=== PATIENT | male | born 1985 | race Caucasian/White ===

== ENCOUNTER 2017-10-26 20:09 | Emergency (ER) | payer MEDICAID ==
[~2017-10-26] VITALS: Ht 177.8 cm; Wt 70.0 kg
[~2017-10-26 20:09] MED LIST: NO HOME MEDS
[2017-10-26] MEDS ORDERED: normal saline 1000ML IV soln IVB ONE (22:45)
[2017-10-26] MEDS ORDERED: CHLO25CA10 PO (23:52)
[2017-10-27 00:42] VITALS: BP 112/78
== END 2017-10-27 00:43 | disposition home or self-care (01) ==
LOC: ER 20:09
DX: F10.239 Alcohol dependence with withdrawal, unspecified (principal); I10 Essential (primary) hypertension; G89.29 Other chronic pain; F17.210 Nicotine dependence, cigarettes, uncomplicated; F12.10 Cannabis abuse, uncomplicated; F14.10 Cocaine abuse, uncomplicated; Z79.899 Other long term (current) drug therapy; Y90.9 Presence of alcohol in blood, level not specified
CPT/HCPCS: 93005; 99283; J7030

== ENCOUNTER 2017-11-08 12:52 | Emergency (ER) | payer MEDICAID ==
[~2017-11-08 12:52] MED LIST changes: +CHLO25CA10 PO
[2017-11-08 13:41] VITALS: BP 118/89
== END 2017-11-08 14:01 ==
LOC: ER 12:53
DX: F10.129 Alcohol abuse with intoxication, unspecified (principal); G40.909 Epilepsy, unspecified, not intractable, without status epilepticus; I10 Essential (primary) hypertension; G89.29 Other chronic pain; F12.10 Cannabis abuse, uncomplicated; F14.10 Cocaine abuse, uncomplicated; Z79.899 Other long term (current) drug therapy; Y90.9 Presence of alcohol in blood, level not specified
CPT/HCPCS: 70450; 99284

== ENCOUNTER 2017-12-03 14:13 | Emergency (ER) | payer MEDICAID ==
[~2017-12-03] VITALS: Ht 152.4 cm; Wt 70.5 kg
[2017-12-03 14:22] VITALS: BP 119/80
[2017-12-03] MEDS ORDERED: TETanus/Pertussis (Acell)/Diphther VAC/PF (Tdap-Adult) 0.5ml syringe IM ONE (15:15)
[2017-12-03] MEDS ORDERED: LIDOcaine 1.5% w/epinephrine 1:200,000 5ml ampul IJ ONE (15:15)
[2017-12-03] MEDS ORDERED: HYDROcodone/acetaminophen 5mg/325mg tablet PO ONE (15:40)
[2017-12-03] MEDS ORDERED: SULF1TAB49 PO (15:41)
== END 2017-12-03 15:58 | disposition home or self-care (01) ==
LOC: ER 14:14
DX: L02.11 Cutaneous abscess of neck (principal); F12.90 Cannabis use, unspecified, uncomplicated; F14.90 Cocaine use, unspecified, uncomplicated; G89.29 Other chronic pain; I10 Essential (primary) hypertension; Z79.899 Other long term (current) drug therapy
CPT/HCPCS: 10060; 90471; 90715; 99283; A6449; J3490

== ENCOUNTER 2018-01-05 16:14 | Inpatient (IN) | payer MEDICAID ==
[~2018-01-05] VITALS: Ht 175.3 cm; Wt 70.5 kg
[2018-01-05] MEDS ORDERED: thiamine 100mg/ml 2ml inj. IV ONE ×2 (16:25→21:15)
[2018-01-05] MEDS ORDERED: normal saline 1000ML IV soln IVB ONE (16:25)
[2018-01-05] MEDS ORDERED: ondansetron/PF 4mg/2ml inj IV ONE (16:55)
[2018-01-05 16:57] LABS: BASOPHILS # (AUTO) 0.1 X10'3 (0-0.2); EOSINOPHILS % (AUTO) 0 % (0-6); HEMATOCRIT 44.2 % (42.0-52.0); HEMOGLOBIN 15.3 g/dl (14.0-17.9); LYMPHOCYTES # (AUTO) 1.4 X10'3 (1.1-4.8); LYMPHOCYTES % (AUTO) 12.8 % (21-51); MEAN CORPUSCULAR HGB CONC 34.6 % (33.0-36.5); MEAN PLATELET VOLUME 8.2 FL (7.4-10.4); MONOCYTES # (AUTO) 0.4 X10'3 (0-0.9); MONOCYTES % (AUTO) 3.5 % (2-12); NEUTROPHILS # (AUTO) 9.1 X10'3 (1.8-7.7); NEUTROPHILS % (AUTO) 82.7 % (42-75); PLATELET COUNT 229 X10'3 (140-440); RED CELL DISTRIBUTION WIDTH 14.6 % (11.5-14.5)
[2018-01-05 17:06] LABS: INR 1.1 INR; PARTIAL THROMBOPLASTIN TIME 23 SECONDS (22-32); PROTHROMBIN TIME 11.3 SECONDS (9.0-12.0)
[2018-01-05 17:24] LABS: ALANINE AMINOTRANSFERASE 28 U/L (12-78); ALBUMIN 3.5 G/DL (3.4-5.0); ALKALINE PHOSPHATASE 106 IU/L (46-116); ANION GAP 30 (8-16); ASPARTATE AMINO TRANSFERASE 43 U/L (10-37); BILIRUBIN,TOTAL 0.8 MG/DL (0.1-1.0); BLOOD UREA NITROGEN 16 MG/DL (7-18); BUN/CREATININE RATIO 13.9 (5.4-32.0); CALCIUM 8.4 MG/DL (8.5-10.1); CHLORIDE 96 MMOL/L (99-107); CREATININE 1.15 MG/DL (0.60-1.10); ETHANOL 0.298 GM/DL (0.0-0.010); GLUCOSE 75 MG/DL (70-104); MAGNESIUM 1.4 MG/DL (1.5-2.4); SODIUM 139 MMOL/L (135-145); TOTAL PROTEIN 7.1 G/DL (6.4-8.2); eGFR 74 ML/MIN
[2018-01-05 17:26] LABS: POTASSIUM 3.5 MMOL/L (3.5-5.1)
[2018-01-05 17:29] LABS: TOTAL CARBON DIOXIDE 13.5 MMOL/L (24-32)
[2018-01-05] MEDS ORDERED: iohexol 300mg/ml 100ml inj. ONE (18:03)
[2018-01-05] MEDS: normal saline 1000ML IV soln IVB ONE ×2 (18:08→18:27)
[2018-01-05 18:21] LABS: ABG HCO3 12.5 mmol/L (22.0-26.0); ABG OXYGEN SATURATION 97.4 % (95-98); ABG PCO2 (T) 20.9 mmHg (35.0-48.0); ABG PH (T) 7.394 (7.350-7.450); ABG PO2 (T) 110.9 mmHg (83-108); ALLEN'S TEST Positive; FCOHb 0.3 % (0.5-1.5); FMetHb 0.4 % (0.3-1.12); FO2Hb 96.7 % (94-100); TOTAL HEMOGLOBIN 14.3 G/dl (14.0-18.0)
[2018-01-05] MEDS ORDERED: proCHLORperazine 10 MG/2 ml inj IV ONE (18:35)
[2018-01-05] MEDS ORDERED: famotidine/PF 10 mg/ml inj IV ONE (18:35)
[2018-01-05] MEDS ORDERED: pantoprazole 40 MG vial IV ONE (18:35)
[2018-01-05 20:22] LABS: CLARITY,URINE CLEAR (Clear); COLOR,URINE YELLOW (Yellow); GLUCOSE, URINE NEGATIVE (Neg); KETONES,URINE >=80 mg/dl (Neg); LEUKOCYTE ESTERASE ,URINE NEGATIVE (Neg); NITRITES, URINE NEGATIVE (Neg); OCCULT BLOOD,URINE NEGATIVE (Neg); PROTEIN,URINE TRACE mg/dl (Neg); UROBILINOGEN,URINE 0.2 E.U/dL (0.2-1.0)
[2018-01-05 20:25] LABS: UA COLLECTION TYPE CLN CATCH MIDSTREAM
[2018-01-05 20:30] LABS: BACTERIA,URINE NONE SEEN /HPF (Neg); MUCUS STRANDS FEW /LPF (Neg); RBC,URINE NONE SEEN /HPF (0-2); SQUAMOUS EPITHELIAL CELL,UR FEW /LPF (FEW); WBC,URINE 0-4 /HPF (0-4)
[2018-01-05 20:31] LABS: URINE AMPHETAMINE SCREEN NEGATIVE (Neg); URINE BARBITUATE SCREEN NEGATIVE (Neg); URINE BENZODIAZEPINES SCREEN NEGATIVE (Neg); URINE CANNABINOID SCREEN NEGATIVE (Neg); URINE COCAINE SCREEN NEGATIVE (Neg); URINE METHADONE SCREEN NEGATIVE (Neg); URINE OPIATE SCREEN NEGATIVE (Neg); URINE PHENCYCLIDINE SCREEN NEGATIVE (Neg)
[2018-01-05] MEDS ORDERED: temazepam 15mg capsule PO PRN (21:00)
[2018-01-05] MEDS ORDERED: HYDROcodone/acetaminophen 5mg/325mg tablet PO PRN (21:15)
[2018-01-05] MEDS ORDERED: potassium Cl 20 mEq SR tablet PO PRN ×2 (21:15)
[2018-01-05] MEDS ORDERED: diphenhydrAMINE 25mg capsule PO PRN (21:15)
[2018-01-05] MEDS ORDERED: potassium Cl 40MEQ/NS 500ml 500 ML IV PRN (21:15)
[2018-01-05] MEDS ORDERED: magnesium Cl slow-release 64mg tablet PO PRN (21:15)
[2018-01-05] MEDS ORDERED: LORazepam 2 mg/ml vial IV PRN (21:15)
[2018-01-05] MEDS ORDERED: magnesium 1gm/100ml D5W IVPB 50 ML IV PRN (21:15)
[2018-01-05] MEDS ORDERED: acetaminophen 325mg tablet PO PRN ×2 (21:15)
[2018-01-05] MEDS ORDERED: HYDROmorphone 1 mg/ml syringe IV PRN (21:15)
[2018-01-05] MEDS ORDERED: metoclopramide 5 mg/ml inj IV PRN (21:15)
[2018-01-05] MEDS ORDERED: mag hydrox/Alum hydrox/simeth 30ml oral suspension PO PRN (21:15)
[2018-01-05] MEDS ORDERED: bisacodyl 10mg suppository rectal RC PRN (21:15)
[2018-01-05] MEDS ORDERED: haloperidol lactate 5mg/ml inj IM PRN (21:15)
[2018-01-05] MEDS ORDERED: haloperidol 5mg tablet PO PRN (21:15)
[2018-01-05] MEDS ORDERED: morphine 4 MG/ML inj SYRINge IV PRN ×2 (21:15)
[2018-01-05] MEDS ORDERED: acetaminophen 650mg rectal suppository RC PRN (21:15)
[2018-01-05] MEDS ORDERED: dextrose 50%-water 50ml dispensing syringe IV PRN (21:15)
[2018-01-05] MEDS ORDERED: diphenhydrAMINE 50 mg/ml inj IV PRN (21:15)
[2018-01-05] MEDS ORDERED: LORazepam 2 mg/ml vial IV ONE (21:15)
[2018-01-05] MEDS ORDERED: magnesium hydroxide 30ml (MOM) UD suspension PO PRN (21:15)
[2018-01-05] MEDS ORDERED: HYDROcodone/acetaminophen 10/325mg tab PO PRN (21:15)
[2018-01-05] MEDS ORDERED: sodium phosphate inj. 30 MMOL in dextrose 5%-water 250 ML IV PRN (21:25)
[2018-01-05] MEDS ORDERED: Neutra Phos packet PO PRN (21:25)
[2018-01-05] MEDS ORDERED: sodium phosphate inj. 15 MMOL in dextrose 5%-water 150 ML IV PRN (21:25)
[2018-01-05] MEDS: dextrose 5%-1/2 normal saline 1,000 ML IV SCH (21:31)
[2018-01-05 22:06] LABS: LIPASE 76 U/L (73-393)
[2018-01-05 22:25] VITALS: BP 125/81
[2018-01-06] MEDS ORDERED: potassium Cl 40MEQ/NS 500ml 500 ML IV ONE ×2 (00:30→00:41)
[2018-01-06] MEDS: magnesium 4gm in 100ml NS 100 ML IV PRN (01:00)
[2018-01-06 05:43] LABS: ALANINE AMINOTRANSFERASE 29 U/L (12-78); ALBUMIN 2.9 G/DL (3.4-5.0); ALKALINE PHOSPHATASE 84 IU/L (46-116); ANION GAP 10 (8-16); ASPARTATE AMINO TRANSFERASE 35 U/L (10-37); BILIRUBIN,TOTAL 1.1 MG/DL (0.1-1.0); BLOOD UREA NITROGEN 8 MG/DL (7-18); BUN/CREATININE RATIO 8.6 (5.4-32.0); CALCIUM 7.4 MG/DL (8.5-10.1); CHLORIDE 104 MMOL/L (99-107); CREATININE 0.93 MG/DL (0.60-1.10); GLUCOSE 79 MG/DL (70-104); POTASSIUM 3.4 MMOL/L (3.5-5.1); SODIUM 140 MMOL/L (135-145); TOTAL CARBON DIOXIDE 26.4 MMOL/L (24-32); TOTAL PROTEIN 5.8 G/DL (6.4-8.2); eGFR > 90 ML/MIN
[2018-01-06 05:47] LABS: MAGNESIUM 2.5 MG/DL (1.5-2.4)
[2018-01-06] MEDS ORDERED: dextrose 50%-water 50ml dispensing syringe IV PRN (06:45)
[2018-01-06 06:58] LABS: HEMOGLOBIN 13.3 g/dl (14.0-17.9); RED BLOOD COUNT 3.91 X10'6 (4.70-6.10); WHITE BLOOD COUNT 9.4 X10'3 (4.5-11.0)
[2018-01-06 06:59] LABS: BASOPHILS # (AUTO) 0.1 X10'3 (0-0.2); BASOPHILS % (AUTO) 0.9 % (0-1); EOSINOPHILS % (AUTO) 0.2 % (0-6); HEMATOCRIT 38.9 % (42.0-52.0); LYMPHOCYTES % (AUTO) 10.2 % (21-51); MEAN CORPUSCULAR HEMOGLOBIN 33.9 PG (27.0-31.0); MEAN CORPUSCULAR HGB CONC 34.1 % (33.0-36.5); MEAN CORPUSCULAR VOLUME 99.5 FL (78-98); MEAN PLATELET VOLUME 8.1 FL (7.4-10.4); MONOCYTES # (AUTO) 0.4 X10'3 (0-0.9); MONOCYTES % (AUTO) 4.4 % (2-12); NEUTROPHILS % (AUTO) 84.3 % (42-75); PLATELET COUNT 168 X10'3 (140-440); RED CELL DISTRIBUTION WIDTH 14.5 % (11.5-14.5)
[2018-01-06 07:00] VITALS: BP 133/98
[2018-01-06] MEDS: dextrose 5%-1/2 normal saline 1,000 ML IV SCH ×2 (07:14→15:08)
[2018-01-06] MEDS: pantoprazole 40 MG vial IV SCH ×2 (07:28→19:57)
[2018-01-06] MEDS: docusate sod 100mg capsule PO SCH ×3 (07:28→20:00)
[2018-01-06] MEDS: heparin, porcine 5000 units/ml vial SQ SCH ×2 (07:34→19:57)
[2018-01-06] MEDS: K and/or MAG REPLACEMENT MC SCH (07:42)
[2018-01-06] MEDS: ondansetron/PF 4mg/2ml inj IV PRN ×2 (08:47→20:07)
[2018-01-06] MEDS: HYDROmorphone 1 mg/ml syringe IV PRN ×2 (08:53→15:07)
[2018-01-06 12:05] VITALS: BP 130/93
[2018-01-06] MEDS ORDERED: folic acid inj. 2 MG, thiamine inj. 100 MG, MVI, adult No.4 with vit. K 10 ML in dextro... IV ONE ×4 (12:45)
[2018-01-06] MEDS ORDERED: LORazepam 2 mg/ml vial IV PRN (12:45)
[2018-01-06] MEDS ORDERED: thiamine inj. 100 MG in normal saline 100ml IV soln 100 ML IV ONE (12:45)
[2018-01-06] MEDS: nicotine 21mg patch - 24 hr TD SCH (12:45)
[2018-01-06] MEDS ORDERED: haloperidol lactate 5mg/ml inj IM PRN (12:45)
[2018-01-06 19:00] VITALS: BP 125/80
[2018-01-06] MEDS: LORazepam 2 mg/ml vial IV PRN (23:44)
[2018-01-07] VITALS: BP 141/97
[2018-01-07] MEDS: dextrose 5%-1/2 normal saline 1,000 ML IV SCH ×2 (04:43→15:16)
[2018-01-07 05:17] LABS: BASOPHILS % (AUTO) 0.2 % (0-1); EOSINOPHILS # (AUTO) 0.1 X10'3 (0-0.9); EOSINOPHILS % (AUTO) 1.8 % (0-6); HEMATOCRIT 45.9 % (42.0-52.0); HEMOGLOBIN 15.6 g/dl (14.0-17.9); LYMPHOCYTES # (AUTO) 1.1 X10'3 (1.1-4.8); LYMPHOCYTES % (AUTO) 16.6 % (21-51); MEAN PLATELET VOLUME 9.1 FL (7.4-10.4); MONOCYTES # (AUTO) 0.3 X10'3 (0-0.9); NEUTROPHILS # (AUTO) 4.9 X10'3 (1.8-7.7); NEUTROPHILS % (AUTO) 76.4 % (42-75); PLATELET COUNT 126 X10'3 (140-440); RED BLOOD COUNT 4.59 X10'6 (4.70-6.10); RED CELL DISTRIBUTION WIDTH 14.3 % (11.5-14.5); WHITE BLOOD COUNT 6.4 X10'3 (4.5-11.0)
[2018-01-07 06:36] LABS: INR 1.1 INR; PROTHROMBIN TIME 11.6 SECONDS (9.0-12.0)
[2018-01-07 06:46] LABS: ALANINE AMINOTRANSFERASE 31 U/L (12-78); ALBUMIN 3.2 G/DL (3.4-5.0); ALKALINE PHOSPHATASE 97 IU/L (46-116); AMYLASE 79 U/L (25-115); ANION GAP 10 (8-16); ASPARTATE AMINO TRANSFERASE 30 U/L (10-37); BILIRUBIN,TOTAL 1.6 MG/DL (0.1-1.0); BLOOD UREA NITROGEN 4 MG/DL (7-18); BUN/CREATININE RATIO 5.1 (5.4-32.0); CALCIUM 8.2 MG/DL (8.5-10.1); CHLORIDE 96 MMOL/L (99-107); CREATININE 0.78 MG/DL (0.60-1.10); GLUCOSE 93 MG/DL (70-104); LIPASE 290 U/L (73-393); MAGNESIUM 1.3 MG/DL (1.5-2.4); PHOSPHORUS 2.3 MG/DL (2.3-4.5); SODIUM 134 MMOL/L (135-145); TOTAL CARBON DIOXIDE 27.6 MMOL/L (24-32); TOTAL PROTEIN 6.5 G/DL (6.4-8.2); eGFR > 90 ML/MIN
[2018-01-07 06:51] LABS: POTASSIUM 2.9 MMOL/L (3.5-5.1)
[2018-01-07] MEDS: potassium Cl 40MEQ/NS 500ml 500 ML IV PRN ×2 (07:50→12:16)
[2018-01-07] MEDS: pantoprazole 40 MG vial IV SCH (07:52)
[2018-01-07] MEDS: heparin, porcine 5000 units/ml vial SQ SCH ×2 (07:52→19:48)
[2018-01-07] MEDS: HYDROmorphone 1 mg/ml syringe IV PRN (07:52)
[2018-01-07] MEDS: docusate sod 100mg capsule PO SCH ×3 (07:53→19:53)
[2018-01-07 08:00] VITALS: BP 131/92
[2018-01-07] MEDS ORDERED: thiamine 100mg tablet PO SCH (08:00)
[2018-01-07] MEDS ORDERED: folic acid 1mg tablet PO SCH (08:00)
[2018-01-07] MEDS: nicotine 21mg patch - 24 hr TD SCH (08:00)
[2018-01-07] MEDS ORDERED: multivitamins, therapeutics tablet PO SCH (08:00)
[2018-01-07] MEDS: K and/or MAG REPLACEMENT MC SCH (08:00)
[2018-01-07 11:47] VITALS: BP 103/78
[2018-01-07] MEDS: LORazepam 2 mg/ml vial IV PRN ×4 (15:16→20:09)
[2018-01-07 19:00] VITALS: BP 108/76
[2018-01-07] MEDS ORDERED: pantoprazole 40mg Tablet.DR PO SCH (20:00)
[2018-01-07] MEDS: magnesium 4gm in 100ml NS 100 ML IV PRN (20:08)
[2018-01-07] MEDS ORDERED: LORazepam 2 mg/ml vial IV PRN (21:15)
[2018-01-07] MEDS ORDERED: LORazepam 1 MG tablet PO PRN (21:15)
[2018-01-09] MEDS ORDERED: LORazepam 1 MG tablet PO PRN (21:15)
[2018-01-09] MEDS ORDERED: LORazepam 2 mg/ml vial IV PRN (21:15)
== END 2018-01-07 21:47 | disposition left against medical advice (07) | DRG 249 ==
LOC: ER 16:15 → ED HOLD 21:14 → SUR 3N 22:20
PROVIDERS: ADMIT Family Medicine; ATTEND Internal Medicine
PROC: B32T1ZZ Computerized Tomography (CT Scan) of Left Pulmonary Artery using Low Osmolar Contrast (ICD-10-PCS; principal; 2018-01-05)
PROC: B3201ZZ Computerized Tomography (CT Scan) of Thoracic Aorta using Low Osmolar Contrast (ICD-10-PCS; 2018-01-05)
PROC: B32S1ZZ Computerized Tomography (CT Scan) of Right Pulmonary Artery using Low Osmolar Contrast (ICD-10-PCS; 2018-01-05)
DX: K52.9 Noninfective gastroenteritis and colitis, unspecified (principal); E87.2 Acidosis; K70.10 Alcoholic hepatitis without ascites; E83.39 Other disorders of phosphorus metabolism; E86.0 Dehydration; E83.42 Hypomagnesemia; E86.1 Hypovolemia; F10.229 Alcohol dependence with intoxication, unspecified; F12.90 Cannabis use, unspecified, uncomplicated; F17.210 Nicotine dependence, cigarettes, uncomplicated; G40.909 Epilepsy, unspecified, not intractable, without status epilepticus; I10 Essential (primary) hypertension; Z53.21 Procedure and treatment not carried out due to patient leaving prior to being seen by health care provider; K21.9 Gastro-esophageal reflux disease without esophagitis; K31.9 Disease of stomach and duodenum, unspecified; E87.6 Hypokalemia; G89.29 Other chronic pain; M54.9 Dorsalgia, unspecified; Z79.899 Other long term (current) drug therapy
CPT/HCPCS: 36415; 36600; 71045; 71275; 74176; 80053; 80305; 80320; 81001; 82150; 82803; 82948; 83605; 83690; 83735; 83880; 84100; 84132; 84145; 84484; 85018; 85025; 85610; 85730; 87040; 87070; 96361; 96374; 96375; 99285; C9113; J0780; J1170; J1644; J2060; J2405; J3411; J3475; J3480; J3490; J7030; J7042; J7060; Q9967

== ENCOUNTER 2018-01-30 08:59 | Emergency (ER) | payer MEDICAID ==
[~2018-01-30] VITALS: Ht 419.4 cm; Wt 63.0 kg
[~2018-01-30 08:59] MED LIST changes: -CHLO25CA10 PO
[2018-01-30] MEDS ORDERED: LIDOcaine 1.5% w/epinephrine 1:200,000 5ml ampul IJ ONE (09:30)
[2018-01-30] MEDS ORDERED: SULF1TAB49 PO (11:15)
[2018-01-30 11:32] VITALS: BP 114/76
== END 2018-01-30 11:36 | disposition home or self-care (01) ==
LOC: ER 08:59
DX: N49.2 Inflammatory disorders of scrotum (principal); I10 Essential (primary) hypertension; G89.29 Other chronic pain; F12.90 Cannabis use, unspecified, uncomplicated; F14.90 Cocaine use, unspecified, uncomplicated; Z79.2 Long term (current) use of antibiotics
CPT/HCPCS: 54700; 99283; A6449; J3490

== ENCOUNTER → 2018-04-21 | Emergency (ER) | payer MEDICAID ==
[~2018-04-21] VITALS: Ht 175.3 cm; Wt 73.0 kg
[~2018-04-21] MED LIST changes: +KEP500T PO; +LORazepam 2 mg/ml vial IV ONE; +folic acid 1mg/0.2ml inj IV ONE; +levetiracetam inj 1,000 MG in normal saline 100ml IV soln 90 ML IV STA; +magnesium 1gm/100ml D5W IVPB 100 ML IV ONE; +normal saline 1000ML IV soln IV ONE; +ondansetron/PF 4mg/2ml inj IV ONE; +thiamine 100mg/ml 2ml inj. IV ONE
[2018-04-21 09:52] LABS: BASOPHILS % (AUTO) 0.3 % (0-1); EOSINOPHILS % (AUTO) 0 % (0-6); HEMATOCRIT 48.9 % (42.0-52.0); HEMOGLOBIN 16.5 g/dl (14.0-17.9); LYMPHOCYTES # (AUTO) 0.6 X10'3 (1.1-4.8); LYMPHOCYTES % (AUTO) 4.9 % (21-51); MEAN CORPUSCULAR HEMOGLOBIN 33.4 PG (27.0-31.0); MEAN CORPUSCULAR HGB CONC 33.7 % (33.0-36.5); MEAN PLATELET VOLUME 8.4 FL (7.4-10.4); MONOCYTES # (AUTO) 0.5 X10'3 (0-0.9); MONOCYTES % (AUTO) 4.2 % (2-12); NEUTROPHILS # (AUTO) 10.7 X10'3 (1.8-7.7); NEUTROPHILS % (AUTO) 90.6 % (42-75); PLATELET COUNT 269 X10'3 (140-440); RED BLOOD COUNT 4.94 X10'6 (4.70-6.10); RED CELL DISTRIBUTION WIDTH 15.1 % (11.5-14.5); WHITE BLOOD COUNT 11.8 X10'3 (4.5-11.0)
[2018-04-21 11:09] LABS: ANION GAP 36 (8-16); CHLORIDE 96 MMOL/L (99-107); POTASSIUM 4.3 MMOL/L (3.5-5.1); SODIUM 142 MMOL/L (135-145)
[2018-04-21 11:24] LABS: ALANINE AMINOTRANSFERASE 29 U/L (12-78); ALBUMIN/GLOBULIN RATIO 1.1 (1.1-1.5); ALKALINE PHOSPHATASE 109 IU/L (46-116); ASPARTATE AMINO TRANSFERASE 35 U/L (10-37); BILIRUBIN,TOTAL 0.4 MG/DL (0.1-1.0); BLOOD UREA NITROGEN 22 MG/DL (7-18); BUN/CREATININE RATIO 16.1 (5.4-32.0); CALCIUM 7.7 MG/DL (8.5-10.1); CREATINE KINASE 118 U/L (39-308); CREATININE 1.37 MG/DL (0.60-1.10); ETHANOL 0.191 GM/DL (0.0-0.010); GLUCOSE 108 MG/DL (70-104); TOTAL PROTEIN 7.7 G/DL (6.4-8.2); eGFR 61 ML/MIN
[2018-04-21 11:28] LABS: TOTAL CARBON DIOXIDE 9.7 MMOL/L (24-32)
[2018-04-21 12:35] VITALS: BP 132/88
== END | disposition home or self-care (01) ==
LOC: ER 09:32
DX: E86.0 Dehydration (principal); F10.129 Alcohol abuse with intoxication, unspecified; R56.9 Unspecified convulsions; F12.90 Cannabis use, unspecified, uncomplicated; I10 Essential (primary) hypertension; G89.29 Other chronic pain; Y90.9 Presence of alcohol in blood, level not specified
CPT/HCPCS: 36415; 80053; 80320; 82550; 82948; 85025; 93005; 96365; 96368; 96375; 99285; J1953; J2060; J2405; J3411; J3490; 96366; J7030

== ENCOUNTER 2018-08-17 08:46 | Emergency (ER) | payer MEDICAID ==
[~2018-08-17] VITALS: Ht 175.3 cm; Wt 64.0 kg
[~2018-08-17 08:46] MED LIST changes: -LORazepam 2 mg/ml vial IV ONE; -folic acid 1mg/0.2ml inj IV ONE; -levetiracetam inj 1,000 MG in normal saline 100ml IV soln 90 ML IV STA; -magnesium 1gm/100ml D5W IVPB 100 ML IV ONE; -normal saline 1000ML IV soln IV ONE; -ondansetron/PF 4mg/2ml inj IV ONE; -thiamine 100mg/ml 2ml inj. IV ONE
[2018-08-17] MEDS ORDERED: normal saline 1000ML IV soln IVB ONE (09:10)
[2018-08-17] MEDS ORDERED: ondansetron/PF 4mg/2ml inj IV ONE (09:55)
[2018-08-17 10:07] LABS: BASOPHILS % (AUTO) 0.3 % (0-1); EOSINOPHILS % (AUTO) 0 % (0-6); HEMATOCRIT 52.2 % (42.0-52.0); HEMOGLOBIN 17.6 g/dl (14.0-17.9); LYMPHOCYTES # (AUTO) 0.6 X10'3 (1.1-4.8); LYMPHOCYTES % (AUTO) 5.8 % (21-51); MEAN CORPUSCULAR HEMOGLOBIN 32.8 PG (27.0-31.0); MEAN CORPUSCULAR HGB CONC 33.7 g/dL (33.0-36.5); MEAN CORPUSCULAR VOLUME 97.3 FL (78-98); MEAN PLATELET VOLUME 8.6 FL (7.4-10.4); MONOCYTES # (AUTO) 0.5 X10'3 (0-0.9); MONOCYTES % (AUTO) 4.3 % (2-12); NEUTROPHILS # (AUTO) 9.4 X10'3 (1.8-7.7); NEUTROPHILS % (AUTO) 89.6 % (42-75); PLATELET COUNT 220 X10'3 (140-440); RED BLOOD COUNT 5.36 X10'6 (4.70-6.10); RED CELL DISTRIBUTION WIDTH 16.3 % (11.5-14.5); WHITE BLOOD COUNT 10.5 X10'3 (4.5-11.0)
[2018-08-17] MEDS ORDERED: proCHLORperazine 10 MG/2 ml inj IV ONE (11:25)
[2018-08-17] MEDS ORDERED: LORazepam 2 mg/ml vial IV ONE (12:00)
--- NOTE | 2018-08-17 12:11 | NUR ---
inti dcd pt, pt states last time this happened he had a sez aprox 2hrs after dc. Dr pineda notified verbal order for Ativan 1.5mg. pt received med and taxi called @ 1203 by Quin[place] to take pt to [address] [place] [address]
[2018-08-17 12:12] LABS: ALANINE AMINOTRANSFERASE 43 U/L (12-78); ALBUMIN 4.1 G/DL (3.4-5.0); ALKALINE PHOSPHATASE 140 IU/L (46-116); ANION GAP 36 (8-16); ASPARTATE AMINO TRANSFERASE 74 U/L (10-37); BILIRUBIN,TOTAL 0.5 MG/DL (0.1-1.0); BLOOD UREA NITROGEN 24 MG/DL (7-18); BUN/CREATININE RATIO 18.9 (5.4-32.0); CALCIUM 9.1 MG/DL (8.5-10.1); CHLORIDE 93 MMOL/L (99-107); CREATININE 1.27 MG/DL (0.60-1.10); ETHANOL 0.316 GM/DL (0.0-0.010); GLUCOSE 93 MG/DL (70-104); POTASSIUM 4.5 MMOL/L (3.5-5.1); SODIUM 141 MMOL/L (135-145); TOTAL PROTEIN 8.4 G/DL (6.4-8.2); eGFR 66 ML/MIN
[2018-08-17 12:13] LABS: TOTAL CARBON DIOXIDE 11.9 MMOL/L (24-32)
--- NOTE | 2018-08-17 12:14 | NUR ---
CALL PLACED TO [facility] FOR PT TO GO TO HOME. CAB WILL BE HERE SHORTLY.
[2018-08-17 12:33] VITALS: BP 129/80
== END 2018-08-17 12:34 | disposition home or self-care (01) ==
LOC: ER 08:46
DX: F10.239 Alcohol dependence with withdrawal, unspecified (principal); F10.229 Alcohol dependence with intoxication, unspecified; I10 Essential (primary) hypertension; G89.29 Other chronic pain; F12.90 Cannabis use, unspecified, uncomplicated; Y90.9 Presence of alcohol in blood, level not specified; Z79.899 Other long term (current) drug therapy
CPT/HCPCS: 36415; 71045; 80053; 80320; 85025; 96374; 96375; 99284; J0780; J2060; J2405; J7030

== ENCOUNTER 2018-10-16 18:04 | Inpatient (IN) | payer MEDICAID | END 2018-10-17 16:00 | disposition home or self-care (01) | LOC: ER 18:04 → ORTHO 4S 10-17 02:05 ==

== ENCOUNTER 2018-11-26 17:51 | Emergency (ER) | payer MEDICAID ==
[~2018-11-26] VITALS: Ht 175.3 cm; Wt 68.2 kg
[~2018-11-26 17:51] MED LIST changes: -NO HOME MEDS
[2018-11-26 17:56] VITALS: BP 142/88
[2018-11-26] MEDS ORDERED: LIDOcaine 1% w/epiNEPHrine 1:200,000 30ml vial IM ONE (18:15)
== END 2018-11-26 19:40 | disposition home or self-care (01) ==
LOC: ER 17:51
DX: S91.312A Laceration without foreign body, left foot, initial encounter (principal); I10 Essential (primary) hypertension; G89.29 Other chronic pain; F12.10 Cannabis abuse, uncomplicated; W22.8XXA Striking against or struck by other objects, initial encounter; Y93.89 Activity, other specified; Y92.89 Other specified places as the place of occurrence of the external cause; Y99.8 Other external cause status
CPT/HCPCS: 12001; 99283; J3490

== ENCOUNTER 2019-01-02 14:21 | Emergency (ER) | payer MEDICAID ==
[~2019-01-02] VITALS: Ht 177.8 cm; Wt 70.0 kg
[2019-01-02] MEDS ORDERED: magnesium 2GM in 50ml NS 50 ML IV ONE (14:45)
[2019-01-02] MEDS ORDERED: levetiracetam inj 1,000 MG in normal saline 100ml IV soln 90 ML IV ONE (14:45)
[2019-01-02] MEDS ORDERED: LORazepam 2 mg/ml vial IV ONE (14:45)
[2019-01-02] MEDS ORDERED: normal saline 1000ML IV soln IVB ONE (14:45)
[2019-01-02] MEDS ORDERED: levetiracetam-NS 1000mg/100ml 100 ML IV ONE (14:55)
[2019-01-02 15:02] LABS: BASOPHILS % (AUTO) 0.7 % (0-1); EOSINOPHILS % (AUTO) 0.2 % (0-6); HEMATOCRIT 48.6 % (42.0-52.0); HEMOGLOBIN 16.5 g/dl (14.0-17.9); LYMPHOCYTES # (AUTO) 1.1 X10'3 (1.1-4.8); LYMPHOCYTES % (AUTO) 14.9 % (21-51); MEAN CORPUSCULAR HEMOGLOBIN 32.7 PG (27.0-31.0); MEAN CORPUSCULAR HGB CONC 33.9 g/dL (33.0-36.5); MEAN CORPUSCULAR VOLUME 96.4 FL (78-98); MEAN PLATELET VOLUME 8.1 FL (7.4-10.4); MONOCYTES # (AUTO) 0.4 X10'3 (0-0.9); MONOCYTES % (AUTO) 5.5 % (2-12); NEUTROPHILS # (AUTO) 5.8 X10'3 (1.8-7.7); NEUTROPHILS % (AUTO) 78.7 % (42-75); PLATELET COUNT 198 X10'3 (140-440); RED BLOOD COUNT 5.04 X10'6 (4.70-6.10); RED CELL DISTRIBUTION WIDTH 16.7 % (11.5-14.5); WHITE BLOOD COUNT 7.3 X10'3 (4.5-11.0)
[2019-01-02 15:17] LABS: ALANINE AMINOTRANSFERASE 33 U/L (12-78); ALBUMIN/GLOBULIN RATIO 1.1 (1.1-1.5); ALKALINE PHOSPHATASE 126 IU/L (46-116); ANION GAP 19 (8-16); ASPARTATE AMINO TRANSFERASE 41 U/L (10-37); BILIRUBIN,TOTAL 0.7 MG/DL (0.1-1.0); BLOOD UREA NITROGEN 22 MG/DL (7-18); CALCIUM 8.6 MG/DL (8.5-10.1); CHLORIDE 99 MMOL/L (99-107); CREATININE 1.05 MG/DL (0.60-1.10); GLUCOSE 80 MG/DL (70-104); POTASSIUM 3.5 MMOL/L (3.5-5.1); SODIUM 141 MMOL/L (135-145); TOTAL CARBON DIOXIDE 23.2 MMOL/L (24-32); TOTAL PROTEIN 7.8 G/DL (6.4-8.2); eGFR 82 ML/MIN
[2019-01-02 15:21] LABS: CREATINE KINASE 173 U/L (39-308); ETHANOL 0.379 GM/DL (0.0-0.010)
[2019-01-02] MEDS ORDERED: KEP500T PO (15:32)
[2019-01-02 18:00] VITALS: BP 117/73
== END 2019-01-02 18:17 | disposition home or self-care (01) ==
LOC: ER 14:21
DX: G40.909 Epilepsy, unspecified, not intractable, without status epilepticus (principal); F10.129 Alcohol abuse with intoxication, unspecified; I10 Essential (primary) hypertension; G89.29 Other chronic pain; F12.90 Cannabis use, unspecified, uncomplicated; Z98.890 Other specified postprocedural states; Z79.899 Other long term (current) drug therapy; Y90.0 Blood alcohol level of less than 20 mg/100 ml
CPT/HCPCS: 36415; 71045; 80053; 80320; 82140; 82550; 82948; 85025; 85610; 93005; 96365; 96366; 96375; 99284; J1953; J2060; J3475; J7030

== ENCOUNTER 2019-01-29 08:53 | Emergency (ER) | payer MEDICAID ==
[~2019-01-29] VITALS: Ht 177.8 cm; Wt 75.0 kg
[2019-01-29 08:56] VITALS: BP 122/82
[2019-01-30] MEDS ORDERED: ONDA4TAB6 PO (20:15)
== END 2019-01-29 09:16 | disposition home or self-care (01) ==
LOC: ER 08:53
DX: M79.672 Pain in left foot (principal); I10 Essential (primary) hypertension; G89.29 Other chronic pain; L90.5 Scar conditions and fibrosis of skin; F12.90 Cannabis use, unspecified, uncomplicated; Z79.899 Other long term (current) drug therapy; Z98.890 Other specified postprocedural states; Z86.69 Personal history of other diseases of the nervous system and sense organs
CPT/HCPCS: 99281

== ENCOUNTER 2019-01-30 16:13 | Emergency (ER) | payer MEDICAID ==
[~2019-01-30] VITALS: Ht 175.3 cm; Wt 70.0 kg
[2019-01-30] MEDS ORDERED: normal saline 1000ML IV soln IV ONE (16:35)
[2019-01-30] MEDS ORDERED: famotidine/PF 10 mg/ml inj IV ONE (16:35)
[2019-01-30] MEDS ORDERED: ondansetron/PF 4mg/2ml inj IV ONE (16:35)
[2019-01-30] MEDS ORDERED: morphine 4 MG/ML inj SYRINge IV ONE ×2 (16:35→18:10)
[2019-01-30] MEDS ORDERED: pantoprazole 40 MG vial IV ONE (16:35)
[2019-01-30] MEDS ORDERED: LORazepam 2 mg/ml vial IV ONE (16:40)
[2019-01-30] MEDS ORDERED: ESOMEPRAZOLE 40 MG VIAL IV ONE (16:45)
[2019-01-30 17:04] LABS: BASOPHILS # (AUTO) 0.1 X10'3 (0-0.2); BASOPHILS % (AUTO) 0.9 % (0-1); EOSINOPHILS % (AUTO) 0.1 % (0-6); HEMATOCRIT 47.7 % (42.0-52.0); HEMOGLOBIN 16.1 g/dl (14.0-17.9); LYMPHOCYTES # (AUTO) 1.9 X10'3 (1.1-4.8); LYMPHOCYTES % (AUTO) 30.1 % (21-51); MEAN CORPUSCULAR HEMOGLOBIN 33.3 PG (27.0-31.0); MEAN CORPUSCULAR HGB CONC 33.8 g/dL (33.0-36.5); MEAN CORPUSCULAR VOLUME 98.5 FL (78-98); MONOCYTES # (AUTO) 0.4 X10'3 (0-0.9); NEUTROPHILS # (AUTO) 3.9 X10'3 (1.8-7.7); NEUTROPHILS % (AUTO) 62.9 % (42-75); PLATELET COUNT 226 X10'3 (140-440); RED BLOOD COUNT 4.85 X10'6 (4.70-6.10); RED CELL DISTRIBUTION WIDTH 18.2 % (11.5-14.5); WHITE BLOOD COUNT 6.2 X10'3 (4.5-11.0)
[2019-01-30 17:20] LABS: ALANINE AMINOTRANSFERASE 47 U/L (12-78); ALBUMIN 3.9 G/DL (3.4-5.0); ALKALINE PHOSPHATASE 160 IU/L (46-116); ANION GAP 30 (8-16); ASPARTATE AMINO TRANSFERASE 83 U/L (10-37); BILIRUBIN,TOTAL 0.6 MG/DL (0.1-1.0); BLOOD UREA NITROGEN 18 MG/DL (7-18); BUN/CREATININE RATIO 15.7 (5.4-32.0); CALCIUM 9.3 MG/DL (8.5-10.1); CHLORIDE 101 MMOL/L (99-107); CREATININE 1.15 MG/DL (0.60-1.10); GLUCOSE 54 MG/DL (70-104); LIPASE 62 U/L (73-393); MAGNESIUM 1.8 MG/DL (1.5-2.4); POTASSIUM 3.4 MMOL/L (3.5-5.1); SODIUM 145 MMOL/L (135-145); TOTAL PROTEIN 7.7 G/DL (6.4-8.2); eGFR 74 ML/MIN
[2019-01-30 17:22] LABS: TOTAL CARBON DIOXIDE 13.6 MMOL/L (24-32)
[2019-01-30 17:23] LABS: ETHANOL 0.402 GM/DL (0.0-0.010)
[2019-01-30] MEDS ORDERED: normal saline 1000ML IV soln IVB ONE (17:45)
--- NOTE | 2019-01-30 18:22 | NUR ---
Patient is alert and oriented x4. He requests orange juice. A small amount is provided to sip on. He complains of pain 7/10 and morphine will be provided. Patient is finishing up the remainder of his fluids that are ordered.
[2019-01-30 18:35] LABS: URINE AMPHETAMINE SCREEN NEGATIVE (Neg); URINE BARBITUATE SCREEN NEGATIVE (Neg); URINE BENZODIAZEPINES SCREEN NEGATIVE (Neg); URINE CANNABINOID SCREEN POSITIVE (Neg); URINE COCAINE SCREEN NEGATIVE (Neg); URINE METHADONE SCREEN NEGATIVE (Neg); URINE OPIATE SCREEN NEGATIVE (Neg); URINE PHENCYCLIDINE SCREEN NEGATIVE (Neg)
[2019-01-30 18:42] LABS: CLARITY,URINE CLEAR (Clear); GLUCOSE, URINE NEGATIVE (Neg); KETONES,URINE 15 mg/dl (Neg); LEUKOCYTE ESTERASE ,URINE NEGATIVE (Neg); NITRITES, URINE NEGATIVE (Neg); OCCULT BLOOD,URINE NEGATIVE (Neg); PH,URINE 5.5 (4.8-8.0); PROTEIN,URINE 30 mg/dl (Neg); UROBILINOGEN,URINE 0.2 E.U/dL (0.2-1.0)
[2019-01-30 18:59] LABS: UA COLLECTION TYPE URINAL
[2019-01-30 19:00] LABS: BACTERIA,URINE NONE SEEN /HPF (Neg); COLOR,URINE DARK YELLOW (Yellow); MUCUS STRANDS MANY /LPF (Neg); RBC,URINE NONE SEEN /HPF (0-2); SQUAMOUS EPITHELIAL CELL,UR FEW /LPF (FEW); WBC,URINE 0-4 /HPF (0-4)
[2019-01-30 19:52] LABS: ANION GAP 23 (8-16); BLOOD UREA NITROGEN 17 MG/DL (7-18); BUN/CREATININE RATIO 17.3 (5.4-32.0); CALCIUM 6.3 MG/DL (8.5-10.1); CHLORIDE 106 MMOL/L (99-107); CREATININE 0.98 MG/DL (0.60-1.10); GLUCOSE 151 MG/DL (70-104); POTASSIUM 3.9 MMOL/L (3.5-5.1); SODIUM 144 MMOL/L (135-145); TOTAL CARBON DIOXIDE 15.3 MMOL/L (24-32); eGFR 89 ML/MIN
[2019-01-30] MEDS ORDERED: ONDA4TAB6 PO (20:15)
--- NOTE | 2019-01-30 20:18 | NUR ---
Dr. Conti notified of lactic acid 5.1 which has improved from the previous draw. He states that the patient is cleared to be discharged home.
[2019-01-30 20:33] VITALS: BP 112/83
== END 2019-01-30 20:35 | disposition home or self-care (01) ==
LOC: ER 16:14
DX: F10.129 Alcohol abuse with intoxication, unspecified (principal); K52.9 Noninfective gastroenteritis and colitis, unspecified; R56.9 Unspecified convulsions; I10 Essential (primary) hypertension; G89.29 Other chronic pain; F12.90 Cannabis use, unspecified, uncomplicated; Z98.890 Other specified postprocedural states; Z88.8 Allergy status to other drugs, medicaments and biological substances; Z79.899 Other long term (current) drug therapy
CPT/HCPCS: 36415; 71045; 74176; 80048; 80053; 80305; 80320; 81001; 83605; 83690; 83735; 84145; 85025; 87040; 93005; 96361; 96374; 96375; 99284; J2060; J2270; J2405; J3490; J7030; J7040

== ENCOUNTER 2019-02-18 13:33 | Emergency (ER) | payer MEDICAID ==
[~2019-02-18] VITALS: Ht 175.3 cm; Wt 68.2 kg
[~2019-02-18 13:33] MED LIST changes: +ONDA4TAB6 PO
[2019-02-18] MEDS ORDERED: ondansetron/PF 4mg/2ml inj IV ONE ×2 (14:55→18:00)
[2019-02-18] MEDS ORDERED: LORazepam 2 mg/ml vial IV ONE (14:55)
[2019-02-18] MEDS ORDERED: levetiracetam inj 1,000 MG in normal saline 100ml IV soln 90 ML IV ONE (14:55)
[2019-02-18] MEDS ORDERED: normal saline 1000ML IV soln IVB ONE ×2 (14:55→16:45)
[2019-02-18] MEDS ORDERED: magnesium 2GM in 50ml NS 50 ML IV ONE (14:55)
[2019-02-18 15:54] LABS: BASOPHILS # (AUTO) 0.1 X10'3 (0-0.2); BASOPHILS % (AUTO) 0.8 % (0-1); EOSINOPHILS % (AUTO) 0 % (0-6); HEMATOCRIT 43.5 % (42.0-52.0); HEMOGLOBIN 14.6 g/dl (14.0-17.9); LYMPHOCYTES # (AUTO) 0.6 X10'3 (1.1-4.8); LYMPHOCYTES % (AUTO) 5.7 % (21-51); MEAN CORPUSCULAR HEMOGLOBIN 34.2 PG (27.0-31.0); MEAN CORPUSCULAR HGB CONC 33.5 g/dL (33.0-36.5); MEAN CORPUSCULAR VOLUME 102.1 FL (78-98); MEAN PLATELET VOLUME 7.4 FL (7.4-10.4); MONOCYTES # (AUTO) 0.4 X10'3 (0-0.9); MONOCYTES % (AUTO) 4.4 % (2-12); NEUTROPHILS # (AUTO) 9.2 X10'3 (1.8-7.7); NEUTROPHILS % (AUTO) 89.1 % (42-75); PLATELET COUNT 184 X10'3 (140-440); RED BLOOD COUNT 4.26 X10'6 (4.70-6.10); RED CELL DISTRIBUTION WIDTH 18.4 % (11.5-14.5); WHITE BLOOD COUNT 10.3 X10'3 (4.5-11.0)
[2019-02-18] MEDS ORDERED: KEP500T PO (15:59)
[2019-02-18 16:07] LABS: ALANINE AMINOTRANSFERASE 77 U/L (12-78); ALBUMIN 3.8 G/DL (3.4-5.0); ALBUMIN/GLOBULIN RATIO 1.1 (1.1-1.5); ALKALINE PHOSPHATASE 156 IU/L (46-116); ANION GAP 27 (8-16); ASPARTATE AMINO TRANSFERASE 283 U/L (10-37); BILIRUBIN,TOTAL 0.8 MG/DL (0.1-1.0); BLOOD UREA NITROGEN 16 MG/DL (7-18); BUN/CREATININE RATIO 11.9 (5.4-32.0); CALCIUM 8.5 MG/DL (8.5-10.1); CHLORIDE 102 MMOL/L (99-107); CREATINE KINASE 165 U/L (39-308); CREATININE 1.34 MG/DL (0.60-1.10); ETHANOL 0.289 GM/DL (0.0-0.010); GLUCOSE 58 MG/DL (70-104); POTASSIUM 4.1 MMOL/L (3.5-5.1); SODIUM 145 MMOL/L (135-145); TOTAL CARBON DIOXIDE 15.6 MMOL/L (24-32); TOTAL PROTEIN 7.4 G/DL (6.4-8.2); eGFR 62 ML/MIN
--- NOTE | 2019-02-18 16:52 | NUR ---
NOTIFY PROVIDER OF HYPOTENSION. ORDERS RECEIVED. ADMIN THIRD LITER NORMAL SALINE.
[2019-02-18 18:22] VITALS: BP 108/65
== END 2019-02-18 18:25 | disposition home or self-care (01) ==
LOC: ER 13:34
DX: G40.909 Epilepsy, unspecified, not intractable, without status epilepticus (principal); F10.129 Alcohol abuse with intoxication, unspecified; I10 Essential (primary) hypertension; G89.29 Other chronic pain; F12.90 Cannabis use, unspecified, uncomplicated; Z91.14 Patient's other noncompliance with medication regimen; Z98.890 Other specified postprocedural states; Z79.899 Other long term (current) drug therapy; Y90.0 Blood alcohol level of less than 20 mg/100 ml
CPT/HCPCS: 36415; 80053; 80320; 82550; 85025; 96365; 96366; 96368; 96375; 96376; 99283; J1953; J2060; J2405; J3475; J7030

== ENCOUNTER 2019-03-28 03:20 | Inpatient (IN) | payer MEDICAID ==
[~2019-03-28] VITALS: Ht 175.3 cm; Wt 74.5 kg
[2019-03-28] MEDS ORDERED: ondansetron/PF 4mg/2ml inj IV ONE (03:50)
[2019-03-28] MEDS ORDERED: LORazepam 2 mg/ml vial IV ONE (03:50)
[2019-03-28] MEDS ORDERED: levetiracetam inj 500 MG in normal saline 1000ml 100 ML IV ONE (03:50)
[2019-03-28] MEDS ORDERED: pantoprazole 40 MG vial IV ONE (03:50)
[2019-03-28] MEDS ORDERED: normal saline 1000ML IV soln IVB ONE ×4 (03:50→08:05)
[2019-03-28] MEDS ORDERED: Levetiracetam-NS 500mg/100ml 100 ML IV ONE (03:55)
[2019-03-28 04:19] LABS: ALANINE AMINOTRANSFERASE 36 U/L (12-78); ALBUMIN 4.3 G/DL (3.4-5.0); ALBUMIN/GLOBULIN RATIO 1.1 (1.1-1.5); ALKALINE PHOSPHATASE 130 IU/L (46-116); ANION GAP 34 (8-16); ASPARTATE AMINO TRANSFERASE 61 U/L (10-37); BILIRUBIN,TOTAL 0.7 MG/DL (0.1-1.0); BLOOD UREA NITROGEN 19 MG/DL (7-18); BUN/CREATININE RATIO 12.9 (5.4-32.0); CALCIUM 8.9 MG/DL (8.5-10.1); CHLORIDE 96 MMOL/L (99-107); CREATININE 1.47 MG/DL (0.60-1.10); GLUCOSE 91 MG/DL (70-104); LIPASE 68 U/L (73-393); POTASSIUM 4.4 MMOL/L (3.5-5.1); SODIUM 141 MMOL/L (135-145); TOTAL PROTEIN 8.3 G/DL (6.4-8.2); eGFR 56 ML/MIN
[2019-03-28 04:26] LABS: TOTAL CARBON DIOXIDE 11.2 MMOL/L (24-32)
[2019-03-28] MEDS ORDERED: thiamine 100mg/ml 2ml inj. IV ONE (05:00)
[2019-03-28 05:03] LABS: BASOPHILS % (AUTO) 0.2 % (0-1); EOSINOPHILS % (AUTO) 0 % (0-6); HEMATOCRIT 48.5 % (42.0-52.0); HEMOGLOBIN 16.5 g/dl (14.0-17.9); LYMPHOCYTES # (AUTO) 0.6 X10'3 (1.1-4.8); LYMPHOCYTES % (AUTO) 5.9 % (21-51); MEAN CORPUSCULAR HEMOGLOBIN 35.9 PG (27.0-31.0); MEAN CORPUSCULAR HGB CONC 33.9 g/dL (33.0-36.5); MEAN CORPUSCULAR VOLUME 105.8 FL (78-98); MEAN PLATELET VOLUME 8.5 FL (7.4-10.4); MONOCYTES # (AUTO) 0.6 X10'3 (0-0.9); MONOCYTES % (AUTO) 6.9 % (2-12); NEUTROPHILS # (AUTO) 8.2 X10'3 (1.8-7.7); PLATELET COUNT 278 X10'3 (140-440); RED BLOOD COUNT 4.59 X10'6 (4.70-6.10); RED CELL DISTRIBUTION WIDTH 15.8 % (11.5-14.5); WHITE BLOOD COUNT 9.5 X10'3 (4.5-11.0)
[2019-03-28] MEDS ORDERED: magnesium oxide 400mg tablet PO ONE (06:00)
[2019-03-28] MEDS ORDERED: phenobarbital inj 260 MG in normal saline 100ml IV soln 99 ML IV STA (06:00)
[2019-03-28] MEDS ORDERED: acetaminophen 325mg tablet PO ONE (07:15)
[2019-03-28] MEDS ORDERED: phenobarbital inj 130 MG in normal saline 100ml IV soln 99 ML IV PRN ×2 (08:05→09:30)
[2019-03-28 10:23] LABS: ANION GAP 21 (8-16); BLOOD UREA NITROGEN 14 MG/DL (7-18); BUN/CREATININE RATIO 12.6 (5.4-32.0); CALCIUM 6.2 MG/DL (8.5-10.1); CHLORIDE 102 MMOL/L (99-107); CREATININE 1.11 MG/DL (0.60-1.10); GLUCOSE 62 MG/DL (70-104); POTASSIUM 4.4 MMOL/L (3.5-5.1); SODIUM 137 MMOL/L (135-145); eGFR 77 ML/MIN
[2019-03-28 10:37] LABS: TOTAL CARBON DIOXIDE 14.2 MMOL/L (24-32)
[2019-03-28] MEDS ORDERED: HYDROcodone/acetaminophen 10/325mg tab PO PRN (11:05)
[2019-03-28] MEDS ORDERED: diphenhydrAMINE 25mg capsule PO PRN (11:05)
[2019-03-28] MEDS ORDERED: diphenhydrAMINE 50 mg/ml inj IV PRN (11:05)
[2019-03-28] MEDS ORDERED: cloNIDine 0.1 mg tablet PO PRN (11:05)
[2019-03-28] MEDS ORDERED: dextrose 50%-water 50ml dispensing syringe IV PRN (11:05)
[2019-03-28] MEDS ORDERED: loperamide 2mg capsule PO PRN (11:05)
[2019-03-28] MEDS ORDERED: potassium CL 10mEq/100ml bag 100 ML IV PRN ×2 (11:05)
[2019-03-28] MEDS ORDERED: magnesium 4gm in 100ml NS 100 ML IV PRN (11:05)
[2019-03-28] MEDS ORDERED: dicyclomine 10 MG capsule PO PRN (11:05)
[2019-03-28] MEDS ORDERED: mag hydrox/Alum hydrox/simeth 30ml oral suspension PO PRN ×2 (11:05)
[2019-03-28] MEDS ORDERED: magnesium hydroxide 30ml (MOM) UD suspension PO PRN (11:05)
[2019-03-28] MEDS ORDERED: morphine 2 MG/ML inj. syringe IV PRN (11:05)
[2019-03-28] MEDS ORDERED: ondansetron/PF 4mg/2ml inj IV PRN (11:05)
[2019-03-28] MEDS ORDERED: potassium Cl 20 mEq SR tablet PO PRN (11:05)
[2019-03-28] MEDS ORDERED: metoclopramide 5 mg/ml inj IV PRN (11:05)
[2019-03-28] MEDS ORDERED: magnesium 2GM in 50ml NS 50 ML IV PRN (11:05)
[2019-03-28] MEDS ORDERED: HYDROcodone/acetaminophen 5mg/325mg tablet PO PRN (11:05)
[2019-03-28] MEDS: K and/or MAG REPLACEMENT MC SCH (11:05)
[2019-03-28] MEDS ORDERED: acetaminophen 325mg tablet PO PRN ×2 (11:05)
[2019-03-28] MEDS ORDERED: bisacodyl 10mg suppository rectal RC PRN (11:05)
[2019-03-28] MEDS ORDERED: acetaminophen 650mg rectal suppository RC PRN (11:05)
[2019-03-28 11:35] LABS: HEMOGLOBIN A1C 4.9 % (4.5-6.2)
[2019-03-28] MEDS: sodium bicarbonate (8.4%) inj. 100 MEQ in dextrose 5%-water 1,000 ML IV SCH ×2 (12:15→23:34)
[2019-03-28 15:30] VITALS: BP 142/94
--- NOTE | 2019-03-28 15:30 | NUR ---
Patient arrived to floor. VSS.
[2019-03-28] MEDS: LORazepam 2 mg/ml vial IV PRN ×2 (15:48→19:28)
--- NOTE | 2019-03-28 17:25 | NUR ---
Patient has tabs alarm on.
[2019-03-28 18:00] VITALS: BP 128/90
--- NOTE | 2019-03-28 18:17 | NUR ---
Problems reprioritized. Patient report given, questions answered & plan of care reviewed with THEE Minaya.
[2019-03-28] MEDS: heparin, porcine 5000 units/ml vial SQ SCH (19:28)
[2019-03-28] MEDS: levetiracetam 250mg tablet PO SCH (19:28)
[2019-03-28] MEDS ORDERED: KEP500T PO (21:19)
[2019-03-29] VITALS: BP 133/91
[2019-03-29] MEDS: LORazepam 2 mg/ml vial IV PRN ×10 (00:12→23:49)
--- NOTE | 2019-03-29 02:00 | NUR ---
CONDOM CATH APPLIED TO PATIENT. PATIENT HAS HAD 3 EPISODE OF INCONT.
--- NOTE | 2019-03-29 03:00 | NUR ---
Patient agitated and confused ETOH withdrawling. Patient has tried to get out of bed numerous amount of time. Tab on.
--- NOTE | 2019-03-29 04:00 | NUR ---
Patient left foot IV went bad. Patient had tried getting out of bed. New IV started on right hand with bicarb running at 100ml/hr.
[2019-03-29 04:56] LABS: BASOPHILS % (AUTO) 0.2 % (0-1); EOSINOPHILS % (AUTO) 0.1 % (0-6); HEMATOCRIT 40.5 % (42.0-52.0); HEMOGLOBIN 14.1 g/dl (14.0-17.9); LYMPHOCYTES # (AUTO) 1.3 X10'3 (1.1-4.8); LYMPHOCYTES % (AUTO) 15.3 % (21-51); MEAN CORPUSCULAR HEMOGLOBIN 36.2 PG (27.0-31.0); MEAN CORPUSCULAR HGB CONC 34.7 g/dL (33.0-36.5); MEAN CORPUSCULAR VOLUME 104.2 FL (78-98); MEAN PLATELET VOLUME 8.6 FL (7.4-10.4); MONOCYTES # (AUTO) 0.6 X10'3 (0-0.9); MONOCYTES % (AUTO) 7.5 % (2-12); NEUTROPHILS # (AUTO) 6.5 X10'3 (1.8-7.7); NEUTROPHILS % (AUTO) 76.9 % (42-75); PLATELET COUNT 174 X10'3 (140-440); RED BLOOD COUNT 3.89 X10'6 (4.70-6.10); WHITE BLOOD COUNT 8.5 X10'3 (4.5-11.0)
--- NOTE | 2019-03-29 05:55 | NUR ---
PATIENT MOVED TO RM 346A FROM 345A. TELE CHAMBER CALLED AND NOTIFIED OF THE ROOM CHANGE.
[2019-03-29 07:08] LABS: ALANINE AMINOTRANSFERASE 28 U/L (12-78); ALBUMIN 3.2 G/DL (3.4-5.0); ALKALINE PHOSPHATASE 87 IU/L (46-116); AMYLASE 74 U/L (25-115); ANION GAP 8 (8-16); ASPARTATE AMINO TRANSFERASE 36 U/L (10-37); BILIRUBIN,TOTAL 1.3 MG/DL (0.1-1.0); BLOOD UREA NITROGEN 6 MG/DL (7-18); BUN/CREATININE RATIO 6.8 (5.4-32.0); CALCIUM 8.4 MG/DL (8.5-10.1); CHLORIDE 97 MMOL/L (99-107); CHOL/HDL RATIO 2.2 (0.00-4.99); CHOLESTEROL 172 MG/DL (0-200); CREATININE 0.88 MG/DL (0.60-1.10); GLUCOSE 96 MG/DL (70-104); HDL CHOLESTEROL 77 MG/DL (35-60); LDL CHOLESTEROL 73 MG/DL (50-100); MAGNESIUM 1.8 MG/DL (1.5-2.4); POTASSIUM 3.3 MMOL/L (3.5-5.1); SODIUM 137 MMOL/L (135-145); TOTAL CARBON DIOXIDE 32.1 MMOL/L (24-32); TOTAL PROTEIN 6.4 G/DL (6.4-8.2); TRIGLYCERIDES 147 MG/DL (20-135); eGFR > 90 ML/MIN
[2019-03-29 07:17] VITALS: BP 145/103
[2019-03-29 07:35] LABS: PHOSPHORUS 0.8 MG/DL (2.3-4.5)
[2019-03-29] MEDS: MVI, adult No.4 with vit. K 10 ML in dextrose 5% water 500ml 500 ML IV SCH ×4 (08:00→08:32)
[2019-03-29] MEDS ORDERED: thiamine inj. 100 MG, folic acid inj. 2 MG in normal saline 100ml IV soln 100 ML IV SCH (08:00)
--- NOTE | 2019-03-29 08:26 | NUR ---
PAGER ID: [phone] MESSAGE: Ray Wise [id number] Pt. has critical phos 0.8. No phos replacement ordered. Calli [phone]
[2019-03-29] MEDS: levetiracetam 250mg tablet PO SCH ×2 (08:35→20:25)
[2019-03-29] MEDS: K and/or MAG REPLACEMENT MC SCH (08:36)
[2019-03-29] MEDS: potassium Cl 20 mEq SR tablet PO PRN ×2 (08:36→18:09)
[2019-03-29] MEDS: heparin, porcine 5000 units/ml vial SQ SCH ×3 (08:37→20:25)
--- NOTE | 2019-03-29 09:03 | NUR ---
PAGER ID: [phone] MESSAGE: Ray hobbs [phone] This pt. has FOUR incompatible IV medications due. Will need to change phos. to PO order. Calli [phone]
[2019-03-29] MEDS: sodium bicarbonate (8.4%) inj. 100 MEQ in dextrose 5%-water 1,000 ML IV SCH ×2 (09:05→20:05)
[2019-03-29] MEDS ORDERED: sodium phosphate inj. 30 MMOL in dextrose 5%-water 250 ML IV ONE (09:30)
[2019-03-29] MEDS: thiamine 100mg tablet PO SCH (11:57)
[2019-03-29] MEDS: multivitamins, therapeutics tablet PO SCH (12:10)
[2019-03-29 12:22] VITALS: BP 152/110
--- NOTE | 2019-03-29 12:35 | NUR ---
Pt. tried to get up and walk stating"I want to get out of this place" Unable to lift himself up out of bed but trying to scoot out of bed and fall. Pulled R hand IV out. Assisted pt. back into correct position in bed. Risks of leaving AMA and pt. rights discussed with pt. and charge made aware. Ativan given per order. Pt. keeps drifting off.
[2019-03-29] MEDS: haloperidol lactate 5mg/ml inj IM PRN ×2 (17:35→21:13)
[2019-03-29 18:00] VITALS: BP 153/115
--- NOTE | 2019-03-29 18:56 | NUR ---
Gave report to Ifrah Butler RN
--- NOTE | 2019-03-29 19:00 | NUR ---
Patient kicking and hitting,pulling at IV lines, unable to follow commands. Code cherrie called. Restraint order obtained.
--- NOTE | 2019-03-29 21:15 | NUR ---
Patient continues banging head against bed, continues to strike out toward nursing staff. Queenie grier calledMD in to see pt.
[2019-03-30] VITALS: BP 138/91
[2019-03-30] MEDS: potassium Cl 20 mEq SR tablet PO PRN
[2019-03-30] MEDS: LORazepam 2 mg/ml vial IV PRN ×19 (00:39→23:07)
[2019-03-30] MEDS: haloperidol lactate 5mg/ml inj IM PRN ×2 (03:07→07:11)
[2019-03-30] MEDS: sodium bicarbonate (8.4%) inj. 100 MEQ in dextrose 5%-water 1,000 ML IV SCH ×2 (03:45→15:34)
--- NOTE | 2019-03-30 03:46 | NUR ---
Walked into room with small puddle of blood under patient bed. IV tubing had been yanked and broke in half. Removed exteded IV from left upper arm. New IV placed.
--- NOTE | 2019-03-30 05:57 | NUR ---
Unable to keep color television console monitor on patient. Pt continues to pull. MD notified. No new orders.
[2019-03-30 06:06] LABS: BASOPHILS % (AUTO) 0.3 % (0-1); EOSINOPHILS % (AUTO) 0.2 % (0-6); HEMATOCRIT 41.3 % (42.0-52.0); HEMOGLOBIN 14.4 g/dl (14.0-17.9); LYMPHOCYTES # (AUTO) 1.1 X10'3 (1.1-4.8); LYMPHOCYTES % (AUTO) 14.9 % (21-51); MEAN CORPUSCULAR HEMOGLOBIN 36.3 PG (27.0-31.0); MEAN CORPUSCULAR HGB CONC 34.9 g/dL (33.0-36.5); MEAN CORPUSCULAR VOLUME 104.2 FL (78-98); MEAN PLATELET VOLUME 8.8 FL (7.4-10.4); MONOCYTES # (AUTO) 0.7 X10'3 (0-0.9); MONOCYTES % (AUTO) 9.6 % (2-12); NEUTROPHILS # (AUTO) 5.8 X10'3 (1.8-7.7); PLATELET COUNT 141 X10'3 (140-440); RED BLOOD COUNT 3.96 X10'6 (4.70-6.10); RED CELL DISTRIBUTION WIDTH 14.6 % (11.5-14.5); WHITE BLOOD COUNT 7.7 X10'3 (4.5-11.0)
[2019-03-30 06:35] LABS: ALANINE AMINOTRANSFERASE 27 U/L (12-78); ALBUMIN 3.9 G/DL (3.4-5.0); ALBUMIN/GLOBULIN RATIO 1.1 (1.1-1.5); ALKALINE PHOSPHATASE 103 IU/L (46-116); AMYLASE 73 U/L (25-115); ANION GAP 12 (8-16); ASPARTATE AMINO TRANSFERASE 41 U/L (10-37); BILIRUBIN,TOTAL 1.5 MG/DL (0.1-1.0); BLOOD UREA NITROGEN 4 MG/DL (7-18); BUN/CREATININE RATIO 4.8 (5.4-32.0); CALCIUM 8.8 MG/DL (8.5-10.1); CHLORIDE 97 MMOL/L (99-107); CREATININE 0.84 MG/DL (0.60-1.10); GLUCOSE 114 MG/DL (70-104); MAGNESIUM 1.3 MG/DL (1.5-2.4); POTASSIUM 3.5 MMOL/L (3.5-5.1); SODIUM 136 MMOL/L (135-145); TOTAL CARBON DIOXIDE 26.7 MMOL/L (24-32); TOTAL PROTEIN 7.3 G/DL (6.4-8.2); eGFR > 90 ML/MIN
--- NOTE | 2019-03-30 06:50 | NUR ---
Problems reprioritized. Patient report given, questions answered & plan of care reviewed with THEE Yi.
[2019-03-30 06:55] LABS: PHOSPHORUS 1.1 MG/DL (2.3-4.5)
[2019-03-30 07:00] VITALS: BP 145/106
--- NOTE | 2019-03-30 07:05 | NUR ---
Patient in room MELODIE 359. I have received report from THEE Rg and had the opportunity to ask questions and assume patient care.
[2019-03-30] MEDS: levetiracetam 250mg tablet PO SCH ×2 (07:58→19:12)
[2019-03-30] MEDS: heparin, porcine 5000 units/ml vial SQ SCH ×2 (07:58→19:06)
[2019-03-30] MEDS: multivitamins, therapeutics tablet PO SCH (07:58)
[2019-03-30] MEDS: thiamine 100mg tablet PO SCH (07:58)
[2019-03-30] MEDS: K and/or MAG REPLACEMENT MC SCH (08:00)
[2019-03-30 11:00] VITALS: BP 122/68
[2019-03-30] MEDS ORDERED: magnesium 4gm in 100ml NS 100 ML IV PRN (12:15)
[2019-03-30] MEDS ORDERED: magnesium Cl slow-release 64mg tablet PO PRN (12:15)
[2019-03-30] MEDS ORDERED: sodium phosphate inj. 30 MMOL in dextrose 5%-water 250 ML IV ONE (12:20)
[2019-03-30] MEDS: magnesium Cl slow-release 64mg tablet PO PRN ×2 (13:57→19:12)
--- NOTE | 2019-03-30 17:25 | NUR ---
Student documentation: I have reviewed and agree with all interventions, assessments performed and documented by SN SHANNAN. Student Medication Administration: For this medication-pass time frame, all medication were reviewed, dispensed, administered and documented per hospital policy by SN SHANNAN.
[2019-03-30 18:00] VITALS: BP 153/109
--- NOTE | 2019-03-30 18:55 | NUR ---
Problems reprioritized. Patient report given, questions answered & plan of care reviewed with THEE Duncan.
--- NOTE | 2019-03-30 18:56 | NUR ---
Patient in room MELODIE 359. I have received report from THEE Yi and had the opportunity to ask questions and assume patient care.
[2019-03-30] MEDS ORDERED: sodium phosphate inj. 30 MMOL in dextrose 5%-water 250 ML IV SCH (20:00)
[2019-03-31] VITALS: BP 140/116
[2019-03-31] MEDS: LORazepam 2 mg/ml vial IV PRN ×7 (00:58→17:10)
[2019-03-31] MEDS: sodium bicarbonate (8.4%) inj. 100 MEQ in dextrose 5%-water 1,000 ML IV SCH (01:50)
[2019-03-31 06:21] LABS: EOSINOPHILS # (AUTO) 0.1 X10'3 (0-0.9); HEMOGLOBIN 15.4 g/dl (14.0-17.9); MEAN CORPUSCULAR HEMOGLOBIN 36.5 PG (27.0-31.0); MEAN PLATELET VOLUME 9.8 FL (7.4-10.4); MONOCYTES # (AUTO) 0.7 X10'3 (0-0.9); PLATELET COUNT 135 X10'3 (140-440); RED BLOOD COUNT 4.21 X10'6 (4.70-6.10); RED CELL DISTRIBUTION WIDTH 14.6 % (11.5-14.5)
[2019-03-31 06:23] LABS: BASOPHILS # (AUTO) 0.1 X10'3 (0-0.2); BASOPHILS % (AUTO) 1.2 % (0-1); EOSINOPHILS % (AUTO) 1.5 % (0-6); HEMATOCRIT 44.3 % (42.0-52.0); LYMPHOCYTES # (AUTO) 1.2 X10'3 (1.1-4.8); LYMPHOCYTES % (AUTO) 20.9 % (21-51); MEAN CORPUSCULAR HGB CONC 34.7 g/dL (33.0-36.5); MEAN CORPUSCULAR VOLUME 105.1 FL (78-98); MONOCYTES % (AUTO) 12.4 % (2-12); NEUTROPHILS # (AUTO) 3.8 X10'3 (1.8-7.7)
--- NOTE | 2019-03-31 06:30 | NUR ---
Patient in room MELODIE 359. I have received report from Dakota KINGSTON and had the opportunity to ask questions and assume patient care.
[2019-03-31 06:42] LABS: ALANINE AMINOTRANSFERASE 34 U/L (12-78); ALBUMIN 3.9 G/DL (3.4-5.0); ALKALINE PHOSPHATASE 107 IU/L (46-116); AMYLASE 64 U/L (25-115); ANION GAP 10 (8-16); ASPARTATE AMINO TRANSFERASE 61 U/L (10-37); BILIRUBIN,TOTAL 1.4 MG/DL (0.1-1.0); BLOOD UREA NITROGEN 4 MG/DL (7-18); BUN/CREATININE RATIO 5.4 (5.4-32.0); CALCIUM 9.2 MG/DL (8.5-10.1); CHLORIDE 95 MMOL/L (99-107); CREATININE 0.74 MG/DL (0.60-1.10); GLUCOSE 88 MG/DL (70-104); MAGNESIUM 1.5 MG/DL (1.5-2.4); PHOSPHORUS 2.5 MG/DL (2.3-4.5); POTASSIUM 3.1 MMOL/L (3.5-5.1); SODIUM 138 MMOL/L (135-145); TOTAL CARBON DIOXIDE 32.9 MMOL/L (24-32); TOTAL PROTEIN 7.7 G/DL (6.4-8.2); eGFR > 90 ML/MIN
--- NOTE | 2019-03-31 06:43 | NUR ---
Problems reprioritized. Patient report given, questions answered & plan of care reviewed with THEE Bledsoe.
[2019-03-31 07:38] VITALS: BP 144/108
[2019-03-31] MEDS: K and/or MAG REPLACEMENT MC SCH (08:00)
[2019-03-31] MEDS: thiamine 100mg tablet PO SCH (08:58)
[2019-03-31] MEDS: multivitamins, therapeutics tablet PO SCH (08:58)
[2019-03-31] MEDS: levetiracetam 250mg tablet PO SCH ×2 (08:59→19:47)
[2019-03-31] MEDS: potassium Cl 20 mEq SR tablet PO PRN ×3 (09:02→23:55)
[2019-03-31] MEDS: heparin, porcine 5000 units/ml vial SQ SCH ×2 (09:05→19:46)
[2019-03-31 11:00] VITALS: BP 134/97
[2019-03-31] MEDS: dextrose 5%-1/2 normal saline 1,000 ML IV SCH (15:01)
--- NOTE | 2019-03-31 18:30 | NUR ---
Problems reprioritized. Patient report given, questions answered & plan of care reviewed with Dakota KINGSTON.
[2019-03-31] MEDS ORDERED: magnesium 4gm in 100ml NS 100 ML IV PRN (19:00)
[2019-03-31] MEDS ORDERED: magnesium Cl slow-release 64mg tablet PO PRN (19:00)
[2019-03-31] MEDS ORDERED: potassium CL 10mEq/100ml bag 100 ML IV PRN (19:00)
[2019-03-31] MEDS ORDERED: potassium Cl 20 mEq SR tablet PO PRN (19:00)
--- NOTE | 2019-03-31 19:02 | NUR ---
Patient in room MELODIE 359. I have received report from THEE Bledsoe and had the opportunity to ask questions and assume patient care.
--- NOTE | 2019-03-31 20:25 | NUR ---
Patient refused 1800 vitals.
[2019-04-01] MEDS: LORazepam 2 mg/ml vial IV PRN ×2 (00:08→19:14)
[2019-04-01] MEDS: dextrose 5%-1/2 normal saline 1,000 ML IV SCH ×2 (00:13→11:12)
[2019-04-01 00:39] VITALS: BP 113/82
[2019-04-01 06:10] LABS: BASOPHILS % (AUTO) 0.7 % (0-1); EOSINOPHILS # (AUTO) 0.2 X10'3 (0-0.9); EOSINOPHILS % (AUTO) 4.5 % (0-6); HEMATOCRIT 39.9 % (42.0-52.0); HEMOGLOBIN 13.8 g/dl (14.0-17.9); LYMPHOCYTES # (AUTO) 1.5 X10'3 (1.1-4.8); LYMPHOCYTES % (AUTO) 29.5 % (21-51); MEAN CORPUSCULAR HGB CONC 34.6 g/dL (33.0-36.5); MEAN PLATELET VOLUME 9.6 FL (7.4-10.4); MONOCYTES # (AUTO) 0.8 X10'3 (0-0.9); MONOCYTES % (AUTO) 15.1 % (2-12); NEUTROPHILS # (AUTO) 2.5 X10'3 (1.8-7.7); NEUTROPHILS % (AUTO) 50.2 % (42-75); PLATELET COUNT 154 X10'3 (140-440); RED BLOOD COUNT 3.84 X10'6 (4.70-6.10); RED CELL DISTRIBUTION WIDTH 14.3 % (11.5-14.5)
--- NOTE | 2019-04-01 06:16 | NUR ---
Problems reprioritized. Patient report given, questions answered & plan of care reviewed with THEE Bledsoe.
--- NOTE | 2019-04-01 06:30 | NUR ---
Patient in room MELODIE 359. I have received report from Dakota KINGSTON and had the opportunity to ask questions and assume patient care.
[2019-04-01 06:39] LABS: ALANINE AMINOTRANSFERASE 37 U/L (12-78); ALBUMIN 3.3 G/DL (3.4-5.0); ALBUMIN/GLOBULIN RATIO 0.9 (1.1-1.5); ALKALINE PHOSPHATASE 91 IU/L (46-116); ANION GAP 9 (8-16); ASPARTATE AMINO TRANSFERASE 52 U/L (10-37); BILIRUBIN,TOTAL 0.7 MG/DL (0.1-1.0); BLOOD UREA NITROGEN 6 MG/DL (7-18); CHLORIDE 100 MMOL/L (99-107); CREATININE 0.67 MG/DL (0.60-1.10); GLUCOSE 87 MG/DL (70-104); MAGNESIUM 1.6 MG/DL (1.5-2.4); PHOSPHORUS 4.5 MG/DL (2.3-4.5); POTASSIUM 3.4 MMOL/L (3.5-5.1); SODIUM 138 MMOL/L (135-145); TOTAL CARBON DIOXIDE 28.6 MMOL/L (24-32); TOTAL PROTEIN 6.9 G/DL (6.4-8.2); eGFR > 90 ML/MIN
[2019-04-01 07:00] VITALS: BP 107/76
[2019-04-01] MEDS: K and/or MAG REPLACEMENT MC SCH (08:00)
[2019-04-01] MEDS: levetiracetam 250mg tablet PO SCH ×2 (08:51→19:15)
[2019-04-01] MEDS: potassium Cl 20 mEq SR tablet PO PRN ×3 (08:51→22:00)
[2019-04-01] MEDS: multivitamins, therapeutics tablet PO SCH (08:51)
[2019-04-01] MEDS: thiamine 100mg tablet PO SCH (08:51)
[2019-04-01] MEDS: heparin, porcine 5000 units/ml vial SQ SCH ×2 (08:53→19:15)
[2019-04-01 11:00] VITALS: BP 99/67
[2019-04-01 18:00] VITALS: BP 106/71
--- NOTE | 2019-04-01 18:30 | NUR ---
Problems reprioritized. Patient report given, questions answered & plan of care reviewed with Dakota KINGSTON.
--- NOTE | 2019-04-01 18:30 | NUR ---
Patient in room MELODIE 359. I have received report from THEE Bledsoe and had the opportunity to ask questions and assume patient care.
[2019-04-01] MEDS: morphine 2 MG/ML inj. syringe IV PRN (19:18)
[2019-04-02 00:26] VITALS: BP 104/64
[2019-04-02] MEDS: LORazepam 2 mg/ml vial IV PRN (00:40)
[2019-04-02] MEDS: morphine 2 MG/ML inj. syringe IV PRN ×2 (00:41→09:28)
--- NOTE | 2019-04-02 06:10 | NUR ---
Problems reprioritized. Patient report given, questions answered & plan of care reviewed with THEE Bledsoe.
[2019-04-02 06:25] LABS: BASOPHILS # (AUTO) 0.1 X10'3 (0-0.2); BASOPHILS % (AUTO) 1.3 % (0-1); EOSINOPHILS # (AUTO) 0.2 X10'3 (0-0.9); EOSINOPHILS % (AUTO) 4.4 % (0-6); HEMATOCRIT 37.2 % (42.0-52.0); HEMOGLOBIN 12.9 g/dl (14.0-17.9); LYMPHOCYTES # (AUTO) 1.4 X10'3 (1.1-4.8); LYMPHOCYTES % (AUTO) 26.8 % (21-51); MEAN CORPUSCULAR HEMOGLOBIN 36.6 PG (27.0-31.0); MEAN CORPUSCULAR HGB CONC 34.8 g/dL (33.0-36.5); MEAN CORPUSCULAR VOLUME 105.3 FL (78-98); MEAN PLATELET VOLUME 9.2 FL (7.4-10.4); MONOCYTES # (AUTO) 0.8 X10'3 (0-0.9); MONOCYTES % (AUTO) 14.6 % (2-12); NEUTROPHILS # (AUTO) 2.8 X10'3 (1.8-7.7); NEUTROPHILS % (AUTO) 52.9 % (42-75); PLATELET COUNT 171 X10'3 (140-440); RED BLOOD COUNT 3.54 X10'6 (4.70-6.10); RED CELL DISTRIBUTION WIDTH 14.4 % (11.5-14.5); WHITE BLOOD COUNT 5.2 X10'3 (4.5-11.0)
--- NOTE | 2019-04-02 06:30 | NUR ---
Patient in room MELODIE 359. I have received report from Dakota KINGSTON and had the opportunity to ask questions and assume patient care.
[2019-04-02 06:44] LABS: ALANINE AMINOTRANSFERASE 44 U/L (12-78); ALBUMIN/GLOBULIN RATIO 0.9 (1.1-1.5); ALKALINE PHOSPHATASE 91 IU/L (46-116); ANION GAP 11 (8-16); ASPARTATE AMINO TRANSFERASE 53 U/L (10-37); BILIRUBIN,TOTAL 0.3 MG/DL (0.1-1.0); BLOOD UREA NITROGEN 8 MG/DL (7-18); BUN/CREATININE RATIO 10.4 (5.4-32.0); CHLORIDE 103 MMOL/L (99-107); CREATININE 0.77 MG/DL (0.60-1.10); GLUCOSE 84 MG/DL (70-104); MAGNESIUM 1.6 MG/DL (1.5-2.4); PHOSPHORUS 4.6 MG/DL (2.3-4.5); SODIUM 139 MMOL/L (135-145); TOTAL CARBON DIOXIDE 24.9 MMOL/L (24-32); TOTAL PROTEIN 6.3 G/DL (6.4-8.2); eGFR > 90 ML/MIN
[2019-04-02 08:00] VITALS: BP 102/65
[2019-04-02] MEDS: K and/or MAG REPLACEMENT MC SCH (08:00)
[2019-04-02] MEDS: heparin, porcine 5000 units/ml vial SQ SCH (09:17)
[2019-04-02] MEDS: thiamine 100mg tablet PO SCH (09:17)
[2019-04-02] MEDS: levetiracetam 250mg tablet PO SCH (09:18)
[2019-04-02] MEDS: multivitamins, therapeutics tablet PO SCH (09:18)
[2019-04-02 11:00] VITALS: BP 102/65
--- NOTE | 2019-04-02 12:45 | NUR ---
Initial: Pt admit w/ seizures and etoh intoxication 0.208 on admit; hx homeless. PO 0-25% first 4 days admit r/t AOx1. PO 75-100% dinner last night and breakfast today w/ mentality back to normal now per RN. Receiving thiamin/MVI; RIO d/w RN for folic acid addition per MD approval given pt still having some signs of DT per MD note. Phos WNL up from 0.8 on admit. LBM 04/01. Will continue to monitor for PO hx as mentation improves. Rec: 1. continue regular diet 2. monitor for ONS needs as mentation improves 3. thiamin/folic/MVI for etoh per MD 4. wt per rx Addendum: 04/02/19 at [address] Amended: Links added.
[2019-04-02] MEDS ORDERED: CHLO25CA10 PO (13:09)
[2019-04-02] MEDS ORDERED: MULT-1179 PO (13:09)
[2019-04-02] MEDS ORDERED: thiamine tablet PO (13:09)
[2019-04-02] MEDS ORDERED: PANT40TA4 PO (13:09)
--- NOTE | 2019-04-02 15:30 | NUR ---
Patient discharged at this time. Patient medications sent to pharmacy and one control was handed to patient. Patient showed verbal understanding of medication changes and was educated on ETOH withdrawl and encouraged to abstain from ETOH and attend recovery. Patient IV taken out at time of discharge canula was intact at this time. Patient showed minimal bleeding. Patient was walked out to lobby and left the hospital on foot.
== END 2019-04-02 14:35 | disposition home or self-care (01) | DRG 420 ==
LOC: ER 03:20 → ED HOLD 11:26 → SUR 3N 15:33
PROVIDERS: ADMIT Family Medicine; ATTEND Family Medicine
DX: E11.10 Type 2 diabetes mellitus with ketoacidosis without coma (principal); N17.9 Acute kidney failure, unspecified; F10.229 Alcohol dependence with intoxication, unspecified; F10.239 Alcohol dependence with withdrawal, unspecified; F17.210 Nicotine dependence, cigarettes, uncomplicated; F12.10 Cannabis abuse, uncomplicated; G89.29 Other chronic pain; M54.9 Dorsalgia, unspecified; E87.6 Hypokalemia; G40.909 Epilepsy, unspecified, not intractable, without status epilepticus; I10 Essential (primary) hypertension; Z59.0 Homelessness; Z91.19 Patient's noncompliance with other medical treatment and regimen; Z71.6 Tobacco abuse counseling; Z71.41 Alcohol abuse counseling and surveillance of alcoholic; Z78.1 Physical restraint status
CPT/HCPCS: 36415; 76937; 80048; 80053; 80061; 80177; 80320; 82009; 82150; 82948; 83036; 83605; 83690; 83735; 84100; 85025; 85610; 87040; 87081; 93005; 96365; 96375; 99285; C9113; G0378; J1630; J1644; J1953; J2060; J2270; J2405; J2560; J3411; J3490; J7030; J7060

== ENCOUNTER 2019-04-17 18:58 | Emergency (ER) | payer MEDICAID ==
[~2019-04-17] VITALS: Ht 175.3 cm; Wt 77.3 kg
[~2019-04-17 18:58] MED LIST changes: +CHLO25CA10 PO; +MULT-1179 PO; -ONDA4TAB6 PO; +PANT40TA4 PO; +thiamine tablet PO
[2019-04-17] MEDS ORDERED: LORazepam 2 mg/ml vial IV ONE (19:35)
[2019-04-17 19:46] LABS: BASOPHILS % (AUTO) 0.6 % (0-1); EOSINOPHILS # (AUTO) 0.1 X10'3 (0-0.9); EOSINOPHILS % (AUTO) 2.3 % (0-6); HEMATOCRIT 42.3 % (42.0-52.0); HEMOGLOBIN 14.9 g/dl (14.0-17.9); LYMPHOCYTES # (AUTO) 1.6 X10'3 (1.1-4.8); LYMPHOCYTES % (AUTO) 41.1 % (21-51); MEAN CORPUSCULAR HEMOGLOBIN 36.3 PG (27.0-31.0); MEAN CORPUSCULAR HGB CONC 35.1 g/dL (33.0-36.5); MEAN CORPUSCULAR VOLUME 103.5 FL (78-98); MEAN PLATELET VOLUME 7.4 FL (7.4-10.4); MONOCYTES # (AUTO) 0.4 X10'3 (0-0.9); MONOCYTES % (AUTO) 11.3 % (2-12); NEUTROPHILS # (AUTO) 1.7 X10'3 (1.8-7.7); NEUTROPHILS % (AUTO) 44.7 % (42-75); PLATELET COUNT 265 X10'3 (140-440); RED BLOOD COUNT 4.09 X10'6 (4.70-6.10); RED CELL DISTRIBUTION WIDTH 14.3 % (11.5-14.5); WHITE BLOOD COUNT 3.8 X10'3 (4.5-11.0)
[2019-04-17] MEDS ORDERED: levetiracetam inj 500 MG in normal saline 100ml IV soln 95 ML IV SCH (20:00)
[2019-04-17 20:03] LABS: ALANINE AMINOTRANSFERASE 26 U/L (12-78); ALBUMIN 3.6 G/DL (3.4-5.0); ALBUMIN/GLOBULIN RATIO 0.9 (1.1-1.5); ALKALINE PHOSPHATASE 108 IU/L (46-116); ANION GAP 10 (8-16); ASPARTATE AMINO TRANSFERASE 35 U/L (10-37); BILIRUBIN,TOTAL 0.2 MG/DL (0.1-1.0); BLOOD UREA NITROGEN 9 MG/DL (7-18); BUN/CREATININE RATIO 10.3 (5.4-32.0); CALCIUM 7.9 MG/DL (8.5-10.1); CHLORIDE 109 MMOL/L (99-107); CREATININE 0.87 MG/DL (0.60-1.10); GLUCOSE 86 MG/DL (70-104); LIPASE 82 U/L (73-393); POTASSIUM 3.5 MMOL/L (3.5-5.1); SODIUM 148 MMOL/L (135-145); TOTAL CARBON DIOXIDE 29.3 MMOL/L (24-32); TOTAL PROTEIN 7.4 G/DL (6.4-8.2); eGFR > 90 ML/MIN
[2019-04-17] MEDS ORDERED: KEP500T PO (20:07)
[2019-04-17] MEDS ORDERED: ONDA4TAB12 PO (20:07)
[2019-04-17 21:01] VITALS: BP 127/69
== END 2019-04-17 21:07 | disposition home or self-care (01) ==
LOC: ER 18:59
DX: R56.9 Unspecified convulsions (principal); R11.2 Nausea with vomiting, unspecified; R10.9 Unspecified abdominal pain; I10 Essential (primary) hypertension; G89.29 Other chronic pain; F17.200 Nicotine dependence, unspecified, uncomplicated; F12.90 Cannabis use, unspecified, uncomplicated; F10.99 Alcohol use, unspecified with unspecified alcohol-induced disorder; Z98.890 Other specified postprocedural states; Z76.0 Encounter for issue of repeat prescription; Z79.899 Other long term (current) drug therapy; Y90.9 Presence of alcohol in blood, level not specified
CPT/HCPCS: 36415; 80053; 83690; 85025; 85610; 96365; 96375; 99284; J1953; J2060

== ENCOUNTER 2019-05-03 14:05 | Inpatient (IN) | payer MEDICAID ==
[~2019-05-03] VITALS: Ht 175.3 cm; Wt 70.5 kg
[~2019-05-03 14:05] MED LIST changes: +ONDA4TAB12 PO
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
[2019-05-03] MEDS ORDERED: ondansetron/PF 4mg/2ml inj IV ONE (15:55)
[2019-05-03] MEDS ORDERED: normal saline 1000ML IV soln IV ONE (15:55)
--- NOTE | 2019-05-03 17:10 | NUR ---
PT HAS BEEN UNABLE TO VOID YET, IV FLUID INFUSING
[2019-05-03] MEDS ORDERED: oseltamivir phos 75mg capsule PO ONE (17:40)
[2019-05-03] MEDS ORDERED: CefTRIAXone 2gm/D5W 50ml 50 ML IV ONE (17:40)
[2019-05-03 17:41] LABS: CLARITY,URINE SLIGHTLY CLOUDY (Clear); COLOR,URINE YELLOW (Yellow); GLUCOSE, URINE NEGATIVE (Neg); KETONES,URINE 15 mg/dl (Neg); LEUKOCYTE ESTERASE ,URINE NEGATIVE (Neg); NITRITES, URINE NEGATIVE (Neg); OCCULT BLOOD,URINE NEGATIVE (Neg); PH,URINE 5.5 (4.8-8.0); PROTEIN,URINE TRACE mg/dl (Neg); UROBILINOGEN,URINE 0.2 E.U/dL (0.2-1.0)
[2019-05-03 17:46] LABS: UA COLLECTION TYPE CLN CATCH MIDSTREAM
[2019-05-03 17:56] LABS: MUCUS STRANDS NONE SEEN /LPF (Neg); SQUAMOUS EPITHELIAL CELL,UR NONE SEEN /LPF (FEW)
[2019-05-03 17:57] LABS: BACTERIA,URINE NONE SEEN /HPF (Neg); FINE GRANULAR CAST 0-3 /LPF (NEGATIVE); RBC,URINE 0-2 /HPF (0-2); WBC,URINE 0-4 /HPF (0-4)
--- NOTE | 2019-05-03 18:37 | NUR ---
PT HAS HAD TWO ATTEMPTS BY LAB TO DRAW BLOOD, WAS ONLY ABLE TO GET A LACTIC ACID SO FAR. LAB WAS NOTIFIED THAT IV SITE WOULD NOT DRAW WHEN IT WAS PLACED. LAB IN AGAIN AT THIS TIME TO ATTEMPT BLOOD DRAW, SET UP AT BEDSIDE FOR FEMORAL STICK BY MD IF LAB UNABLE TO GET BLOOD
[2019-05-03 19:02] LABS: BASOPHILS % (AUTO) 0.2 % (0-1); EOSINOPHILS % (AUTO) 0 % (0-6); HEMATOCRIT 45.7 % (42.0-52.0); HEMOGLOBIN 15.6 g/dl (14.0-17.9); LYMPHOCYTES # (AUTO) 0.4 X10'3 (1.1-4.8); MONOCYTES # (AUTO) 0.3 X10'3 (0-0.9); MONOCYTES % (AUTO) 3.6 % (2-12); NEUTROPHILS # (AUTO) 7.6 X10'3 (1.8-7.7); NEUTROPHILS % (AUTO) 91.2 % (42-75); PLATELET COUNT 240 X10'3 (140-440); RED BLOOD COUNT 4.32 X10'6 (4.70-6.10); RED CELL DISTRIBUTION WIDTH 14.2 % (11.5-14.5); WHITE BLOOD COUNT 8.4 X10'3 (4.5-11.0)
[2019-05-03 19:09] LABS: ALANINE AMINOTRANSFERASE 23 U/L (12-78); ALBUMIN 3.7 G/DL (3.4-5.0); ALBUMIN/GLOBULIN RATIO 0.9 (1.1-1.5); ALKALINE PHOSPHATASE 133 IU/L (46-116); ANION GAP 18 (8-16); ASPARTATE AMINO TRANSFERASE 55 U/L (10-37); BILIRUBIN,TOTAL 0.5 MG/DL (0.1-1.0); BLOOD UREA NITROGEN 20 MG/DL (7-18); BUN/CREATININE RATIO 15.6 (5.4-32.0); CALCIUM 8.1 MG/DL (8.5-10.1); CHLORIDE 100 MMOL/L (99-107); CREATININE 1.28 MG/DL (0.60-1.10); GLUCOSE 132 MG/DL (70-104); MAGNESIUM 1.5 MG/DL (1.5-2.4); POTASSIUM 3.9 MMOL/L (3.5-5.1); SODIUM 139 MMOL/L (135-145); TOTAL CARBON DIOXIDE 21.2 MMOL/L (24-32); TOTAL PROTEIN 7.9 G/DL (6.4-8.2); eGFR 65 ML/MIN
[2019-05-03] MEDS ORDERED: LORazepam 2 mg/ml vial IV ONE ×2 (19:15→21:35)
[2019-05-03] MEDS ORDERED: acetaminophen 325mg tablet PO ONE (20:00)
[2019-05-03] MEDS ORDERED: THO10T PO (21:18)
[2019-05-03] MEDS ORDERED: CHLO25CA10 PO (21:21)
[2019-05-03 21:52] LABS: ETHANOL 0.218 GM/DL (0.0-0.010)
--- NOTE | 2019-05-03 21:54 | NUR ---
PT CONTINUES TO COMPLAIN OF PAIN. MD GOLDSTEIN MADE AWARE AND STATES HE WILL PUT SOME ORDERS IN. WILL CONTINUE TO MONITOR.
[2019-05-03 21:57] LABS: URINE AMPHETAMINE SCREEN NEGATIVE (Neg); URINE BARBITUATE SCREEN NEGATIVE (Neg); URINE BENZODIAZEPINES SCREEN NEGATIVE (Neg); URINE CANNABINOID SCREEN POSITIVE (Neg); URINE COCAINE SCREEN NEGATIVE (Neg); URINE METHADONE SCREEN NEGATIVE (Neg); URINE OPIATE SCREEN NEGATIVE (Neg); URINE PHENCYCLIDINE SCREEN NEGATIVE (Neg)
[2019-05-03 22:00] VITALS: BP 134/82
[2019-05-03] MEDS ORDERED: mag hydrox/Alum hydrox/simeth 30ml oral suspension PO PRN (22:10)
[2019-05-03] MEDS ORDERED: magnesium hydroxide 30ml (MOM) UD suspension PO PRN (22:10)
[2019-05-03] MEDS ORDERED: HYDROcodone/acetaminophen 5mg/325mg tablet PO PRN (22:10)
[2019-05-03] MEDS ORDERED: acetaminophen 325mg tablet PO PRN (22:10)
[2019-05-03] MEDS ORDERED: thiamine inj. 100 MG in normal saline 100ml IV soln 100 ML IV ONE (22:15)
[2019-05-03] MEDS: normal saline 1000ml 1,000 ML IV SCH (22:29)
[2019-05-03] MEDS: LORazepam 2 mg/ml vial IV PRN (23:32)
[2019-05-04] MEDS: LORazepam 2 mg/ml vial IV PRN ×3 (02:19→08:39)
[2019-05-04 06:00] VITALS: BP 120/71
[2019-05-04 06:12] LABS: BASOPHILS % (AUTO) 0.6 % (0-1); EOSINOPHILS # (AUTO) 0.1 X10'3 (0-0.9); HEMATOCRIT 36.2 % (42.0-52.0); HEMOGLOBIN 12.6 g/dl (14.0-17.9); LYMPHOCYTES # (AUTO) 1.1 X10'3 (1.1-4.8); LYMPHOCYTES % (AUTO) 19.8 % (21-51); MEAN CORPUSCULAR HEMOGLOBIN 36.1 PG (27.0-31.0); MEAN CORPUSCULAR HGB CONC 34.7 g/dL (33.0-36.5); MEAN CORPUSCULAR VOLUME 104.1 FL (78-98); MEAN PLATELET VOLUME 8.1 FL (7.4-10.4); MONOCYTES # (AUTO) 0.6 X10'3 (0-0.9); MONOCYTES % (AUTO) 12.1 % (2-12); NEUTROPHILS # (AUTO) 3.6 X10'3 (1.8-7.7); NEUTROPHILS % (AUTO) 66.5 % (42-75); PLATELET COUNT 205 X10'3 (140-440); RED BLOOD COUNT 3.48 X10'6 (4.70-6.10); RED CELL DISTRIBUTION WIDTH 13.9 % (11.5-14.5); WHITE BLOOD COUNT 5.4 X10'3 (4.5-11.0)
--- NOTE | 2019-05-04 06:15 | NUR ---
Patient in room ORTHO 4007. I have received report from PANDA KINGSTON and had the opportunity to ask questions and assume patient care.
[2019-05-04 06:37] LABS: ALBUMIN 2.9 G/DL (3.4-5.0); ANION GAP 9 (8-16); BILIRUBIN,TOTAL 0.8 MG/DL (0.1-1.0); BLOOD UREA NITROGEN 14 MG/DL (7-18); BUN/CREATININE RATIO 15.4 (5.4-32.0); CALCIUM 7.8 MG/DL (8.5-10.1); CHLORIDE 103 MMOL/L (99-107); CREATININE 0.91 MG/DL (0.60-1.10); GLUCOSE 61 MG/DL (70-104); POTASSIUM 3.8 MMOL/L (3.5-5.1); SODIUM 136 MMOL/L (135-145); TOTAL CARBON DIOXIDE 23.8 MMOL/L (24-32); eGFR > 90 ML/MIN
[2019-05-04 06:38] LABS: ALANINE AMINOTRANSFERASE 17 U/L (12-78); ALBUMIN/GLOBULIN RATIO 0.9 (1.1-1.5); ALKALINE PHOSPHATASE 97 IU/L (46-116); ASPARTATE AMINO TRANSFERASE 42 U/L (10-37)
--- NOTE | 2019-05-04 07:37 | NUR ---
PAGER ID: [phone] MESSAGE: ROSALINE [phone] RE: CONNER [id number] PT HAS NAUSEA, LOW BLOOD SUGAR, NO VITAMIN REPLACEMENT FOR ETOH.
[2019-05-04] MEDS ORDERED: heparin, porcine 5000 units/ml vial SQ SCH (08:00)
[2019-05-04] MEDS ORDERED: ondansetron/PF 4mg/2ml inj IV PRN (08:10)
[2019-05-04] MEDS ORDERED: dextrose 50%-water 50ml dispensing syringe IV PRN (08:10)
[2019-05-04] MEDS ORDERED: thiamine 100mg tablet PO SCH (08:10)
[2019-05-04] MEDS ORDERED: folic acid 1mg tablet PO SCH (08:10)
[2019-05-04] MEDS ORDERED: multivitamins, therapeutics tablet PO SCH (08:10)
[2019-05-04] MEDS: normal saline 1000ml 1,000 ML IV SCH (08:32)
[2019-05-04 10:00] VITALS: BP 131/78
--- NOTE | 2019-05-04 10:08 | NUR ---
PATIENT REMOVING TELE MONITOR. STATES HE IS READY TO LEAVE.
--- NOTE | 2019-05-04 10:12 | NUR ---
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
--- NOTE | 2019-05-04 10:40 | NUR ---
PATIENT LEFT AMA WITH ALL BELONGINGS IN POSSESSION. PAPERWORK SIGNED.
[2019-05-04] MEDS ORDERED: levetiracetam 250mg tablet PO SCH (23:00)
[2019-05-05] MEDS ORDERED: LORazepam 1 MG tablet PO PRN (22:15)
== END 2019-05-04 10:40 | disposition left against medical advice (07) | DRG 720 ==
LOC: ER 14:06 → ED HOLD 22:17 → ORTHO 4S 23:16
PROVIDERS: ADMIT Internal Medicine; ATTEND Internal Medicine
DX: A41.9 Sepsis, unspecified organism (principal); E87.2 Acidosis; F10.229 Alcohol dependence with intoxication, unspecified; F10.239 Alcohol dependence with withdrawal, unspecified; F12.90 Cannabis use, unspecified, uncomplicated; Z53.29 Procedure and treatment not carried out because of patient's decision for other reasons; F17.210 Nicotine dependence, cigarettes, uncomplicated; G40.909 Epilepsy, unspecified, not intractable, without status epilepticus; I10 Essential (primary) hypertension; J06.9 Acute upper respiratory infection, unspecified; G89.29 Other chronic pain; M54.9 Dorsalgia, unspecified
CPT/HCPCS: 36415; 71045; 74176; 80053; 80305; 80320; 81001; 82948; 83605; 83735; 84145; 85025; 87040; 87081; 87502; 87503; 96365; 96375; 99285; G0378; J0696; J1644; J2060; J2405; J3411; J7030

== ENCOUNTER 2019-05-29 17:09 | Emergency (ER) | payer MEDICAID ==
[~2019-05-29] VITALS: Ht 177.8 cm; Wt 72.7 kg
[~2019-05-29 17:09] MED LIST changes: -MULT-1179 PO; -ONDA4TAB12 PO; -PANT40TA4 PO; -thiamine tablet PO
[2019-05-29] MEDS ORDERED: ondansetron/PF 4mg/2ml inj IV ONE (17:20)
[2019-05-29] MEDS ORDERED: normal saline 1000ML IV soln IVB ONE ×2 (17:20→21:10)
[2019-05-29 18:00] LABS: BASOPHILS % (AUTO) 0.5 % (0-1); EOSINOPHILS % (AUTO) 0 % (0-6); HEMATOCRIT 45.6 % (42.0-52.0); HEMOGLOBIN 15.6 g/dl (14.0-17.9); LYMPHOCYTES # (AUTO) 1.2 X10'3 (1.1-4.8); MEAN CORPUSCULAR HGB CONC 34.3 g/dL (33.0-36.5); MEAN CORPUSCULAR VOLUME 105.1 FL (78-98); MEAN PLATELET VOLUME 7.7 FL (7.4-10.4); MONOCYTES # (AUTO) 0.6 X10'3 (0-0.9); MONOCYTES % (AUTO) 10.1 % (2-12); NEUTROPHILS % (AUTO) 68.4 % (42-75); PLATELET COUNT 190 X10'3 (140-440); RED BLOOD COUNT 4.34 X10'6 (4.70-6.10); WHITE BLOOD COUNT 5.9 X10'3 (4.5-11.0)
[2019-05-29 18:10] LABS: ALANINE AMINOTRANSFERASE 23 U/L (12-78); ALBUMIN 3.7 G/DL (3.4-5.0); ALBUMIN/GLOBULIN RATIO 0.9 (1.1-1.5); ALKALINE PHOSPHATASE 128 IU/L (46-116); ANION GAP 23 (8-16); ASPARTATE AMINO TRANSFERASE 49 U/L (10-37); BILIRUBIN,TOTAL 0.4 MG/DL (0.1-1.0); BLOOD UREA NITROGEN 17 MG/DL (7-18); BUN/CREATININE RATIO 18.5 (5.4-32.0); CALCIUM 8.3 MG/DL (8.5-10.1); CHLORIDE 99 MMOL/L (99-107); CREATININE 0.92 MG/DL (0.60-1.10); ETHANOL 0.289 GM/DL (0.0-0.010); GLUCOSE 72 MG/DL (70-104); POTASSIUM 4.3 MMOL/L (3.5-5.1); SODIUM 137 MMOL/L (135-145); TOTAL CARBON DIOXIDE 15.2 MMOL/L (24-32); TOTAL PROTEIN 7.6 G/DL (6.4-8.2); eGFR > 90 ML/MIN
[2019-05-29] MEDS ORDERED: LORazepam 2 mg/ml vial IV ONE ×2 (18:45→22:35)
[2019-05-29] MEDS ORDERED: levetiracetam inj 500 MG in normal saline 100ml IV soln 95 ML IV STA (19:03)
[2019-05-29] MEDS ORDERED: ketorolac tromethamine 15mg/ml inj. IV ONE (19:05)
[2019-05-29] MEDS ORDERED: magnesium 2GM in 50ml NS 50 ML IV ONE (19:05)
--- NOTE | 2019-05-29 19:48 | NUR ---
PT STATES HIS LAST ALCOHOL INTAKE WAS 2 DAYS AGO HOWEVER HIS BLOOD ALCOHOL WAS .289 - HE IS ADAMANT THAT HE DID NOT DRINK TODAY. PT IS QUESTIONED ABOUT HIS SEIZURE HISTORY BUT HE IS A POOR HISTORIAN AND CAN'T TELL ME WHEN HIS SEIZURES FIRST STARTED OR IF THEY ARE RELATED TO ETOH WITHDRAWL.
[2019-05-29 20:15] LABS: CREATINE KINASE 125 U/L (39-308)
--- NOTE | 2019-05-29 21:12 | NUR ---
PT REQUESTING MORE ORANGE JUICE. HE WAS GIVEN A PITCHER OF WATER. PT ABLE TO PROVIDE URINE SAMPLE, IT WAS SENT TO LAB. PT LYING ON HIS RIGHT SIDE. SEIZURE PADS IN PLACE.
[2019-05-29 21:16] LABS: CLARITY,URINE CLEAR (Clear); COLOR,URINE YELLOW (Yellow); GLUCOSE, URINE NEGATIVE (Neg); KETONES,URINE >=80 mg/dl (Neg); LEUKOCYTE ESTERASE ,URINE NEGATIVE (Neg); NITRITES, URINE NEGATIVE (Neg); OCCULT BLOOD,URINE TRACE-LYSED (Neg); PROTEIN,URINE 30 mg/dl (Neg); UROBILINOGEN,URINE 0.2 E.U/dL (0.2-1.0)
[2019-05-29 21:18] LABS: UA COLLECTION TYPE NON-SPECIFIED
[2019-05-29 21:23] LABS: BACTERIA,URINE NONE SEEN /HPF (Neg); RBC,URINE NONE SEEN /HPF (0-2); SQUAMOUS EPITHELIAL CELL,UR FEW /LPF (FEW); WBC,URINE NONE SEEN /HPF (0-4)
[2019-05-29 21:27] LABS: URINE AMPHETAMINE SCREEN NEGATIVE (Neg); URINE BARBITUATE SCREEN NEGATIVE (Neg); URINE BENZODIAZEPINES SCREEN POSITIVE (Neg); URINE CANNABINOID SCREEN POSITIVE (Neg); URINE COCAINE SCREEN NEGATIVE (Neg); URINE METHADONE SCREEN NEGATIVE (Neg); URINE OPIATE SCREEN NEGATIVE (Neg); URINE PHENCYCLIDINE SCREEN NEGATIVE (Neg)
[2019-05-29] MEDS ORDERED: KEP500T PO (22:33)
[2019-05-29 22:56] VITALS: BP 111/61
--- NOTE | 2019-05-29 22:57 | NUR ---
pt got a lactic acid prior to NS bolus. Fluids infusing right now. pt given a meal to eat. he is resting at this time. he asked for a blanket.
== END 2019-05-29 23:15 | disposition home or self-care (01) ==
LOC: ER 17:11
DX: F10.129 Alcohol abuse with intoxication, unspecified (principal); R56.9 Unspecified convulsions; R51 Headache; R10.84 Generalized abdominal pain; I10 Essential (primary) hypertension; G89.29 Other chronic pain; F12.90 Cannabis use, unspecified, uncomplicated; Z98.890 Other specified postprocedural states; Z79.899 Other long term (current) drug therapy; Z59.0 Homelessness; Y90.0 Blood alcohol level of less than 20 mg/100 ml
CPT/HCPCS: 36415; 80053; 80305; 80320; 81001; 82550; 83605; 85025; 96365; 96368; 96375; 99283; J1885; J1953; J2060; J2405; J3475; J7030

== ENCOUNTER 2019-06-22 09:50 | Emergency (ER) | payer MEDICAID ==
[~2019-06-22] VITALS: Ht 175.3 cm; Wt 54.1 kg
[2019-06-22] MEDS ORDERED: LORazepam 2 mg/ml vial IV ONE (10:15)
[2019-06-22] MEDS ORDERED: levetiracetam inj 500 MG in normal saline 100ml IV soln 95 ML IV ONE (10:15)
[2019-06-22] MEDS ORDERED: normal saline 1000ML IV soln IVB ONE (10:15)
[2019-06-22] MEDS ORDERED: ondansetron/PF 4mg/2ml inj IV ONE (10:40)
[2019-06-22 11:06] LABS: BASOPHILS % (AUTO) 0.4 % (0-1); EOSINOPHILS % (AUTO) 0 % (0-6); HEMATOCRIT 48.5 % (42.0-52.0); HEMOGLOBIN 16.6 g/dl (14.0-17.9); LYMPHOCYTES # (AUTO) 0.5 X10'3 (1.1-4.8); LYMPHOCYTES % (AUTO) 5.7 % (21-51); MEAN CORPUSCULAR HEMOGLOBIN 35.4 PG (27.0-31.0); MEAN CORPUSCULAR HGB CONC 34.3 g/dL (33.0-36.5); MEAN CORPUSCULAR VOLUME 103.2 FL (78-98); MEAN PLATELET VOLUME 8.9 FL (7.4-10.4); MONOCYTES # (AUTO) 0.6 X10'3 (0-0.9); MONOCYTES % (AUTO) 7.2 % (2-12); NEUTROPHILS # (AUTO) 6.9 X10'3 (1.8-7.7); NEUTROPHILS % (AUTO) 86.7 % (42-75); PLATELET COUNT 177 X10'3 (140-440); RED CELL DISTRIBUTION WIDTH 15.9 % (11.5-14.5); WHITE BLOOD COUNT 7.9 X10'3 (4.5-11.0)
[2019-06-22 11:21] LABS: ALANINE AMINOTRANSFERASE 34 U/L (12-78); ALBUMIN 4.5 G/DL (3.4-5.0); ALBUMIN/GLOBULIN RATIO 1.1 (1.1-1.5); ALKALINE PHOSPHATASE 129 IU/L (46-116); ANION GAP 26 (8-16); ASPARTATE AMINO TRANSFERASE 50 U/L (10-37); BILIRUBIN,TOTAL 1.8 MG/DL (0.1-1.0); BLOOD UREA NITROGEN 23 MG/DL (7-18); BUN/CREATININE RATIO 18.1 (5.4-32.0); CALCIUM 9.4 MG/DL (8.5-10.1); CHLORIDE 92 MMOL/L (99-107); CREATININE 1.27 MG/DL (0.60-1.10); GLUCOSE 105 MG/DL (70-104); POTASSIUM 3.2 MMOL/L (3.5-5.1); SODIUM 137 MMOL/L (135-145); TOTAL PROTEIN 8.6 G/DL (6.4-8.2); eGFR 66 ML/MIN
[2019-06-22] MEDS ORDERED: potassium Cl 20 mEq SR tablet PO STA (11:28)
[2019-06-22] MEDS ORDERED: KEP500T PO (12:15)
[2019-06-22] MEDS ORDERED: GABA-532 PO (12:15)
[2019-06-22 12:19] VITALS: BP 145/103
== END 2019-06-22 12:28 | disposition home or self-care (01) ==
LOC: ER 09:51
DX: E86.0 Dehydration (principal); F10.10 Alcohol abuse, uncomplicated; R56.9 Unspecified convulsions; R11.2 Nausea with vomiting, unspecified; I10 Essential (primary) hypertension; G89.29 Other chronic pain; F12.90 Cannabis use, unspecified, uncomplicated; Z91.14 Patient's other noncompliance with medication regimen; Z98.890 Other specified postprocedural states; Y90.9 Presence of alcohol in blood, level not specified
CPT/HCPCS: 36415; 80053; 85025; 93005; 96365; 96375; 99284; J1953; J2060; J2405; J7030

== ENCOUNTER 2019-07-14 01:52 | Inpatient (IN) | payer MEDICAID ==
[~2019-07-14] VITALS: Ht 177.8 cm; Wt 70.0 kg
[~2019-07-14 01:52] MED LIST changes: +GABA-532 PO
[2019-07-14] MEDS ORDERED: ringers solution, lactated 1000ml IV soln IV ONE ×2 (01:55→03:20)
[2019-07-14] MEDS ORDERED: LORazepam 2 mg/ml vial IV ONE (02:00)
[2019-07-14] MEDS ORDERED: ONDA4TAB6 PO (02:29)
[2019-07-14] MEDS ORDERED: KEP500T PO (02:29)
[2019-07-14] MEDS ORDERED: haloperidol lactate 5mg/ml inj IM ONE (02:30)
[2019-07-14 02:47] LABS: BASOPHILS % (AUTO) 0.4 % (0-1); EOSINOPHILS % (AUTO) 0 % (0-6); HEMATOCRIT 30.6 % (42.0-52.0); HEMOGLOBIN 10.2 g/dl (14.0-17.9); LYMPHOCYTES # (AUTO) 0.4 X10'3 (1.1-4.8); LYMPHOCYTES % (AUTO) 4.2 % (21-51); MEAN CORPUSCULAR HEMOGLOBIN 35.2 PG (27.0-31.0); MEAN CORPUSCULAR HGB CONC 33.2 g/dL (33.0-36.5); MEAN CORPUSCULAR VOLUME 105.9 FL (78-98); MEAN PLATELET VOLUME 8.3 FL (7.4-10.4); MONOCYTES # (AUTO) 0.5 X10'3 (0-0.9); MONOCYTES % (AUTO) 4.6 % (2-12); NEUTROPHILS # (AUTO) 9.2 X10'3 (1.8-7.7); NEUTROPHILS % (AUTO) 90.8 % (42-75); PLATELET COUNT 180 X10'3 (140-440); RED BLOOD COUNT 2.89 X10'6 (4.70-6.10); RED CELL DISTRIBUTION WIDTH 15.2 % (11.5-14.5); WHITE BLOOD COUNT 10.2 X10'3 (4.5-11.0)
[2019-07-14] MEDS: levetiracetam inj 1,500 MG in normal saline 100ml IV soln 85 ML IV SCH ×2 (02:49→09:00)
[2019-07-14 02:57] LABS: ALANINE AMINOTRANSFERASE 19 U/L (12-78); ALBUMIN 2.2 G/DL (3.4-5.0); ALKALINE PHOSPHATASE 59 IU/L (46-116); ANION GAP 26 (8-16); ASPARTATE AMINO TRANSFERASE 23 U/L (10-37); BILIRUBIN,TOTAL 0.2 MG/DL (0.1-1.0); BLOOD UREA NITROGEN 13 MG/DL (7-18); BUN/CREATININE RATIO 17.1 (5.4-32.0); CHLORIDE 105 MMOL/L (99-107); CREATININE 0.76 MG/DL (0.60-1.10); ETHANOL 0.165 GM/DL (0.0-0.010); GLUCOSE 52 MG/DL (70-104); POTASSIUM 4.4 MMOL/L (3.5-5.1); SODIUM 141 MMOL/L (135-145); TOTAL PROTEIN 4.3 G/DL (6.4-8.2); eGFR > 90 ML/MIN
[2019-07-14 03:01] LABS: TOTAL CARBON DIOXIDE 10.3 MMOL/L (24-32)
[2019-07-14] MEDS ORDERED: acetaminophen 325mg tablet PO ONE (03:05)
[2019-07-14] MEDS ORDERED: dextrose 50%-water 50ml dispensing syringe IV ONE (03:25)
[2019-07-14 04:00] LABS: ABG OXYGEN SATURATION 95.4 % (95-98); ABG PCO2 (T) 28.1 mmHg (35.0-45.0); ABG PH (T) 7.283 (7.350-7.450); ABG PO2 (T) 88.2 mmHg (83-108); ALLEN'S TEST Positive; FCOHb 0.7 % (0.5-1.5); FMetHb 0.4 % (0.3-1.12); FO2Hb 94.4 % (94-100); RESPIRATORY RATE (OBSERVED) 18 b/min; TOTAL HEMOGLOBIN 15.1 G/dl (14.0-17.9)
[2019-07-14] MEDS ORDERED: phenobarbital inj 260 MG in normal saline 100ml IV soln 100 ML IV ONE (04:10)
[2019-07-14] MEDS ORDERED: magnesium 2GM in 50ml NS 50 ML IV ONE (04:10)
[2019-07-14] MEDS ORDERED: thiamine inj. 100 MG in normal saline 100ml IV soln 99 ML IV ONE (04:10)
[2019-07-14 04:38] LABS: CLARITY,URINE CLEAR (Clear); COLOR,URINE YELLOW (Yellow); GLUCOSE, URINE NEGATIVE (Neg); KETONES,URINE >=80 mg/dl (Neg); LEUKOCYTE ESTERASE ,URINE NEGATIVE (Neg); NITRITES, URINE NEGATIVE (Neg); OCCULT BLOOD,URINE TRACE-INTACT (Neg); PH,URINE 5.5 (4.8-8.0); PROTEIN,URINE TRACE mg/dl (Neg); UA COLLECTION TYPE URINAL; UROBILINOGEN,URINE 0.2 E.U/dL (0.2-1.0)
[2019-07-14 04:45] LABS: URINE AMPHETAMINE SCREEN NEGATIVE (Neg); URINE BARBITUATE SCREEN NEGATIVE (Neg); URINE BENZODIAZEPINES SCREEN NEGATIVE (Neg); URINE CANNABINOID SCREEN NEGATIVE (Neg); URINE COCAINE SCREEN NEGATIVE (Neg); URINE METHADONE SCREEN NEGATIVE (Neg); URINE OPIATE SCREEN NEGATIVE (Neg); URINE PHENCYCLIDINE SCREEN NEGATIVE (Neg)
[2019-07-14 04:54] LABS: WBC,URINE NONE SEEN /HPF (0-4)
[2019-07-14 04:56] LABS: BACTERIA,URINE NONE SEEN /HPF (Neg); MUCUS STRANDS NONE SEEN /LPF (Neg); SQUAMOUS EPITHELIAL CELL,UR FEW /LPF (FEW)
[2019-07-14 05:09] LABS: HEMOGLOBIN A1C 5.1 % (4.5-6.2)
[2019-07-14 05:13] LABS: OSMOLALITY 331 MOSM/K (280-300)
[2019-07-14] MEDS ORDERED: iohexol 300mg/ml 100ml inj. ONE (05:30)
[2019-07-14] MEDS ORDERED: ondansetron/PF 4mg/2ml inj IV PRN (05:55)
[2019-07-14] MEDS ORDERED: magnesium hydroxide 30ml (MOM) UD suspension PO PRN (05:55)
[2019-07-14] MEDS ORDERED: mag hydrox/Alum hydrox/simeth 30ml oral suspension PO PRN (05:55)
[2019-07-14] MEDS ORDERED: acetaminophen 325mg tablet PO PRN (05:55)
[2019-07-14] MEDS: normal saline 1000ml 1,000 ML IV SCH ×3 (06:55→19:45)
--- NOTE | 2019-07-14 07:56 | NUR ---
ATTEMPTED TO CALL REPORT. PTS NURSE SHENA IS IN A ROOM AND WILL CALL BACK SHORTLY
[2019-07-14] MEDS ORDERED: levetiracetam inj 1,500 MG in normal saline 100ml IV soln 85 ML IV SCH (08:00)
[2019-07-14 08:26] VITALS: BP 116/72
--- NOTE | 2019-07-14 08:26 | NUR ---
Received report from THEE Umana. Patient arrived to the floor. Ambulated from wheelchair to bed. No complaints at this time. IVF per MD orders started.
[2019-07-14] MEDS: gabapentin 300mg capsule PO SCH ×3 (08:59→23:31)
[2019-07-14] MEDS: heparin, porcine 5000 units/ml vial SQ SCH ×2 (09:00→19:51)
[2019-07-14 10:27] LABS: ALANINE AMINOTRANSFERASE 29 U/L (12-78); ALBUMIN 3.3 G/DL (3.4-5.0); ALKALINE PHOSPHATASE 85 IU/L (46-116); ANION GAP 12 (8-16); ASPARTATE AMINO TRANSFERASE 30 U/L (10-37); BILIRUBIN,TOTAL 0.7 MG/DL (0.1-1.0); BLOOD UREA NITROGEN 9 MG/DL (7-18); BUN/CREATININE RATIO 9.4 (5.4-32.0); CHLORIDE 101 MMOL/L (99-107); CREATININE 0.96 MG/DL (0.60-1.10); GLUCOSE 127 MG/DL (70-104); POTASSIUM 4.2 MMOL/L (3.5-5.1); SODIUM 136 MMOL/L (135-145); TOTAL CARBON DIOXIDE 22.7 MMOL/L (24-32); TOTAL PROTEIN 6.5 G/DL (6.4-8.2); eGFR > 90 ML/MIN
[2019-07-14 11:37] VITALS: BP 122/75
[2019-07-14] MEDS: LORazepam 2 mg/ml vial IV PRN ×2 (16:51→23:32)
--- NOTE | 2019-07-14 18:15 | NUR ---
Problems reprioritized. Patient report given, questions answered & plan of care reviewed with THEE Mera.
--- NOTE | 2019-07-14 18:30 | NUR ---
Patient in room MELODIE 353. I have received report from SHENA KINGSTON and had the opportunity to ask questions and assume patient care.
[2019-07-14] MEDS: levetiracetam 250mg tablet PO SCH (19:50)
[2019-07-14 20:00] VITALS: BP 125/87
[2019-07-15] VITALS: BP 120/85
[2019-07-15] MEDS: normal saline 1000ml 1,000 ML IV SCH (05:13)
[2019-07-15 06:22] LABS: BASOPHILS % (AUTO) 0.7 % (0-1); EOSINOPHILS # (AUTO) 0.1 X10'3 (0-0.9); EOSINOPHILS % (AUTO) 1.7 % (0-6); HEMATOCRIT 39.3 % (42.0-52.0); HEMOGLOBIN 13.8 g/dl (14.0-17.9); LYMPHOCYTES # (AUTO) 1.4 X10'3 (1.1-4.8); LYMPHOCYTES % (AUTO) 27.3 % (21-51); MEAN CORPUSCULAR HEMOGLOBIN 35.7 PG (27.0-31.0); MEAN CORPUSCULAR HGB CONC 35.1 g/dL (33.0-36.5); MEAN CORPUSCULAR VOLUME 101.7 FL (78-98); MEAN PLATELET VOLUME 8.6 FL (7.4-10.4); MONOCYTES # (AUTO) 0.5 X10'3 (0-0.9); MONOCYTES % (AUTO) 9.5 % (2-12); NEUTROPHILS # (AUTO) 3.1 X10'3 (1.8-7.7); NEUTROPHILS % (AUTO) 60.8 % (42-75); PLATELET COUNT 194 X10'3 (140-440); RED BLOOD COUNT 3.87 X10'6 (4.70-6.10); RED CELL DISTRIBUTION WIDTH 14.2 % (11.5-14.5); WHITE BLOOD COUNT 5.1 X10'3 (4.5-11.0)
--- NOTE | 2019-07-15 06:25 | NUR ---
Problems reprioritized. Patient report given, questions answered & plan of care reviewed with YESICA KINGSTON.
--- NOTE | 2019-07-15 06:46 | NUR ---
Patient in room MELODIE 353. I have received report from Catrachita Domínguez RN and had the opportunity to ask questions and assume patient care.
[2019-07-15 06:55] LABS: ALANINE AMINOTRANSFERASE 30 U/L (12-78); ALKALINE PHOSPHATASE 76 IU/L (46-116); ANION GAP 10 (8-16); ASPARTATE AMINO TRANSFERASE 39 U/L (10-37); BILIRUBIN,TOTAL 1.2 MG/DL (0.1-1.0); BLOOD UREA NITROGEN 5 MG/DL (7-18); BUN/CREATININE RATIO 6.9 (5.4-32.0); CHLORIDE 101 MMOL/L (99-107); CREATININE 0.72 MG/DL (0.60-1.10); GLUCOSE 76 MG/DL (70-104); SODIUM 138 MMOL/L (135-145); TOTAL CARBON DIOXIDE 26.8 MMOL/L (24-32); TOTAL PROTEIN 6.1 G/DL (6.4-8.2); eGFR > 90 ML/MIN
[2019-07-15 06:58] LABS: POTASSIUM 3.8 MMOL/L (3.5-5.1)
[2019-07-15 07:46] VITALS: BP 132/93
[2019-07-15] MEDS: gabapentin 300mg capsule PO SCH (07:54)
[2019-07-15] MEDS: levetiracetam 250mg tablet PO SCH (07:54)
[2019-07-15] MEDS: heparin, porcine 5000 units/ml vial SQ SCH (07:56)
[2019-07-15] MEDS: LORazepam 2 mg/ml vial IV PRN (09:44)
[2019-07-15] MEDS ORDERED: TEMA15CA PO (13:59)
--- NOTE | 2019-07-15 15:41 | NUR ---
Patient D/C per Dr Juares in stable conditions. Discharge and medication instruction given to pt. Iv removed with catheter intact. Pt was an aid walked patient to main lobby. Pt left the hospital alone via taxi.
[2019-07-16] MEDS ORDERED: LORazepam 1 MG tablet PO PRN (06:00)
[2019-07-16] MEDS ORDERED: LORazepam 2 mg/ml vial IV PRN (06:00)
--- NOTE | 2019-07-16 19:19 | NUR ---
Patient called this unit around 1000 this morning stating the prescription given yesterday was not an original. I spoke to Larisa in medical record to check if originals were in the paper chart, only photocopies were found. Timmy the community development technician called Yang Crawford at [facility] and put in telephone orders for Temazepam 15mg caps QTY:15 caps; Zofran 4mg QTY: 20tabs, and Keppra 500 mg tab. QTY: 60 tabs. Pharmacy ok to dispense medication. clinic supervisor Lucy aware.
[2019-07-18] MEDS ORDERED: LORazepam 1 MG tablet PO PRN (06:00)
== END 2019-07-15 15:30 | disposition home or self-care (01) | DRG 425 ==
LOC: ER 01:52 → ED HOLD 05:55 → SUR 3N 08:38
PROVIDERS: ADMIT Internal Medicine; ATTEND Internal Medicine
DX: E87.2 Acidosis (principal); D64.9 Anemia, unspecified; G40.909 Epilepsy, unspecified, not intractable, without status epilepticus; F17.200 Nicotine dependence, unspecified, uncomplicated; F10.239 Alcohol dependence with withdrawal, unspecified; I10 Essential (primary) hypertension; Y90.6 Blood alcohol level of 120-199 mg/100 ml; M54.9 Dorsalgia, unspecified; G89.29 Other chronic pain; Z91.14 Patient's other noncompliance with medication regimen
CPT/HCPCS: 36415; 36600; 74177; 80053; 80305; 80320; 81001; 82803; 82948; 83036; 83605; 83930; 85018; 85025; 87081; G0378; J1644; J1953; J2060; J2560; J3411; J3475; J7030; J7120; Q9967

== ENCOUNTER 2019-08-16 15:19 | Inpatient (IN) | payer MEDICAID ==
[~2019-08-16] VITALS: Ht 175.3 cm; Wt 67.6 kg
[~2019-08-16 15:19] MED LIST changes: -CHLO25CA10 PO; +TEMA15CA PO
[2019-08-16 15:56] LABS: BASOPHILS # (AUTO) 0.1 X10'3 (0-0.2); BASOPHILS % (AUTO) 0.6 % (0-1); EOSINOPHILS % (AUTO) 0 % (0-6); HEMATOCRIT 51.6 % (42.0-52.0); HEMOGLOBIN 16.9 g/dl (14.0-17.9); LYMPHOCYTES # (AUTO) 1.1 X10'3 (1.1-4.8); LYMPHOCYTES % (AUTO) 7.7 % (21-51); MEAN CORPUSCULAR HEMOGLOBIN 34.2 PG (27.0-31.0); MEAN CORPUSCULAR HGB CONC 32.8 g/dL (33.0-36.5); MEAN CORPUSCULAR VOLUME 104.1 FL (78-98); MEAN PLATELET VOLUME 8.7 FL (7.4-10.4); MONOCYTES # (AUTO) 0.6 X10'3 (0-0.9); MONOCYTES % (AUTO) 4.6 % (2-12); NEUTROPHILS # (AUTO) 12.1 X10'3 (1.8-7.7); NEUTROPHILS % (AUTO) 87.1 % (42-75); PLATELET COUNT 247 X10'3 (140-440); RED BLOOD COUNT 4.96 X10'6 (4.70-6.10); RED CELL DISTRIBUTION WIDTH 14.6 % (11.5-14.5); WHITE BLOOD COUNT 13.9 X10'3 (4.5-11.0)
[2019-08-16 16:11] LABS: ALANINE AMINOTRANSFERASE 19 U/L (12-78); ALBUMIN 4.3 G/DL (3.4-5.0); ALBUMIN/GLOBULIN RATIO 1.1 (1.1-1.5); ALKALINE PHOSPHATASE 118 IU/L (46-116); ANION GAP 39 (8-16); ASPARTATE AMINO TRANSFERASE 38 U/L (10-37); BILIRUBIN,TOTAL 0.4 MG/DL (0.1-1.0); BLOOD UREA NITROGEN 29 MG/DL (7-18); CALCIUM 8.6 MG/DL (8.5-10.1); CHLORIDE 98 MMOL/L (99-107); CREATININE 1.93 MG/DL (0.60-1.10); GLUCOSE 75 MG/DL (70-104); MAGNESIUM 1.9 MG/DL (1.5-2.4); SODIUM 144 MMOL/L (135-145); TOTAL PROTEIN 8.3 G/DL (6.4-8.2); eGFR 41 ML/MIN
[2019-08-16 16:25] LABS: POTASSIUM 4.7 MMOL/L (3.5-5.1)
[2019-08-16] MEDS ORDERED: ondansetron/PF 4mg/2ml inj IV ONE ×2 (16:30→19:45)
[2019-08-16] MEDS ORDERED: magnesium 2GM in 50ml NS 50 ML IV ONE (16:30)
[2019-08-16] MEDS ORDERED: normal saline 1000ML IV soln IV ONE (16:30)
[2019-08-16 16:54] LABS: CREATINE KINASE 139 U/L (39-308)
[2019-08-16] MEDS ORDERED: LORazepam 2 mg/ml vial IV ONE ×4 (17:00→20:35)
[2019-08-16 17:10] LABS: ABG BASE EXCESS -19.4 mmol/L (-2.0-3.0); ABG HCO3 6.7 mmol/L (22.0-26.0); ABG OXYGEN SATURATION 96.9 % (95-98); ABG PCO2 (T) 18.9 mmHg (35.0-45.0); ABG PO2 (T) 121.1 mmHg (83-108); ALLEN'S TEST POSITIVE; FCOHb 0.5 % (0.5-1.5); FMetHb 0.4 % (0.3-1.12); TOTAL HEMOGLOBIN 17.1 G/dl (14.0-17.9)
[2019-08-16 18:15] LABS: PARTIAL THROMBOPLASTIN TIME 26 SECONDS (22-32)
[2019-08-16] MEDS ORDERED: normal saline 1000ML IV soln IVB ONE (18:45)
[2019-08-16] MEDS ORDERED: ketorolac trometh. 30mg/ml inj. IV ONE (19:00)
[2019-08-16] MEDS ORDERED: GABA-532 PO (20:30)
[2019-08-16] MEDS ORDERED: TEMA15CA PO (20:30)
[2019-08-16 20:32] LABS: ALBUMIN 3.5 G/DL (3.4-5.0); ANION GAP 32 (8-16); BLOOD UREA NITROGEN 28 MG/DL (7-18); BUN/CREATININE RATIO 15.1 (5.4-32.0); CALCIUM 7.4 MG/DL (8.5-10.1); CHLORIDE 102 MMOL/L (99-107); CREATININE 1.85 MG/DL (0.60-1.10); GLUCOSE 85 MG/DL (70-104); POTASSIUM 4.6 MMOL/L (3.5-5.1); SODIUM 145 MMOL/L (135-145); eGFR 43 ML/MIN
[2019-08-16] MEDS ORDERED: proCHLORperazine 10 MG/2 ml inj IV ONE (20:35)
[2019-08-16 20:41] LABS: TOTAL CARBON DIOXIDE 11.4 MMOL/L (24-32)
[2019-08-16] MEDS: normal saline 1000ml 1,000 ML IV SCH (20:56)
[2019-08-16] MEDS ORDERED: proCHLORperazine 10 MG/2 ml inj IV PRN (21:00)
[2019-08-16] MEDS ORDERED: acetaminophen 325mg tablet PO PRN ×2 (21:00)
[2019-08-16] MEDS ORDERED: ondansetron/PF 4mg/2ml inj IV PRN (21:00)
[2019-08-16] MEDS ORDERED: potassium Cl 20 mEq SR tablet PO PRN ×2 (21:00)
[2019-08-16] MEDS ORDERED: LORazepam 2 mg/ml vial IV PRN (21:00)
[2019-08-16] MEDS ORDERED: HYDROcodone/acetaminophen 10/325mg tab PO PRN (21:00)
[2019-08-16] MEDS ORDERED: HYDROcodone/acetaminophen 5mg/325mg tablet PO PRN (21:00)
[2019-08-16] MEDS ORDERED: potassium CL 10mEq/100ml bag 100 ML IV PRN ×3 (21:00)
[2019-08-16] MEDS ORDERED: dicyclomine 10 MG capsule PO PRN (21:00)
[2019-08-16] MEDS ORDERED: thiamine inj. 100 MG in normal saline 100ml IV soln 100 ML IV ONE (21:00)
[2019-08-16] MEDS ORDERED: magnesium Cl slow-release 64mg tablet PO PRN (21:00)
[2019-08-16] MEDS ORDERED: acetaminophen 650mg rectal suppository RC PRN (21:00)
[2019-08-16] MEDS ORDERED: temazepam 15mg capsule PO PRN (21:15)
[2019-08-16] MEDS ORDERED: dextrose ORAL solution 15 GM/59 ML bottle PO PRN ×2 (21:20)
[2019-08-16] MEDS ORDERED: dextrose 50%-water 50ml dispensing syringe IV PRN ×2 (21:20)
[2019-08-16] MEDS ORDERED: glucagon, human recombinant 1mg kit SUBCUT PRN (21:20)
[2019-08-16] MEDS ORDERED: thiamine 100mg/ml 2ml inj. IV ONE (21:25)
[2019-08-16] MEDS: levetiracetam 250mg tablet PO SCH (21:33)
--- NOTE | 2019-08-16 22:00 | NUR ---
admitted from ER ,sleepy but alert , denies pain, assessment done , but refusing to look for his belongings , claim there nothing to see in there , no nausea noted and keep asking for water , tachycardic , on room air , vitals stable
[2019-08-16 23:00] VITALS: BP 111/56
[2019-08-17] VITALS (16 sets, daily range): BP systolic 94–137; BP diastolic 51–77
[2019-08-17 01:28] LABS: CLARITY,URINE CLEAR (Clear); COLOR,URINE YELLOW (Yellow); GLUCOSE, URINE NEGATIVE (Neg); KETONES,URINE 40 mg/dl (Neg); LEUKOCYTE ESTERASE ,URINE NEGATIVE (Neg); NITRITES, URINE NEGATIVE (Neg); OCCULT BLOOD,URINE TRACE-INTACT (Neg); PH,URINE 5.5 (4.8-8.0); PROTEIN,URINE 30 mg/dl (Neg); UROBILINOGEN,URINE 0.2 E.U/dL (0.2-1.0)
[2019-08-17 01:34] LABS: UA COLLECTION TYPE NON-SPECIFIED
[2019-08-17 01:37] LABS: BACTERIA,URINE NONE SEEN /HPF (Neg); RBC,URINE NONE SEEN /HPF (0-2); SQUAMOUS EPITHELIAL CELL,UR FEW /LPF (FEW); WBC,URINE 0-4 /HPF (0-4)
[2019-08-17 01:38] LABS: CELLULAR CAST 0-4 /LPF (NEGATIVE)
[2019-08-17 01:40] LABS: TOTAL PROTEIN,URINE RANDOM 64.8 MG/DL
[2019-08-17 01:55] LABS: URINE AMPHETAMINE SCREEN NEGATIVE (Neg); URINE BARBITUATE SCREEN NEGATIVE (Neg); URINE BENZODIAZEPINES SCREEN POSITIVE (Neg); URINE CANNABINOID SCREEN NEGATIVE (Neg); URINE COCAINE SCREEN NEGATIVE (Neg); URINE METHADONE SCREEN NEGATIVE (Neg); URINE OPIATE SCREEN NEGATIVE (Neg); URINE PHENCYCLIDINE SCREEN NEGATIVE (Neg)
[2019-08-17 02:15] LABS: UA EOSINOPHILS NO EOS /HPF
--- NOTE | 2019-08-17 03:19 | NUR ---
no nausea noted , still asking for water , agitated and restless noted , ativan given
[2019-08-17 05:04] LABS: BASOPHILS % (AUTO) 0.3 % (0-1); EOSINOPHILS % (AUTO) 0 % (0-6); HEMATOCRIT 35.2 % (42.0-52.0); HEMOGLOBIN 12.2 g/dl (14.0-17.9); LYMPHOCYTES # (AUTO) 0.8 X10'3 (1.1-4.8); LYMPHOCYTES % (AUTO) 8.4 % (21-51); MEAN CORPUSCULAR HEMOGLOBIN 35.1 PG (27.0-31.0); MEAN CORPUSCULAR HGB CONC 34.7 g/dL (33.0-36.5); MEAN PLATELET VOLUME 8.3 FL (7.4-10.4); MONOCYTES # (AUTO) 1.2 X10'3 (0-0.9); NEUTROPHILS # (AUTO) 7.1 X10'3 (1.8-7.7); NEUTROPHILS % (AUTO) 78.3 % (42-75); PLATELET COUNT 142 X10'3 (140-440); RED BLOOD COUNT 3.48 X10'6 (4.70-6.10); RED CELL DISTRIBUTION WIDTH 13.9 % (11.5-14.5); WHITE BLOOD COUNT 9.1 X10'3 (4.5-11.0)
[2019-08-17 05:19] LABS: PARTIAL THROMBOPLASTIN TIME 26 SECONDS (22-32)
[2019-08-17 05:32] LABS: ALANINE AMINOTRANSFERASE 16 U/L (12-78); ALBUMIN 2.9 G/DL (3.4-5.0); ALBUMIN/GLOBULIN RATIO 1.1 (1.1-1.5); ALKALINE PHOSPHATASE 72 IU/L (46-116); AMYLASE 59 U/L (25-115); ANION GAP 15 (8-16); ASPARTATE AMINO TRANSFERASE 26 U/L (10-37); BILIRUBIN,TOTAL 0.8 MG/DL (0.1-1.0); BLOOD UREA NITROGEN 23 MG/DL (7-18); BUN/CREATININE RATIO 16.8 (5.4-32.0); CALCIUM 6.9 MG/DL (8.5-10.1); CHLORIDE 102 MMOL/L (99-107); CREATININE 1.37 MG/DL (0.60-1.10); GLUCOSE 67 MG/DL (70-104); LIPASE 57 U/L (73-393); MAGNESIUM 1.8 MG/DL (1.5-2.4); PHOSPHORUS 2.7 MG/DL (2.3-4.5); POTASSIUM 4.2 MMOL/L (3.5-5.1); SODIUM 138 MMOL/L (135-145); TOTAL CARBON DIOXIDE 21.5 MMOL/L (24-32); TOTAL PROTEIN 5.6 G/DL (6.4-8.2); eGFR 60 ML/MIN
--- NOTE | 2019-08-17 06:57 | NUR ---
Patient in room CICU 2009. I have received report from Keysha KINGSTON and had the opportunity to ask questions and assume patient care.
[2019-08-17] MEDS: normal saline 1000ml 1,000 ML IV SCH (07:47)
[2019-08-17] MEDS ORDERED: docusate sod 100mg capsule PO SCH (08:00)
[2019-08-17] MEDS ORDERED: folic acid 1mg tablet PO SCH (08:00)
[2019-08-17] MEDS ORDERED: pantoprazole 40 MG vial IV SCH (08:00)
[2019-08-17] MEDS ORDERED: multivitamins, therapeutics tablet PO SCH (08:00)
[2019-08-17] MEDS ORDERED: thiamine 100mg tablet PO SCH (08:00)
[2019-08-17] MEDS ORDERED: heparin, porcine 5000 units/ml vial SQ SCH (08:00)
--- NOTE | 2019-08-17 09:05 | NUR ---
PT SLEEPING, CAN'T STAY AWAKE LONG ENOUGH TO TAKE PILLS OR EAT BREAKFAST
[2019-08-17] MEDS ORDERED: pneumococcal 23-VAL P-sac vacc 25 mcg/0.5ml vial IMVAC ONE (10:00)
[2019-08-17] MEDS ORDERED: FLU VACC QS2019-20 36MOS UP/PF 60 MCG/0.5 ML SYRINGE IMVAC ONE (10:00)
[2019-08-17] MEDS: gabapentin 300mg capsule PO SCH ×2 (11:01)
[2019-08-17] MEDS: levetiracetam 250mg tablet PO SCH (11:01)
[2019-08-17] MEDS: nicotine 21mg patch - 24 hr TD SCH ×2 (11:04→11:28)
--- NOTE | 2019-08-17 16:31 | NUR ---
Pt discharged in stable condition with belongings, community resources list, discharge instructions, medication list and a bus pass. Pt ambulated out to lobby by SANFORIZING MACHINE OPERATOR.
[2019-08-18] MEDS ORDERED: LORazepam 1 MG tablet PO PRN (21:00)
[2019-08-18] MEDS ORDERED: lactulose 20gm/30ml cup PO PRN (21:00)
[2019-08-18] MEDS ORDERED: LORazepam 2 mg/ml vial IV PRN (21:00)
[2019-08-20] MEDS ORDERED: LORazepam 2 mg/ml vial IV PRN (21:00)
[2019-08-20] MEDS ORDERED: LORazepam 1 MG tablet PO PRN (21:00)
== END 2019-08-17 16:31 | disposition home or self-care (01) | DRG 53 ==
LOC: ER 15:20 → ED HOLD 20:56 → CICU 2S 22:59
PROVIDERS: ADMIT Internal Medicine Critical Care Medicine; ATTEND Internal Medicine Critical Care Medicine
PROC: 3E0234Z Introduction of Serum, Toxoid and Vaccine into Muscle, Percutaneous Approach (ICD-10-PCS; principal; 2019-08-17)
PROC: 3E02340 Introduction of Influenza Vaccine into Muscle, Percutaneous Approach (ICD-10-PCS; 2019-08-17)
DX: G40.909 Epilepsy, unspecified, not intractable, without status epilepticus (principal); N17.9 Acute kidney failure, unspecified; E87.2 Acidosis; F10.239 Alcohol dependence with withdrawal, unspecified; F12.90 Cannabis use, unspecified, uncomplicated; F17.200 Nicotine dependence, unspecified, uncomplicated; I10 Essential (primary) hypertension; G89.29 Other chronic pain; M54.9 Dorsalgia, unspecified; Z59.0 Homelessness; Z56.0 Unemployment, unspecified; Z91.14 Patient's other noncompliance with medication regimen; Z23 Encounter for immunization
CPT/HCPCS: 36415; 36600; 71045; 80048; 80053; 80305; 80320; 81001; 82150; 82550; 82570; 82803; 82948; 83605; 83690; 83735; 83935; 84100; 84133; 84145; 84156; 84300; 85018; 85025; 85610; 85730; 87040; 87081; 87207; 90732; 93005; 96374; 96375; 99291; C9113; G0378; J0780; J1644; J1885; J2060; J2405; J3411; J3475; J7030; Q2037

== ENCOUNTER 2019-11-06 21:16 | Emergency (ER) | payer MEDICAID ==
[~2019-11-06] VITALS: Ht 175.3 cm; Wt 70.5 kg
[~2019-11-06 21:16] MED LIST changes: +FOLI0.4T2 PO; -TEMA15CA PO; +THIA100T70 PO
[2019-11-06] MEDS ORDERED: normal saline 1000ML IV soln IVB ONE (22:10)
[2019-11-06] MEDS ORDERED: ondansetron/PF 4mg/2ml inj IV ONE (22:10)
[2019-11-06] MEDS ORDERED: levetiracetam inj 500 MG in normal saline 100ml IV soln 95 ML IV ONE (22:10)
[2019-11-06] MEDS ORDERED: Levetiracetam-NS 500mg/100ml 100 ML IV ONE (22:25)
[2019-11-06 22:32] LABS: ALANINE AMINOTRANSFERASE 21 U/L (12-78); ALBUMIN 3.8 G/DL (3.4-5.0); ALBUMIN/GLOBULIN RATIO 1.1 (1.1-1.5); ALKALINE PHOSPHATASE 120 IU/L (46-116); ANION GAP 16 (8-16); ASPARTATE AMINO TRANSFERASE 41 U/L (10-37); BASOPHILS # (AUTO) 0.1 X10'3 (0-0.2); BASOPHILS % (AUTO) 1.3 % (0-1); BILIRUBIN,TOTAL 0.4 MG/DL (0.1-1.0); BLOOD UREA NITROGEN 11 MG/DL (7-18); BUN/CREATININE RATIO 12.1 (5.4-32.0); CALCIUM 8.4 MG/DL (8.5-10.1); CHLORIDE 102 MMOL/L (99-107); CREATININE 0.91 MG/DL (0.60-1.10); EOSINOPHILS # (AUTO) 0.1 X10'3 (0-0.9); EOSINOPHILS % (AUTO) 2.3 % (0-6); GLUCOSE 64 MG/DL (70-104); HEMATOCRIT 42.9 % (42.0-52.0); HEMOGLOBIN 14.5 g/dl (14.0-17.9); LYMPHOCYTES # (AUTO) 1.8 X10'3 (1.1-4.8); LYMPHOCYTES % (AUTO) 35.8 % (21-51); MEAN CORPUSCULAR HEMOGLOBIN 33.2 PG (27.0-31.0); MEAN CORPUSCULAR HGB CONC 33.7 g/dL (33.0-36.5); MEAN CORPUSCULAR VOLUME 98.3 FL (78-98); MEAN PLATELET VOLUME 7.6 FL (7.4-10.4); MONOCYTES # (AUTO) 0.4 X10'3 (0-0.9); MONOCYTES % (AUTO) 8.2 % (2-12); NEUTROPHILS # (AUTO) 2.7 X10'3 (1.8-7.7); NEUTROPHILS % (AUTO) 52.4 % (42-75); PLATELET COUNT 273 X10'3 (140-440); POTASSIUM 3.6 MMOL/L (3.5-5.1); RED BLOOD COUNT 4.36 X10'6 (4.70-6.10); RED CELL DISTRIBUTION WIDTH 15.4 % (11.5-14.5); SODIUM 144 MMOL/L (135-145); TOTAL PROTEIN 7.4 G/DL (6.4-8.2); WHITE BLOOD COUNT 5.1 X10'3 (4.5-11.0); eGFR > 90 ML/MIN
[2019-11-06 22:36] LABS: ETHANOL 0.406 GM/DL (0.0-0.010)
[2019-11-06] MEDS ORDERED: KEP500T PO (22:45)
[2019-11-06] MEDS ORDERED: levetiracetam 250mg tablet PO ONE (22:45)
--- NOTE | 2019-11-06 22:50 | NUR ---
IV INFILTRATED. KEPPRA AND NS INFUSIONS STOPPED. SPOKE WITH EDMD MARCOS, PER PRITI, NEW IV NOT NEEDED AND DISPOSE OF IV KEPPRA AND NS. NOT NEEDED. PER PRITI, HE WILL ORDER ORAL KEPPRA FOR PT SO NEW IV NOT NECESSARY.
[2019-11-06 23:00] VITALS: BP 121/58
== END 2019-11-06 22:59 | disposition home or self-care (01) ==
LOC: ER 21:16
DX: S09.90XA Unspecified injury of head, initial encounter (principal); F10.129 Alcohol abuse with intoxication, unspecified; R56.9 Unspecified convulsions; I10 Essential (primary) hypertension; F12.90 Cannabis use, unspecified, uncomplicated; G89.29 Other chronic pain; Z98.890 Other specified postprocedural states; Z79.899 Other long term (current) drug therapy; Z91.14 Patient's other noncompliance with medication regimen; W19.XXXA Unspecified fall, initial encounter; Y93.89 Activity, other specified; Y92.89 Other specified places as the place of occurrence of the external cause; Y99.8 Other external cause status; Y90.0 Blood alcohol level of less than 20 mg/100 ml
CPT/HCPCS: 36415; 70450; 80053; 80320; 85025; 96374; 96375; 99284; J1953; J2405; J7030

== ENCOUNTER 2019-12-02 18:04 | Emergency (ER) | payer MEDICAID ==
[~2019-12-02] VITALS: Ht 177.8 cm; Wt 64.9 kg
[~2019-12-02 18:04] MED LIST changes: -FOLI0.4T2 PO
[2019-12-02] MEDS ORDERED: normal saline 1000ML IV soln IVB ONE ×2 (18:45→20:05)
[2019-12-02] MEDS ORDERED: LORazepam 2 mg/ml vial IV ONE ×2 (18:45→20:50)
[2019-12-02] MEDS ORDERED: ondansetron/PF 4mg/2ml inj IV ONE (18:45)
[2019-12-02] MEDS ORDERED: pantoprazole 40 MG vial IV ONE (18:50)
[2019-12-02] MEDS ORDERED: famotidine/PF 10 mg/ml inj IV ONE (18:50)
[2019-12-02 18:56] LABS: BASOPHILS # (AUTO) 0.1 X10'3 (0-0.2); BASOPHILS % (AUTO) 1.1 % (0-1); EOSINOPHILS % (AUTO) 0.1 % (0-6); HEMATOCRIT 44.2 % (42.0-52.0); HEMOGLOBIN 14.8 g/dl (14.0-17.9); LYMPHOCYTES # (AUTO) 1.4 X10'3 (1.1-4.8); LYMPHOCYTES % (AUTO) 21.4 % (21-51); MEAN CORPUSCULAR HEMOGLOBIN 33.3 PG (27.0-31.0); MEAN CORPUSCULAR HGB CONC 33.5 g/dL (33.0-36.5); MEAN CORPUSCULAR VOLUME 99.5 FL (78-98); MEAN PLATELET VOLUME 8.7 FL (7.4-10.4); MONOCYTES # (AUTO) 0.4 X10'3 (0-0.9); MONOCYTES % (AUTO) 6.7 % (2-12); NEUTROPHILS # (AUTO) 4.7 X10'3 (1.8-7.7); NEUTROPHILS % (AUTO) 70.7 % (42-75); PLATELET COUNT 248 X10'3 (140-440); RED BLOOD COUNT 4.44 X10'6 (4.70-6.10); RED CELL DISTRIBUTION WIDTH 15.3 % (11.5-14.5); WHITE BLOOD COUNT 6.7 X10'3 (4.5-11.0)
[2019-12-02 19:07] LABS: ALANINE AMINOTRANSFERASE 39 U/L (12-78); ALBUMIN 4.4 G/DL (3.4-5.0); ALBUMIN/GLOBULIN RATIO 1.2 (1.1-1.5); ALKALINE PHOSPHATASE 117 IU/L (46-116); ANION GAP 28 (8-16); ASPARTATE AMINO TRANSFERASE 63 U/L (10-37); BILIRUBIN,TOTAL 0.7 MG/DL (0.1-1.0); BLOOD UREA NITROGEN 12 MG/DL (7-18); BUN/CREATININE RATIO 10.1 (5.4-32.0); CALCIUM 8.9 MG/DL (8.5-10.1); CHLORIDE 100 MMOL/L (99-107); CREATININE 1.19 MG/DL (0.60-1.10); GLUCOSE 51 MG/DL (70-104); LIPASE 57 U/L (73-393); POTASSIUM 3.7 MMOL/L (3.5-5.1); SODIUM 142 MMOL/L (135-145); eGFR 71 ML/MIN
[2019-12-02 19:12] LABS: TOTAL CARBON DIOXIDE 14.3 MMOL/L (24-32)
[2019-12-02 19:45] LABS: ABG BASE EXCESS -14.9 mmol/L (-2.0-3.0); ABG HCO3 10.5 mmol/L (22.0-26.0); ABG OXYGEN SATURATION 95.4 % (95-98); ABG PCO2 (T) 24.2 mmHg (35.0-45.0); ABG PO2 (T) 97.6 mmHg (83-108); ALLEN'S TEST POSITIVE; FCOHb 1.4 % (0.5-1.5); FMetHb 0.4 % (0.3-1.12); FO2Hb 93.7 % (94-100); PATIENT TEMPERATURE 36.5; TOTAL HEMOGLOBIN 14.1 G/dl (14.0-17.9)
[2019-12-02] MEDS ORDERED: LIDOcaine Viscous 15ml cup MM ONE (20:05)
[2019-12-02] MEDS ORDERED: mag hydrox/Alum hydrox/simeth 30ml oral suspension PO ONE (20:05)
[2019-12-02] MEDS ORDERED: morphine 2 MG/ML inj. syringe IV PRN (20:05)
--- NOTE | 2019-12-02 20:29 | NUR ---
Chemistry panel resulted with blood glucose of 51. Pt was given x2 orange juices and half a sandwich at that time. Recheck of blood glucose was 46, JESSIKA Galvan notified who reported to give x2 more orange juices to the patient as this time. Pt is alert and oriented, resting in bed.
[2019-12-02] MEDS ORDERED: dextrose 5%-1/2 normal saline 1,000 ML IV ONE (20:35)
[2019-12-02] MEDS ORDERED: metoclopramide 5 mg/ml inj IV ONE (20:50)
[2019-12-02] MEDS ORDERED: morphine 4 MG/ML inj SYRINge IV ONE (20:50)
[2019-12-02] MEDS ORDERED: morphine 4 MG/ML inj SYRINge IV PRN (20:54)
[2019-12-02] MEDS ORDERED: FAMO40TA73 PO (21:58)
[2019-12-02] MEDS ORDERED: PANT-47 PO (21:58)
[2019-12-02] MEDS ORDERED: ONDA4TAB6 PO (21:59)
[2019-12-02 22:20] VITALS: BP 102/51
== END 2019-12-02 22:14 | disposition home or self-care (01) ==
LOC: ER 18:04
DX: K29.70 Gastritis, unspecified, without bleeding (principal); E86.0 Dehydration; R10.13 Epigastric pain; R11.2 Nausea with vomiting, unspecified; I10 Essential (primary) hypertension; G89.29 Other chronic pain; F17.200 Nicotine dependence, unspecified, uncomplicated; F12.90 Cannabis use, unspecified, uncomplicated; Z86.69 Personal history of other diseases of the nervous system and sense organs; Z98.890 Other specified postprocedural states; Z72.89 Other problems related to lifestyle; Z79.899 Other long term (current) drug therapy
CPT/HCPCS: 36415; 36600; 80053; 82803; 82948; 83690; 84484; 85018; 85025; 96361; 96374; 96375; 96376; 99285; C9113; J2060; J2270; J2405; J2765; J3490; J7030

== ENCOUNTER 2019-12-11 12:03 | Emergency (ER) | payer MEDICAID ==
[~2019-12-11] VITALS: Ht 177.8 cm; Wt 72.0 kg
[~2019-12-11 12:03] MED LIST changes: +FAMO40TA73 PO; +ONDA4TAB6 PO; +PANT-47 PO
[2019-12-11 12:16] VITALS: BP 136/110
[2019-12-11] MEDS ORDERED: HYDROcodone/acetaminophen 5mg/325mg tablet PO ONE (13:30)
[2019-12-11] MEDS ORDERED: DICL50TA8 PO (13:41)
== END 2019-12-11 13:55 | disposition home or self-care (01) ==
LOC: ER 12:04
DX: M25.511 Pain in right shoulder (principal); M79.672 Pain in left foot; R22.42 Localized swelling, mass and lump, left lower limb; I10 Essential (primary) hypertension; G89.29 Other chronic pain; F12.90 Cannabis use, unspecified, uncomplicated; Z86.69 Personal history of other diseases of the nervous system and sense organs; Z98.890 Other specified postprocedural states; Z79.899 Other long term (current) drug therapy
CPT/HCPCS: 73030; 73630; 99284

== ENCOUNTER 2020-01-12 22:53 | Emergency (ER) | payer MEDICAID ==
[~2020-01-12] VITALS: Ht 175.3 cm; Wt 70.0 kg
[~2020-01-12 22:53] MED LIST changes: +DICL50TA8 PO
--- NOTE | 2020-01-12 23:10 | NUR ---
patient refused to wear c-spine collar. when triage nurse left room,
[2020-01-12] MEDS ORDERED: morphine 4 MG/ML inj SYRINge IV ONE (23:25)
[2020-01-12] MEDS ORDERED: iohexol 300mg/ml 100ml inj. ONE (23:28)
[2020-01-12] MEDS ORDERED: normal saline 1000ml 1,000 ML IV ONE (23:35)
[2020-01-12 23:45] LABS: BASOPHILS % (AUTO) 0.7 % (0-1); EOSINOPHILS # (AUTO) 0.2 X10'3 (0-0.9); EOSINOPHILS % (AUTO) 2.8 % (0-6); HEMATOCRIT 40.8 % (42.0-52.0); HEMOGLOBIN 13.8 g/dl (14.0-17.9); LYMPHOCYTES # (AUTO) 1.7 X10'3 (1.1-4.8); LYMPHOCYTES % (AUTO) 24.6 % (21-51); MEAN CORPUSCULAR HEMOGLOBIN 34.1 PG (27.0-31.0); MEAN CORPUSCULAR HGB CONC 33.8 g/dL (33.0-36.5); MEAN CORPUSCULAR VOLUME 100.8 FL (78-98); MEAN PLATELET VOLUME 8.4 FL (7.4-10.4); MONOCYTES # (AUTO) 0.9 X10'3 (0-0.9); MONOCYTES % (AUTO) 13.1 % (2-12); NEUTROPHILS # (AUTO) 4.1 X10'3 (1.8-7.7); NEUTROPHILS % (AUTO) 58.8 % (42-75); PLATELET COUNT 152 X10'3 (140-440); RED BLOOD COUNT 4.05 X10'6 (4.70-6.10); RED CELL DISTRIBUTION WIDTH 16.6 % (11.5-14.5)
[2020-01-12 23:54] LABS: PARTIAL THROMBOPLASTIN TIME 24 SECONDS (22-32)
[2020-01-13] LABS: ALANINE AMINOTRANSFERASE 156 U/L (12-78); ALBUMIN/GLOBULIN RATIO 1.1 (1.1-1.5); ALKALINE PHOSPHATASE 152 IU/L (46-116); ANION GAP 14 (8-16); ASPARTATE AMINO TRANSFERASE 456 U/L (10-37); BILIRUBIN,TOTAL 0.2 MG/DL (0.1-1.0); BLOOD UREA NITROGEN 10 MG/DL (7-18); BUN/CREATININE RATIO 9.2 (5.4-32.0); CHLORIDE 105 MMOL/L (99-107); CREATININE 1.09 MG/DL (0.60-1.10); GLUCOSE 121 MG/DL (70-104); POTASSIUM 3.4 MMOL/L (3.5-5.1); SODIUM 143 MMOL/L (135-145); TOTAL CARBON DIOXIDE 24.3 MMOL/L (24-32); TOTAL PROTEIN 7.5 G/DL (6.4-8.2); eGFR 78 ML/MIN
[2020-01-13 00:05] LABS: TROPONIN I < 0.04 NG/ML (0.0-0.05)
[2020-01-13] MEDS ORDERED: morphine 10mg/ml inj. IV ONE (00:05)
[2020-01-13 00:06] LABS: ETHANOL 0.371 GM/DL (0.0-0.010)
[2020-01-13] MEDS ORDERED: normal saline 1000ml 1,000 ML IV ONE (01:05)
[2020-01-13] MEDS ORDERED: ONDA4TAB6 PO (02:02)
[2020-01-13] MEDS ORDERED: IBUP-1986 PO (02:02)
[2020-01-13 02:03] VITALS: BP 115/74
== END 2020-01-13 02:04 | disposition home or self-care (01) ==
LOC: ER 22:54
DX: S70.211A Abrasion, right hip, initial encounter (principal); F10.920 Alcohol use, unspecified with intoxication, uncomplicated; R74.0 Nonspecific elevation of levels of transaminase and lactic acid dehydrogenase [LDH]; R07.9 Chest pain, unspecified; R10.9 Unspecified abdominal pain; I10 Essential (primary) hypertension; G89.29 Other chronic pain; F12.90 Cannabis use, unspecified, uncomplicated; Z86.69 Personal history of other diseases of the nervous system and sense organs; Z98.890 Other specified postprocedural states; Z72.89 Other problems related to lifestyle; Z79.899 Other long term (current) drug therapy; W18.39XA Other fall on same level, initial encounter; Y93.39 Activity, other involving climbing, rappelling and jumping off; Y92.89 Other specified places as the place of occurrence of the external cause; Y99.8 Other external cause status
CPT/HCPCS: 36415; 70450; 71260; 72125; 73610; 73630; 74177; 80053; 80320; 84484; 85025; 85610; 85730; 86870; 86885; 86900; 86901; 86902; 86905; 96374; 96376; 99291; J2270; J7030; Q9967

== ENCOUNTER 2020-01-13 23:29 | Emergency (ER) | payer MEDICAID ==
[~2020-01-13] VITALS: Ht 175.3 cm; Wt 55.0 kg
[~2020-01-13 23:29] MED LIST changes: +IBUP-1986 PO
[2020-01-14 00:42] LABS: BASOPHILS # (AUTO) 0.1 X10'3 (0-0.2); EOSINOPHILS # (AUTO) 0.2 X10'3 (0-0.9); EOSINOPHILS % (AUTO) 3.1 % (0-6); HEMATOCRIT 33.9 % (42.0-52.0); HEMOGLOBIN 11.8 g/dl (14.0-17.9); LYMPHOCYTES # (AUTO) 1.7 X10'3 (1.1-4.8); MEAN CORPUSCULAR HEMOGLOBIN 35.2 PG (27.0-31.0); MEAN CORPUSCULAR HGB CONC 34.8 g/dL (33.0-36.5); MEAN PLATELET VOLUME 8.3 FL (7.4-10.4); MONOCYTES # (AUTO) 0.7 X10'3 (0-0.9); MONOCYTES % (AUTO) 12.8 % (2-12); NEUTROPHILS # (AUTO) 2.8 X10'3 (1.8-7.7); NEUTROPHILS % (AUTO) 52.1 % (42-75); PLATELET COUNT 134 X10'3 (140-440); RED BLOOD COUNT 3.36 X10'6 (4.70-6.10); RED CELL DISTRIBUTION WIDTH 15.9 % (11.5-14.5); WHITE BLOOD COUNT 5.4 X10'3 (4.5-11.0)
[2020-01-14 00:48] LABS: ALANINE AMINOTRANSFERASE 99 U/L (12-78); ALBUMIN 3.4 G/DL (3.4-5.0); ALBUMIN/GLOBULIN RATIO 1.1 (1.1-1.5); ALKALINE PHOSPHATASE 129 IU/L (46-116); ANION GAP 11 (8-16); ASPARTATE AMINO TRANSFERASE 152 U/L (10-37); BILIRUBIN,TOTAL 0.4 MG/DL (0.1-1.0); BLOOD UREA NITROGEN 11 MG/DL (7-18); BUN/CREATININE RATIO 12.2 (5.4-32.0); CALCIUM 8.7 MG/DL (8.5-10.1); CHLORIDE 108 MMOL/L (99-107); GLUCOSE 94 MG/DL (70-104); POTASSIUM 3.5 MMOL/L (3.5-5.1); SODIUM 145 MMOL/L (135-145); TOTAL CARBON DIOXIDE 26.5 MMOL/L (24-32); TOTAL PROTEIN 6.4 G/DL (6.4-8.2); eGFR > 90 ML/MIN
--- NOTE | 2020-01-14 00:49 | NUR ---
Pt. uncooperative with assessment, pt. repeatedly states "I'm just tired", lays back down, and closes eyes. Pt. arrosable and A/O x4 when awake.
[2020-01-14 02:49] VITALS: BP 107/65
== END 2020-01-14 03:44 | disposition home or self-care (01) ==
LOC: ER 23:30
DX: F10.129 Alcohol abuse with intoxication, unspecified (principal); R07.89 Other chest pain; I10 Essential (primary) hypertension; G89.29 Other chronic pain; R05 Cough; F12.90 Cannabis use, unspecified, uncomplicated; Z86.69 Personal history of other diseases of the nervous system and sense organs; Z98.890 Other specified postprocedural states; Z79.899 Other long term (current) drug therapy; Y90.0 Blood alcohol level of less than 20 mg/100 ml
CPT/HCPCS: 36415; 71046; 80053; 85025; 99284

== ENCOUNTER 2020-02-12 04:34 | Emergency (ER) | payer MEDICAID ==
[~2020-02-12] VITALS: Ht 177.8 cm; Wt 70.4 kg
[2020-02-12 04:41] VITALS: BP 129/93
== END 2020-02-12 06:08 | disposition home or self-care (01) ==
LOC: ER 04:34
DX: F10.129 Alcohol abuse with intoxication, unspecified (principal); R07.89 Other chest pain; R56.9 Unspecified convulsions; I10 Essential (primary) hypertension; G89.29 Other chronic pain; F12.90 Cannabis use, unspecified, uncomplicated; Z59.0 Homelessness; Z72.89 Other problems related to lifestyle; Z98.890 Other specified postprocedural states; Z79.899 Other long term (current) drug therapy; Y90.0 Blood alcohol level of less than 20 mg/100 ml
CPT/HCPCS: 71111; 99284

== ENCOUNTER 2020-04-13 12:40 | Emergency (ER) | payer MEDICAID ==
[~2020-04-13] VITALS: Ht 177.8 cm; Wt 68.0 kg
--- NOTE | 2020-04-13 14:21 | NUR ---
Patient resting comfortably and is intensely focused on the [place] vs. [employer] football game.
[2020-04-13 14:29] LABS: COLOR,URINE YELLOW (Yellow); GLUCOSE, URINE 500 mg/dl (Neg); KETONES,URINE 15 mg/dl (Neg); LEUKOCYTE ESTERASE ,URINE NEGATIVE (Neg); NITRITES, URINE NEGATIVE (Neg); OCCULT BLOOD,URINE LARGE (Neg); PROTEIN,URINE TRACE mg/dl (Neg); UROBILINOGEN,URINE 0.2 E.U/dL (0.2-1.0)
[2020-04-13 14:32] LABS: UA COLLECTION TYPE CLN CATCH MIDSTREAM
[2020-04-13 14:33] LABS: CLARITY,URINE SLIGHTLY CLOUDY (Clear)
[2020-04-13 14:36] LABS: RBC,URINE 50-100 /HPF (0-2)
[2020-04-13 14:37] LABS: BACTERIA,URINE NONE SEEN /HPF (Neg); MUCUS STRANDS NONE SEEN /LPF (Neg); SQUAMOUS EPITHELIAL CELL,UR FEW /LPF (FEW)
[2020-04-13 14:39] LABS: BASOPHILS % (AUTO) 0.7 % (0-1); EOSINOPHILS % (AUTO) 0.1 % (0-6); HEMOGLOBIN 14.5 g/dl (14.0-17.9); LYMPHOCYTES % (AUTO) 14.7 % (21-51); MEAN CORPUSCULAR HEMOGLOBIN 34.9 PG (27.0-31.0); MEAN CORPUSCULAR HGB CONC 34.4 g/dL (33.0-36.5); MEAN CORPUSCULAR VOLUME 101.4 FL (78-98); MEAN PLATELET VOLUME 7.9 FL (7.4-10.4); MONOCYTES # (AUTO) 0.4 X10'3 (0-0.9); MONOCYTES % (AUTO) 5.9 % (2-12); NEUTROPHILS # (AUTO) 5.6 X10'3 (1.8-7.7); NEUTROPHILS % (AUTO) 78.6 % (42-75); PLATELET COUNT 246 X10'3 (140-440); RED BLOOD COUNT 4.14 X10'6 (4.70-6.10); RED CELL DISTRIBUTION WIDTH 14.7 % (11.5-14.5); WHITE BLOOD COUNT 7.1 X10'3 (4.5-11.0)
[2020-04-13 14:51] LABS: ALANINE AMINOTRANSFERASE 21 U/L (12-78); ALBUMIN/GLOBULIN RATIO 1.2 (1.1-1.5); ALKALINE PHOSPHATASE 96 IU/L (46-116); ANION GAP 15 (8-16); ASPARTATE AMINO TRANSFERASE 30 U/L (10-37); BILIRUBIN,TOTAL 0.6 MG/DL (0.1-1.0); BLOOD UREA NITROGEN 18 MG/DL (7-18); CALCIUM 8.5 MG/DL (8.5-10.1); CHLORIDE 100 MMOL/L (99-107); CREATININE 1.06 MG/DL (0.60-1.10); GLUCOSE 181 MG/DL (70-104); POTASSIUM 3.3 MMOL/L (3.5-5.1); SODIUM 138 MMOL/L (135-145); TOTAL CARBON DIOXIDE 22.9 MMOL/L (24-32); TOTAL PROTEIN 7.4 G/DL (6.4-8.2); eGFR 80 ML/MIN
[2020-04-13 15:17] VITALS: BP 130/87
[2020-04-13] MEDS ORDERED: CefTRIAXone 250MG IM Kit w/LIDOcaine IM ONE (16:30)
[2020-04-13] MEDS ORDERED: azithromycin 250mg tablet PO ONE (16:30)
--- NOTE | 2020-04-13 16:30 | NUR ---
Patient appears anxious and was asking to leave. I asked the patient if he could wait a little longer for discharge papers and medication and he states, "theres only one bus back to [place] and I can't miss it." Patient thanks me for our care but insists on leaving. Allison notified.
== END 2020-04-13 16:33 | disposition home or self-care (01) ==
LOC: ER 12:41
DX: R31.9 Hematuria, unspecified (principal); I10 Essential (primary) hypertension; G89.29 Other chronic pain; F12.90 Cannabis use, unspecified, uncomplicated; Z86.69 Personal history of other diseases of the nervous system and sense organs; Z98.890 Other specified postprocedural states; Z72.89 Other problems related to lifestyle; Z59.0 Homelessness; Z79.899 Other long term (current) drug therapy
CPT/HCPCS: 36415; 76857; 80053; 81001; 85025; 87088; 99284

== ENCOUNTER 2020-06-10 23:38 | Inpatient (IN) | payer MEDICAID ==
[~2020-06-10] VITALS: Ht 175.3 cm; Wt 70.5 kg
[2020-06-10] MEDS ORDERED: ondansetron/PF 4mg/2ml inj IV ONE (23:55)
[2020-06-10] MEDS ORDERED: normal saline 1000ML IV soln IVB ONE (23:55)
[2020-06-10] MEDS ORDERED: LORazepam 2 mg/ml vial IV ONE (23:55)
[2020-06-11 00:55] LABS: BASOPHILS # (AUTO) 0.1 X10'3 (0-0.2); BASOPHILS % (AUTO) 0.7 % (0-1); EOSINOPHILS % (AUTO) 0 % (0-6); HEMATOCRIT 48.2 % (42.0-52.0); HEMOGLOBIN 16.1 g/dl (14.0-17.9); LYMPHOCYTES # (AUTO) 1.4 X10'3 (1.1-4.8); LYMPHOCYTES % (AUTO) 10.6 % (21-51); MEAN CORPUSCULAR HEMOGLOBIN 33.3 PG (27.0-31.0); MEAN CORPUSCULAR HGB CONC 33.5 g/dL (33.0-36.5); MEAN CORPUSCULAR VOLUME 99.4 FL (78-98); MEAN PLATELET VOLUME 8.8 FL (7.4-10.4); MONOCYTES # (AUTO) 0.4 X10'3 (0-0.9); MONOCYTES % (AUTO) 3.2 % (2-12); NEUTROPHILS # (AUTO) 10.9 X10'3 (1.8-7.7); NEUTROPHILS % (AUTO) 85.5 % (42-75); PLATELET COUNT 295 X10'3 (140-440); RED BLOOD COUNT 4.85 X10'6 (4.70-6.10); WHITE BLOOD COUNT 12.7 X10'3 (4.5-11.0)
[2020-06-11 01:10] LABS: ALANINE AMINOTRANSFERASE 28 U/L (12-78); ALBUMIN 4.5 G/DL (3.4-5.0); ALBUMIN/GLOBULIN RATIO 1.2 (1.1-1.5); ALKALINE PHOSPHATASE 106 IU/L (46-116); ANION GAP 31 (8-16); ASPARTATE AMINO TRANSFERASE 34 U/L (10-37); BILIRUBIN,TOTAL 0.7 MG/DL (0.1-1.0); BLOOD UREA NITROGEN 20 MG/DL (7-18); BUN/CREATININE RATIO 16.1 (5.4-32.0); CALCIUM 8.9 MG/DL (8.5-10.1); CHLORIDE 97 MMOL/L (99-107); CREATININE 1.24 MG/DL (0.60-1.10); GLUCOSE 72 MG/DL (70-104); LIPASE 63 U/L (73-393); POTASSIUM 3.7 MMOL/L (3.5-5.1); SODIUM 139 MMOL/L (135-145); TOTAL PROTEIN 8.2 G/DL (6.4-8.2); eGFR 67 ML/MIN
[2020-06-11] MEDS ORDERED: proCHLORperazine 10 MG/2 ml inj IM ONE (01:10)
[2020-06-11 01:16] LABS: TOTAL CARBON DIOXIDE 11.2 MMOL/L (24-32)
[2020-06-11] MEDS ORDERED: normal saline 1000ML IV soln IVB ONE (01:40)
[2020-06-11 01:41] LABS: ABG BASE EXCESS -13.6 mmol/L (-2.0-2.0); ABG HCO3 10.7 mmol/L (22.0-26.0); ABG OXYGEN SATURATION 97.1 % (94-97); ABG PCO2 (T) 22.4 mmHg (35.0-48.0); ABG PO2 (T) 102.2 mmHg (75.0-100.0); FCOHb 0.9 % (0.0-3.9); FMetHb 0.5 % (0.0-1.5); FO2Hb 95.7 % (94-97); PATIENT TEMPERATURE 36.4; TOTAL HEMOGLOBIN 16.8 G/dl (14.0-18.0)
[2020-06-11] MEDS ORDERED: thiamine 100mg tablet PO ONE (02:00)
[2020-06-11] MEDS ORDERED: potassium Cl 40MEQ/1/2NS 520ml 520 ML IV PRN ×2 (02:15)
[2020-06-11] MEDS ORDERED: mag hydrox/Alum hydrox/simeth 30ml oral suspension PO PRN (02:15)
[2020-06-11] MEDS ORDERED: magnesium hydroxide 30ml (MOM) UD suspension PO PRN (02:15)
[2020-06-11 03:17] LABS: CLARITY,URINE CLEAR (Clear); COLOR,URINE YELLOW (Yellow); GLUCOSE, URINE NEGATIVE (Neg); KETONES,URINE >=80 mg/dl (Neg); LEUKOCYTE ESTERASE ,URINE NEGATIVE (Neg); NITRITES, URINE NEGATIVE (Neg); OCCULT BLOOD,URINE SMALL (Neg); PH,URINE 5.5 (4.8-8.0); PROTEIN,URINE 30 mg/dl (Neg); UROBILINOGEN,URINE 0.2 E.U/dL (0.2-1.0)
[2020-06-11 03:20] LABS: UA COLLECTION TYPE CLN CATCH MIDSTREAM
[2020-06-11 03:23] LABS: BACTERIA,URINE NONE SEEN /HPF (Neg); RBC,URINE 0-2 /HPF (0-2); SQUAMOUS EPITHELIAL CELL,UR MODERATE /LPF (FEW); WBC,URINE 0-4 /HPF (0-4)
[2020-06-11] MEDS: normal saline 1000ml 1,000 ML IV SCH ×3 (03:29→17:04)
[2020-06-11] MEDS: ondansetron/PF 4mg/2ml inj IV PRN ×3 (03:57→19:18)
[2020-06-11] MEDS: LORazepam 2 mg/ml vial IV PRN ×3 (04:03→19:20)
--- NOTE | 2020-06-11 07:00 | NUR ---
Received report from THEE Olivier. Awaiting patient arrival.
[2020-06-11 07:45] VITALS: BP 144/75
[2020-06-11] MEDS: K and/or MAG REPLACEMENT MC SCH ×2 (08:00→20:00)
[2020-06-11] MEDS ORDERED: folic acid 1mg tablet PO SCH (08:00)
[2020-06-11] MEDS ORDERED: gabapentin 300mg capsule PO SCH (08:00)
[2020-06-11] MEDS ORDERED: multivitamins, therapeutics tablet PO SCH (08:00)
[2020-06-11] MEDS ORDERED: thiamine 100mg tablet PO SCH (08:00)
[2020-06-11] MEDS: pantoprazole 40 MG vial IV SCH (08:06)
[2020-06-11] MEDS ORDERED: PANT40TA54 PO (10:36)
[2020-06-11] MEDS ORDERED: LEVE500T PO (10:36)
[2020-06-11] MEDS ORDERED: GABA300C PO (10:36)
[2020-06-11 12:00] VITALS: BP 145/79
--- NOTE | 2020-06-11 17:39 | NUR ---
patient refused to place a gown on. and refused his 2RN skin check at the moment.
--- NOTE | 2020-06-11 18:01 | NUR ---
Problems reprioritized. Patient report given, questions answered & plan of care reviewed with THEE Arnold.
--- NOTE | 2020-06-11 18:44 | NUR ---
I have received report from THEE Colvin, and had the opportunity to ask questions and assume patient care.
[2020-06-11] MEDS: levetiracetam 250mg tablet PO SCH (19:18)
[2020-06-11 19:52] VITALS: BP 140/86
[2020-06-11 23:22] VITALS: BP 117/78
[2020-06-12] MEDS: gabapentin 300mg capsule PO SCH ×3 (00:24→15:03)
[2020-06-12] MEDS: normal saline 1000ml 1,000 ML IV SCH ×2 (02:08→16:46)
--- NOTE | 2020-06-12 06:00 | NUR ---
Patient in room MELODIE 358. I have received report from THEE Arnold and had the opportunity to ask questions and assume patient care.
--- NOTE | 2020-06-12 06:10 | NUR ---
Patient report given, questions answered & plan of care reviewed with THEE Noonan.
[2020-06-12 06:33] LABS: BASOPHILS % (AUTO) 0.2 % (0-1); EOSINOPHILS % (AUTO) 0.3 % (0-6); HEMATOCRIT 38.5 % (42.0-52.0); HEMOGLOBIN 13.2 g/dl (14.0-17.9); LYMPHOCYTES # (AUTO) 1.2 X10'3 (1.1-4.8); LYMPHOCYTES % (AUTO) 10.7 % (21-51); MEAN CORPUSCULAR HEMOGLOBIN 33.7 PG (27.0-31.0); MEAN CORPUSCULAR HGB CONC 34.3 g/dL (33.0-36.5); MEAN CORPUSCULAR VOLUME 98.2 FL (78-98); MONOCYTES # (AUTO) 0.7 X10'3 (0-0.9); MONOCYTES % (AUTO) 6.5 % (2-12); NEUTROPHILS # (AUTO) 9.4 X10'3 (1.8-7.7); NEUTROPHILS % (AUTO) 82.3 % (42-75); PLATELET COUNT 178 X10'3 (140-440); RED BLOOD COUNT 3.93 X10'6 (4.70-6.10); RED CELL DISTRIBUTION WIDTH 13.7 % (11.5-14.5); WHITE BLOOD COUNT 11.4 X10'3 (4.5-11.0)
[2020-06-12 06:55] LABS: ALANINE AMINOTRANSFERASE 23 U/L (12-78); ALBUMIN 3.3 G/DL (3.4-5.0); ALBUMIN/GLOBULIN RATIO 1.1 (1.1-1.5); ALKALINE PHOSPHATASE 83 IU/L (46-116); ANION GAP 15 (8-16); ASPARTATE AMINO TRANSFERASE 26 U/L (10-37); BILIRUBIN,TOTAL 1.4 MG/DL (0.1-1.0); BLOOD UREA NITROGEN 10 MG/DL (7-18); BUN/CREATININE RATIO 9.9 (5.4-32.0); CALCIUM 8.4 MG/DL (8.5-10.1); CHLORIDE 100 MMOL/L (99-107); CREATININE 1.01 MG/DL (0.60-1.10); GLUCOSE 72 MG/DL (70-104); POTASSIUM 3.4 MMOL/L (3.5-5.1); SODIUM 137 MMOL/L (135-145); TOTAL CARBON DIOXIDE 22.5 MMOL/L (24-32); TOTAL PROTEIN 6.3 G/DL (6.4-8.2); eGFR 85 ML/MIN
[2020-06-12 08:00] VITALS: BP 111/71
[2020-06-12] MEDS: levetiracetam 250mg tablet PO SCH ×2 (08:00→20:00)
[2020-06-12] MEDS: K and/or MAG REPLACEMENT MC SCH ×2 (08:00→20:00)
[2020-06-12] MEDS: pantoprazole 40 MG vial IV SCH (08:00)
[2020-06-12] MEDS: thiamine inj. 100 MG, MVI, adult No.4 with vit. K 10 ML in dextrose 5% water 500ml 500 ML IV SCH ×3 (08:01)
--- NOTE | 2020-06-12 08:18 | NUR ---
Patient reported sharp substernal chest pain not affected by breathing , MD jessica MD called and ordered Mallox ACHS.
[2020-06-12 08:53] LABS: C-REACTIVE PROTEIN 1.32 MG/DL (0.0-0.5)
[2020-06-12 11:00] VITALS: BP 117/76
[2020-06-12] MEDS: mag hydrox/Alum hydrox/simeth 30ml oral suspension PO SCH ×3 (11:32→20:05)
[2020-06-12] MEDS: LORazepam 2 mg/ml vial IV PRN ×3 (14:40→22:46)
--- NOTE | 2020-06-12 18:25 | NUR ---
Problems reprioritized. Patient report given, questions answered & plan of care reviewed with THEE Minaya.
[2020-06-12] MEDS ORDERED: potassium Cl 20 mEq SR tablet PO PRN (19:45)
[2020-06-12 20:00] VITALS: BP 150/99
[2020-06-12] MEDS: potassium Cl 20 mEq SR tablet PO PRN (20:05)
[2020-06-12] MEDS: HYDROcodone/acetaminophen 5mg/325mg tablet PO PRN (23:43)
[2020-06-13] VITALS: BP 125/86
[2020-06-13] MEDS: gabapentin 300mg capsule PO SCH ×2 (00:23→07:42)
[2020-06-13] MEDS: potassium Cl 20 mEq SR tablet PO PRN (00:34)
--- NOTE | 2020-06-13 02:02 | NUR ---
PATIENT HAD RIGHT RIB FRACTURES 2 MONTHS AGO Addendum: 06/13/20 at 0209 by Haleigh Manuel RN Amended: Links added.
[2020-06-13] MEDS ORDERED: LORazepam 2 mg/ml vial IV PRN (02:15)
[2020-06-13] MEDS ORDERED: LORazepam 1 MG tablet PO PRN (02:15)
[2020-06-13] MEDS: normal saline 1000ml 1,000 ML IV SCH (04:35)
[2020-06-13 06:05] LABS: BASOPHILS % (AUTO) 0.6 % (0-1); EOSINOPHILS # (AUTO) 0.1 X10'3 (0-0.9); EOSINOPHILS % (AUTO) 1.9 % (0-6); HEMATOCRIT 40.1 % (42.0-52.0); LYMPHOCYTES # (AUTO) 1.6 X10'3 (1.1-4.8); LYMPHOCYTES % (AUTO) 27.6 % (21-51); MEAN CORPUSCULAR HEMOGLOBIN 34.3 PG (27.0-31.0); MEAN CORPUSCULAR HGB CONC 34.9 g/dL (33.0-36.5); MEAN CORPUSCULAR VOLUME 98.4 FL (78-98); MEAN PLATELET VOLUME 8.7 FL (7.4-10.4); MONOCYTES # (AUTO) 0.5 X10'3 (0-0.9); MONOCYTES % (AUTO) 8.7 % (2-12); NEUTROPHILS # (AUTO) 3.6 X10'3 (1.8-7.7); NEUTROPHILS % (AUTO) 61.2 % (42-75); PLATELET COUNT 145 X10'3 (140-440); RED BLOOD COUNT 4.07 X10'6 (4.70-6.10); RED CELL DISTRIBUTION WIDTH 13.5 % (11.5-14.5)
[2020-06-13 06:21] LABS: ALANINE AMINOTRANSFERASE 26 U/L (12-78); ALBUMIN 3.3 G/DL (3.4-5.0); ALBUMIN/GLOBULIN RATIO 1.1 (1.1-1.5); ALKALINE PHOSPHATASE 80 IU/L (46-116); ANION GAP 7 (8-16); ASPARTATE AMINO TRANSFERASE 27 U/L (10-37); BILIRUBIN,TOTAL 1.2 MG/DL (0.1-1.0); BLOOD UREA NITROGEN 7 MG/DL (7-18); BUN/CREATININE RATIO 9.2 (5.4-32.0); CALCIUM 8.6 MG/DL (8.5-10.1); CHLORIDE 101 MMOL/L (99-107); CREATININE 0.76 MG/DL (0.60-1.10); GLUCOSE 86 MG/DL (70-104); POTASSIUM 3.6 MMOL/L (3.5-5.1); SODIUM 137 MMOL/L (135-145); TOTAL CARBON DIOXIDE 28.7 MMOL/L (24-32); TOTAL PROTEIN 6.4 G/DL (6.4-8.2); eGFR > 90 ML/MIN
--- NOTE | 2020-06-13 06:41 | NUR ---
Problems reprioritized. Patient report given, questions answered & plan of care reviewed with BHUPENDRA KINGSTON.
--- NOTE | 2020-06-13 06:42 | NUR ---
Patient in room MELODIE 358. I have received report from THEE Minaya and renee Ricardo RN and had the opportunity to ask questions and assume patient care.
[2020-06-13 07:00] VITALS: BP 117/82
[2020-06-13] MEDS: levetiracetam 250mg tablet PO SCH ×2 (07:42→08:00)
[2020-06-13] MEDS: HYDROcodone/acetaminophen 5mg/325mg tablet PO PRN (07:42)
[2020-06-13] MEDS: thiamine inj. 100 MG, MVI, adult No.4 with vit. K 10 ML in dextrose 5% water 500ml 500 ML IV SCH ×3 (07:42)
[2020-06-13] MEDS: mag hydrox/Alum hydrox/simeth 30ml oral suspension PO SCH ×2 (07:42→12:00)
[2020-06-13] MEDS: pantoprazole 40 MG vial IV SCH (07:42)
[2020-06-13] MEDS: K and/or MAG REPLACEMENT MC SCH (08:00)
[2020-06-13 11:00] VITALS: BP 119/89
[2020-06-13] MEDS ORDERED: PANT40TA54 PO (11:49)
--- NOTE | 2020-06-13 12:10 | NUR ---
Pt discharged to home with all belongings. Discharge instructions and medications reviewed. Pt instructed to follow up with AA as directed, and to abstain from drinking alcohol. Pt also instructed to return to ED if his symptoms return. Pt stated understanding of discharge instructions. Pt escorted to front lobby by PCT.
[2020-06-15] MEDS ORDERED: LORazepam 1 MG tablet PO PRN (02:15)
== END 2020-06-13 12:10 | disposition home or self-care (01) | DRG 243 ==
LOC: ER 23:39 → ED HOLD 06-11 02:12 → SUR 3N 06-11 07:21
PROVIDERS: ADMIT Internal Medicine; ATTEND Family Medicine
DX: K20.90 Esophagitis, unspecified without bleeding (principal); K29.20 Alcoholic gastritis without bleeding; F10.229 Alcohol dependence with intoxication, unspecified; N17.9 Acute kidney failure, unspecified; E87.2 Acidosis; F10.20 Alcohol dependence, uncomplicated; G40.909 Epilepsy, unspecified, not intractable, without status epilepticus; E86.0 Dehydration; I10 Essential (primary) hypertension; F12.90 Cannabis use, unspecified, uncomplicated; M54.9 Dorsalgia, unspecified; G89.29 Other chronic pain; Z59.0 Homelessness; Z79.899 Other long term (current) drug therapy
CPT/HCPCS: 36415; 36600; 71045; 80053; 80320; 81001; 82803; 82948; 83605; 83690; 85018; 85025; 85651; 86140; 87081; 93306; 96372; 96374; 99285; C9113; G0378; J0780; J2060; J2405; J3411; J7030; J7060

== ENCOUNTER 2020-07-26 15:31 | Inpatient (IN) | payer MEDICAID ==
[~2020-07-26] VITALS: Ht 177.8 cm; Wt 66.6 kg
[~2020-07-26 15:31] MED LIST changes: -DICL50TA8 PO; -FAMO40TA73 PO; -GABA-532 PO; +GABA300C PO; -IBUP-1986 PO; -KEP500T PO; +LEVE500T PO; -ONDA4TAB6 PO; -PANT-47 PO; +PANT40TA54 PO; -THIA100T70 PO
[2020-07-26] MEDS ORDERED: normal saline 1000ML IV soln IVB ONE ×2 (16:20→20:05)
[2020-07-26] MEDS ORDERED: gabapentin 300mg capsule PO SCH (16:20)
[2020-07-26] MEDS ORDERED: gabapentin 300mg capsule PO ONE (16:20)
[2020-07-26] MEDS ORDERED: LORazepam 2 mg/ml vial IV ONE ×2 (16:20→19:20)
[2020-07-26] MEDS ORDERED: thiamine 100mg/ml 2ml inj. IV ONE (16:20)
[2020-07-26 16:36] LABS: BASOPHILS % (AUTO) 0.4 % (0-1); EOSINOPHILS % (AUTO) 0 % (0-6); HEMATOCRIT 47.1 % (42.0-52.0); HEMOGLOBIN 15.7 g/dl (14.0-17.9); LYMPHOCYTES # (AUTO) 0.7 X10'3 (1.1-4.8); LYMPHOCYTES % (AUTO) 9.4 % (21-51); MEAN CORPUSCULAR HEMOGLOBIN 32.8 PG (27.0-31.0); MEAN CORPUSCULAR HGB CONC 33.3 g/dL (33.0-36.5); MEAN CORPUSCULAR VOLUME 98.5 FL (78-98); MEAN PLATELET VOLUME 8.1 FL (7.4-10.4); MONOCYTES # (AUTO) 0.3 X10'3 (0-0.9); MONOCYTES % (AUTO) 3.8 % (2-12); NEUTROPHILS # (AUTO) 6.8 X10'3 (1.8-7.7); NEUTROPHILS % (AUTO) 86.4 % (42-75); PLATELET COUNT 269 X10'3 (140-440); RED BLOOD COUNT 4.78 X10'6 (4.70-6.10); RED CELL DISTRIBUTION WIDTH 14.7 % (11.5-14.5); WHITE BLOOD COUNT 7.8 X10'3 (4.5-11.0)
[2020-07-26 16:54] LABS: ALANINE AMINOTRANSFERASE 23 U/L (12-78); ALBUMIN 4.5 G/DL (3.4-5.0); ALBUMIN/GLOBULIN RATIO 1.2 (1.1-1.5); ALKALINE PHOSPHATASE 115 IU/L (46-116); ANION GAP 28 (8-16); ASPARTATE AMINO TRANSFERASE 25 U/L (10-37); BILIRUBIN,TOTAL 0.5 MG/DL (0.1-1.0); BLOOD UREA NITROGEN 19 MG/DL (7-18); CHLORIDE 99 MMOL/L (99-107); CREATININE 1.36 MG/DL (0.60-1.10); GLUCOSE 65 MG/DL (70-104); LIPASE < 50 U/L (73-393); POTASSIUM 4.5 MMOL/L (3.5-5.1); SODIUM 142 MMOL/L (135-145); TOTAL CARBON DIOXIDE 15.1 MMOL/L (24-32); TOTAL PROTEIN 8.2 G/DL (6.4-8.2); eGFR 60 ML/MIN
--- NOTE | 2020-07-26 17:45 | NUR ---
Mx attempts at IV starts by myself and Minal Gil RN, unsuccessful. Another RN pg'ed to look for access. notified
[2020-07-26] MEDS ORDERED: cloNIDine 0.1 mg tablet PO ONE (19:20)
[2020-07-26] MEDS ORDERED: NO HOME MEDS (19:42)
--- NOTE | 2020-07-26 20:10 | NUR ---
notified of VS
[2020-07-26] MEDS ORDERED: phenobarbital inj 130 MG in normal saline 100ml IV soln 99 ML IV ONE (20:30)
--- NOTE | 2020-07-26 20:38 | NUR ---
New IV started to L hand, NS infusing well at this time. Phenobarb infusing on pump with .22 micron filter. Pt on cardiac care nurse
--- NOTE | 2020-07-26 22:00 | NUR ---
Dr. Juares at bedside
[2020-07-26 22:03] LABS: CLARITY,URINE CLEAR (Clear); COLOR,URINE YELLOW (Yellow); GLUCOSE, URINE NEGATIVE (Neg); KETONES,URINE 40 mg/dl (Neg); LEUKOCYTE ESTERASE ,URINE NEGATIVE (Neg); NITRITES, URINE NEGATIVE (Neg); OCCULT BLOOD,URINE NEGATIVE (Neg); PH,URINE 5.5 (4.8-8.0); PROTEIN,URINE TRACE mg/dl (Neg); UROBILINOGEN,URINE 0.2 E.U/dL (0.2-1.0)
[2020-07-26 22:08] LABS: UA COLLECTION TYPE CLN CATCH MIDSTREAM
[2020-07-26 22:09] LABS: BACTERIA,URINE NONE SEEN /HPF (Neg); RBC,URINE NONE SEEN /HPF (0-2); SQUAMOUS EPITHELIAL CELL,UR FEW /LPF (FEW); WBC,URINE NONE SEEN /HPF (0-4)
[2020-07-26] MEDS ORDERED: cloNIDine 0.1 mg tablet PO PRN (22:10)
[2020-07-26] MEDS ORDERED: HYDROcodone/acetaminophen 10/325mg tab PO PRN (22:10)
[2020-07-26] MEDS ORDERED: ondansetron/PF 4mg/2ml inj IV PRN (22:10)
[2020-07-26] MEDS ORDERED: mag hydrox/Alum hydrox/simeth 30ml oral suspension PO PRN (22:10)
[2020-07-26] MEDS ORDERED: haloperidol lactate 5mg/ml inj IM PRN (22:10)
[2020-07-26] MEDS ORDERED: LORazepam 2 mg/ml vial IV PRN (22:10)
[2020-07-26] MEDS ORDERED: HYDROcodone/acetaminophen 5mg/325mg tablet PO PRN (22:10)
[2020-07-26] MEDS ORDERED: acetaminophen 325mg tablet PO PRN ×2 (22:10)
[2020-07-26] MEDS ORDERED: magnesium hydroxide 30ml (MOM) UD suspension PO PRN (22:10)
[2020-07-26] MEDS: normal saline 1000ml 1,000 ML IV SCH (22:54)
--- NOTE | 2020-07-27 00:30 | NUR ---
PT GIVEN ORANGE JUICE AND WARM BLANKET UPON REQUEST
[2020-07-27] MEDS: LORazepam 2 mg/ml vial IV PRN ×4 (02:07→15:19)
--- NOTE | 2020-07-27 02:11 | NUR ---
PT GIVEN ORANGE JUICE AND WATER PITCHER AND WARM BLANKET. PT STATES HE WAS FEELING ANXIOUS. ATIVAN 2 MG GIVEN PRN ORDER
[2020-07-27 07:31] LABS: BASOPHILS % (AUTO) 0.4 % (0-1); EOSINOPHILS % (AUTO) 0.6 % (0-6); HEMATOCRIT 37.2 % (42.0-52.0); HEMOGLOBIN 12.6 g/dl (14.0-17.9); LYMPHOCYTES # (AUTO) 1.3 X10'3 (1.1-4.8); LYMPHOCYTES % (AUTO) 18.4 % (21-51); MEAN CORPUSCULAR HEMOGLOBIN 33.3 PG (27.0-31.0); MEAN CORPUSCULAR HGB CONC 33.9 g/dL (33.0-36.5); MEAN CORPUSCULAR VOLUME 98.1 FL (78-98); MONOCYTES # (AUTO) 1.3 X10'3 (0-0.9); MONOCYTES % (AUTO) 18.1 % (2-12); NEUTROPHILS # (AUTO) 4.4 X10'3 (1.8-7.7); NEUTROPHILS % (AUTO) 62.5 % (42-75); PLATELET COUNT 191 X10'3 (140-440); RED BLOOD COUNT 3.79 X10'6 (4.70-6.10); WHITE BLOOD COUNT 7.1 X10'3 (4.5-11.0)
--- NOTE | 2020-07-27 07:55 | NUR ---
Report received from ED RN, Brigitte.
[2020-07-27] MEDS ORDERED: folic acid 1mg tablet PO SCH (08:00)
[2020-07-27] MEDS ORDERED: multivitamins, therapeutics tablet PO SCH (08:00)
[2020-07-27] MEDS ORDERED: thiamine 100mg tablet PO SCH (08:00)
[2020-07-27 08:02] LABS: TOTAL CELLS COUNTED 100
[2020-07-27 08:04] LABS: PLATELET ESTIMATE NORMAL; STOMATOCYTES FEW
[2020-07-27 08:06] LABS: ALANINE AMINOTRANSFERASE 15 U/L (12-78); ALBUMIN 3.3 G/DL (3.4-5.0); ALBUMIN/GLOBULIN RATIO 1.1 (1.1-1.5); ALKALINE PHOSPHATASE 82 IU/L (46-116); AMYLASE 67 U/L (25-115); ANION GAP 13 (8-16); ASPARTATE AMINO TRANSFERASE 13 U/L (10-37); BILIRUBIN,TOTAL 0.8 MG/DL (0.1-1.0); BLOOD UREA NITROGEN 14 MG/DL (7-18); BUN/CREATININE RATIO 13.9 (5.4-32.0); CALCIUM 7.9 MG/DL (8.5-10.1); CHLORIDE 100 MMOL/L (99-107); CREATININE 1.01 MG/DL (0.60-1.10); GLUCOSE 99 MG/DL (70-104); LIPASE < 50 U/L (73-393); MAGNESIUM 1.8 MG/DL (1.5-2.4); POTASSIUM 4.5 MMOL/L (3.5-5.1); SODIUM 134 MMOL/L (135-145); TOTAL CARBON DIOXIDE 21.1 MMOL/L (24-32); TOTAL PROTEIN 6.4 G/DL (6.4-8.2); eGFR 85 ML/MIN
[2020-07-27 08:30] VITALS: BP 117/75
[2020-07-27] MEDS ORDERED: ondansetron/PF 4mg/2ml inj IV PRN (08:30)
[2020-07-27] MEDS: normal saline 1000ml 1,000 ML IV SCH (08:47)
[2020-07-27 11:00] VITALS: BP 113/75
[2020-07-27 15:00] VITALS: BP 127/81
[2020-07-27] MEDS ORDERED: CHLO25CA10 PO ×2 (16:07→17:15)
--- NOTE | 2020-07-27 17:00 | NUR ---
Pt refuses accucheck. Pt to be DC'd soon.
--- NOTE | 2020-07-27 17:40 | NUR ---
DC inst provided to pt. IV x2 DC'd, tip intact. All belongings sent w/pt. Pt ambulated to front lobby.
[2020-07-27] MEDS ORDERED: enoxaparin 40mg/0.4ml syringe SQ SCH (20:00)
== END 2020-07-27 17:40 | disposition home or self-care (01) | DRG 469 ==
LOC: ER 15:32 → EEVIPCON 15:32 → ED HOLD 22:08 → PCU 3S 07-27 08:26
PROVIDERS: ADMIT Family Medicine; ATTEND Internal Medicine
DX: N17.9 Acute kidney failure, unspecified (principal); R00.0 Tachycardia, unspecified; E86.0 Dehydration; E87.6 Hypokalemia; F41.9 Anxiety disorder, unspecified; I10 Essential (primary) hypertension; F10.230 Alcohol dependence with withdrawal, uncomplicated; F17.210 Nicotine dependence, cigarettes, uncomplicated; E83.39 Other disorders of phosphorus metabolism; F12.90 Cannabis use, unspecified, uncomplicated; G89.29 Other chronic pain; M54.9 Dorsalgia, unspecified; Z59.0 Homelessness
CPT/HCPCS: 36415; 71045; 80053; 81001; 82150; 82948; 83690; 83735; 84100; 85007; 85025; 96374; 96375; 99291; G0378; J2060; J2405; J2560; J3411; J7030

== ENCOUNTER 2020-07-29 18:07 | Emergency (ER) | payer MEDICAID ==
[~2020-07-29] VITALS: Ht 177.8 cm; Wt 75.0 kg
[2020-07-29 18:08] VITALS: BP 112/76
[2020-07-29] MEDS ORDERED: normal saline 1000ML IV soln IVB ONE (19:15)
[2020-07-29] MEDS ORDERED: folic acid 1mg/0.2ml inj IV ONE (19:15)
[2020-07-29] MEDS ORDERED: thiamine 100mg/ml 2ml inj. IV ONE (19:15)
[2020-07-29 19:32] LABS: BASOPHILS % (AUTO) 0.8 % (0-1); EOSINOPHILS # (AUTO) 0.1 X10'3 (0-0.9); EOSINOPHILS % (AUTO) 1.9 % (0-6); HEMOGLOBIN 15.9 g/dl (14.0-17.9); LYMPHOCYTES # (AUTO) 2.3 X10'3 (1.1-4.8); LYMPHOCYTES % (AUTO) 38.3 % (21-51); MEAN CORPUSCULAR HEMOGLOBIN 33.2 PG (27.0-31.0); MEAN CORPUSCULAR HGB CONC 33.8 g/dL (33.0-36.5); MEAN CORPUSCULAR VOLUME 98.2 FL (78-98); MONOCYTES # (AUTO) 0.7 X10'3 (0-0.9); MONOCYTES % (AUTO) 11.9 % (2-12); NEUTROPHILS # (AUTO) 2.8 X10'3 (1.8-7.7); NEUTROPHILS % (AUTO) 47.1 % (42-75); PLATELET COUNT 200 X10'3 (140-440); RED BLOOD COUNT 4.78 X10'6 (4.70-6.10); RED CELL DISTRIBUTION WIDTH 14.5 % (11.5-14.5)
[2020-07-29 19:42] LABS: ALANINE AMINOTRANSFERASE 29 U/L (12-78); ALBUMIN 4.2 G/DL (3.4-5.0); ALBUMIN/GLOBULIN RATIO 1.1 (1.1-1.5); ALKALINE PHOSPHATASE 101 IU/L (46-116); ANION GAP 17 (8-16); ASPARTATE AMINO TRANSFERASE 31 U/L (10-37); BILIRUBIN,TOTAL 0.5 MG/DL (0.1-1.0); BLOOD UREA NITROGEN 14 MG/DL (7-18); BUN/CREATININE RATIO 14.9 (5.4-32.0); CALCIUM 9.3 MG/DL (8.5-10.1); CHLORIDE 102 MMOL/L (99-107); CREATININE 0.94 MG/DL (0.60-1.10); GLUCOSE 83 MG/DL (70-104); POTASSIUM 3.7 MMOL/L (3.5-5.1); SODIUM 143 MMOL/L (135-145); TOTAL CARBON DIOXIDE 24.5 MMOL/L (24-32); eGFR > 90 ML/MIN
[2020-07-29 19:54] LABS: CREATINE KINASE 127 U/L (39-308)
[2020-07-29 20:30] LABS: ETHANOL 0.323 GM/DL (0.0-0.010)
== END 2020-07-29 21:21 | disposition home or self-care (01) ==
LOC: ER 18:07
DX: F10.129 Alcohol abuse with intoxication, unspecified (principal); R11.0 Nausea; I10 Essential (primary) hypertension; G89.29 Other chronic pain; F12.90 Cannabis use, unspecified, uncomplicated; Z86.69 Personal history of other diseases of the nervous system and sense organs; Z59.0 Homelessness; Z72.89 Other problems related to lifestyle; Z98.890 Other specified postprocedural states; Z79.899 Other long term (current) drug therapy; Y90.8 Blood alcohol level of 240 mg/100 ml or more
CPT/HCPCS: 36415; 70450; 80053; 80320; 82550; 85025; 93005; 96361; 96374; 96375; 99285; J3411; J3490; J7030

== ENCOUNTER 2020-09-16 11:32 | Emergency (ER) | payer MEDICAID ==
[~2020-09-16] VITALS: Ht 177.8 cm; Wt 72.7 kg
[~2020-09-16 11:32] MED LIST changes: -GABA300C PO; -LEVE500T PO; +LIDOcaine 1% w/epiNEPHrine 1:200,000 30ml vial ONE; -PANT40TA54 PO
[2020-09-16 11:44] VITALS: BP 122/79
[2020-09-16] MEDS ORDERED: CEPH250T PO (13:32)
[2020-09-17] MEDS ORDERED: KEP500T PO (20:51)
[2020-09-17] MEDS ORDERED: ONDA4TAB12 PO (20:51)
== END 2020-09-16 13:46 | disposition home or self-care (01) ==
LOC: ER 11:34
DX: M79.642 Pain in left hand (principal); I10 Essential (primary) hypertension; G89.29 Other chronic pain; F12.90 Cannabis use, unspecified, uncomplicated; Z18.10 Retained metal fragments, unspecified; Z86.69 Personal history of other diseases of the nervous system and sense organs; Z98.890 Other specified postprocedural states; Z72.89 Other problems related to lifestyle; Z59.0 Homelessness; Z79.2 Long term (current) use of antibiotics
CPT/HCPCS: 10120; 73130; 99285

== ENCOUNTER 2020-09-17 13:22 | Emergency (ER) | payer MEDICAID ==
[~2020-09-17] VITALS: Ht 177.8 cm; Wt 63.6 kg
[~2020-09-17 13:22] MED LIST changes: +CEPH250T PO; -LIDOcaine 1% w/epiNEPHrine 1:200,000 30ml vial ONE
[2020-09-17] MEDS ORDERED: levetiracetam inj 1,000 MG in normal saline 100ml IV soln 90 ML IV STA (16:14)
[2020-09-17] MEDS ORDERED: diphenhydrAMINE 50 mg/ml inj IV ONE (16:15)
[2020-09-17] MEDS ORDERED: normal saline 1000ML IV soln IVB ONE ×4 (16:15→20:25)
[2020-09-17] MEDS ORDERED: metoclopramide 5 mg/ml inj IV ONE (16:15)
[2020-09-17] MEDS ORDERED: ceFAZolin 1GM/D5W- ADD-VANTAGE 50 ML IV ONE (16:20)
[2020-09-17] MEDS ORDERED: levetiracetam-NS 1000mg/100ml 100 ML IV STA (16:21)
[2020-09-17] MEDS ORDERED: ketorolac trometh. 30mg/ml inj. IV ONE (17:35)
[2020-09-17 18:18] LABS: BASOPHILS % (AUTO) 0.4 % (0-1); EOSINOPHILS % (AUTO) 0.1 % (0-6); HEMATOCRIT 47.9 % (42.0-52.0); HEMOGLOBIN 15.9 g/dl (14.0-17.9); LYMPHOCYTES % (AUTO) 11.8 % (21-51); MEAN CORPUSCULAR HEMOGLOBIN 33.1 PG (27.0-31.0); MEAN CORPUSCULAR HGB CONC 33.3 g/dL (33.0-36.5); MEAN CORPUSCULAR VOLUME 99.5 FL (78-98); MEAN PLATELET VOLUME 8.4 FL (7.4-10.4); MONOCYTES # (AUTO) 0.7 X10'3 (0-0.9); MONOCYTES % (AUTO) 8.1 % (2-12); NEUTROPHILS # (AUTO) 6.9 X10'3 (1.8-7.7); NEUTROPHILS % (AUTO) 79.6 % (42-75); PLATELET COUNT 285 X10'3 (140-440); RED BLOOD COUNT 4.81 X10'6 (4.70-6.10); RED CELL DISTRIBUTION WIDTH 16.3 % (11.5-14.5); WHITE BLOOD COUNT 8.7 X10'3 (4.5-11.0)
[2020-09-17 18:32] LABS: ALANINE AMINOTRANSFERASE 16 U/L (12-78); ALBUMIN 3.4 G/DL (3.4-5.0); ALBUMIN/GLOBULIN RATIO 0.9 (1.1-1.5); ALKALINE PHOSPHATASE 111 IU/L (46-116); ANION GAP 29 (8-16); ASPARTATE AMINO TRANSFERASE 25 U/L (10-37); BILIRUBIN,TOTAL 0.4 MG/DL (0.1-1.0); BLOOD UREA NITROGEN 16 MG/DL (7-18); BUN/CREATININE RATIO 15.7 (5.4-32.0); CALCIUM 8.4 MG/DL (8.5-10.1); CHLORIDE 104 MMOL/L (99-107); CREATININE 1.02 MG/DL (0.60-1.10); GLUCOSE 55 MG/DL (70-104); LIPASE 50 U/L (73-393); POTASSIUM 3.9 MMOL/L (3.5-5.1); SODIUM 145 MMOL/L (135-145); eGFR 84 ML/MIN
[2020-09-17 18:35] LABS: TOTAL CARBON DIOXIDE 11.7 MMOL/L (24-32)
[2020-09-17] MEDS ORDERED: morphine 4 MG/ML inj SYRINge IV ONE (20:25)
[2020-09-17] MEDS ORDERED: LORazepam 2 mg/ml vial IV ONE (20:25)
[2020-09-17] MEDS ORDERED: ONDA4TAB12 PO (20:51)
[2020-09-17] MEDS ORDERED: KEP500T PO (20:51)
[2020-09-17 22:23] VITALS: BP 116/65
== END 2020-09-17 22:38 | disposition home or self-care (01) ==
LOC: ER 13:24
DX: R56.9 Unspecified convulsions (principal); R11.2 Nausea with vomiting, unspecified; R51.9 Headache, unspecified; I10 Essential (primary) hypertension; G89.29 Other chronic pain; F12.90 Cannabis use, unspecified, uncomplicated; F17.210 Nicotine dependence, cigarettes, uncomplicated; Z98.890 Other specified postprocedural states; Z72.89 Other problems related to lifestyle; Z79.899 Other long term (current) drug therapy
CPT/HCPCS: 36415; 76937; 80053; 83605; 83690; 85025; 96365; 96375; 99284; J0690; J1200; J1885; J1953; J2060; J2270; J2765; J7030

== ENCOUNTER 2020-09-26 11:38 | Inpatient (IN) | payer MEDICAID ==
[~2020-09-26] VITALS: Ht 177.8 cm; Wt 60.0 kg
[~2020-09-26 11:38] MED LIST changes: +KEP500T PO; +ONDA4TAB12 PO
[2020-09-26 13:12] LABS: BASOPHILS % (AUTO) 0.2 % (0-1); EOSINOPHILS % (AUTO) 0 % (0-6); HEMATOCRIT 53.3 % (42.0-52.0); HEMOGLOBIN 17.4 g/dl (14.0-17.9); LYMPHOCYTES # (AUTO) 0.6 X10'3 (1.1-4.8); LYMPHOCYTES % (AUTO) 8.5 % (21-51); MEAN CORPUSCULAR HEMOGLOBIN 32.7 PG (27.0-31.0); MEAN CORPUSCULAR HGB CONC 32.6 g/dL (33.0-36.5); MEAN CORPUSCULAR VOLUME 100.3 FL (78-98); MEAN PLATELET VOLUME 9.1 FL (7.4-10.4); MONOCYTES # (AUTO) 0.4 X10'3 (0-0.9); MONOCYTES % (AUTO) 5.4 % (2-12); NEUTROPHILS % (AUTO) 85.9 % (42-75); PLATELET COUNT 209 X10'3 (140-440); RED BLOOD COUNT 5.31 X10'6 (4.70-6.10); RED CELL DISTRIBUTION WIDTH 15.8 % (11.5-14.5)
[2020-09-26 13:22] LABS: ALANINE AMINOTRANSFERASE 44 U/L (12-78); ALBUMIN 4.2 G/DL (3.4-5.0); ALKALINE PHOSPHATASE 133 IU/L (46-116); AMYLASE 121 U/L (25-115); ANION GAP 31 (8-16); ASPARTATE AMINO TRANSFERASE 47 U/L (10-37); BILIRUBIN,TOTAL 0.7 MG/DL (0.1-1.0); BLOOD UREA NITROGEN 23 MG/DL (7-18); BUN/CREATININE RATIO 17.7 (5.4-32.0); CHLORIDE 93 MMOL/L (99-107); GLUCOSE 103 MG/DL (70-104); LIPASE 257 U/L (73-393); POTASSIUM 3.5 MMOL/L (3.5-5.1); SODIUM 141 MMOL/L (135-145); TOTAL CARBON DIOXIDE 16.6 MMOL/L (24-32); TOTAL PROTEIN 8.5 G/DL (6.4-8.2); eGFR 64 ML/MIN
[2020-09-26] MEDS ORDERED: normal saline 1000ml 1,000 ML IV ONE ×2 (15:25)
[2020-09-26] MEDS ORDERED: ondansetron/PF 4mg/2ml inj IV ONE (15:25)
[2020-09-26] MEDS ORDERED: LORazepam 2 mg/ml vial IV ONE (15:25)
[2020-09-26 16:11] LABS: ABG BASE EXCESS -6.8 mmol/L (-2.0-2.0); ABG HCO3 11.4 mmol/L (22.0-26.0); ABG OXYGEN SATURATION 98.5 % (94-97); ABG PCO2 (T) 14.2 mmHg (35.0-48.0); FCOHb 0.3 % (0.0-3.9); FMetHb 0.6 % (0.0-1.5); FO2Hb 97.6 % (94-97); TOTAL HEMOGLOBIN 18.5 G/dl (14.0-18.0)
[2020-09-26] MEDS ORDERED: magnesium 2GM in 50ml NS 50 ML IV ONE (16:30)
[2020-09-26] MEDS ORDERED: thiamine 100mg/ml 2ml inj. IV ONE (17:05)
[2020-09-26] MEDS ORDERED: folic acid 1mg/0.2ml inj IV ONE (17:05)
[2020-09-26] MEDS ORDERED: LEVE500T PO (17:06)
[2020-09-26] MEDS ORDERED: ONDA8TAB65 PO (17:10)
[2020-09-26 17:13] LABS: MAGNESIUM 2.5 MG/DL (1.5-2.4)
[2020-09-26] MEDS ORDERED: mag hydrox/Alum hydrox/simeth 30ml oral suspension PO PRN (17:15)
[2020-09-26] MEDS ORDERED: dextrose 50%-water 50ml dispensing syringe IV PRN (17:15)
[2020-09-26] MEDS ORDERED: magnesium Cl slow-release 64mg tablet PO PRN (17:15)
[2020-09-26] MEDS ORDERED: dextrose 5%-1/2 normal saline 1,000 ML IV ONE (17:15)
[2020-09-26] MEDS ORDERED: ondansetron/PF 4mg/2ml inj IV PRN (17:15)
[2020-09-26] MEDS ORDERED: magnesium 4gm in 100ml NS 100 ML IV PRN (17:15)
[2020-09-26] MEDS ORDERED: magnesium 2GM in 50ml NS 50 ML IV PRN (17:15)
[2020-09-26] MEDS ORDERED: potassium Cl 40MEQ/1/2NS 520ml 520 ML IV PRN ×2 (17:15)
[2020-09-26] MEDS ORDERED: acetaminophen 325mg tablet PO PRN (17:15)
[2020-09-26] MEDS ORDERED: magnesium hydroxide 30ml (MOM) UD suspension PO PRN (17:15)
[2020-09-26] MEDS ORDERED: potassium Cl 20 mEq SR tablet PO PRN (17:15)
--- NOTE | 2020-09-26 17:37 | NUR ---
600 ML KAI URINE OUT
[2020-09-26] MEDS: LORazepam 2 mg/ml vial IV PRN ×2 (17:52→23:43)
[2020-09-26 17:56] LABS: CLARITY,URINE CLEAR (Clear); COLOR,URINE YELLOW (Yellow); GLUCOSE, URINE NEGATIVE (Neg); KETONES,URINE 40 mg/dl (Neg); LEUKOCYTE ESTERASE ,URINE NEGATIVE (Neg); NITRITES, URINE NEGATIVE (Neg); OCCULT BLOOD,URINE TRACE-INTACT (Neg); PROTEIN,URINE 100 mg/dl (Neg); UROBILINOGEN,URINE 0.2 E.U/dL (0.2-1.0)
[2020-09-26 18:08] LABS: URINE AMPHETAMINE SCREEN NEGATIVE (Neg); URINE BARBITUATE SCREEN NEGATIVE (Neg); URINE BENZODIAZEPINES SCREEN NEGATIVE (Neg); URINE CANNABINOID SCREEN NEGATIVE (Neg); URINE COCAINE SCREEN NEGATIVE (Neg); URINE METHADONE SCREEN NEGATIVE (Neg); URINE OPIATE SCREEN NEGATIVE (Neg); URINE PHENCYCLIDINE SCREEN NEGATIVE (Neg)
[2020-09-26 18:20] LABS: UA COLLECTION TYPE URINAL
[2020-09-26 18:22] LABS: BACTERIA,URINE FEW /HPF (Neg)
[2020-09-26 18:23] LABS: MUCUS STRANDS MANY /LPF (Neg); RBC,URINE 0-2 /HPF (0-2); WBC,URINE 0-4 /HPF (0-4)
[2020-09-26 18:25] LABS: SQUAMOUS EPITHELIAL CELL,UR MODERATE /LPF (FEW)
--- NOTE | 2020-09-26 18:45 | NUR ---
PATIETN CONSTANTLY ASKING FOR ORANGE JUICE, PATIETN EDUCATED ON WHY NPO AND OJ IS ACIDIC. PATIETN GIVEN ICE CHIPS BY BREAK NURSE. PIV TO RIGHT LOWER LEG 20 G UNABLE TO DRAW FROM OK PER DR WELCH TO DRAW BLOOD FROM FEET
--- NOTE | 2020-09-26 18:56 | NUR ---
TO CT SCAN
--- NOTE | 2020-09-26 19:13 | NUR ---
Patient in room ED 10. I have received report from Donna KINGSTON and had the opportunity to ask questions and assume patient care.
--- NOTE | 2020-09-26 19:25 | NUR ---
dr becker called regarding lactic acid
--- NOTE | 2020-09-26 19:33 | NUR ---
DR STOCK PHONED AND IS AWARE OF CURRENT LOWERT LACTATE OF 5.2
[2020-09-26] MEDS: dextrose 5%-water 1,000 ML IV SCH (19:58)
[2020-09-26 20:00] VITALS: BP 145/99
[2020-09-26] MEDS: K and/or MAG REPLACEMENT MC SCH (20:00)
[2020-09-26] MEDS: Levetiracetam-NS 500mg/100ml 100 ML IV SCH (20:00)
[2020-09-26] MEDS: heparin, porcine 5000 units/ml vial SQ SCH (20:06)
[2020-09-26 22:00] VITALS: BP 128/84
[2020-09-27] MEDS: LORazepam 2 mg/ml vial IV PRN ×8 (01:01→23:38)
[2020-09-27] MEDS: dextrose 5%-water 1,000 ML IV SCH (01:15)
--- NOTE | 2020-09-27 01:32 | NUR ---
patient refused coto catheter. he voided 350 ml at 1333
[2020-09-27 01:53] LABS: CLARITY,URINE CLEAR (Clear); COLOR,URINE YELLOW (Yellow); GLUCOSE, URINE 500 mg/dl (Neg); KETONES,URINE >=80 mg/dl (Neg); LEUKOCYTE ESTERASE ,URINE NEGATIVE (Neg); NITRITES, URINE NEGATIVE (Neg); OCCULT BLOOD,URINE TRACE-INTACT (Neg); PROTEIN,URINE 30 mg/dl (Neg); UROBILINOGEN,URINE 0.2 E.U/dL (0.2-1.0)
[2020-09-27] MEDS: normal saline 500ml IV soln 1,000 ML IV SCH ×6 (01:56→23:30)
[2020-09-27 02:00] VITALS: BP 131/94
[2020-09-27 02:00] LABS: UA COLLECTION TYPE CLN CATCH MIDSTREAM
[2020-09-27 02:03] LABS: WBC,URINE 0-4 /HPF (0-4)
[2020-09-27 02:04] LABS: BACTERIA,URINE NONE SEEN /HPF (Neg); MUCUS STRANDS MODERATE /LPF (Neg); SQUAMOUS EPITHELIAL CELL,UR FEW /LPF (FEW)
[2020-09-27 06:00] VITALS: BP 143/92
--- NOTE | 2020-09-27 06:24 | NUR ---
Problems reprioritized. Patient report given, questions answered & plan of care reviewed with Pat RN.
[2020-09-27] MEDS: heparin, porcine 5000 units/ml vial SQ SCH ×2 (07:34→19:46)
[2020-09-27] MEDS ORDERED: thiamine inj. 100 MG in normal saline 100ml IV soln 100 ML IV SCH (08:00)
[2020-09-27] MEDS: K and/or MAG REPLACEMENT MC SCH ×2 (08:00→19:54)
[2020-09-27] MEDS ORDERED: magnesium 2GM in 50ml NS 50 ML IV SCH (08:00)
[2020-09-27] MEDS ORDERED: pantoprazole 40 MG vial IV SCH (08:00)
[2020-09-27] MEDS: Levetiracetam-NS 500mg/100ml 100 ML IV SCH ×2 (08:00→19:54)
[2020-09-27 08:08] LABS: BASOPHILS % (AUTO) 0.4 % (0-1); EOSINOPHILS % (AUTO) 0.4 % (0-6); HEMATOCRIT 42.2 % (42.0-52.0); HEMOGLOBIN 14.1 g/dl (14.0-17.9); LYMPHOCYTES # (AUTO) 0.9 X10'3 (1.1-4.8); LYMPHOCYTES % (AUTO) 13.6 % (21-51); MEAN CORPUSCULAR HGB CONC 33.4 g/dL (33.0-36.5); MEAN CORPUSCULAR VOLUME 98.7 FL (78-98); MEAN PLATELET VOLUME 8.9 FL (7.4-10.4); MONOCYTES # (AUTO) 0.7 X10'3 (0-0.9); MONOCYTES % (AUTO) 10.1 % (2-12); NEUTROPHILS # (AUTO) 5.2 X10'3 (1.8-7.7); NEUTROPHILS % (AUTO) 75.5 % (42-75); PLATELET COUNT 139 X10'3 (140-440); RED BLOOD COUNT 4.28 X10'6 (4.70-6.10); RED CELL DISTRIBUTION WIDTH 15.7 % (11.5-14.5); WHITE BLOOD COUNT 6.8 X10'3 (4.5-11.0)
[2020-09-27 08:26] LABS: ALANINE AMINOTRANSFERASE 34 U/L (12-78); ALBUMIN 3.1 G/DL (3.4-5.0); ALKALINE PHOSPHATASE 97 IU/L (46-116); ANION GAP 16 (8-16); ASPARTATE AMINO TRANSFERASE 39 U/L (10-37); BILIRUBIN,TOTAL 1.2 MG/DL (0.1-1.0); BLOOD UREA NITROGEN 17 MG/DL (7-18); BUN/CREATININE RATIO 16.8 (5.4-32.0); CALCIUM 8.2 MG/DL (8.5-10.1); CHLORIDE 99 MMOL/L (99-107); CREATININE 1.01 MG/DL (0.60-1.10); GLUCOSE 74 MG/DL (70-104); POTASSIUM 3.2 MMOL/L (3.5-5.1); SODIUM 139 MMOL/L (135-145); TOTAL CARBON DIOXIDE 24.4 MMOL/L (24-32); TOTAL PROTEIN 6.2 G/DL (6.4-8.2); eGFR 85 ML/MIN
[2020-09-27 11:00] VITALS: BP 126/80
[2020-09-27 15:00] VITALS: BP 122/97
[2020-09-27] MEDS: potassium Cl 20 mEq SR tablet PO PRN ×2 (15:56→19:46)
[2020-09-27 18:00] VITALS: BP 129/89
--- NOTE | 2020-09-27 18:10 | NUR ---
Patient in room MED 316. I have received report from lisa rn and had the opportunity to ask questions and assume patient care.
[2020-09-27 22:00] VITALS: BP 127/87
--- NOTE | 2020-09-27 22:36 | NUR ---
patient refuses to wear 02 sat monitor. rn will educate and continue to monitor
--- NOTE | 2020-09-28 00:57 | NUR ---
patient 02 monitor still off. he stated that if his leads pop off his chest, he does not want rn to come and put leads back on. he stated that I come back in too many times . rn will continue to educate and monitor
--- NOTE | 2020-09-28 02:15 | NUR ---
patient refused 0200 vitals while he is sleeping. rn will continue to monitor patient
[2020-09-28] MEDS: normal saline 500ml IV soln 1,000 ML IV SCH ×2 (03:30→05:25)
[2020-09-28] MEDS: LORazepam 2 mg/ml vial IV PRN ×2 (03:39→07:13)
--- NOTE | 2020-09-28 05:14 | NUR ---
patient leads are showing a lot of artifact, as well as his heart rate being in the 200s. I went into patient room and patient was sleeping and i woke him up and asked to fix his leads d/t the artifact and patient asked me to let him sleep as he wants. he states that he is woken up too much at night and that he is fine. rn educated patient and will continue to monitor. patient refuses
--- NOTE | 2020-09-28 06:08 | NUR ---
Problems reprioritized. Patient report given, questions answered & plan of care reviewed with Pat rn.
[2020-09-28] MEDS: Levetiracetam-NS 500mg/100ml 100 ML IV SCH (08:00)
[2020-09-28 08:18] LABS: BASOPHILS % (AUTO) 0.5 % (0-1); EOSINOPHILS # (AUTO) 0.1 X10'3 (0-0.9); EOSINOPHILS % (AUTO) 1.5 % (0-6); HEMATOCRIT 39.4 % (42.0-52.0); HEMOGLOBIN 13.2 g/dl (14.0-17.9); LYMPHOCYTES % (AUTO) 26.4 % (21-51); MEAN CORPUSCULAR HEMOGLOBIN 33.1 PG (27.0-31.0); MEAN CORPUSCULAR HGB CONC 33.5 g/dL (33.0-36.5); MEAN CORPUSCULAR VOLUME 99.1 FL (78-98); MEAN PLATELET VOLUME 9.1 FL (7.4-10.4); MONOCYTES # (AUTO) 0.4 X10'3 (0-0.9); MONOCYTES % (AUTO) 10.2 % (2-12); NEUTROPHILS # (AUTO) 2.4 X10'3 (1.8-7.7); NEUTROPHILS % (AUTO) 61.4 % (42-75); PLATELET COUNT 98 X10'3 (140-440); RED BLOOD COUNT 3.97 X10'6 (4.70-6.10); RED CELL DISTRIBUTION WIDTH 15.1 % (11.5-14.5); WHITE BLOOD COUNT 3.9 X10'3 (4.5-11.0)
[2020-09-28 08:42] LABS: ALANINE AMINOTRANSFERASE 32 U/L (12-78); ALBUMIN 2.7 G/DL (3.4-5.0); ALBUMIN/GLOBULIN RATIO 0.9 (1.1-1.5); ALKALINE PHOSPHATASE 88 IU/L (46-116); ANION GAP 10 (8-16); ASPARTATE AMINO TRANSFERASE 43 U/L (10-37); BILIRUBIN,TOTAL 1.2 MG/DL (0.1-1.0); BLOOD UREA NITROGEN 9 MG/DL (7-18); BUN/CREATININE RATIO 12.7 (5.4-32.0); CALCIUM 8.2 MG/DL (8.5-10.1); CHLORIDE 101 MMOL/L (99-107); CREATININE 0.71 MG/DL (0.60-1.10); GLUCOSE 79 MG/DL (70-104); MAGNESIUM 1.4 MG/DL (1.5-2.4); SODIUM 140 MMOL/L (135-145); TOTAL CARBON DIOXIDE 28.7 MMOL/L (24-32); TOTAL PROTEIN 5.6 G/DL (6.4-8.2); eGFR > 90 ML/MIN
[2020-09-28 08:55] LABS: POTASSIUM 2.9 MMOL/L (3.5-5.1)
[2020-09-28] MEDS ORDERED: potassium Cl 20 mEq SR tablet PO ONE (09:35)
--- NOTE | 2020-09-28 12:00 | NUR ---
PATIENT HAD JUST BEEN MEDICATED , HE HAS FREQUENTLY TAKEN OFF HIS HEART MONITOR LEADS THROUGHOUT THIS SHIFT,"STATING HE WANTS TO LEAVE."REITERATED THE NEED TO STAY IN HOSPITAL, HIS CRITICAL POTASSIUM LEVEL AND NEED TO CONTINUE REPLACEMENTS. PATIENT IS NOW TAKING OFF HIS HEART MONITOR STATING HE IS LEAVING.DR. NICHOLAS APPRISED . AMA FORMED SIGNED BY PATIENT . IV AT HAND DC'D WITH CATH INTACT. IV AT RT LEG DC'D WITH CATH IN TACT; 2X2 PRESSURE DRESSINGS APPLIED. PATIENT ESCORTED TO LOBBY BY NURSING. Addendum: 09/28/20 at 2052 by Tamera Engle RN Amended: Links added.
[2020-09-28] MEDS ORDERED: LORazepam 2 mg/ml vial IV PRN (17:15)
[2020-09-28] MEDS ORDERED: LORazepam 1 MG tablet PO PRN (17:15)
[2020-09-30] MEDS ORDERED: LORazepam 1 MG tablet PO PRN (17:15)
[2020-09-30] MEDS ORDERED: LORazepam 2 mg/ml vial IV PRN (17:15)
== END 2020-09-28 12:45 | disposition left against medical advice (07) | DRG 770 ==
LOC: ER 11:39 → ED HOLD 17:15 → EDBEDREQ 18:57 → MED 3N 20:36
PROVIDERS: ADMIT Internal Medicine; ATTEND Internal Medicine
DX: F10.129 Alcohol abuse with intoxication, unspecified (principal); I10 Essential (primary) hypertension; G89.29 Other chronic pain; M54.9 Dorsalgia, unspecified; F12.90 Cannabis use, unspecified, uncomplicated; E87.2 Acidosis; E87.3 Alkalosis; G40.909 Epilepsy, unspecified, not intractable, without status epilepticus; E87.6 Hypokalemia; D69.6 Thrombocytopenia, unspecified; Y90.8 Blood alcohol level of 240 mg/100 ml or more; Z53.29 Procedure and treatment not carried out because of patient's decision for other reasons; Z59.0 Homelessness
CPT/HCPCS: 36415; 36600; 74176; 80053; 80305; 80320; 81001; 82150; 82803; 82948; 83605; 83690; 83735; 85018; 85025; 85610; 87040; 87081; 93005; 96365; 96375; 99285; C9113; G0378; J1644; J2060; J2405; J3411; J3475; J3480; J3490; J7030; J7040; J7070

== ENCOUNTER 2020-12-11 21:06 | Emergency (ER) | payer MEDICAID ==
[~2020-12-11] VITALS: Ht 175.3 cm; Wt 65.4 kg
--- NOTE | 2020-12-11 21:33 | NUR ---
PT IS VOMITING IN TRIAGE NOW
[2020-12-11 21:58] LABS: BASOPHILS % (AUTO) 0.7 % (0-1); EOSINOPHILS % (AUTO) 0.1 % (0-6); HEMATOCRIT 43.5 % (42.0-52.0); HEMOGLOBIN 14.6 g/dl (14.0-17.9); LYMPHOCYTES # (AUTO) 1.2 X10'3 (1.1-4.8); MEAN CORPUSCULAR HEMOGLOBIN 33.6 PG (27.0-31.0); MEAN CORPUSCULAR HGB CONC 33.6 g/dL (33.0-36.5); MEAN CORPUSCULAR VOLUME 99.7 FL (78-98); MEAN PLATELET VOLUME 8.1 FL (7.4-10.4); MONOCYTES # (AUTO) 0.6 X10'3 (0-0.9); NEUTROPHILS # (AUTO) 4.3 X10'3 (1.8-7.7); NEUTROPHILS % (AUTO) 69.2 % (42-75); PLATELET COUNT 229 X10'3 (140-440); RED BLOOD COUNT 4.37 X10'6 (4.70-6.10); WHITE BLOOD COUNT 6.3 X10'3 (4.5-11.0)
[2020-12-11 22:11] LABS: ALANINE AMINOTRANSFERASE 35 U/L (12-78); ALBUMIN 4.1 G/DL (3.4-5.0); ALBUMIN/GLOBULIN RATIO 1.2 (1.1-1.5); ALKALINE PHOSPHATASE 103 IU/L (46-116); ANION GAP 32 (8-16); ASPARTATE AMINO TRANSFERASE 46 U/L (10-37); BILIRUBIN,TOTAL 0.8 MG/DL (0.1-1.0); BLOOD UREA NITROGEN 22 MG/DL (7-18); BUN/CREATININE RATIO 14.6 (5.4-32.0); CALCIUM 8.6 MG/DL (8.5-10.1); CHLORIDE 99 MMOL/L (99-107); CREATININE 1.51 MG/DL (0.60-1.10); GLUCOSE 57 MG/DL (70-104); LIPASE < 50 U/L (73-393); POTASSIUM 3.8 MMOL/L (3.5-5.1); SODIUM 144 MMOL/L (135-145); TOTAL PROTEIN 7.6 G/DL (6.4-8.2); eGFR 53 ML/MIN
[2020-12-11 22:14] LABS: TOTAL CARBON DIOXIDE 12.9 MMOL/L (24-32)
[2020-12-11] MEDS ORDERED: LORazepam 2 mg/ml vial IV ONE (22:40)
[2020-12-11] MEDS ORDERED: normal saline 1000ML IV soln IVB ONE (22:40)
[2020-12-11] MEDS ORDERED: ondansetron/PF 4mg/2ml inj IV ONE (22:40)
[2020-12-11] MEDS ORDERED: normal saline 1000ml 1,000 ML IV ONE (22:40)
[2020-12-11] MEDS ORDERED: pantoprazole 40 MG vial IV ONE (22:40)
[2020-12-12 00:05] VITALS: BP 96/54
== END 2020-12-12 01:06 | disposition home or self-care (01) ==
LOC: EEVIPCON 21:07 → ER 21:07
DX: R11.2 Nausea with vomiting, unspecified (principal); F10.10 Alcohol abuse, uncomplicated; R10.10 Upper abdominal pain, unspecified; F41.9 Anxiety disorder, unspecified; I10 Essential (primary) hypertension; G89.29 Other chronic pain; F12.90 Cannabis use, unspecified, uncomplicated; Z86.69 Personal history of other diseases of the nervous system and sense organs; Z98.890 Other specified postprocedural states; Z72.89 Other problems related to lifestyle; Z59.0 Homelessness; Y90.9 Presence of alcohol in blood, level not specified
CPT/HCPCS: 36415; 80053; 83690; 85025; 96361; 96374; 96375; 99284; C9113; J2060; J2405; J7030

== ENCOUNTER 2020-12-15 23:12 | Emergency (ER) | payer MEDICAID ==
[~2020-12-15] VITALS: Ht 175.3 cm; Wt 62.0 kg
--- NOTE | 2020-12-15 23:21 | NUR ---
Per EMS patient used to be on Ativan but has been off for 6 months, used to be on keppra but has been off for 8 months. Patient reported to have been on a concetta for past 4 days with 3.5 gallons in 3 days. Picked up from aunt's house. Was given 4mg zofran ODT during transport.
--- NOTE | 2020-12-15 23:41 | NUR ---
pt to room, assumed care
[2020-12-15 23:44] LABS: BASOPHILS % (AUTO) 0.2 % (0-1); EOSINOPHILS % (AUTO) 0 % (0-6); HEMATOCRIT 50.1 % (42.0-52.0); HEMOGLOBIN 16.9 g/dl (14.0-17.9); LYMPHOCYTES # (AUTO) 0.7 X10'3 (1.1-4.8); LYMPHOCYTES % (AUTO) 7.4 % (21-51); MEAN CORPUSCULAR HEMOGLOBIN 33.8 PG (27.0-31.0); MEAN CORPUSCULAR HGB CONC 33.7 g/dL (33.0-36.5); MEAN CORPUSCULAR VOLUME 100.3 FL (78-98); MEAN PLATELET VOLUME 8.6 FL (7.4-10.4); MONOCYTES # (AUTO) 0.6 X10'3 (0-0.9); MONOCYTES % (AUTO) 5.7 % (2-12); NEUTROPHILS # (AUTO) 8.6 X10'3 (1.8-7.7); NEUTROPHILS % (AUTO) 86.7 % (42-75); PLATELET COUNT 223 X10'3 (140-440); RED BLOOD COUNT 4.99 X10'6 (4.70-6.10); RED CELL DISTRIBUTION WIDTH 15.4 % (11.5-14.5)
[2020-12-15 23:58] LABS: ALANINE AMINOTRANSFERASE 67 U/L (12-78); ALBUMIN 4.8 G/DL (3.4-5.0); ALBUMIN/GLOBULIN RATIO 1.1 (1.1-1.5); ALKALINE PHOSPHATASE 120 IU/L (46-116); ANION GAP 39 (8-16); ASPARTATE AMINO TRANSFERASE 97 U/L (10-37); BILIRUBIN,TOTAL 0.9 MG/DL (0.1-1.0); BLOOD UREA NITROGEN 21 MG/DL (7-18); BUN/CREATININE RATIO 13.5 (5.4-32.0); CALCIUM 9.1 MG/DL (8.5-10.1); CHLORIDE 93 MMOL/L (99-107); CREATININE 1.56 MG/DL (0.60-1.10); GLUCOSE 85 MG/DL (70-104); LIPASE 70 U/L (73-393); POTASSIUM 3.9 MMOL/L (3.5-5.1); SODIUM 143 MMOL/L (135-145); eGFR 52 ML/MIN
[2020-12-16] LABS: TOTAL CARBON DIOXIDE 11.4 MMOL/L (24-32)
[2020-12-16] MEDS ORDERED: normal saline 1000ML IV soln IVB ONE (00:30)
[2020-12-16] MEDS ORDERED: ondansetron/PF 4mg/2ml inj IV ONE (00:30)
[2020-12-16] MEDS ORDERED: Potassium Cl inj 20 MEQ, magnesium sulf injection 2 GM, folic acid inj. 1 MG, thiamine ... IV ONE ×6 (01:00)
[2020-12-16 01:04] LABS: ETHANOL 0.273 GM/DL (0.0-0.010)
[2020-12-16] MEDS ORDERED: folic acid 1mg/0.2ml inj IV ONE (01:13)
[2020-12-16] MEDS ORDERED: thiamine inj. 100 MG in normal saline 100ml IV soln 100 ML IV ONE (01:15)
[2020-12-16] MEDS: dextrose 5%-normal saline 1,000 ML IV SCH ×2 (01:32→05:39)
[2020-12-16 01:37] LABS: MAGNESIUM 1.8 MG/DL (1.5-2.4); PHOSPHORUS 5.5 MG/DL (2.3-4.5)
[2020-12-16] MEDS ORDERED: LORazepam 2 mg/ml vial IV ONE (01:45)
[2020-12-16] MEDS ORDERED: pantoprazole 40 MG vial IV ONE (02:10)
--- NOTE | 2020-12-16 02:15 | NUR ---
pt placed on hospital bed
[2020-12-16] MEDS ORDERED: ondansetron/PF 4mg/2ml inj IV PRN ×2 (02:55→03:40)
--- NOTE | 2020-12-16 03:01 | NUR ---
report given to Lefty Tran
[2020-12-16 04:26] LABS: ABG BASE EXCESS -5.2 mmol/L (-2.0-2.0); ABG HCO3 16.9 mmol/L (22.0-26.0); ABG OXYGEN SATURATION 96.7 % (94-97); ABG PCO2 (T) 25.8 mmHg (35.0-48.0); ABG PO2 (T) 100.3 mmHg (75.0-100.0); ALLEN'S TEST POSITIVE; FCOHb 0.4 % (0.0-3.9); FMetHb 0.3 % (0.0-1.5); PATIENT TEMPERATURE 37.7; TOTAL HEMOGLOBIN 14.1 G/dl (14.0-18.0)
[2020-12-16] MEDS ORDERED: NO HOME MEDS (05:29)
--- NOTE | 2020-12-16 05:48 | NUR ---
Pt requesting ativan for anxiety. Call placed to admitting MD. No new orders received.
[2020-12-16 07:34] LABS: ABG BASE EXCESS -3.1 mmol/L (-2.0-2.0); ABG HCO3 18.9 mmol/L (22.0-26.0); ABG OXYGEN SATURATION 96.9 % (94-97); ABG PCO2 (T) 26.1 mmHg (35.0-48.0); ABG PO2 (T) 105.9 mmHg (75.0-100.0); ALLEN'S TEST POSITIVE; FCOHb 0.2 % (0.0-3.9); FMetHb 0.1 % (0.0-1.5); FO2Hb 96.6 % (94-97); TOTAL HEMOGLOBIN 13.4 G/dl (14.0-18.0)
[2020-12-16 07:34] LABS: BASOPHILS % (AUTO) 0.5 % (0-1); EOSINOPHILS % (AUTO) 0.6 % (0-6); HEMATOCRIT 38.5 % (42.0-52.0); HEMOGLOBIN 13.3 g/dl (14.0-17.9); LYMPHOCYTES # (AUTO) 0.6 X10'3 (1.1-4.8); LYMPHOCYTES % (AUTO) 8.2 % (21-51); MEAN CORPUSCULAR HEMOGLOBIN 33.7 PG (27.0-31.0); MEAN CORPUSCULAR HGB CONC 34.5 g/dL (33.0-36.5); MEAN CORPUSCULAR VOLUME 97.6 FL (78-98); MEAN PLATELET VOLUME 8.4 FL (7.4-10.4); MONOCYTES # (AUTO) 0.8 X10'3 (0-0.9); MONOCYTES % (AUTO) 11.7 % (2-12); NEUTROPHILS # (AUTO) 5.7 X10'3 (1.8-7.7); PLATELET COUNT 170 X10'3 (140-440); RED BLOOD COUNT 3.95 X10'6 (4.70-6.10); RED CELL DISTRIBUTION WIDTH 15.5 % (11.5-14.5); WHITE BLOOD COUNT 7.2 X10'3 (4.5-11.0)
[2020-12-16] MEDS ORDERED: enoxaparin 40mg/0.4ml syringe SUBCUT SCH (08:00)
[2020-12-16] MEDS ORDERED: normal saline 1000ml 1,000 ML IV ONE (09:25)
[2020-12-16] MEDS ORDERED: metoclopramide 5 mg/ml inj IV SCH (09:25)
[2020-12-16] MEDS ORDERED: pantoprazole 40 MG vial IV SCH (09:25)
[2020-12-16 09:57] LABS: CLARITY,URINE SLIGHTLY CLOUDY (Clear); COLOR,URINE YELLOW (Yellow); GLUCOSE, URINE 500 mg/dl (Neg); KETONES,URINE >=80 mg/dl (Neg); LEUKOCYTE ESTERASE ,URINE NEGATIVE (Neg); NITRITES, URINE NEGATIVE (Neg); OCCULT BLOOD,URINE NEGATIVE (Neg); PH,URINE 5.5 (4.8-8.0); PROTEIN,URINE 30 mg/dl (Neg); UROBILINOGEN,URINE 0.2 E.U/dL (0.2-1.0)
[2020-12-16 09:58] LABS: UA COLLECTION TYPE CLN CATCH MIDSTREAM
[2020-12-16 10:04] LABS: URINE AMPHETAMINE SCREEN NEGATIVE (Neg); URINE BARBITUATE SCREEN NEGATIVE (Neg); URINE BENZODIAZEPINES SCREEN NEGATIVE (Neg); URINE CANNABINOID SCREEN NEGATIVE (Neg); URINE COCAINE SCREEN NEGATIVE (Neg); URINE METHADONE SCREEN NEGATIVE (Neg); URINE OPIATE SCREEN NEGATIVE (Neg); URINE PHENCYCLIDINE SCREEN NEGATIVE (Neg)
[2020-12-16 10:08] LABS: FINE GRANULAR CAST 0-3 /LPF (NEGATIVE); HYALINE CASTS >30 /LPF (NEGATIVE)
[2020-12-16 10:09] LABS: BACTERIA,URINE FEW /HPF (Neg); RBC,URINE 0-2 /HPF (0-2); SQUAMOUS EPITHELIAL CELL,UR MODERATE /LPF (FEW); WBC,URINE 0-4 /HPF (0-4)
[2020-12-16 10:35] VITALS: BP 130/87
--- NOTE | 2020-12-16 12:17 | NUR ---
patient stated he felt alot better and wanted to be dc. It was explained that we were waiting for md to come see patient. patient did not want to wait and signed ama paper. shwetha charge nurse aware. patient walked out. Addendum: 12/16/20 at 1218 by MARGARITA iv dc before patient left am[facility]risty
== END 2020-12-16 12:18 | disposition home or self-care (01) ==
LOC: ER 23:13 → EEVIPCON 23:13 → UNDOADMIN 12-16 02:53 → ED HOLD 12-16 02:53 → UNDODISIN 12-16 12:17 → ER 12-16 12:18
DX: R10.13 Epigastric pain (principal); E86.0 Dehydration
CPT/HCPCS: 36415; 36600; 71045; 80053; 80305; 80320; 81001; 82009; 82803; 82948; 83605; 83690; 83735; 84100; 85018; 85025; 85610; 96361; 96365; 96372; 96375; 96376; 99291; C9113; J2060; J2405; J2765; J3411; J3490; J7030; J7042; J1650

== ENCOUNTER 2021-02-16 15:27 | Inpatient (IN) | payer MEDICAID ==
[~2021-02-16] VITALS: Ht 175.3 cm; Wt 77.3 kg
[~2021-02-16 15:27] MED LIST changes: -CEPH250T PO; -KEP500T PO; +NO HOME MEDS; -ONDA4TAB12 PO
[2021-02-16 16:42] LABS: BASOPHILS % (AUTO) 0.7 % (0-1); EOSINOPHILS % (AUTO) 0 % (0-6); HEMATOCRIT 46.5 % (42.0-52.0); HEMOGLOBIN 15.4 g/dl (14.0-17.9); MEAN CORPUSCULAR HEMOGLOBIN 33.4 PG (27.0-31.0); MEAN CORPUSCULAR HGB CONC 33.2 g/dL (33.0-36.5); MEAN CORPUSCULAR VOLUME 100.6 FL (78-98); MEAN PLATELET VOLUME 8.5 FL (7.4-10.4); MONOCYTES # (AUTO) 0.5 X10'3 (0-0.9); MONOCYTES % (AUTO) 7.4 % (2-12); NEUTROPHILS # (AUTO) 5.4 X10'3 (1.8-7.7); NEUTROPHILS % (AUTO) 77.9 % (42-75); PLATELET COUNT 277 X10'3 (140-440); RED BLOOD COUNT 4.62 X10'6 (4.70-6.10); RED CELL DISTRIBUTION WIDTH 14.8 % (11.5-14.5)
[2021-02-16 16:54] LABS: ALANINE AMINOTRANSFERASE 54 U/L (12-78); ALBUMIN 4.4 G/DL (3.4-5.0); ALBUMIN/GLOBULIN RATIO 1.4 (1.1-1.5); ALKALINE PHOSPHATASE 106 IU/L (46-116); ANION GAP 35 (8-16); ASPARTATE AMINO TRANSFERASE 32 U/L (10-37); BILIRUBIN,TOTAL 0.6 MG/DL (0.1-1.0); BLOOD UREA NITROGEN 20 MG/DL (7-18); BUN/CREATININE RATIO 14.5 (5.4-32.0); CALCIUM 8.6 MG/DL (8.5-10.1); CHLORIDE 99 MMOL/L (99-107); CREATININE 1.38 MG/DL (0.60-1.10); GLUCOSE 58 MG/DL (70-104); LIPASE < 50 U/L (73-393); POTASSIUM 3.9 MMOL/L (3.5-5.1); SODIUM 144 MMOL/L (135-145); TOTAL PROTEIN 7.6 G/DL (6.4-8.2); eGFR 59 ML/MIN
[2021-02-16 16:58] LABS: TOTAL CARBON DIOXIDE 10.2 MMOL/L (24-32)
--- NOTE | 2021-02-16 21:56 | NUR ---
LACTIC ACID 11.1, SALESPERSON FURS, MADE HERBERT AWARE. PT REMAINS IN LOBBY AWAITING ROOM.
--- NOTE | 2021-02-16 22:00 | NUR ---
COUNSELLORS LOGAN UPDATING DR. PIERSON OF PT AND LACTIC.
[2021-02-16] MEDS ORDERED: normal saline 1000ML IV soln IV ONE (22:10)
[2021-02-16] MEDS ORDERED: thiamine 100mg/ml 2ml inj. IV ONE (22:10)
[2021-02-16] MEDS ORDERED: ondansetron/PF 4mg/2ml inj IV ONE (23:05)
[2021-02-16] MEDS ORDERED: LORazepam 2 mg/ml vial IV ONE (23:05)
[2021-02-16] MEDS: dextrose 5%-normal saline 1,000 ML IV SCH (23:10)
[2021-02-17] MEDS ORDERED: ondansetron 4mg rapidly disintigrating tab PO ONE (00:10)
--- NOTE | 2021-02-17 00:21 | NUR ---
pt reports to me that he want to be made confidential states "don't let anyonoe know I'm here". Pt is difficult PIV placement. 3rd attempt successful with piv in foot.
[2021-02-17] MEDS: dextrose 5%-normal saline 1,000 ML IV SCH (00:26)
[2021-02-17] MEDS ORDERED: pantoprazole 40 MG vial IV ONE (01:15)
[2021-02-17] MEDS ORDERED: acetaminophen 325mg tablet PO ONE (01:15)
--- NOTE | 2021-02-17 01:16 | NUR ---
PT OK TO DRINK WATER PER DR. MAKI AND SHE WILL ORDER HIM TYLENOL FOR HIS HEADACHE. PT WILL NEED REPEAT CBC, BMP, LACTIC ONCE FLUIDS ARE FINISHED IN APROX 30 MIN.
[2021-02-17 02:12] LABS: GASTRIC OCCULT BLOOD POSITIVE (Neg)
[2021-02-17 02:18] LABS: BASOPHILS # (AUTO) 0.1 X10'3 (0-0.2); BASOPHILS % (AUTO) 0.8 % (0-1); EOSINOPHILS % (AUTO) 0 % (0-6); HEMOGLOBIN 12.6 g/dl (14.0-17.9); LYMPHOCYTES # (AUTO) 0.5 X10'3 (1.1-4.8); LYMPHOCYTES % (AUTO) 3.9 % (21-51); MEAN CORPUSCULAR HEMOGLOBIN 33.3 PG (27.0-31.0); MEAN CORPUSCULAR HGB CONC 32.4 g/dL (33.0-36.5); MEAN CORPUSCULAR VOLUME 102.8 FL (78-98); MEAN PLATELET VOLUME 8.5 FL (7.4-10.4); MONOCYTES # (AUTO) 0.8 X10'3 (0-0.9); MONOCYTES % (AUTO) 5.7 % (2-12); NEUTROPHILS # (AUTO) 12.7 X10'3 (1.8-7.7); NEUTROPHILS % (AUTO) 89.6 % (42-75); PLATELET COUNT 193 X10'3 (140-440); RED BLOOD COUNT 3.79 X10'6 (4.70-6.10); RED CELL DISTRIBUTION WIDTH 14.6 % (11.5-14.5); WHITE BLOOD COUNT 14.2 X10'3 (4.5-11.0)
[2021-02-17] MEDS ORDERED: morphine 4 MG/ML inj SYRINge IV ONE (02:25)
[2021-02-17 02:26] LABS: ALBUMIN 2.8 G/DL (3.4-5.0); ANION GAP 25 (8-16); BLOOD UREA NITROGEN 16 MG/DL (7-18); BUN/CREATININE RATIO 14.5 (5.4-32.0); CHLORIDE 109 MMOL/L (99-107); GLUCOSE 231 MG/DL (70-104); POTASSIUM 4.3 MMOL/L (3.5-5.1); SODIUM 144 MMOL/L (135-145); eGFR 77 ML/MIN
[2021-02-17 02:38] LABS: CALCIUM 5.8 MG/DL (8.5-10.1); TOTAL CARBON DIOXIDE 10.2 MMOL/L (24-32)
[2021-02-17] MEDS ORDERED: iohexol 300mg/ml 100ml inj. ONE (03:27)
--- NOTE | 2021-02-17 04:03 | NUR ---
RETURNED FROM CT OF ABDOMEN
[2021-02-17] MEDS: ondansetron/PF 4mg/2ml inj IV PRN ×2 (04:26→23:41)
--- NOTE | 2021-02-17 04:29 | NUR ---
STABLE VS. JUST GIVEN ZOFRAN. PT IS CALM AND REPORTS IMPROVEMENT IN HIS SYMPTOMS.
[2021-02-17] MEDS ORDERED: HYDROcodone/acetaminophen 10/325mg tab PO PRN (05:40)
[2021-02-17] MEDS ORDERED: HYDROcodone/acetaminophen 5mg/325mg tablet PO PRN (05:40)
[2021-02-17] MEDS ORDERED: potassium Cl 40MEQ/1/2NS 520ml 520 ML IV PRN ×2 (05:40)
[2021-02-17] MEDS ORDERED: morphine 2 MG/ML inj. syringe IV PRN (05:40)
[2021-02-17] MEDS ORDERED: magnesium Cl slow-release 64mg tablet PO PRN (05:40)
[2021-02-17] MEDS ORDERED: LORazepam 2 mg/ml vial IV PRN (05:40)
[2021-02-17] MEDS ORDERED: magnesium 2GM in 50ml NS 50 ML IV PRN (05:40)
[2021-02-17] MEDS ORDERED: normal saline 1000ml 1,000 ML IV SCH (05:40)
[2021-02-17] MEDS ORDERED: acetaminophen 325mg tablet PO PRN ×2 (05:40)
[2021-02-17] MEDS ORDERED: ondansetron/PF 4mg/2ml inj IV PRN (05:40)
[2021-02-17] MEDS ORDERED: dextrose 50%-water 50ml dispensing syringe IV PRN (05:40)
[2021-02-17] MEDS ORDERED: magnesium 4gm in 100ml NS 100 ML IV PRN (05:40)
[2021-02-17] MEDS ORDERED: metoclopramide 5 mg/ml inj IV PRN (05:40)
[2021-02-17] MEDS ORDERED: potassium Cl 20 mEq SR tablet PO PRN ×2 (05:40)
--- NOTE | 2021-02-17 07:15 | NUR ---
PT IS AWAKE, STATES THAT HE HAS A HEADACHE OF 6/10, REQUESTING MEDICATION FOR HEADACHE.
[2021-02-17] MEDS: K and/or MAG REPLACEMENT MC SCH ×2 (08:00→20:00)
[2021-02-17] MEDS: pantoprazole 40 MG vial IV SCH ×2 (08:00→19:42)
[2021-02-17] MEDS ORDERED: metoclopramide 5 mg/ml inj IV ONE (08:35)
--- NOTE | 2021-02-17 08:38 | NUR ---
DR JONNY POND, PT CONTINUES TO HAVE NAUSEA AND VOMITED TYLENOL AFTER GIVEN. ORDER FOR REGLAN 10MG IV ONCE FOR NAUSEA RECEIVED AND PLACED
[2021-02-17] MEDS: sodium bicarbonate (8.4%) inj. 150 MEQ in dextrose 5%-water 1,000 ML IV SCH ×2 (08:59→20:49)
--- NOTE | 2021-02-17 10:05 | NUR ---
PT IS SLEEPING AND APPEARS COMFORTABLE
[2021-02-17] MEDS: LORazepam 2 mg/ml vial IV PRN ×2 (13:08→19:50)
--- NOTE | 2021-02-17 13:19 | NUR ---
PT REQUESTING MEDICATION FOR ANXIETY, PT GIVEN 2MG ATIVAN IV PER ADMISSION ORDERS. PT STATING THAT HE STILL HAS HEADACHE PAIN 01/03
--- NOTE | 2021-02-17 17:26 | NUR ---
DR FULLER PAGED, PT WANTING TO LEAVE AND IS UPSET THAT HE DOES NOT HAVE A ROOM ON THE FLOOR YET. PT WAS ADVISED THAT THERE IS NO OPEN ROOMS CURRENTLY. PT C/O HEADACHE AND BACKACHE. OFFERED PT TYLENOL AND PT DID NOT WANT IT BECAUSE IT MADE HIM VOMIT EARLIER WHEN HE WAS NAUSEATED. DR FULLER WAS REQUESTED THAT HE SPEAK WITH PT AT HIS EARLIEST CONVIENCE.
[2021-02-17] MEDS ORDERED: temazepam 15mg capsule PO PRN (21:00)
[2021-02-17 21:23] LABS: BASOPHILS % (AUTO) 0.5 % (0-1); EOSINOPHILS # (AUTO) 0.1 X10'3 (0-0.9); EOSINOPHILS % (AUTO) 0.6 % (0-6); HEMATOCRIT 40.7 % (42.0-52.0); HEMOGLOBIN 13.9 g/dl (14.0-17.9); LYMPHOCYTES # (AUTO) 1.2 X10'3 (1.1-4.8); LYMPHOCYTES % (AUTO) 11.9 % (21-51); MEAN CORPUSCULAR HEMOGLOBIN 33.6 PG (27.0-31.0); MEAN CORPUSCULAR HGB CONC 34.2 g/dL (33.0-36.5); MEAN CORPUSCULAR VOLUME 98.2 FL (78-98); MEAN PLATELET VOLUME 8.9 FL (7.4-10.4); MONOCYTES # (AUTO) 0.9 X10'3 (0-0.9); MONOCYTES % (AUTO) 9.5 % (2-12); NEUTROPHILS # (AUTO) 7.5 X10'3 (1.8-7.7); NEUTROPHILS % (AUTO) 77.5 % (42-75); PLATELET COUNT 178 X10'3 (140-440); RED BLOOD COUNT 4.15 X10'6 (4.70-6.10); RED CELL DISTRIBUTION WIDTH 14.2 % (11.5-14.5); WHITE BLOOD COUNT 9.7 X10'3 (4.5-11.0)
[2021-02-17 21:32] LABS: ALANINE AMINOTRANSFERASE 41 U/L (12-78); ALBUMIN 3.1 G/DL (3.4-5.0); ALBUMIN/GLOBULIN RATIO 1.1 (1.1-1.5); ALKALINE PHOSPHATASE 72 IU/L (46-116); ANION GAP 9 (8-16); ASPARTATE AMINO TRANSFERASE 25 U/L (10-37); BILIRUBIN,TOTAL 1.1 MG/DL (0.1-1.0); BLOOD UREA NITROGEN 7 MG/DL (7-18); BUN/CREATININE RATIO 7.7 (5.4-32.0); CALCIUM 7.9 MG/DL (8.5-10.1); CHLORIDE 100 MMOL/L (99-107); CREATININE 0.91 MG/DL (0.60-1.10); GLUCOSE 100 MG/DL (70-104); MAGNESIUM 1.5 MG/DL (1.5-2.4); POTASSIUM 3.4 MMOL/L (3.5-5.1); SODIUM 140 MMOL/L (135-145); TOTAL CARBON DIOXIDE 30.6 MMOL/L (24-32); TOTAL PROTEIN 5.8 G/DL (6.4-8.2); eGFR > 90 ML/MIN
[2021-02-17] MEDS: morphine 2 MG/ML inj. syringe IV PRN (23:32)
--- NOTE | 2021-02-18 00:59 | NUR ---
DR. NICHOLAS UPDATED THAT CO2 NOW 30.6. vERBAL RECEIVED FOR dc BICARB GTT AND START MIVF NS AT 100.
[2021-02-18] MEDS: normal saline 1000ml 1,000 ML IV SCH ×2 (01:23→07:56)
[2021-02-18 03:38] LABS: BASOPHILS % (AUTO) 0.4 % (0-1); EOSINOPHILS # (AUTO) 0.1 X10'3 (0-0.9); EOSINOPHILS % (AUTO) 1.2 % (0-6); HEMATOCRIT 40.3 % (42.0-52.0); HEMOGLOBIN 13.7 g/dl (14.0-17.9); LYMPHOCYTES # (AUTO) 1.2 X10'3 (1.1-4.8); LYMPHOCYTES % (AUTO) 16.7 % (21-51); MEAN CORPUSCULAR HEMOGLOBIN 33.4 PG (27.0-31.0); MEAN CORPUSCULAR HGB CONC 33.9 g/dL (33.0-36.5); MEAN CORPUSCULAR VOLUME 98.5 FL (78-98); MEAN PLATELET VOLUME 8.6 FL (7.4-10.4); MONOCYTES # (AUTO) 0.7 X10'3 (0-0.9); MONOCYTES % (AUTO) 9.1 % (2-12); NEUTROPHILS # (AUTO) 5.4 X10'3 (1.8-7.7); NEUTROPHILS % (AUTO) 72.6 % (42-75); PLATELET COUNT 172 X10'3 (140-440); RED BLOOD COUNT 4.09 X10'6 (4.70-6.10); WHITE BLOOD COUNT 7.5 X10'3 (4.5-11.0)
[2021-02-18 04:09] LABS: ALANINE AMINOTRANSFERASE 39 U/L (12-78); ALBUMIN 3.1 G/DL (3.4-5.0); ALBUMIN/GLOBULIN RATIO 1.2 (1.1-1.5); ALKALINE PHOSPHATASE 68 IU/L (46-116); ANION GAP 8 (8-16); ASPARTATE AMINO TRANSFERASE 26 U/L (10-37); BILIRUBIN,TOTAL 1.1 MG/DL (0.1-1.0); BLOOD UREA NITROGEN 7 MG/DL (7-18); BUN/CREATININE RATIO 8.8 (5.4-32.0); CALCIUM 7.8 MG/DL (8.5-10.1); CHLORIDE 99 MMOL/L (99-107); GLUCOSE 78 MG/DL (70-104); MAGNESIUM 1.6 MG/DL (1.5-2.4); POTASSIUM 3.3 MMOL/L (3.5-5.1); SODIUM 140 MMOL/L (135-145); TOTAL CARBON DIOXIDE 32.8 MMOL/L (24-32); TOTAL PROTEIN 5.7 G/DL (6.4-8.2); eGFR > 90 ML/MIN
[2021-02-18] MEDS: morphine 2 MG/ML inj. syringe IV PRN (05:27)
[2021-02-18] MEDS: LORazepam 2 mg/ml vial IV PRN ×2 (05:34→07:50)
[2021-02-18] MEDS: pantoprazole 40 MG vial IV SCH (07:50)
[2021-02-18 08:00] VITALS: BP 130/103
--- NOTE | 2021-02-18 09:31 | NUR ---
VERBAL ORDER FROM DR FULLER TO FEED PATIENT REGULAR TRAY, IF PT TOLERATES, CAN SEND HOME
[2021-02-18] MEDS ORDERED: PANT-47 PO (09:54)
[2021-02-18] MEDS ORDERED: FOLI0.4T6 PO (09:54)
[2021-02-18] MEDS ORDERED: THIA100T70 PO (09:54)
--- NOTE | 2021-02-18 12:40 | NUR ---
PT STABLE FOR D/C PER MD. PT'S BELONGINGS RETURNED AND DISCHARGE AND FOLLOW UP INSTRUCTIONS REVIEWED. PT GIVEN OPPORTUNITY FOR QUESTIONS. PT REMOVED PIV. [facility] PHONED FOR PT. PRESCRIPTIONS SENT TO [facility]. PT ACCOMPANIED TO CAB BY STAFF. PT DISCHARGING TO HOME.
[2021-02-19] MEDS ORDERED: LORazepam 2 mg/ml vial IV PRN (05:40)
[2021-02-19] MEDS ORDERED: LORazepam 1 MG tablet PO PRN (05:40)
[2021-02-21] MEDS ORDERED: LORazepam 1 MG tablet PO PRN (05:40)
[2021-02-21] MEDS ORDERED: LORazepam 2 mg/ml vial IV PRN (05:40)
== END 2021-02-18 12:40 | disposition home or self-care (01) | DRG 241 ==
LOC: EEVIPCON 15:28 → ER 15:28 → ED HOLD 02-17 05:40 → UNDOADMIN 02-17 05:40 → ED HOLD 02-17 05:45 → PCU 3S 02-18 07:15
PROVIDERS: ADMIT Internal Medicine; ATTEND Family Medicine
PROC: BW211ZZ Computerized Tomography (CT Scan) of Abdomen and Pelvis using Low Osmolar Contrast (ICD-10-PCS; principal; 2021-02-17)
DX: K29.20 Alcoholic gastritis without bleeding (principal); E87.2 Acidosis; K92.0 Hematemesis; F10.20 Alcohol dependence, uncomplicated; F12.90 Cannabis use, unspecified, uncomplicated; F41.9 Anxiety disorder, unspecified; M54.9 Dorsalgia, unspecified; G40.909 Epilepsy, unspecified, not intractable, without status epilepticus; G89.4 Chronic pain syndrome; I10 Essential (primary) hypertension; Z20.822 Contact with and (suspected) exposure to COVID-19; Z59.0 Homelessness; Z71.41 Alcohol abuse counseling and surveillance of alcoholic
CPT/HCPCS: 36415; 70450; 71045; 74177; 80048; 80053; 82271; 83605; 83690; 83735; 85025; 85610; 87040; 87081; 87635; 93005; 96361; 96365; 96366; 96375; 96376; 99285; C9113; C9803; G0378; J2060; J2270; J2405; J2765; J3411; J7030; J7042; Q9967

== ENCOUNTER 2021-07-07 20:08 | Emergency (ER) | payer MEDICAID ==
[~2021-07-07] VITALS: Ht 177.8 cm; Wt 62.3 kg
[~2021-07-07 20:08] MED LIST changes: -NO HOME MEDS; +PANT-47 PO; +THIA100T70 PO
[2021-07-07] MEDS ORDERED: normal saline 1000ML IV soln IVB ONE (20:35)
[2021-07-07] MEDS ORDERED: thiamine 100mg/ml 2ml inj. IV ONE (20:35)
[2021-07-07] MEDS ORDERED: folic acid 1mg/0.2ml inj IV ONE (20:35)
[2021-07-07] MEDS ORDERED: famotidine/PF 10 mg/ml inj IV ONE (20:35)
[2021-07-07] MEDS ORDERED: LORazepam 2 mg/ml vial IV ONE (21:30)
[2021-07-07 21:51] LABS: BASOPHILS # (AUTO) 0.1 X10'3 (0-0.2); BASOPHILS % (AUTO) 0.9 % (0-1); EOSINOPHILS % (AUTO) 0.3 % (0-6); HEMATOCRIT 45.4 % (42.0-52.0); HEMOGLOBIN 15.6 g/dl (14.0-17.9); LYMPHOCYTES % (AUTO) 25.8 % (21-51); MEAN CORPUSCULAR HEMOGLOBIN 32.8 PG (27.0-31.0); MEAN CORPUSCULAR HGB CONC 34.2 g/dL (33.0-36.5); MEAN CORPUSCULAR VOLUME 95.9 FL (78-98); MEAN PLATELET VOLUME 7.7 FL (7.4-10.4); MONOCYTES # (AUTO) 0.7 X10'3 (0-0.9); MONOCYTES % (AUTO) 9.1 % (2-12); NEUTROPHILS # (AUTO) 4.9 X10'3 (1.8-7.7); NEUTROPHILS % (AUTO) 63.9 % (42-75); PLATELET COUNT 218 X10'3 (140-440); RED BLOOD COUNT 4.74 X10'6 (4.70-6.10); RED CELL DISTRIBUTION WIDTH 16.9 % (11.5-14.5); WHITE BLOOD COUNT 7.6 X10'3 (4.5-11.0)
[2021-07-07 22:02] VITALS: BP 96/57
[2021-07-07 22:06] LABS: ALANINE AMINOTRANSFERASE 32 U/L (12-78); ALBUMIN 3.8 G/DL (3.4-5.0); ALBUMIN/GLOBULIN RATIO 1.1 (1.1-1.5); ALKALINE PHOSPHATASE 95 IU/L (46-116); ANION GAP 15 (8-16); ASPARTATE AMINO TRANSFERASE 36 U/L (10-37); BILIRUBIN,TOTAL 0.4 MG/DL (0.1-1.0); BLOOD UREA NITROGEN 21 MG/DL (7-18); BUN/CREATININE RATIO 19.8 (5.4-32.0); CALCIUM 8.5 MG/DL (8.5-10.1); CHLORIDE 103 MMOL/L (99-107); CREATININE 1.06 MG/DL (0.60-1.10); ETHANOL 0.292 GM/DL (0.0-0.010); GLUCOSE 69 MG/DL (70-104); LIPASE < 50 U/L (73-393); POTASSIUM 3.7 MMOL/L (3.5-5.1); SODIUM 142 MMOL/L (135-145); TOTAL CARBON DIOXIDE 24.4 MMOL/L (24-32); TOTAL PROTEIN 7.4 G/DL (6.4-8.2); eGFR 80 ML/MIN
== END 2021-07-07 23:39 | disposition home or self-care (01) ==
LOC: ER 20:08
DX: K29.20 Alcoholic gastritis without bleeding (principal); R07.89 Other chest pain; R47.81 Slurred speech; F10.129 Alcohol abuse with intoxication, unspecified; F41.9 Anxiety disorder, unspecified; I10 Essential (primary) hypertension; F12.90 Cannabis use, unspecified, uncomplicated; G89.29 Other chronic pain; Z86.69 Personal history of other diseases of the nervous system and sense organs; Z98.890 Other specified postprocedural states; Z72.89 Other problems related to lifestyle; Z59.00 Homelessness unspecified; Z79.899 Other long term (current) drug therapy
CPT/HCPCS: 36415; 71045; 80053; 80320; 83690; 85025; 93005; 96361; 96374; 96375; 99285; J2060; J3411; J3490; J7030

== ENCOUNTER 2021-08-15 22:37 | Emergency (ER) | payer MEDICAID ==
[~2021-08-15] VITALS: Ht 175.3 cm; Wt 66.0 kg
[2021-08-15 23:24] VITALS: BP 122/81
[2021-08-16] MEDS ORDERED: ondansetron 4mg rapidly disintigrating tab PO ONE (00:30)
[2021-08-16] MEDS ORDERED: iohexol 350MG/ML 100ml bottle IV ONE (00:39)
[2021-08-16 01:21] LABS: BASOPHILS % (AUTO) 0.5 % (0-1); EOSINOPHILS % (AUTO) 0.4 % (0-6); HEMATOCRIT 45.7 % (42.0-52.0); HEMOGLOBIN 15.8 g/dl (14.0-17.9); LYMPHOCYTES # (AUTO) 2.1 X10'3 (1.1-4.8); LYMPHOCYTES % (AUTO) 38.9 % (21-51); MEAN CORPUSCULAR HEMOGLOBIN 32.4 PG (27.0-31.0); MEAN CORPUSCULAR HGB CONC 34.6 g/dL (33.0-36.5); MEAN CORPUSCULAR VOLUME 93.6 FL (78-98); MEAN PLATELET VOLUME 7.5 FL (7.4-10.4); MONOCYTES # (AUTO) 0.6 X10'3 (0-0.9); MONOCYTES % (AUTO) 10.8 % (2-12); NEUTROPHILS # (AUTO) 2.7 X10'3 (1.8-7.7); NEUTROPHILS % (AUTO) 49.4 % (42-75); PLATELET COUNT 286 X10'3 (140-440); RED BLOOD COUNT 4.88 X10'6 (4.70-6.10); RED CELL DISTRIBUTION WIDTH 14.8 % (11.5-14.5); WHITE BLOOD COUNT 5.5 X10'3 (4.5-11.0)
[2021-08-16 01:57] LABS: ALANINE AMINOTRANSFERASE 75 U/L (12-78); ALBUMIN 3.9 G/DL (3.4-5.0); ALBUMIN/GLOBULIN RATIO 1.2 (1.1-1.5); ALKALINE PHOSPHATASE 120 IU/L (46-116); ANION GAP 20 (8-16); ASPARTATE AMINO TRANSFERASE 49 U/L (10-37); BILIRUBIN,TOTAL 0.5 MG/DL (0.1-1.0); BLOOD UREA NITROGEN 17 MG/DL (7-18); BUN/CREATININE RATIO 17.5 (5.4-32.0); CALCIUM 8.6 MG/DL (8.5-10.1); CHLORIDE 102 MMOL/L (99-107); CREATININE 0.97 MG/DL (0.60-1.10); GLUCOSE 79 MG/DL (70-104); POTASSIUM 3.7 MMOL/L (3.5-5.1); SODIUM 148 MMOL/L (135-145); TOTAL CARBON DIOXIDE 26.1 MMOL/L (24-32); TOTAL PROTEIN 7.2 G/DL (6.4-8.2); eGFR 89 ML/MIN
[2021-08-16 01:58] LABS: BILIRUBIN,DIRECT 0.2 MG/DL (0-0.3); LIPASE 84 U/L (73-393)
[2021-08-16 02:07] LABS: ETHANOL 0.408 GM/DL (0.0-0.010)
== END 2021-08-16 03:49 | disposition home or self-care (01) ==
LOC: ER 22:38
DX: S80.812A Abrasion, left lower leg, initial encounter (principal); G89.29 Other chronic pain; M54.9 Dorsalgia, unspecified; F41.9 Anxiety disorder, unspecified; I10 Essential (primary) hypertension; Z59.00 Homelessness unspecified; V49.9XXA Car occupant (driver) (passenger) injured in unspecified traffic accident, initial encounter; Y93.89 Activity, other specified; Y92.89 Other specified places as the place of occurrence of the external cause; Y99.8 Other external cause status; V89.2XXA Person injured in unspecified motor-vehicle accident, traffic, initial encounter
CPT/HCPCS: 36415; 70450; 71260; 72125; 74177; 80048; 80076; 80320; 83690; 85025; 99285; Q9967

== ENCOUNTER 2021-11-03 20:17 | Emergency (ER) | payer MEDICAID ==
[~2021-11-03] VITALS: Ht 175.3 cm; Wt 75.0 kg
[2021-11-03 20:29] VITALS: BP 131/92
== END 2021-11-04 01:20 | disposition left against medical advice (07) ==
LOC: ER 20:18
DX: R10.30 Lower abdominal pain, unspecified (principal); Z53.21 Procedure and treatment not carried out due to patient leaving prior to being seen by health care provider

== ENCOUNTER 2021-11-07 05:49 | Emergency (ER) | payer MEDICAID ==
[~2021-11-07] VITALS: Ht 175.3 cm; Wt 72.0 kg
[2021-11-07] MEDS ORDERED: ondansetron 4mg rapidly disintigrating tab PO ONE (06:05)
[2021-11-07] MEDS ORDERED: normal saline 1000ML IV soln IVB ONE ×2 (07:10→07:15)
[2021-11-07] MEDS ORDERED: morphine 2 MG/ML inj. syringe IV PRN (07:15)
[2021-11-07] MEDS ORDERED: ondansetron/PF 4mg/2ml inj IV ONE (07:15)
[2021-11-07 07:52] LABS: BASOPHILS % (AUTO) 0.2 % (0-1); EOSINOPHILS % (AUTO) 0 % (0-6); HEMATOCRIT 47.3 % (42.0-52.0); HEMOGLOBIN 16.1 g/dl (14.0-17.9); LYMPHOCYTES # (AUTO) 0.7 X10'3 (1.1-4.8); LYMPHOCYTES % (AUTO) 7.1 % (21-51); MEAN CORPUSCULAR HEMOGLOBIN 32.4 PG (27.0-31.0); MEAN CORPUSCULAR HGB CONC 34.1 g/dL (33.0-36.5); MEAN CORPUSCULAR VOLUME 95.2 FL (78-98); MEAN PLATELET VOLUME 7.9 FL (7.4-10.4); MONOCYTES # (AUTO) 0.5 X10'3 (0-0.9); MONOCYTES % (AUTO) 4.9 % (2-12); NEUTROPHILS % (AUTO) 87.8 % (42-75); PLATELET COUNT 239 X10'3 (140-440); RED BLOOD COUNT 4.97 X10'6 (4.70-6.10); RED CELL DISTRIBUTION WIDTH 15.2 % (11.5-14.5); WHITE BLOOD COUNT 10.2 X10'3 (4.5-11.0)
[2021-11-07 08:09] LABS: ALANINE AMINOTRANSFERASE 31 U/L (12-78); ALBUMIN 4.2 G/DL (3.4-5.0); ALBUMIN/GLOBULIN RATIO 1.2 (1.1-1.5); ALKALINE PHOSPHATASE 91 IU/L (46-116); ANION GAP 30 (8-16); ASPARTATE AMINO TRANSFERASE 38 U/L (10-37); BILIRUBIN,TOTAL 0.8 MG/DL (0.1-1.0); BLOOD UREA NITROGEN 20 MG/DL (7-18); BUN/CREATININE RATIO 15.5 (5.4-32.0); CALCIUM 8.7 MG/DL (8.5-10.1); CHLORIDE 98 MMOL/L (99-107); CREATININE 1.29 MG/DL (0.60-1.10); ETHANOL 0.184 GM/DL (0.0-0.010); GLUCOSE 75 MG/DL (70-104); LIPASE < 50 U/L (73-393); MAGNESIUM 1.4 MG/DL (1.5-2.4); POTASSIUM 4.1 MMOL/L (3.5-5.1); SODIUM 143 MMOL/L (135-145); TOTAL CARBON DIOXIDE 15.1 MMOL/L (24-32); TOTAL PROTEIN 7.7 G/DL (6.4-8.2); eGFR 64 ML/MIN
--- NOTE | 2021-11-07 08:31 | NUR ---
Patient reports nausea resolved; gave ice chips and orange juice per request.
--- NOTE | 2021-11-07 09:00 | NUR ---
Patient reports epigastric pain not improved, /; ER provider notified and will order oral lidocaine/Mylanta.
[2021-11-07] MEDS ORDERED: LIDOcaine Viscous 15ml cup TP ONE (09:30)
[2021-11-07] MEDS ORDERED: mag hydrox/Alum hydrox/simeth 30ml oral suspension PO ONE (09:30)
[2021-11-07] MEDS ORDERED: magnesium 2GM in 50ml NS 50 ML IV ONE (09:30)
[2021-11-07] MEDS ORDERED: PROM12.512 PO (09:31)
--- NOTE | 2021-11-07 09:42 | NUR ---
Patient vomiting Maalox and viscous lidocaine immediately after swallowing it; ER Provider will be notified.
[2021-11-07] MEDS ORDERED: proMETHazine 25mg tablet PO ONE (11:20)
[2021-11-07 11:38] VITALS: BP 126/92
== END 2021-11-07 11:40 | disposition home or self-care (01) ==
LOC: ER 05:49
DX: K29.20 Alcoholic gastritis without bleeding (principal); E86.0 Dehydration; F10.129 Alcohol abuse with intoxication, unspecified; I10 Essential (primary) hypertension; G89.29 Other chronic pain; F41.9 Anxiety disorder, unspecified; F12.90 Cannabis use, unspecified, uncomplicated; F14.90 Cocaine use, unspecified, uncomplicated; Z86.69 Personal history of other diseases of the nervous system and sense organs; Z98.890 Other specified postprocedural states; Z72.89 Other problems related to lifestyle; Z59.00 Homelessness unspecified; Z79.899 Other long term (current) drug therapy; Y90.9 Presence of alcohol in blood, level not specified
CPT/HCPCS: 36415; 80053; 80320; 83690; 83735; 85025; 96361; 96365; 96366; 96375; 99284; J2270; J2405; J3475; J7030; Q0169

== ENCOUNTER 2021-11-23 18:00 | Emergency (ER) | payer MEDICAID ==
[~2021-11-23] VITALS: Ht 175.3 cm; Wt 63.5 kg
[~2021-11-23 18:00] MED LIST changes: +PROM12.512 PO
[2021-11-23] MEDS ORDERED: normal saline 1000ML IV soln IVB ONE (18:45)
[2021-11-23] MEDS ORDERED: dextrose 50%-water 50ml dispensing syringe IV PRN ×2 (18:45)
[2021-11-23] MEDS ORDERED: ondansetron/PF 4mg/2ml inj IV ONE (18:45)
[2021-11-23 19:15] LABS: EOSINOPHILS % (AUTO) 0 % (0-6); MONOCYTES # (AUTO) 0.6 X10'3 (0-0.9); NEUTROPHILS # (AUTO) 5.2 X10'3 (1.8-7.7); WHITE BLOOD COUNT 7.8 X10'3 (4.5-11.0)
[2021-11-23 19:17] LABS: BASOPHILS % (AUTO) 0.6 % (0-1); HEMATOCRIT 47.5 % (42.0-52.0); HEMOGLOBIN 15.5 g/dl (14.0-17.9); LYMPHOCYTES % (AUTO) 25.1 % (21-51); MEAN CORPUSCULAR HEMOGLOBIN 31.9 PG (27.0-31.0); MEAN CORPUSCULAR HGB CONC 32.6 g/dL (33.0-36.5); MEAN CORPUSCULAR VOLUME 97.6 FL (78-98); MONOCYTES % (AUTO) 7.8 % (2-12); NEUTROPHILS % (AUTO) 66.5 % (42-75); PLATELET COUNT 259 X10'3 (140-440); RED BLOOD COUNT 4.86 X10'6 (4.70-6.10); RED CELL DISTRIBUTION WIDTH 16.5 % (11.5-14.5)
[2021-11-23 19:29] LABS: ALANINE AMINOTRANSFERASE 78 U/L (12-78); ALBUMIN 3.9 G/DL (3.4-5.0); ALBUMIN/GLOBULIN RATIO 1.1 (1.1-1.5); ALKALINE PHOSPHATASE 98 IU/L (46-116); ANION GAP 26 (8-16); ASPARTATE AMINO TRANSFERASE 59 U/L (10-37); BILIRUBIN,TOTAL 0.5 MG/DL (0.1-1.0); BLOOD UREA NITROGEN 12 MG/DL (7-18); BUN/CREATININE RATIO 10.4 (5.4-32.0); CALCIUM 8.5 MG/DL (8.5-10.1); CHLORIDE 100 MMOL/L (99-107); CREATININE 1.15 MG/DL (0.60-1.10); GLUCOSE 79 MG/DL (70-104); MAGNESIUM 1.6 MG/DL (1.5-2.4); POTASSIUM 4.2 MMOL/L (3.5-5.1); SODIUM 140 MMOL/L (135-145); TOTAL PROTEIN 7.4 G/DL (6.4-8.2); eGFR 73 ML/MIN
[2021-11-23 19:34] LABS: TOTAL CARBON DIOXIDE 13.6 MMOL/L (24-32)
[2021-11-23] MEDS ORDERED: LORazepam 2 mg/ml vial IV ONE (20:00)
[2021-11-23] MEDS ORDERED: LIDOcaine Viscous 15ml cup MM ONE (20:35)
[2021-11-23] MEDS ORDERED: sucralfate 1 gm tablet PO ONE (20:35)
[2021-11-23] MEDS ORDERED: mag hydrox/Alum hydrox/simeth 30ml oral suspension PO ONE (20:35)
[2021-11-23] MEDS ORDERED: ringers solution, lactated 1000ml IV soln IV ONE (20:35)
[2021-11-23 20:47] LABS: ETHANOL 0.217 GM/DL (0.0-0.010)
[2021-11-23] MEDS ORDERED: nitroGLYCERIN 0.4mg SUBLingual tab SL PRN (21:35)
[2021-11-23 22:20] VITALS: BP 108/72
== END 2021-11-23 22:23 | disposition home or self-care (01) ==
LOC: ER 18:01
DX: K29.20 Alcoholic gastritis without bleeding (principal); E86.0 Dehydration; F10.129 Alcohol abuse with intoxication, unspecified; R11.2 Nausea with vomiting, unspecified; R53.1 Weakness; R10.13 Epigastric pain; I10 Essential (primary) hypertension; G89.29 Other chronic pain; F41.9 Anxiety disorder, unspecified; F12.90 Cannabis use, unspecified, uncomplicated; F14.90 Cocaine use, unspecified, uncomplicated; Z86.69 Personal history of other diseases of the nervous system and sense organs; Z98.890 Other specified postprocedural states; Z72.89 Other problems related to lifestyle; Z59.00 Homelessness unspecified; Z79.899 Other long term (current) drug therapy; Y90.0 Blood alcohol level of less than 20 mg/100 ml
CPT/HCPCS: 36415; 71045; 80053; 80320; 82948; 83735; 85025; 93005; 96361; 96374; 96375; 99285; J2060; J2405; J3490; J7030; J7120

== ENCOUNTER 2022-01-08 03:16 | Inpatient (IN) | payer MEDICAID ==
[~2022-01-08] VITALS: Ht 175.3 cm; Wt 75.0 kg
[2022-01-08] MEDS ORDERED: normal saline 1000ML IV soln IVB ONE (04:50)
[2022-01-08] MEDS ORDERED: ondansetron/PF 4mg/2ml inj IV ONE (04:50)
[2022-01-08 05:49] LABS: RED CELL DISTRIBUTION WIDTH 15.6 % (11.5-14.5)
[2022-01-08 05:50] LABS: BASOPHILS # (AUTO) 0.1 X10'3 (0-0.2); BASOPHILS % (AUTO) 0.6 % (0-1); EOSINOPHILS % (AUTO) 0 % (0-6); HEMATOCRIT 49.1 % (42.0-52.0); HEMOGLOBIN 17.1 g/dl (14.0-17.9); LYMPHOCYTES # (AUTO) 1.2 X10'3 (1.1-4.8); LYMPHOCYTES % (AUTO) 7.3 % (21-51); MEAN CORPUSCULAR HEMOGLOBIN 33.5 PG (27.0-31.0); MEAN CORPUSCULAR HGB CONC 34.8 g/dL (33.0-36.5); MEAN CORPUSCULAR VOLUME 96.3 FL (78-98); MEAN PLATELET VOLUME 8.4 FL (7.4-10.4); MONOCYTES # (AUTO) 0.8 X10'3 (0-0.9); MONOCYTES % (AUTO) 4.7 % (2-12); NEUTROPHILS # (AUTO) 14.5 X10'3 (1.8-7.7); NEUTROPHILS % (AUTO) 87.4 % (42-75); PLATELET COUNT 267 X10'3 (140-440); WHITE BLOOD COUNT 16.6 X10'3 (4.5-11.0)
[2022-01-08 06:02] LABS: ALANINE AMINOTRANSFERASE 47 U/L (12-78); ALBUMIN 4.5 G/DL (3.4-5.0); ALBUMIN/GLOBULIN RATIO 1.1 (1.1-1.5); ALKALINE PHOSPHATASE 104 IU/L (46-116); ANION GAP 37 (8-16); ASPARTATE AMINO TRANSFERASE 44 U/L (10-37); BILIRUBIN,TOTAL 0.9 MG/DL (0.1-1.0); BLOOD UREA NITROGEN 34 MG/DL (7-18); BUN/CREATININE RATIO 17.6 (5.4-32.0); CALCIUM 8.8 MG/DL (8.5-10.1); CHLORIDE 85 MMOL/L (99-107); CREATININE 1.93 MG/DL (0.60-1.10); GLUCOSE 122 MG/DL (70-104); LIPASE 393 U/L (73-393); POTASSIUM 3.9 MMOL/L (3.5-5.1); SODIUM 134 MMOL/L (135-145); TOTAL PROTEIN 8.5 G/DL (6.4-8.2); eGFR 40 ML/MIN
[2022-01-08 06:03] LABS: TOTAL CARBON DIOXIDE 12.2 MMOL/L (24-32)
[2022-01-08] MEDS ORDERED: normal saline 1000ML IV soln IV ONE ×2 (06:15→09:15)
[2022-01-08] MEDS ORDERED: LORazepam 2 mg/ml vial IV ONE ×3 (06:25→08:40)
[2022-01-08] MEDS ORDERED: metoclopramide 5 mg/ml inj IV ONE (06:25)
[2022-01-08 07:23] LABS: ABG BASE EXCESS -6.2 mmol/L (-2.0-2.0); ABG HCO3 16.1 mmol/L (22.0-26.0); ABG OXYGEN SATURATION 95.9 % (94-97); ABG PCO2 (T) 25.4 mmHg (35.0-48.0); ABG PO2 (T) 88.5 mmHg (75.0-100.0); ALLEN'S TEST POSITIVE; FCOHb 0.2 % (0.0-3.9); FMetHb 0.5 % (0.0-1.5); FO2Hb 95.2 % (94-97); TOTAL HEMOGLOBIN 16.5 G/dl (14.0-18.0)
[2022-01-08] MEDS ORDERED: phenobarbital sod 130mg/ml inj. IV ONE (08:05)
[2022-01-08] MEDS ORDERED: CefTRIAXone 2gm/D5W 50ml BAG 50 ML IV ONE (09:15)
--- NOTE | 2022-01-08 12:00 | NUR ---
Called to pt's bedside as he pulled out the US guided PIV previously placed in his R forearm.
[2022-01-08] MEDS ORDERED: haloperidol lactate 5mg/ml inj IM PRN (12:10)
[2022-01-08] MEDS ORDERED: acetaminophen 325mg tablet PO PRN ×2 (12:10)
[2022-01-08] MEDS ORDERED: HYDROcodone/acetaminophen 10/325mg tab PO PRN (12:10)
[2022-01-08] MEDS ORDERED: magnesium Cl slow-release 64mg tablet PO PRN (12:10)
[2022-01-08] MEDS ORDERED: magnesium 4gm in 100ml NS 100 ML IV PRN (12:10)
[2022-01-08] MEDS ORDERED: ondansetron 4mg rapidly disintigrating tab PO PRN (12:10)
[2022-01-08] MEDS ORDERED: metoclopramide 5 mg/ml inj IV PRN (12:10)
[2022-01-08] MEDS ORDERED: POTASSIUM BICARB 20meq eff tab 20 MEQ TABLET.EFF PO PRN (12:10)
[2022-01-08] MEDS ORDERED: diphenhydrAMINE 25mg capsule PO PRN (12:10)
[2022-01-08] MEDS ORDERED: bisacodyl 10mg suppository rectal RC PRN (12:10)
[2022-01-08] MEDS ORDERED: mag hydrox/Alum hydrox/simeth 30ml oral suspension PO PRN (12:10)
[2022-01-08] MEDS ORDERED: morphine 2 MG/ML inj. syringe IV PRN (12:10)
[2022-01-08] MEDS ORDERED: magnesium hydroxide 30ml (MOM) UD suspension PO PRN (12:10)
[2022-01-08] MEDS ORDERED: HYDROcodone/acetaminophen 5mg/325mg tablet PO PRN (12:10)
[2022-01-08] MEDS ORDERED: magnesium 2GM in 50ml NS 50 ML IV PRN (12:10)
[2022-01-08] MEDS ORDERED: potassium CL 10mEq/100ml bag 100 ML IV PRN (12:10)
[2022-01-08] MEDS ORDERED: dextrose 50%-water 50ml dispensing syringe IV PRN (12:10)
[2022-01-08] MEDS ORDERED: acetaminophen 650mg rectal suppository RC PRN (12:10)
[2022-01-08 12:36] LABS: ALBUMIN 3.5 G/DL (3.4-5.0); ANION GAP 18 (8-16); BLOOD UREA NITROGEN 27 MG/DL (7-18); BUN/CREATININE RATIO 18.9 (5.4-32.0); CHLORIDE 98 MMOL/L (99-107); CREATININE 1.43 MG/DL (0.60-1.10); GLUCOSE 79 MG/DL (70-104); POTASSIUM 3.7 MMOL/L (3.5-5.1); SODIUM 139 MMOL/L (135-145); TOTAL CARBON DIOXIDE 23.1 MMOL/L (24-32); eGFR 56 ML/MIN
[2022-01-08] MEDS ORDERED: PANT20TA18 PO (12:50)
[2022-01-08] MEDS ORDERED: ONDA4TAB12 PO (12:50)
[2022-01-08] MEDS: LORazepam 2 mg/ml vial IV PRN ×6 (13:22→22:23)
[2022-01-08] MEDS: thiamine 100mg/ml 2ml inj. IV SCH ×2 (14:03→20:10)
[2022-01-08] MEDS: dextrose 5%-normal saline 1,000 ML IV SCH ×2 (14:03→18:50)
[2022-01-08] MEDS: heparin, porcine 5000 units/ml vial SQ SCH (19:24)
[2022-01-08] MEDS: docusate sod 100mg capsule PO SCH (19:25)
[2022-01-08] MEDS: K and/or MAG REPLACEMENT MC SCH (20:00)
[2022-01-09] MEDS: dextrose 5%-normal saline 1,000 ML IV SCH ×4 (01:31→22:24)
[2022-01-09] MEDS: LORazepam 2 mg/ml vial IV PRN ×7 (02:12→21:53)
[2022-01-09 07:07] LABS: BASOPHILS % (AUTO) 0.2 % (0-1); EOSINOPHILS % (AUTO) 0.1 % (0-6); HEMATOCRIT 38.8 % (42.0-52.0); HEMOGLOBIN 13.4 g/dl (14.0-17.9); LYMPHOCYTES # (AUTO) 0.9 X10'3 (1.1-4.8); LYMPHOCYTES % (AUTO) 16.6 % (21-51); MEAN CORPUSCULAR HEMOGLOBIN 33.5 PG (27.0-31.0); MEAN CORPUSCULAR HGB CONC 34.5 g/dL (33.0-36.5); MEAN CORPUSCULAR VOLUME 97.1 FL (78-98); MEAN PLATELET VOLUME 8.3 FL (7.4-10.4); MONOCYTES # (AUTO) 0.3 X10'3 (0-0.9); MONOCYTES % (AUTO) 5.9 % (2-12); NEUTROPHILS # (AUTO) 4.4 X10'3 (1.8-7.7); NEUTROPHILS % (AUTO) 77.2 % (42-75); PLATELET COUNT 151 X10'3 (140-440); RED CELL DISTRIBUTION WIDTH 15.2 % (11.5-14.5); WHITE BLOOD COUNT 5.7 X10'3 (4.5-11.0)
[2022-01-09 07:44] LABS: ALANINE AMINOTRANSFERASE 32 U/L (12-78); ALBUMIN 3.1 G/DL (3.4-5.0); ALKALINE PHOSPHATASE 67 IU/L (46-116); AMYLASE 98 U/L (25-115); ANION GAP 9 (8-16); ASPARTATE AMINO TRANSFERASE 32 U/L (10-37); BILIRUBIN,TOTAL 1.2 MG/DL (0.1-1.0); BLOOD UREA NITROGEN 12 MG/DL (7-18); BUN/CREATININE RATIO 13.6 (5.4-32.0); CALCIUM 8.2 MG/DL (8.5-10.1); CHLORIDE 95 MMOL/L (99-107); CHOL/HDL RATIO 3.7 (0.00-4.99); CHOLESTEROL 178 MG/DL (0-200); CREATININE 0.88 MG/DL (0.60-1.10); GLUCOSE 103 MG/DL (70-104); HDL CHOLESTEROL 48 MG/DL (35-60); LDL CHOLESTEROL 92 MG/DL (50-100); MAGNESIUM 1.6 MG/DL (1.5-2.4); SODIUM 134 MMOL/L (135-145); TOTAL CARBON DIOXIDE 30.1 MMOL/L (24-32); TOTAL PROTEIN 6.2 G/DL (6.4-8.2); TRIGLYCERIDES 146 MG/DL (20-135); eGFR > 90 ML/MIN
[2022-01-09 07:47] LABS: PHOSPHORUS 1.2 MG/DL (2.3-4.5); POTASSIUM 2.8 MMOL/L (3.5-5.1)
[2022-01-09] MEDS: docusate sod 100mg capsule PO SCH ×2 (08:00→20:04)
[2022-01-09] MEDS: K and/or MAG REPLACEMENT MC SCH ×2 (08:00→20:06)
[2022-01-09] MEDS: thiamine 100mg/ml 2ml inj. IV SCH ×3 (08:41→21:53)
[2022-01-09] MEDS: heparin, porcine 5000 units/ml vial SQ SCH ×2 (08:41→20:05)
--- NOTE | 2022-01-09 09:10 | NUR ---
pt found saturated in urine. full linen change completed. pt able to bear weight, mecidated with additional ativan for withdraw symptoms.
[2022-01-09] MEDS: folic acid 1mg/0.2ml inj IV SCH (10:00)
[2022-01-09] MEDS ORDERED: potassium phosphate inj 30 MMOL in normal saline 500ml IV soln 500 ML IV ONE (11:30)
--- NOTE | 2022-01-09 11:30 | NUR ---
linens found saturated in urine, full linen change complete. pt able to stand to transfer to chair with slow steady movemnts. returned to bed without incident.
--- NOTE | 2022-01-09 13:15 | NUR ---
found sitting at end of bed, pt requesting water. provided, pt tolerated well.
--- NOTE | 2022-01-09 14:37 | NUR ---
provided with sips of cold water
--- NOTE | 2022-01-09 14:47 | NUR ---
telephone report to lee madera.
[2022-01-09 15:00] VITALS: BP 153/113
--- NOTE | 2022-01-09 15:00 | NUR ---
Received pt from Ed via [facility] to [id number]. Pt able w/SBA to ambulate from otero to bed. Pt unable to answer questions, due to sedated by Ativan. Pt fell asleep immediately on laying in bed. Bed low, call light in reach.
[2022-01-09 18:00] VITALS: BP 122/84
[2022-01-09] MEDS ORDERED: propranolol 10mg tablet PO ONE (18:00)
--- NOTE | 2022-01-09 18:47 | NUR ---
Problems reprioritized. Patient report given, questions answered & plan of care reviewed with THEE Linares.
[2022-01-09] MEDS ORDERED: pantoprazole 40MG/NS 100ML BAG 100 ML IV SCH (20:00)
[2022-01-09] MEDS: ondansetron/PF 4mg/2ml inj IV PRN (20:04)
[2022-01-09] MEDS: POTASSIUM BICARB 20meq eff tab 20 MEQ TABLET.EFF PO PRN (20:06)
[2022-01-09 22:00] VITALS: BP 128/93
[2022-01-09] MEDS: pantoprazole 40MG/NS 100ML BAG 100 ML IV SCH (22:23)
[2022-01-09] MEDS: propranolol 10mg tablet PO SCH (22:24)
[2022-01-10] MEDS: ondansetron/PF 4mg/2ml inj IV PRN ×3 (01:43→19:43)
[2022-01-10] MEDS: morphine 2 MG/ML inj. syringe IV PRN ×2 (01:43→19:44)
[2022-01-10 02:00] VITALS: BP 140/80
[2022-01-10] MEDS: dextrose 5%-normal saline 1,000 ML IV SCH ×3 (04:10→19:42)
[2022-01-10 06:00] VITALS: BP 140/91
[2022-01-10 07:00] LABS: HEMATOCRIT 38.5 % (42.0-52.0); HEMOGLOBIN 13.3 g/dl (14.0-17.9); MEAN CORPUSCULAR HGB CONC 34.5 g/dL (33.0-36.5); MONOCYTES # (AUTO) 0.3 X10'3 (0-0.9); WHITE BLOOD COUNT 3.7 X10'3 (4.5-11.0)
[2022-01-10 07:04] LABS: BASOPHILS % (AUTO) 0.9 % (0-1); EOSINOPHILS % (AUTO) 1.2 % (0-6); LYMPHOCYTES # (AUTO) 1.1 X10'3 (1.1-4.8); LYMPHOCYTES % (AUTO) 28.7 % (21-51); MEAN CORPUSCULAR HEMOGLOBIN 33.4 PG (27.0-31.0); MEAN PLATELET VOLUME 8.5 FL (7.4-10.4); MONOCYTES % (AUTO) 7.8 % (2-12); NEUTROPHILS # (AUTO) 2.3 X10'3 (1.8-7.7); NEUTROPHILS % (AUTO) 61.4 % (42-75); PLATELET COUNT 113 X10'3 (140-440); RED BLOOD COUNT 3.97 X10'6 (4.70-6.10); RED CELL DISTRIBUTION WIDTH 14.9 % (11.5-14.5)
[2022-01-10 07:37] LABS: ALANINE AMINOTRANSFERASE 22 U/L (12-78); ALBUMIN 2.3 G/DL (3.4-5.0); ALBUMIN/GLOBULIN RATIO 0.9 (1.1-1.5); ALKALINE PHOSPHATASE 54 IU/L (46-116); AMYLASE 89 U/L (25-115); ANION GAP 6 (8-16); ASPARTATE AMINO TRANSFERASE 25 U/L (10-37); BILIRUBIN,TOTAL 0.8 MG/DL (0.1-1.0); BLOOD UREA NITROGEN 9 MG/DL (7-18); BUN/CREATININE RATIO 11.7 (5.4-32.0); CALCIUM 7.1 MG/DL (8.5-10.1); CHLORIDE 105 MMOL/L (99-107); CREATININE 0.77 MG/DL (0.60-1.10); MAGNESIUM 1.1 MG/DL (1.5-2.4); PHOSPHORUS 2.1 MG/DL (2.3-4.5); SODIUM 140 MMOL/L (135-145); TOTAL PROTEIN 4.8 G/DL (6.4-8.2); eGFR > 90 ML/MIN
[2022-01-10 07:55] LABS: GLUCOSE 562 MG/DL (70-104); POTASSIUM 2.3 MMOL/L (3.5-5.1)
[2022-01-10] MEDS: K and/or MAG REPLACEMENT MC SCH ×2 (08:00→20:00)
[2022-01-10] MEDS: heparin, porcine 5000 units/ml vial SQ SCH ×2 (08:00→19:58)
[2022-01-10] MEDS: docusate sod 100mg capsule PO SCH ×2 (08:00→19:49)
[2022-01-10] MEDS: folic acid 1mg/0.2ml inj IV SCH (08:00)
[2022-01-10] MEDS: LORazepam 2 mg/ml vial IV PRN ×6 (09:03→23:31)
[2022-01-10] MEDS: propranolol 10mg tablet PO SCH ×3 (09:08→19:49)
[2022-01-10] MEDS: pantoprazole 40MG/NS 100ML BAG 100 ML IV SCH ×2 (09:08→20:58)
[2022-01-10] MEDS: thiamine 100mg/ml 2ml inj. IV SCH ×3 (09:08→19:48)
[2022-01-10 11:00] VITALS: BP 140/96
[2022-01-10 16:07] VITALS: BP 126/86
[2022-01-10 18:00] VITALS: BP 146/104
--- NOTE | 2022-01-10 19:15 | NUR ---
Patient in room U 3016. I have received report from THEE MATA and had the opportunity to ask questions and assume patient care. Addendum: 01/10/22 at 1931 by Kaitlynn Hoff RN Amended: Links added.
--- NOTE | 2022-01-10 19:35 | NUR ---
pt ancious s&s of with drawls c/o pain medicated with iv morphine for this c/o nausea and given zofran, and ativan, took hs meds as well.
--- NOTE | 2022-01-10 20:30 | NUR ---
pt took potassium replacement and accucheck done blood sugar 106, will continue to monitor.
[2022-01-10] MEDS: POTASSIUM BICARB 20meq eff tab 20 MEQ TABLET.EFF PO PRN (20:57)
[2022-01-10 22:00] VITALS: BP 121/91
[2022-01-10] MEDS ORDERED: potassium phosphate inj 30 MMOL in normal saline 500ml IV soln 500 ML IV ONE (22:45)
[2022-01-11] MEDS: dextrose 5%-normal saline 1,000 ML IV SCH ×2 (00:10→04:46)
--- NOTE | 2022-01-11 01:32 | NUR ---
RESTING AT THIS TIME APPEARS COMFORTABLE.
[2022-01-11 02:00] VITALS: BP 100/69
--- NOTE | 2022-01-11 02:20 | NUR ---
pt assisted to brp for bm and void, also smeared stool on bed and inc of urine. blood sugar done 96. pt back to bed. no s&s of distress.
--- NOTE | 2022-01-11 04:30 | NUR ---
pt medicated for pain pain. and c/o withdrawl anxiety.
[2022-01-11] MEDS: morphine 2 MG/ML inj. syringe IV PRN (04:47)
[2022-01-11 06:00] VITALS: BP 107/73
--- NOTE | 2022-01-11 06:33 | NUR ---
Problems reprioritized. Patient report given, questions answered & plan of care reviewed with THEE MCGINNIS. Addendum: 01/11/22 at 0633 by Kaitlynn Hoff RN Amended: Links added.
[2022-01-11 06:37] LABS: BASOPHILS % (AUTO) 0.9 % (0-1); EOSINOPHILS # (AUTO) 0.1 X10'3 (0-0.9); EOSINOPHILS % (AUTO) 2.5 % (0-6); HEMATOCRIT 36.3 % (42.0-52.0); HEMOGLOBIN 12.6 g/dl (14.0-17.9); LYMPHOCYTES % (AUTO) 29.5 % (21-51); MEAN CORPUSCULAR HEMOGLOBIN 33.7 PG (27.0-31.0); MEAN CORPUSCULAR HGB CONC 34.8 g/dL (33.0-36.5); MEAN CORPUSCULAR VOLUME 96.8 FL (78-98); MEAN PLATELET VOLUME 8.7 FL (7.4-10.4); MONOCYTES # (AUTO) 0.4 X10'3 (0-0.9); MONOCYTES % (AUTO) 10.4 % (2-12); NEUTROPHILS # (AUTO) 1.9 X10'3 (1.8-7.7); NEUTROPHILS % (AUTO) 56.7 % (42-75); PLATELET COUNT 102 X10'3 (140-440); RED BLOOD COUNT 3.75 X10'6 (4.70-6.10); RED CELL DISTRIBUTION WIDTH 14.6 % (11.5-14.5); WHITE BLOOD COUNT 3.4 X10'3 (4.5-11.0)
[2022-01-11 06:56] LABS: ALANINE AMINOTRANSFERASE 30 U/L (12-78); ALBUMIN 2.7 G/DL (3.4-5.0); ALBUMIN/GLOBULIN RATIO 0.9 (1.1-1.5); ALKALINE PHOSPHATASE 66 IU/L (46-116); AMYLASE 120 U/L (25-115); ANION GAP 5 (8-16); ASPARTATE AMINO TRANSFERASE 30 U/L (10-37); BILIRUBIN,TOTAL 0.9 MG/DL (0.1-1.0); BLOOD UREA NITROGEN 11 MG/DL (7-18); BUN/CREATININE RATIO 15.3 (5.4-32.0); CALCIUM 8.2 MG/DL (8.5-10.1); CHLORIDE 102 MMOL/L (99-107); CREATININE 0.72 MG/DL (0.60-1.10); GLUCOSE 93 MG/DL (70-104); MAGNESIUM 1.8 MG/DL (1.5-2.4); PHOSPHORUS 4.7 MG/DL (2.3-4.5); POTASSIUM 3.9 MMOL/L (3.5-5.1); SODIUM 138 MMOL/L (135-145); TOTAL CARBON DIOXIDE 31.4 MMOL/L (24-32); TOTAL PROTEIN 5.6 G/DL (6.4-8.2); eGFR > 90 ML/MIN
--- NOTE | 2022-01-11 07:16 | NUR ---
Patient in room PCU 3014B. I have received report from THEE ALMANZAR and had the opportunity to ask questions and assume patient care.
[2022-01-11] MEDS: K and/or MAG REPLACEMENT MC SCH (08:00)
[2022-01-11] MEDS: heparin, porcine 5000 units/ml vial SQ SCH (08:00)
[2022-01-11] MEDS: propranolol 10mg tablet PO SCH (08:00)
[2022-01-11] MEDS ORDERED: LORazepam 2 mg/ml vial IV PRN (10:40)
[2022-01-11] MEDS ORDERED: LORazepam 1 MG tablet PO PRN (10:40)
[2022-01-11] MEDS ORDERED: pantoprazole 40mg Tablet.DR PO SCH (10:40)
[2022-01-11 11:00] VITALS: BP 112/89
--- NOTE | 2022-01-11 12:07 | NUR ---
Met with patient in regards to alcohol use and to see if patient wanted any resources for treatment options. Patient is interested in outpatient treatment. I gave patient [facility] number, a list of facilities that he can get outpatient treatment and talked to patient about medication for cravings. I gave patient my card to call me if he has any questions.
[2022-01-11] MEDS ORDERED: PANT40TA54 PO (12:45)
[2022-01-11] MEDS ORDERED: PROP10TA10 PO (12:45)
[2022-01-11] MEDS ORDERED: thiamine tablet PO (12:45)
[2022-01-11] MEDS ORDERED: FOLI1TAB27 PO (12:45)
--- NOTE | 2022-01-11 14:30 | NUR ---
PATIENT STABLE AND APPROPRIATE FOR DISCHARGE, IV REMOVED, TELE REMOVED, EDUCATION GIVEN, ALL BELONGINGS SENT WITH PATIENT, PATIENT TAKEN TO LOBBY BY WHEELCHAIR TO AN AWAITING TAXI WHERE TAXI DRIVE WILL TAKE TO [facility], TAXI WAS ARRANGED AND PAID FOR BY HOSPITAL, WHEN I WENT TO CALL NEW MEDS IN I NOTICED LISTED PHARMACY WAS IN [place] AND THE TAXI WAS TOOK PATIENT TO [facility], WILL CALL PATIENT TO GET PREFERRED PHARMACY
--- NOTE | 2022-01-11 21:50 | NUR ---
LAB CALLED WITH CRITICAL BLOOD CULTURE RESULTS, GRAM + cocci in clusters in aerobic bottle. consumer attorney Blanquita notified
[2022-01-13] MEDS ORDERED: thiamine 100mg tablet PO SCH (08:00)
[2022-01-13] MEDS ORDERED: folic acid 1mg tablet PO SCH (08:00)
== END 2022-01-11 12:13 | disposition home or self-care (01) | DRG 422 ==
LOC: ER 03:17 → ED HOLD 12:15 → EDBEDREQ 01-09 13:55 → PCU 3S 01-09 15:06
PROVIDERS: ADMIT Family Medicine; ATTEND Family Medicine
DX: E87.2 Acidosis (principal); E86.0 Dehydration; N17.0 Acute kidney failure with tubular necrosis; E83.39 Other disorders of phosphorus metabolism; D72.829 Elevated white blood cell count, unspecified; K21.9 Gastro-esophageal reflux disease without esophagitis; R03.0 Elevated blood-pressure reading, without diagnosis of hypertension; K29.70 Gastritis, unspecified, without bleeding; R00.0 Tachycardia, unspecified; E87.6 Hypokalemia; F10.229 Alcohol dependence with intoxication, unspecified; F10.239 Alcohol dependence with withdrawal, unspecified; F17.200 Nicotine dependence, unspecified, uncomplicated; F41.9 Anxiety disorder, unspecified; G89.29 Other chronic pain; Z59.00 Homelessness unspecified
CPT/HCPCS: 36415; 36600; 71045; 80048; 80053; 80061; 80320; 82150; 82803; 82948; 83036; 83605; 83690; 83735; 84100; 84145; 85018; 85025; 85610; 87040; 92508; 92616; 93005; 96361; 96374; 96375; 96376; 97116; 97161; 97530; 99285; C9113; G0378; J0696; J1644; J2060; J2270; J2405; J2560; J2765; J3411; J3475; J3490; J7030; J7040; J7042

== ENCOUNTER 2022-07-08 14:10 | Emergency (ER) | payer MEDICAID ==
[~2022-07-08] VITALS: Ht 177.8 cm; Wt 6.6 kg
[~2022-07-08 14:10] MED LIST changes: +FOLI1TAB27 PO; +ONDA4TAB12 PO; -PANT-47 PO; +PANT40TA54 PO; -PROM12.512 PO; +PROP10TA10 PO; -THIA100T70 PO; +thiamine tablet PO
[2022-07-08] MEDS ORDERED: normal saline 1000ML IV soln IVB ONE (14:45)
[2022-07-08] MEDS ORDERED: LORazepam 0.5 MG tablet PO ONE (14:45)
[2022-07-08] MEDS ORDERED: ondansetron 4mg rapidly disintigrating tab PO ONE (14:45)
[2022-07-08] MEDS ORDERED: LORazepam 2 mg/ml vial IV ONE (15:45)
[2022-07-08] MEDS ORDERED: ondansetron/PF 4mg/2ml inj IV ONE (15:45)
[2022-07-08] MEDS ORDERED: metoclopramide 5 mg/ml inj IV ONE (17:00)
[2022-07-08] MEDS ORDERED: diphenhydrAMINE 50 mg/ml inj IV ONE (17:00)
[2022-07-08] MEDS ORDERED: ONDA8TAB13 PO (17:04)
[2022-07-08 17:44] VITALS: BP 144/89
== END 2022-07-08 17:48 | disposition home or self-care (01) ==
LOC: EEVIPCON 14:11 → ER 14:11
DX: R11.2 Nausea with vomiting, unspecified (principal); F10.10 Alcohol abuse, uncomplicated; I10 Essential (primary) hypertension; G89.29 Other chronic pain; F41.9 Anxiety disorder, unspecified; F12.90 Cannabis use, unspecified, uncomplicated; F14.90 Cocaine use, unspecified, uncomplicated; Z59.00 Homelessness unspecified; Z79.899 Other long term (current) drug therapy; Y90.9 Presence of alcohol in blood, level not specified
CPT/HCPCS: 96361; 96374; 96375; 99284; J1200; J2060; J2405; J2765; J7030

== ENCOUNTER 2022-07-29 12:47 | Emergency (ER) | payer MEDICAID ==
[~2022-07-29] VITALS: Ht 177.8 cm; Wt 75.0 kg
[~2022-07-29 12:47] MED LIST changes: +ONDA8TAB13 PO
[2022-07-29 13:41] VITALS: BP 120/86
[2022-07-29] MEDS ORDERED: diphenhydrAMINE 50 mg/ml inj IV ONE (14:00)
[2022-07-29] MEDS ORDERED: magnesium 2GM in 50ml NS 50 ML IV ONE (14:00)
[2022-07-29] MEDS ORDERED: LORazepam 2 mg/ml vial IV ONE (14:00)
[2022-07-29] MEDS ORDERED: metoclopramide 5 mg/ml inj IV ONE (14:00)
[2022-07-29] MEDS ORDERED: normal saline 1000ML IV soln IVB ONE ×3 (14:00→16:15)
[2022-07-29 14:32] LABS: BASOPHILS # (AUTO) 0.1 X10'3 (0-0.2); BASOPHILS % (AUTO) 0.5 % (0-1); EOSINOPHILS % (AUTO) 0 % (0-6); HEMATOCRIT 53.4 % (42.0-52.0); HEMOGLOBIN 17.8 g/dl (14.0-17.9); LYMPHOCYTES # (AUTO) 1.9 X10'3 (1.1-4.8); LYMPHOCYTES % (AUTO) 14.9 % (21-51); MEAN CORPUSCULAR HGB CONC 33.3 g/dL (33.0-36.5); MEAN PLATELET VOLUME 8.5 FL (7.4-10.4); MONOCYTES # (AUTO) 0.7 X10'3 (0-0.9); MONOCYTES % (AUTO) 5.2 % (2-12); NEUTROPHILS # (AUTO) 9.9 X10'3 (1.8-7.7); NEUTROPHILS % (AUTO) 79.4 % (42-75); PLATELET COUNT 323 X10'3 (140-440); RED BLOOD COUNT 5.75 X10'6 (4.70-6.10); RED CELL DISTRIBUTION WIDTH 16.7 % (11.5-14.5); WHITE BLOOD COUNT 12.5 X10'3 (4.5-11.0)
[2022-07-29 14:55] LABS: ALANINE AMINOTRANSFERASE 38 U/L (12-78); ALBUMIN 4.5 G/DL (3.4-5.0); ALBUMIN/GLOBULIN RATIO 1.1 (1.1-1.5); ALKALINE PHOSPHATASE 136 IU/L (46-116); ANION GAP 30 (8-16); ASPARTATE AMINO TRANSFERASE 49 U/L (10-37); BILIRUBIN,TOTAL 0.9 MG/DL (0.1-1.0); BLOOD UREA NITROGEN 31 MG/DL (7-18); BUN/CREATININE RATIO 20.7 (5.4-32.0); CALCIUM 9.1 MG/DL (8.5-10.1); CHLORIDE 88 MMOL/L (99-107); GLUCOSE 94 MG/DL (70-104); LIPASE 73 U/L (73-393); POTASSIUM 3.4 MMOL/L (3.5-5.1); SODIUM 139 MMOL/L (135-145); TOTAL PROTEIN 8.5 G/DL (6.4-8.2); eGFR 53 ML/MIN
[2022-07-29] MEDS ORDERED: potassium CL 10mEq/100ml bag 100 ML IV ONE (15:30)
[2022-07-29] MEDS ORDERED: ketorolac trometh. 30mg/ml inj. IV ONE (16:15)
== END 2022-07-29 19:09 | disposition home or self-care (01) ==
LOC: ER 12:47
DX: R10.13 Epigastric pain (principal); R11.2 Nausea with vomiting, unspecified; I10 Essential (primary) hypertension; G89.29 Other chronic pain; F41.9 Anxiety disorder, unspecified; F17.210 Nicotine dependence, cigarettes, uncomplicated; F12.90 Cannabis use, unspecified, uncomplicated; F14.90 Cocaine use, unspecified, uncomplicated; Z86.69 Personal history of other diseases of the nervous system and sense organs; Z98.890 Other specified postprocedural states; Z72.89 Other problems related to lifestyle; Z59.00 Homelessness unspecified; Z79.899 Other long term (current) drug therapy
CPT/HCPCS: 36415; 80053; 82948; 83690; 85025; 96365; 96368; 96375; 99284; J1200; J1885; J2060; J2765; J3475; J3480; J7030; 96366

== ENCOUNTER 2022-07-31 20:36 | Emergency (ER) | payer MEDICAID ==
[~2022-07-31] VITALS: Ht 175.3 cm; Wt 81.8 kg
[2022-08-01] MEDS ORDERED: normal saline 1000ML IV soln IVB ONE (00:10)
[2022-08-01] MEDS ORDERED: ondansetron/PF 4mg/2ml inj IV ONE (00:10)
[2022-08-01] MEDS ORDERED: thiamine 100mg/ml 2ml inj. IV ONE (00:10)
[2022-08-01] MEDS ORDERED: LORazepam 2 mg/ml vial IV ONE (00:40)
[2022-08-01 01:14] LABS: BASOPHILS % (AUTO) 0.5 % (0-1); EOSINOPHILS % (AUTO) 0 % (0-6); HEMATOCRIT 45.2 % (42.0-52.0); HEMOGLOBIN 15.5 g/dl (14.0-17.9); LYMPHOCYTES # (AUTO) 1.7 X10'3 (1.1-4.8); LYMPHOCYTES % (AUTO) 17.1 % (21-51); MEAN CORPUSCULAR HEMOGLOBIN 31.5 PG (27.0-31.0); MEAN CORPUSCULAR HGB CONC 34.4 g/dL (33.0-36.5); MEAN CORPUSCULAR VOLUME 91.7 FL (78-98); MEAN PLATELET VOLUME 8.6 FL (7.4-10.4); MONOCYTES # (AUTO) 0.5 X10'3 (0-0.9); MONOCYTES % (AUTO) 4.8 % (2-12); NEUTROPHILS # (AUTO) 7.6 X10'3 (1.8-7.7); NEUTROPHILS % (AUTO) 77.6 % (42-75); PLATELET COUNT 165 X10'3 (140-440); RED BLOOD COUNT 4.93 X10'6 (4.70-6.10); RED CELL DISTRIBUTION WIDTH 16.2 % (11.5-14.5); WHITE BLOOD COUNT 9.8 X10'3 (4.5-11.0)
[2022-08-01 01:45] LABS: ALANINE AMINOTRANSFERASE 30 U/L (12-78); ALBUMIN 3.9 G/DL (3.4-5.0); ALBUMIN/GLOBULIN RATIO 1.2 (1.1-1.5); ALKALINE PHOSPHATASE 108 IU/L (46-116); ANION GAP 20 (8-16); ASPARTATE AMINO TRANSFERASE 43 U/L (10-37); BILIRUBIN,TOTAL 0.8 MG/DL (0.1-1.0); BLOOD UREA NITROGEN 24 MG/DL (7-18); BUN/CREATININE RATIO 24.7 (5.4-32.0); CALCIUM 8.8 MG/DL (8.5-10.1); CHLORIDE 94 MMOL/L (99-107); CREATININE 0.97 MG/DL (0.60-1.10); GLUCOSE 85 MG/DL (70-104); POTASSIUM 3.1 MMOL/L (3.5-5.1); SODIUM 140 MMOL/L (135-145); TOTAL CARBON DIOXIDE 26.1 MMOL/L (24-32); TOTAL PROTEIN 7.1 G/DL (6.4-8.2); eGFR 88 ML/MIN
[2022-08-01 01:48] LABS: LIPASE 126 U/L (73-393)
[2022-08-01] MEDS ORDERED: chlordiazePOXIDE 25mg capsule PO ONE (02:20)
[2022-08-01] MEDS ORDERED: normal saline 1000ml 1,000 ML IV ONE (02:25)
--- NOTE | 2022-08-01 03:51 | NUR ---
Patient ambulatory trial completed. Patient ambulated 80ft in ER with guard assist of two. patient with unsteady gate, required rebalancing twice during ambulation. Otherwise patient is tolerating PO medication.
--- NOTE | 2022-08-01 05:42 | NUR ---
Repeat trop drawn and sent.
[2022-08-01 06:42] VITALS: BP 126/83
== END 2022-08-01 06:51 | disposition home or self-care (01) ==
LOC: ER 20:37
DX: F10.129 Alcohol abuse with intoxication, unspecified (principal); E87.29 Other acidosis; I10 Essential (primary) hypertension; G89.29 Other chronic pain; M54.50 Low back pain, unspecified; F12.90 Cannabis use, unspecified, uncomplicated; F14.10 Cocaine abuse, uncomplicated; Y90.9 Presence of alcohol in blood, level not specified; Z59.00 Homelessness unspecified
CPT/HCPCS: 36415; 71045; 80053; 83690; 84484; 85025; 93005; 96361; 96374; 96375; 99285; J2060; J2405; J3411; J7030; 99284

== ENCOUNTER 2022-08-20 20:12 | Emergency (ER) | payer MEDICAID ==
[~2022-08-20] VITALS: Ht 177.8 cm; Wt 62.5 kg
[2022-08-21] MEDS ORDERED: KEP500T PO ×3 (01:31→03:28)
[2022-08-21] MEDS ORDERED: acetaminophen 325mg tablet PO ONE (01:35)
[2022-08-21] MEDS ORDERED: levetiracetam 250mg tablet PO ONE (01:35)
[2022-08-21 02:25] VITALS: BP 100/73
== END 2022-08-21 02:53 | disposition home or self-care (01) ==
LOC: ER 20:12
DX: R56.9 Unspecified convulsions (principal); R07.9 Chest pain, unspecified; R51.9 Headache, unspecified; I10 Essential (primary) hypertension; M54.9 Dorsalgia, unspecified; F41.9 Anxiety disorder, unspecified; F12.10 Cannabis abuse, uncomplicated; F11.10 Opioid abuse, uncomplicated; Z79.899 Other long term (current) drug therapy
CPT/HCPCS: 36415; 71045; 82947; 82948; 99284

== ENCOUNTER 2022-09-13 13:25 | Emergency (ER) | payer MEDICAID ==
[~2022-09-13] VITALS: Ht 175.3 cm; Wt 65.4 kg
[~2022-09-13 13:25] MED LIST changes: +KEP500T PO
[2022-09-13 13:40] VITALS: BP 94/58
[2022-09-13 15:48] LABS: BASOPHILS # (AUTO) 0.1 X10'3 (0-0.2); BASOPHILS % (AUTO) 0.6 % (0-1); EOSINOPHILS % (AUTO) 0.2 % (0-6); HEMATOCRIT 47.6 % (42.0-52.0); HEMOGLOBIN 15.9 g/dl (14.0-17.9); LYMPHOCYTES # (AUTO) 1.9 X10'3 (1.1-4.8); LYMPHOCYTES % (AUTO) 17.4 % (21-51); MEAN CORPUSCULAR HEMOGLOBIN 32.7 PG (27.0-31.0); MEAN CORPUSCULAR HGB CONC 33.5 g/dL (33.0-36.5); MEAN CORPUSCULAR VOLUME 97.7 FL (78-98); MEAN PLATELET VOLUME 8.2 FL (7.4-10.4); MONOCYTES # (AUTO) 0.4 X10'3 (0-0.9); MONOCYTES % (AUTO) 3.6 % (2-12); NEUTROPHILS # (AUTO) 8.5 X10'3 (1.8-7.7); NEUTROPHILS % (AUTO) 78.2 % (42-75); PLATELET COUNT 239 X10'3 (140-440); RED BLOOD COUNT 4.87 X10'6 (4.70-6.10); RED CELL DISTRIBUTION WIDTH 15.7 % (11.5-14.5); WHITE BLOOD COUNT 10.9 X10'3 (4.5-11.0)
[2022-09-13 15:58] LABS: CLARITY,URINE CLEAR (Clear); COLOR,URINE YELLOW (Yellow); GLUCOSE, URINE NEGATIVE (Neg); KETONES,URINE 40 mg/dl (Neg); LEUKOCYTE ESTERASE ,URINE NEGATIVE (Neg); NITRITES, URINE NEGATIVE (Neg); OCCULT BLOOD,URINE TRACE-INTACT (Neg); PH,URINE 5.5 (4.8-8.0); PROTEIN,URINE NEGATIVE (Neg); UROBILINOGEN,URINE 0.2 E.U/dL (0.2-1.0)
[2022-09-13 16:08] LABS: UA COLLECTION TYPE CLN CATCH MIDSTREAM
[2022-09-13 16:33] LABS: URINE AMPHETAMINE SCREEN NEGATIVE (Neg); URINE BARBITUATE SCREEN NEGATIVE (Neg); URINE BENZODIAZEPINES SCREEN NEGATIVE (Neg); URINE CANNABINOID SCREEN NEGATIVE (Neg); URINE COCAINE SCREEN NEGATIVE (Neg); URINE METHADONE SCREEN NEGATIVE (Neg); URINE OPIATE SCREEN NEGATIVE (Neg); URINE PHENCYCLIDINE SCREEN NEGATIVE (Neg)
[2022-09-13 16:41] LABS: BACTERIA,URINE NONE SEEN /HPF (Neg); RBC,URINE 0-2 /HPF (0-2); WBC,URINE 0-4 /HPF (0-4)
[2022-09-13 16:42] LABS: CAL OXALATE CRYSTALS 1+ /HPF (NEGATIVE); SQUAMOUS EPITHELIAL CELL,UR FEW /LPF (FEW)
[2022-09-13] MEDS ORDERED: ketorolac trometh. 30mg/ml inj. IM ONE (17:25)
[2022-09-13] MEDS ORDERED: pantoprazole 40mg Tablet.DR PO ONE (17:25)
[2022-09-13] MEDS ORDERED: ondansetron 4mg rapidly disintigrating tab PO ONE (17:25)
[2022-09-13] MEDS ORDERED: ketorolac trometh inj. 60 MG/2 ML VIAL IM ONE (17:25)
[2022-09-13] MEDS ORDERED: ONDA4TAB12 PO (17:25)
== END 2022-09-13 18:19 | disposition home or self-care (01) ==
LOC: ER 13:26
DX: F10.10 Alcohol abuse, uncomplicated (principal); R51.9 Headache, unspecified; R11.2 Nausea with vomiting, unspecified; I10 Essential (primary) hypertension; F12.90 Cannabis use, unspecified, uncomplicated; F14.10 Cocaine abuse, uncomplicated; Y90.9 Presence of alcohol in blood, level not specified; Z59.00 Homelessness unspecified
CPT/HCPCS: 36415; 70450; 80305; 81001; 85025; 96372; 99285; J1885

== ENCOUNTER 2023-04-11 05:00 | Inpatient (IN) | payer MEDICAID, OTHER ==
[~2023-04-11] VITALS: Ht 175.3 cm; Wt 70.0 kg
[2023-04-11] VITALS (7 sets, daily range): BP systolic 123–151; BP diastolic 80–97; PULSE 102–113; RESP 12–18; TEMP 100.2; O2SAT 93–97
[2023-04-11] MEDS ORDERED: folic acid 1mg/0.2ml inj IV ONE (05:30)
[2023-04-11] MEDS ORDERED: diazepam inj 5 MG/ML inj. IV STA (05:30)
[2023-04-11] MEDS ORDERED: thiamine 100mg/ml 2ml inj. IV ONE (05:30)
[2023-04-11] MEDS ORDERED: normal saline 1000ml 1,000 ML IV ONE ×5 (05:30→10:05)
[2023-04-11] MEDS: DOPamine 400mg/D5W 250ml 250 ML IV SCH ×2 (07:05→14:56)
[2023-04-11] MEDS ORDERED: proCHLORperazine 10 MG/2 ml inj IV ONE (07:05)
[2023-04-11] MEDS ORDERED: LORazepam 2 mg/ml vial IV PRN ×2 (07:21→07:55)
[2023-04-11] MEDS ORDERED: LORazepam 2 mg/ml vial IV ONE (07:55)
[2023-04-11 09:06] LABS: BASOPHILS % (AUTO) 0.1 % (0-1); EOSINOPHILS % (AUTO) 0 % (0-6); HEMATOCRIT 48.2 % (42.0-52.0); HEMOGLOBIN 15.8 g/dl (14.0-17.9); LYMPHOCYTES # (AUTO) 1.4 X10'3 (1.1-4.8); LYMPHOCYTES % (AUTO) 6.3 % (21-51); MEAN CORPUSCULAR HEMOGLOBIN 31.4 PG (27.0-31.0); MEAN CORPUSCULAR HGB CONC 32.7 g/dL (33.0-36.5); MEAN PLATELET VOLUME 9.7 FL (7.4-10.4); MONOCYTES # (AUTO) 2.6 X10'3 (0-0.9); MONOCYTES % (AUTO) 11.9 % (2-12); NEUTROPHILS # (AUTO) 17.9 X10'3 (1.8-7.7); NEUTROPHILS % (AUTO) 81.7 % (42-75); PLATELET COUNT 305 X10'3 (140-440); RED BLOOD COUNT 5.02 X10'6 (4.70-6.10); RED CELL DISTRIBUTION WIDTH 14.7 % (11.5-14.5); WHITE BLOOD COUNT 21.9 X10'3 (4.5-11.0)
[2023-04-11 09:09] LABS: BILIRUBIN,URINE NEGATIVE (Neg); CLARITY,URINE SLIGHTLY CLOUDY (Clear); COLOR,URINE YELLOW (Yellow); GLUCOSE, URINE NEGATIVE (Neg); KETONES,URINE 15 mg/dl (Neg); LEUKOCYTE ESTERASE ,URINE NEGATIVE (Neg); NITRITES, URINE NEGATIVE (Neg); OCCULT BLOOD,URINE TRACE-INTACT (Neg); PH,URINE 5.5 (4.8-8.0); PROTEIN,URINE 30 mg/dl (Neg); UROBILINOGEN,URINE 0.2 E.U/dL (0.2-1.0)
[2023-04-11 09:16] LABS: UA COLLECTION TYPE STRAIGHT CATH
[2023-04-11 09:17] LABS: SQUAMOUS EPITHELIAL CELL,UR MANY /LPF (FEW)
--- NOTE | 2023-04-11 09:17 | NUR ---
NOTIFIED DR GARBER THAT PT REMAINS TACHYCARDIC IN 130S AFTER 3L FLUIDS AND ORDERED ATIVAN. SUGGESTED ADDITIONAL FLUIDS AND HALDOL. NO NEW ORDERS. THIS RN GEO LABS FOR PT AT 0630 UPON ARRIVAL. HANDED OFF BLOOD TUBES TO [facility] TO LABEL. AT 0830 FOLLOWED UP WITH LAB THEY WERE STILL NOT RESULTED. AFTER SOME SEARCHING, LAB CONFIRMED THAT [facility]LE[facility] HAD LEFT THESE TUBES ON HER CART. LABS IMMEDIATELY RUN AFTER THIS DISCOVERY
[2023-04-11 09:19] LABS: BACTERIA,URINE FEW /HPF (Neg); CAL OXALATE CRYSTALS 1+ /HPF (NEGATIVE)
[2023-04-11 09:20] LABS: AMORPHOUS URATES 2+; RBC,URINE 0-2 /HPF (0-2)
[2023-04-11 09:21] LABS: APTT 27 SECONDS (22-32); PROTHROMBIN TIME 10.8 SECONDS (9.0-12.0)
[2023-04-11 09:23] LABS: ALANINE AMINOTRANSFERASE 35 U/L (12-78); ALBUMIN 4.3 G/DL (3.4-5.0); ALBUMIN/GLOBULIN RATIO 1.1 (1.1-1.5); ALKALINE PHOSPHATASE 110 IU/L (46-116); ANION GAP 37 (8-16); ASPARTATE AMINO TRANSFERASE 30 U/L (10-37); BILIRUBIN,TOTAL 0.5 MG/DL (0.1-1.0); BLOOD UREA NITROGEN 63 MG/DL (7-18); BUN/CREATININE RATIO 11.6 (10.0-20.0); CALCIUM 8.1 MG/DL (8.5-10.1); CHLORIDE 88 MMOL/L (99-107); CREATININE 5.41 MG/DL (0.60-1.10); ETHANOL 127 MG/DL (<10); GLUCOSE 133 MG/DL (70-104); MAGNESIUM 2.5 MG/DL (1.5-2.4); SODIUM 138 MMOL/L (135-145); TOTAL PROTEIN 8.1 G/DL (6.4-8.2); eCRCL 19 ML/MIN; eGFR 12 ML/MIN
[2023-04-11] MEDS: LORazepam 2 mg/ml vial IV PRN ×5 (09:25→16:03)
[2023-04-11 09:33] LABS: URINE AMPHETAMINE SCREEN NEGATIVE (Neg); URINE BARBITUATE SCREEN NEGATIVE (Neg); URINE BENZODIAZEPINES SCREEN NEGATIVE (Neg); URINE CANNABINOID SCREEN NEGATIVE (Neg); URINE COCAINE SCREEN NEGATIVE (Neg); URINE METHADONE SCREEN NEGATIVE (Neg); URINE OPIATE SCREEN NEGATIVE (Neg); URINE PHENCYCLIDINE SCREEN NEGATIVE (Neg)
[2023-04-11 09:33] LABS: TOTAL CARBON DIOXIDE 13.2 MMOL/L (24-32)
[2023-04-11] MEDS ORDERED: ondansetron/PF 4mg/2ml inj IV ONE (09:35)
[2023-04-11 09:41] LABS: ACETONE SMALL (NEGATIVE)
[2023-04-11] MEDS ORDERED: CefTRIAXone/D5W-Rocephin 1gm 50 ML IV ONE (10:05)
[2023-04-11] MEDS: dextrose 5%-normal saline 1,000 ML IV SCH ×2 (10:09→18:05)
[2023-04-11 10:10] LABS: TOTAL CELLS COUNTED 100
[2023-04-11 10:11] LABS: PLATELET ESTIMATE NORMAL
[2023-04-11 10:20] LABS: CREATINE KINASE 167 U/L (39-308)
[2023-04-11] MEDS ORDERED: acetaminophen 325mg tablet PO ONE (10:55)
--- NOTE | 2023-04-11 11:29 | NUR ---
NOTIFIED DR LARIOS OF PTS TEMPERATURE 38.0 AND CLIMBING. ALSO THAT PT DID VOMIT UP PREVIOUS DOSE OF TYLENOL. PER MD DO NOT GIVE ANYTHING UNLESS TEMP REACHES 38.5 OR ABOVE. THEN OK TO GIVE 1000 MG IV ACETAMINOPHEN
[2023-04-11] MEDS ORDERED: ondansetron/PF 4mg/2ml inj IV PRN (12:25)
[2023-04-11] MEDS ORDERED: magnesium hydroxide 30ml (MOM) UD suspension PO PRN (12:25)
[2023-04-11] MEDS ORDERED: acetaminophen 325mg tablet PO PRN (12:25)
[2023-04-11] MEDS ORDERED: LORazepam 1 MG tablet PO PRN (12:45)
--- NOTE | 2023-04-11 12:57 | NUR ---
PT BECAME AGITATED, ATTEMPTING TO CLIMB OUT OF BED, STATING "I DON'T WANT ANY PART OF THIS!" UNABLE TO ANSWER WHEN ASKED WHAT WAS THE MATTER. PT GIVEN IV ATIVAN PER ORDER
[2023-04-11] MEDS ORDERED: NO HOME MEDS (15:13)
[2023-04-11 15:39] LABS: ABG BASE EXCESS 2.3 mmol/L (-2.0-2.0); ABG HCO3 25.6 mmol/L (22.0-26.0); ABG OXYGEN SATURATION 95.8 % (94-97); ABG PCO2 (T) 36.6 mmHg (35.0-48.0); ABG PH (T) 7.465 (7.340-7.440); ABG PO2 (T) 85.2 mmHg (75.0-100.0); ALLEN'S TEST POSITIVE; FHHb 4.2 % (0.0-5.0); FLOW 0 L/min; FMetHb 0.2 % (0.0-1.5); FO2Hb 95.6 % (94-97); PATIENT TEMPERATURE 37.9; TOTAL HEMOGLOBIN 12.7 G/dl (14.0-17.9)
--- NOTE | 2023-04-11 17:45 | NUR ---
Received report from ED nurse THEE Burris. Pt arrived via [place]. Able to transfer self from bed to [facility]. NSR and 2 L/min O2 via [place]
--- NOTE | 2023-04-11 18:18 | NUR ---
Patient in room ICU 2039. I have received report from Domenico KINGSTON and had the opportunity to ask questions and assume patient care.
--- NOTE | 2023-04-11 18:18 | NUR ---
Problems reprioritized. Patient report given, questions answered & plan of care reviewed with THEE Campos.
[2023-04-11 20:20] LABS: ABG BASE EXCESS 6.2 mmol/L (-2.0-2.0); ABG HCO3 29.7 mmol/L (22.0-26.0); ABG OXYGEN SATURATION 95.6 % (94-97); ABG PCO2 (T) 40.2 mmHg (35.0-48.0); ALLEN'S TEST POSITIVE; FHHb 4.3 % (0.0-5.0); FMetHb 0.3 % (0.0-1.5); FO2Hb 94.4 % (94-97); MODE ROOM AIR; PATIENT TEMPERATURE 37.9; TOTAL HEMOGLOBIN 12.6 G/dl (14.0-17.9)
[2023-04-11] MEDS: heparin, porcine 5000 units/ml vial SQ SCH (23:58)
[2023-04-12] VITALS (16 sets, daily range): BP systolic 104–129; BP diastolic 63–91; PULSE 58–106; RESP 11–17; O2SAT 92–98
[2023-04-12] MEDS: dextrose 5%-normal saline 1,000 ML IV SCH ×2 (00:28→07:54)
--- NOTE | 2023-04-12 00:30 | NUR ---
MD Joyce at bedside via tele-monitor to round on patient. MD updated on patient status. No new orders received. Will continue to monitor patient.
[2023-04-12 06:06] LABS: BASOPHILS % (AUTO) 0.3 % (0-1); EOSINOPHILS % (AUTO) 0.3 % (0-6); HEMATOCRIT 33.6 % (42.0-52.0); HEMOGLOBIN 11.6 g/dl (14.0-17.9); LYMPHOCYTES # (AUTO) 1.3 X10'3 (1.1-4.8); LYMPHOCYTES % (AUTO) 17.3 % (21-51); MEAN CORPUSCULAR HEMOGLOBIN 32.6 PG (27.0-31.0); MEAN CORPUSCULAR HGB CONC 34.6 g/dL (33.0-36.5); MEAN CORPUSCULAR VOLUME 94.1 FL (78-98); MEAN PLATELET VOLUME 8.8 FL (7.4-10.4); MONOCYTES # (AUTO) 0.8 X10'3 (0-0.9); MONOCYTES % (AUTO) 10.4 % (2-12); NEUTROPHILS # (AUTO) 5.6 X10'3 (1.8-7.7); NEUTROPHILS % (AUTO) 71.7 % (42-75); PLATELET COUNT 141 X10'3 (140-440); RED BLOOD COUNT 3.57 X10'6 (4.70-6.10); WHITE BLOOD COUNT 7.8 X10'3 (4.5-11.0)
[2023-04-12 06:11] LABS: INR 1.1 INR; PROTHROMBIN TIME 11.5 SECONDS (9.0-12.0)
--- NOTE | 2023-04-12 06:18 | NUR ---
Problems reprioritized. Patient report given, questions answered & plan of care reviewed with Jennifer KINGSTON.
[2023-04-12 06:30] LABS: ALANINE AMINOTRANSFERASE 17 U/L (12-78); ALBUMIN 2.9 G/DL (3.4-5.0); ALBUMIN/GLOBULIN RATIO 1.2 (1.1-1.5); ALKALINE PHOSPHATASE 64 IU/L (46-116); AMYLASE 65 U/L (25-115); ANION GAP 6 (8-16); ASPARTATE AMINO TRANSFERASE 17 U/L (10-37); BILIRUBIN,TOTAL 1.1 MG/DL (0.1-1.0); BLOOD UREA NITROGEN 20 MG/DL (7-18); BUN/CREATININE RATIO 18.9 (10.0-20.0); CHLORIDE 103 MMOL/L (99-107); CREATININE 1.06 MG/DL (0.60-1.10); GLUCOSE 131 MG/DL (70-104); PHOSPHORUS 2.1 MG/DL (2.3-4.5); POTASSIUM 3.5 MMOL/L (3.5-5.1); SODIUM 141 MMOL/L (135-145); TOTAL CARBON DIOXIDE 32.3 MMOL/L (24-32); TOTAL PROTEIN 5.4 G/DL (6.4-8.2); eCRCL 96 ML/MIN; eGFR 79 ML/MIN
[2023-04-12 06:33] LABS: LIPASE 36 U/L (16-77)
--- NOTE | 2023-04-12 06:36 | NUR ---
Patient in room ICU 2039. I have received report from THEE Campos and had the opportunity to ask questions and assume patient care.
[2023-04-12] MEDS: LORazepam 2 mg/ml vial IV PRN ×3 (07:48→12:54)
[2023-04-12] MEDS: heparin, porcine 5000 units/ml vial SQ SCH (07:54)
[2023-04-12] MEDS ORDERED: thiamine 100mg/ml 2ml inj. IV SCH (08:00)
[2023-04-12] MEDS ORDERED: folic acid 1mg/0.2ml inj IV SCH (08:00)
[2023-04-12] MEDS ORDERED: thiamine 100mg/ml 2ml inj. IM SCH (08:00)
[2023-04-12] MEDS ORDERED: pantoprazole 40MG/NS 100ML BAG 100 ML IV SCH (08:00)
[2023-04-12] MEDS ORDERED: multivitamins, therapeutics tablet PO SCH (11:06)
--- NOTE | 2023-04-12 16:05 | NUR ---
Pt left AMA at 1545. Dr Valenzuela notified.
== END 2023-04-12 17:07 | disposition left against medical advice (07) | DRG 53 ==
LOC: ER 05:01 → ED HOLD 12:27 → ICU 2S 17:50
PROVIDERS: ADMIT Internal Medicine Critical Care Medicine; ATTEND Internal Medicine Critical Care Medicine
DX: R56.9 Unspecified convulsions (principal); N17.9 Acute kidney failure, unspecified; F10.231 Alcohol dependence with withdrawal delirium; E87.29 Other acidosis; E86.0 Dehydration; I10 Essential (primary) hypertension; F41.9 Anxiety disorder, unspecified; Z53.21 Procedure and treatment not carried out due to patient leaving prior to being seen by health care provider; G89.29 Other chronic pain; Z59.00 Homelessness unspecified; Z79.899 Other long term (current) drug therapy
CPT/HCPCS: 36415; 36600; 71045; 80053; 80305; 80320; 81001; 82009; 82150; 82550; 82803; 82948; 83605; 83690; 83735; 84100; 84145; 85007; 85018; 85025; 85610; 85730; 87040; 87081; 87088; 97161; 97530; 99285; C1758; C9113; G0378; J0696; J0780; J1644; J2060; J2405; J3360; J3411; J3490; J7030; J7042

== ENCOUNTER 2023-04-13 05:31 | Emergency (ER) | payer MEDICAID ==
[~2023-04-13] VITALS: Ht 175.3 cm; Wt 59.2 kg
[~2023-04-13 05:31] MED LIST changes: +NO HOME MEDS
[2023-04-13 05:35] VITALS: TEMP 97.7
[2023-04-13] MEDS ORDERED: ondansetron 4mg rapidly disintigrating tab PO ONE (09:45)
[2023-04-13] MEDS ORDERED: mag hydrox/Alum hydrox/simeth 30ml oral suspension PO ONE (09:45)
[2023-04-13] MEDS ORDERED: LIDOcaine Viscous 15ml cup MM ONE (09:45)
[2023-04-13 09:57] VITALS: BP 98/74; PULSE 96; RESP 18; O2SAT 97
[2023-04-13 10:05] LABS: PLATELET COUNT 131 X10'3 (140-440)
[2023-04-13 10:08] LABS: BASOPHILS # (AUTO) 0.1 X10'3 (0-0.2); BASOPHILS % (AUTO) 0.9 % (0-1); EOSINOPHILS % (AUTO) 0.4 % (0-6); HEMATOCRIT 37.7 % (42.0-52.0); HEMOGLOBIN 12.8 g/dl (14.0-17.9); LYMPHOCYTES # (AUTO) 1.7 X10'3 (1.1-4.8); LYMPHOCYTES % (AUTO) 25.5 % (21-51); MEAN CORPUSCULAR HEMOGLOBIN 31.9 PG (27.0-31.0); MEAN PLATELET VOLUME 8.2 FL (7.4-10.4); MONOCYTES # (AUTO) 0.8 X10'3 (0-0.9); MONOCYTES % (AUTO) 11.5 % (2-12); NEUTROPHILS # (AUTO) 4.1 X10'3 (1.8-7.7); NEUTROPHILS % (AUTO) 61.7 % (42-75); RED BLOOD COUNT 4.01 X10'6 (4.70-6.10); RED CELL DISTRIBUTION WIDTH 13.9 % (11.5-14.5); WHITE BLOOD COUNT 6.6 X10'3 (4.5-11.0)
--- NOTE | 2023-04-13 10:18 | NUR ---
INSTRUCTED PT TO SIT IN RAP ROOM AFTER MEDICATIONS WAS GIVEN, PT WENT OUTSIDE PER REGISTRATION AND WAS NOT OUTSIDE WHEN CALLED
[2023-04-13 10:28] LABS: ALANINE AMINOTRANSFERASE 28 U/L (12-78); ALBUMIN 3.4 G/DL (3.4-5.0); ALBUMIN/GLOBULIN RATIO 1.1 (1.1-1.5); ALKALINE PHOSPHATASE 72 IU/L (46-116); ANION GAP 4 (8-16); ASPARTATE AMINO TRANSFERASE 19 U/L (10-37); BILIRUBIN,TOTAL 1.4 MG/DL (0.1-1.0); BLOOD UREA NITROGEN 8 MG/DL (7-18); BUN/CREATININE RATIO 12.3 (10.0-20.0); CHLORIDE 104 MMOL/L (99-107); CREATININE 0.65 MG/DL (0.60-1.10); GLUCOSE 92 MG/DL (70-104); POTASSIUM 3.7 MMOL/L (3.5-5.1); SODIUM 137 MMOL/L (135-145); TOTAL CARBON DIOXIDE 29.3 MMOL/L (24-32); TOTAL PROTEIN 6.4 G/DL (6.4-8.2); eCRCL 132 ML/MIN; eGFR > 90 ML/MIN
[2023-04-13 10:39] LABS: PRO BRAIN NATRIURETIC PEPTIDE 990 PG/ML (0-125)
== END 2023-04-13 10:58 | disposition left against medical advice (07) ==
LOC: ER 05:32
DX: R07.89 Other chest pain (principal); R10.13 Epigastric pain; I10 Essential (primary) hypertension; F41.9 Anxiety disorder, unspecified; F17.210 Nicotine dependence, cigarettes, uncomplicated; F12.90 Cannabis use, unspecified, uncomplicated; F14.90 Cocaine use, unspecified, uncomplicated; F10.10 Alcohol abuse, uncomplicated; Z86.69 Personal history of other diseases of the nervous system and sense organs; Z59.00 Homelessness unspecified; Z79.899 Other long term (current) drug therapy; Y90.9 Presence of alcohol in blood, level not specified
CPT/HCPCS: 36415; 71045; 80053; 83880; 84484; 85025; 93005; 99285

== ENCOUNTER 2023-04-19 14:47 | Emergency (ER) | payer MEDICAID | END 2023-04-19 15:42 | disposition left against medical advice (07) | LOC: ER 14:48 | DX: K12.2 Cellulitis and abscess of mouth (principal); Z53.21 Procedure and treatment not carried out due to patient leaving prior to being seen by health care provider ==

== ENCOUNTER 2024-09-11 10:04 | Emergency (ER) | payer MEDICAID ==
[~2024-09-11] VITALS: Ht 175.3 cm; Wt 75.9 kg
[~2024-09-11 10:04] MED LIST changes: +ONDA-243 PO; +ONDA-245 PO; -ONDA4TAB12 PO; -ONDA8TAB13 PO
[2024-09-11 10:21] VITALS: TEMP 97.8
[2024-09-11] MEDS ORDERED: ondansetron/PF 4mg/2ml inj IV ONE (11:05)
[2024-09-11] MEDS ORDERED: normal saline 1000ml 1,000 ML IV ONE (11:05)
[2024-09-11] MEDS ORDERED: acetaminophen 1,000mg/100ml IV 100 ML IV ONE (11:05)
[2024-09-11] MEDS: ondansetron/PF 4mg/2ml inj IM ONE (12:23)
[2024-09-11] MEDS ORDERED: ONDA-243 PO (12:35)
[2024-09-11] MEDS ORDERED: HYDR-3686 PO (12:35)
[2024-09-11 12:51] VITALS: BP 143/86; PULSE 86; RESP 17; O2SAT 100
== END 2024-09-11 12:58 | disposition home or self-care (01) ==
LOC: ER 10:05
DX: M54.30 Sciatica, unspecified side (principal); R10.9 Unspecified abdominal pain; F10.129 Alcohol abuse with intoxication, unspecified; I10 Essential (primary) hypertension; F41.9 Anxiety disorder, unspecified; F17.210 Nicotine dependence, cigarettes, uncomplicated; F14.90 Cocaine use, unspecified, uncomplicated; F12.90 Cannabis use, unspecified, uncomplicated; Z88.1 Allergy status to other antibiotic agents; Z88.2 Allergy status to sulfonamides; Y90.9 Presence of alcohol in blood, level not specified
CPT/HCPCS: 96372; 99283; J2405; J7030

== ENCOUNTER 2024-09-18 18:14 | Emergency (ER) | payer MEDICAID ==
[~2024-09-18] VITALS: Ht 175.3 cm; Wt 74.5 kg
[~2024-09-18 18:14] MED LIST changes: -FOLI1TAB27 PO; +HYDR-3686 PO; -NO HOME MEDS; -ONDA-243 PO; -thiamine tablet PO
[2024-09-18 18:23] VITALS: TEMP 97.8
[2024-09-18 18:57] VITALS: BP 121/91; PULSE 83; O2SAT 99
[2024-09-18] MEDS: oxyCODONE/APAP 10/325mg tablet PO ONE (23:14)
[2024-09-18] MEDS ORDERED: HYDR-3973 PO (23:15)
[2024-09-18 23:21] VITALS: RESP 16
== END 2024-09-18 23:20 | disposition home or self-care (01) ==
LOC: ER 18:14
DX: M87.88 Other osteonecrosis, other site (principal); I10 Essential (primary) hypertension; F41.9 Anxiety disorder, unspecified; F12.90 Cannabis use, unspecified, uncomplicated; F17.200 Nicotine dependence, unspecified, uncomplicated; F14.90 Cocaine use, unspecified, uncomplicated; Z88.1 Allergy status to other antibiotic agents; Z88.2 Allergy status to sulfonamides
CPT/HCPCS: 73501; 99283

== ENCOUNTER 2025-01-13 07:33 | Emergency (ER) | payer MEDICAID ==
[~2025-01-13] VITALS: Ht 175.3 cm; Wt 76.0 kg
[~2025-01-13 07:33] MED LIST changes: -HYDR-3686 PO
[2025-01-13 07:43] VITALS: TEMP 97
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
[2025-01-13] MEDS ORDERED: ketorolac trometh 15mg/ml vial 15 MG/ML ML IM ONE (09:55)
[2025-01-13] MEDS: ibuprofen tablet 400 MG TABLET PO ONE (10:06)
[2025-01-13] MEDS: oxyCODONE IR 5mg (immed. release) tablet PO ONE (10:07)
--- NOTE | 2025-01-13 10:38 | RADIOLOGY REPORT ---
PROCEDURE: Right hip radiographs. INDICATION: hip pain TECHNIQUE: Frontal and lateral views of the right hip were obtained. COMPARISON: None FINDINGS: There is no evidence of fracture or dislocation. There is flattening of the right femoral head with abnormal lucency. IMPRESSION: 1. No fracture or dislocation. Avascular necrosis of the right femoral head.
[2025-01-13] MEDS ORDERED: OXYC-658 PO (11:36)
[2025-01-13 11:48] VITALS: BP 120/88; PULSE 89; RESP 18; O2SAT 98
[2025-01-13] MEDS ORDERED: PER5325T PO (11:48)
== END 2025-01-13 11:51 | disposition home or self-care (01) ==
LOC: ER 07:34
DX: M87.9 Osteonecrosis, unspecified (principal); I10 Essential (primary) hypertension; F12.90 Cannabis use, unspecified, uncomplicated; F11.90 Opioid use, unspecified, uncomplicated; F10.10 Alcohol abuse, uncomplicated; Z88.1 Allergy status to other antibiotic agents; Z88.2 Allergy status to sulfonamides; Y90.9 Presence of alcohol in blood, level not specified
CPT/HCPCS: 73502; 99283

== ENCOUNTER 2025-01-16 16:07 | Emergency (ER) | payer MEDICAID ==
[~2025-01-16] VITALS: Ht 175.3 cm; Wt 75.9 kg
[~2025-01-16 16:07] MED LIST changes: +PER5325T PO
[2025-01-16 16:08] VITALS: BP 130/87; PULSE 92; O2SAT 98
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
[2025-01-16] MEDS ORDERED: OXYC-145 PO (17:32)
[2025-01-16 17:58] VITALS: RESP 16
[2025-01-16] MEDS: oxyCODONE/APAP 5-325mg tablet PO STA (17:58)
[2025-01-16 18:02] VITALS: TEMP 98.1
== END 2025-01-16 18:03 | disposition home or self-care (01) ==
LOC: ER 16:07
DX: M87.88 Other osteonecrosis, other site (principal); I10 Essential (primary) hypertension; F41.9 Anxiety disorder, unspecified; F12.90 Cannabis use, unspecified, uncomplicated; F14.90 Cocaine use, unspecified, uncomplicated; F10.10 Alcohol abuse, uncomplicated; Z88.2 Allergy status to sulfonamides; Z79.899 Other long term (current) drug therapy; Z59.00 Homelessness unspecified; Y90.9 Presence of alcohol in blood, level not specified
CPT/HCPCS: 99283

== ENCOUNTER 2025-02-26 08:25 | Outpatient (CLI) | payer MEDICAID ==
[~2025-02-26 08:25] MED LIST changes: +OXYC-145 PO; -PER5325T PO
[2025-02-26] MEDS ORDERED: GADOTERATE MEGLUMINE 7.5 MMOL/15 ML VIAL IV ONE (12:26)
--- NOTE | 2025-02-26 14:37 | RADIOLOGY REPORT ---
CLINICAL HISTORY: 40 years old, Male; LIVER DISEASE, UNSPECIFIED. TECHNIQUE: Multi sequence multi planar MRI images of the abdomen were obtained prior to and after th e uneventful administration of 15 mL Clariscan contrast. COMPARISON: CT CT ABDOMEN PELVIS W/ IV CONTRAST on DOS: 09/12/24 FINDINGS: There are multiple liver lesions, including a 0.9 cm arterially enhancing lesion in segmen t 6 and arterially enhancing 0.7 cm lesion in segment 5, which retain contrast on more delayed images , likely flash filling hemangiomas. There is a lobulated T2 hyperintense lesion in the posterior righ t hepatic lobe near the junction of segments 6 and 7, with progressive central enhancement on delayed postcontrast images, likely hemangioma. A focal area of mild irregularity of the hepatic contour adj acent to the gallbladder fossa described on prior CT abdomen and pelvis report is again noted, withou t adjacent enhancing lesion identified. There was a small area of hypodensity in this location on the prior CT exam, which is not well correlated on the MRI examination. Focal area of hypo enhancement i n the left hepatic lobe segment 2 on the axial postcontrast images appears to be artifactual, not cor related on the coronal postcontrast images. The gallbladder appears grossly unremarkable. No biliary ductal dilatation. The spleen, pancreas, and adrenal glands appear unremarkable. There are tiny cysts in both kidneys. No hydronephrosis. No abdominal aortic aneurysm. IMPRESSION: 1. Liver lesions as described above, including 3 lesions in the right hepatic lobe which are consiste nt with hemangiomas. 2. Mild nonspecific irregularity of the contour of the right hepatic lobe adjacent to the gallbladder fossa, without associated liver lesion demonstrated on this exam, possible mild scarring. 3. Additional nonacute findings as described above.
== END 2025-02-26 23:59 | disposition home or self-care (01) ==
LOC: MRI 08:25
PROVIDERS: ATTEND Family Medicine
DX: K76.9 Liver disease, unspecified (principal); K76.89 Other specified diseases of liver
CPT/HCPCS: 74183; A9575

== ENCOUNTER 2025-03-12 21:22 | Emergency (ER) | payer MEDICAID ==
[2025-03-12 21:23] VITALS: BP 123/86; PULSE 83; O2SAT 97
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
[2025-03-12] MEDS: ketorolac trometh 30MG/ML vial 30 MG/ML VIAL IM ONE (22:41)
[2025-03-12 22:42] VITALS: RESP 16
[2025-03-12] MEDS: HYDROcodone/acetaminophen 10/325mg tab PO ONE (22:42)
[2025-03-12 22:46] VITALS: TEMP 98
[2025-03-12] MEDS: ondansetron 4mg rapidly disintigrating tab PO ONE (22:51)
== END 2025-03-12 23:00 | disposition home or self-care (01) ==
LOC: ER 21:23
DX: M87.9 Osteonecrosis, unspecified (principal); I10 Essential (primary) hypertension; F12.90 Cannabis use, unspecified, uncomplicated; F14.90 Cocaine use, unspecified, uncomplicated; Z88.1 Allergy status to other antibiotic agents; Z88.2 Allergy status to sulfonamides
CPT/HCPCS: 96372; 99283; J1885

== ENCOUNTER 2025-04-18 18:55 | Emergency (ER) | payer MEDICAID ==
[~2025-04-18] VITALS: Ht 175.3 cm; Wt 77.2 kg
[~2025-04-18 18:55] MED LIST changes: -KEP500T PO; +NO HOME MEDS; -ONDA-245 PO; -OXYC-145 PO; -PANT40TA54 PO; -PROP10TA10 PO
[2025-04-18 19:05] VITALS: BP 123/79; PULSE 96; RESP 16; TEMP 97.8; O2SAT 95
== END 2025-04-18 20:49 | disposition left against medical advice (07) ==
LOC: ER 18:56
DX: M25.552 Pain in left hip (principal); Z53.21 Procedure and treatment not carried out due to patient leaving prior to being seen by health care provider; Z88.2 Allergy status to sulfonamides; Z88.8 Allergy status to other drugs, medicaments and biological substances
CPT/HCPCS: 99281

== ENCOUNTER 2025-05-04 09:03 | Emergency (ER) | payer MEDICAID ==
[~2025-05-04] VITALS: Ht 175.3 cm; Wt 72.9 kg
[2025-05-04 09:06] VITALS: BP 118/88; PULSE 85; TEMP 97; O2SAT 93
[2025-05-04 09:20] VITALS: RESP 15
[2025-05-04] MEDS ORDERED: OXYC-150 PO (09:36)
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
== END 2025-05-04 09:48 | disposition home or self-care (01) ==
LOC: ER 09:04
DX: M25.551 Pain in right hip (principal); G89.29 Other chronic pain; I10 Essential (primary) hypertension; F10.10 Alcohol abuse, uncomplicated; F14.90 Cocaine use, unspecified, uncomplicated; F12.90 Cannabis use, unspecified, uncomplicated; F41.9 Anxiety disorder, unspecified; Z88.2 Allergy status to sulfonamides; Z88.8 Allergy status to other drugs, medicaments and biological substances; Z87.19 Personal history of other diseases of the digestive system; Z59.00 Homelessness unspecified; Y90.9 Presence of alcohol in blood, level not specified
CPT/HCPCS: 99283

== ENCOUNTER 2025-05-08 15:30 | Inpatient (IN) | payer MEDICAID ==
[2025-05-06 14:02] LABS: MEAN PLATELET VOLUME 8.2 FL (7.4-10.4); PRE OP HEMATOCRIT 46.1 % (42.0-52.0); PRE OP HEMOGLOBIN 15.3 g/dL (14.0-17.9); PRE OP PLATELET COUNT 341 X10'3 (140-440); PRE OP WHITE BLOOD COUNT 7.8 10'3 (4.8-10.8); RED CELL DISTRIBUTION WIDTH 15.5 % (11.5-14.5)
[2025-05-06 14:17] LABS: CREATININE 1.04 MG/DL (0.60-1.10); PRE OP ALT 23 U/L (30-65); PRE OP ANION GAP 6 (8-16); PRE OP AST 14 U/L (10-37); PRE OP BILIRUB, TOTAL 0.3 MG/DL (0.0-1.0); PRE OP GLUCOSE 91 MG/DL (70-104); PRE OP INR 1.1 INR; PRE OP PARTIAL THROMB. TIME 28.0 SECONDS (22-32); PRE OP POTASSIUM 3.9 MMOL/L (3.4-5.1); PRE OP PROTIME 11.0 SECONDS (9.0-12.0); PRE OP SODIUM 138 MMOL/L (135-145); TOTAL CARBON DIOXIDE 27.8 MMOL/L (24-32); eGFR 80 ML/MIN
--- NOTE | 2025-05-06 14:34 | RADIOLOGY REPORT ---
EXAM: DI HIP BILATERAL 3-4 VIEWS CLINICAL INDICATION: TOTAL HIP SURGERY TECHNIQUE: DI HIP BILATERAL 3-4 VIEWS Comparison: DI HIP UNILATERAL 2 VIEWS on DOS: 01/13/25, DI HIP, 1 VIEW WITH PELVIS on DOS: 09/18/24 FINDINGS/IMPRESSION: There is no evidence of acute fracture or dislocation. Moderate bilateral hip osteoarthritis The alignment is anatomical. There is no radiopaque foreign body.
[~2025-05-08] VITALS: Ht 175.3 cm; Wt 71.0 kg
[2025-05-15] VITALS (33 sets, daily range): BP systolic 91–125; BP diastolic 41–89; PULSE 61–102; RESP 9–16; TEMP 97.3–99.3; O2SAT 96–100
[2025-05-15] MEDS: ceFAZolin 2gm/dext,iso 50mL 50 ML IV ONE (05:48)
[2025-05-15] MEDS: tranexamic acid 1gm/0.7% sal. 100 ML IV ONE (05:49)
[2025-05-15] MEDS: VANCOMYCIN/H2O 1.5g/300mL PB 300 ML IV ONE (06:36)
[2025-05-15] MEDS ORDERED: vancomycin 1,000mg inj ONE (06:47)
[2025-05-15] MEDS ORDERED: tranexamic acid 100mg/ml inj. ONE (06:47)
[2025-05-15] MEDS ORDERED: ePHEDrine 50MG/ML INJ. ONE (07:15)
[2025-05-15] MEDS ORDERED: propofol 10mg/ml 20ml vial IV ONE (07:15)
[2025-05-15] MEDS ORDERED: LIDOcaine 1% w/EPI 1:100,000 inj. MDV 50 ML VIAL ONE (07:15)
[2025-05-15] MEDS: ROPIVAcaine inj 200 MG, epiNEPHrine inj 0.6 MG, morphine 10mg/ml inj. 5 MG in normal sa... IU ONE (07:25)
[2025-05-15] MEDS: vancomycin 1,000mg inj IVT ONE (08:00)
[2025-05-15] MEDS ORDERED: enalaprilat 1.25mg/ml 2ml vial IV PRN (09:35)
[2025-05-15] MEDS ORDERED: morphine 4 MG/ML inj SYRINge IV PRN (09:35)
[2025-05-15] MEDS ORDERED: labetalol 20mg/4ml (5mg/ml) syringe IV PRN (09:35)
[2025-05-15] MEDS ORDERED: fentaNYL/PF 50MCG/1 ML 2ML syringe IV PRN (09:35)
[2025-05-15] MEDS ORDERED: ringers solution, lacted 1,000 ML IV SCH (09:35)
[2025-05-15] MEDS ORDERED: ondansetron/PF 4mg/2ml inj IV PRN ×2 (09:35→10:50)
[2025-05-15] MEDS ORDERED: HYDROmorphone/PF 0.2 MG/ML SYRINGE IV PRN ×2 (09:35)
--- NOTE | 2025-05-15 10:00 | RADIOLOGY REPORT ---
EXAM: DI PELVIS,LIMITED 1-2 VIEWS CLINICAL INDICATION: PELVIS IN O.R. FOR RT. TOTAL HIP TECHNIQUE: DI PELVIS,LIMITED 1-2 VIEWS Comparison: None FINDINGS/IMPRESSION: There is no evidence of acute fracture or dislocation. Right total hip arthroplasty
[2025-05-15] MEDS ORDERED: magnesium hydroxide 30ml (MOM) UD suspension PO PRN (10:50)
[2025-05-15] MEDS ORDERED: PCA WASTE DOCUMENTATION 1 MG ML MC SCH (10:50)
[2025-05-15] MEDS ORDERED: bisacodyl 10mg suppository rectal RC PRN (10:50)
[2025-05-15] MEDS ORDERED: oxyCODONE IR 5mg (immed. release) tablet PO PRN (10:50)
[2025-05-15] MEDS: fentaNYL/PF 50MCG/1 ML 2ML syringe IV PRN (10:52)
--- NOTE | 2025-05-15 11:17 | OPERATIVE REPORT ---
Operative Report Providers to CC ~ Date of Procedure: May 15, 2025 Pre-Operative Diagnosis: Avascular necrosis right hip Post-Operative Diagnosis SAME as PRE-Op Procedure Performed Right total hip arthroplasty Press-Fit Surgeon: Judy Soliz MD [employer] W[employer] Maker Silverio Schaffer MD Type of Anesthesia: Other (LMA), Spinal Findings: Severe degenerative joint disease secondary to femoral head collapse as a result of the avascular necrosis Complications None Prosthetics\Implants used: To pew Rhodes acetabular shell 52 mm outside diameter. 45 x 22 mm liner for bipolar hip system. Dual mobility liner 52 x 45. Femoral head 06/09 22.2-5 mm plus seven. Femoral stem 06/09 taper cementless hip prosthesis size four high collar Estimated Blood Loss: 150 mL Specimen Removed: Femoral head and neck acetabular labrum Description of Procedure: Patient was taken to the operating room after I had obtained informed consent. I discussed with him the indications risks benefits limitations and potential complications of the surgery patient is very eager to proceed with surgery he has agreed. Once the informed consents were obtained I signed his right hip he was given intravenous antibiotics and taken to the operating room whereupon he was given a spinal anesthetic placed in the OR table and a left lateral decubitus position the left leg was placed in an SCD device the right hip and leg were prepped and draped in usual sterile orthopaedic fashion surgical time- out was taken per protocol and the case was begun. Skin Ioban dressing protection was used throughout lateral incision was used for a lateral approach to the hip. Incision went through the anterior 3rd of the abductor group down to the vastus lateralis insertion this was now released off of the greater trochanter using meticulous dissection achieving hemostasis with the electrocautery. The abductor group was elevated and the capsule was incised to expose the femoral head. A offset pin was placed in the greater iliac wing direct laterally through a small stab incision to measure leg length and offset. The legs were put togethe r and the greater trochanter was not to sarah the point were the leg length offset measuring guide was stable. This pin remained in place until the closure of the case. The hip was dislocated with traction and external rotation without difficulty. The leg was placed in a figure 4 position to excise the femoral head and neck with a reciprocal saw. The leg was placed in extension and internal rotation to expose the acetabulum both anteriorly and posteriorly with hand-held retractors. 360 degree visualization of the acetabulum was accomplished this way. Charnley pins were used proximally to aid with visualization of the labrum was excised to allow for entry for the reamers. Sequential reaming starting from a 43 mm on up to a 52 mm was accomplished achieving a proximally 90% coverage of this acetabular implant. Implant was placed in anatomic position with a 45 of abduction antibiotics orally 15 of anteversion. A very stable without requiring screw fixation was achieved. The Bi-mentum liner was placed impacted into place leaving approximately 1 mm gap circumferentially between the liner and the acetabular implant. The proxima l femur was brought into play by placing a figure 4 position placing retractors posterior superior and anterior to expose the proximal femur medullary canal was established with a drill and lateralized with a lateralizing rasp and then sequentially broached to a size four intraoperative x-rays after reduction gave us anatomic christian of the implant with excellent proximal fill of the femur for cementless fixation an adequate anatomic positioning of the acetabular cup. The definitive high offset size four femoral component was impacted into place the plus seven neck bipolar head was placed in the hip was reduced and taken through a full range of motion and found to be very stable. Hemostasis was achieved and checked with the electrocautery throughout the case. Pulsatile irrigation with antibiotic impregnated normal saline of 2 L was used and 1 L of antiseptic solution was used prior to closure. Closure of the abductor was accomplished through drill holes for the femoral trochanter and 5. FiberWire [id number] sutures this is supported with 1. Vicryl suture as well. Anatomic resect recent construction of the abductor group was accomplished in his fashion. The tensor fascia and iliotibial band was reapproximated with running suture of 1. Vicryl achieving anatomic repair of this structure. No drains were placed. 1 g of vancomycin was placed intra-articular. 10 cc of thrombin spray was used during closure for hemostasis support. Subcuticular closure was accomplished with 2-0 Vicryl and the skin was closed with skin erendira placed with silk dressing and then an island dressing on top of the. Patient was now aroused transferred to the [facility] and recovery room placed on the [facility] in the recovery room in stable condition there were no apparent perioperative complications needle and sponge count was reported to be correct and the leg had good distal pulses and capillary refill upon leaving the operating room. Counts repoted as correct: Yes JUDY SOLIZ MD May 15, 2025 11:17
[2025-05-15] MEDS ORDERED: HYDROmorphone inj. 0.5 MG/0.5 ML DISP.SYRIN IV PRN (11:37)
[2025-05-15] MEDS: acetaminophen 1,000mg/100ml IV 100 ML IV ONE ×2 (11:45→15:40)
[2025-05-15] MEDS: HYDROmorphone inj. 0.5 MG/0.5 ML DISP.SYRIN IV PRN ×2 (11:56→12:52)
--- NOTE | 2025-05-15 12:39 | RADIOLOGY REPORT ---
EXAM: DI PELVIS,LIMITED 1-2 VIEWS CLINICAL INDICATION: Unclear postop TECHNIQUE: DI PELVIS,LIMITED 1-2 VIEWS Comparison: DI PELVIS,LIMITED 1-2 VIEWS on DOS: 05/15/25, DI HIP, 1 VIEW WITH PELVIS on DOS: 09/18/24, CT CT ABDOMEN PELVIS W/ IV CONTRAST on DOS: 09/12/24 FINDINGS/IMPRESSION: There is no evidence of acute fracture or dislocation. Right total hip arthroplasty. left hip osteoarthritis The alignment is anatomical.
[2025-05-15] MEDS: NORMAL SALINE IV ONE (13:10)
[2025-05-15] MEDS: TRANEXAMIC ACID IV ONE (13:10)
[2025-05-15] MEDS: oxyCODONE IR 5mg (immed. release) tablet PO PRN (13:49)
[2025-05-15] MEDS: potassium Cl 20mEq in NS 1,000 ML IV SCH (14:27)
[2025-05-15] MEDS: ringers solution, lacted 1,000 ML IV SCH (14:31)
[2025-05-15] MEDS: ceFAZolin/D5W- 1GM premix 50 ML IV SCH (16:55)
[2025-05-15] MEDS: vancomycin/NS 1 GM ADD-VANTAGE 250 ML IV SCH (19:16)
[2025-05-16] VITALS (9 sets, daily range): BP systolic 94–109; BP diastolic 56–69; PULSE 62–102; RESP 14–16; TEMP 97.8–101.1; O2SAT 90–98
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
[2025-05-16] MEDS: enoxaparin 40mg/0.4ml syringe SUBCUT SCH (20:23)
[2025-05-16] MEDS ORDERED: HYDR-3686 PO (20:37)
[2025-05-16] MEDS ORDERED: GABA300T28 (20:37)
[2025-05-16] MEDS ORDERED: CYCL10TA25 PO (20:37)
[2025-05-17 04:38] VITALS: BP_SYST 105; BP_SYST 96; BP_DIAS 60; BP_DIAS 65; PULSE 82; PULSE 83
[2025-05-17 06:00] VITALS: BP 96/60; PULSE 83; RESP 16; TEMP 98; O2SAT 93
[2025-05-17 06:41] LABS: MEAN PLATELET VOLUME 9.6 FL (7.4-10.4); RED CELL DISTRIBUTION WIDTH 14.8 % (11.5-14.5)
[2025-05-17 06:46] LABS: CREATININE 1.03 MG/DL (0.60-1.10); TOTAL CARBON DIOXIDE 27.5 MMOL/L (24-32); eCRCL 97 ML/MIN; eGFR 81 ML/MIN
[2025-05-17 09:00] VITALS: BP_SYST 118; BP_SYST 127; BP_SYST 130; BP_DIAS 73; BP_DIAS 83; PULSE 100; PULSE 93; PULSE 96
[2025-05-17] MEDS ORDERED: CELE-127 PO (09:49)
[2025-05-17 10:11] VITALS: BP 118/83; PULSE 96; RESP 16; TEMP 98.2; O2SAT 96
--- NOTE | 2025-05-17 18:13 | DISCHARGE SUMMARY ---
Discharge Summary Providers to CC ~ Discharge Summary Admission Diagnosis: Avascular necrosis right hip Hospital Course DATE OF ADMISSION: 05/15/2025 DATE OF DISCHARGE: 05/17/2025 Discharge Diagnosis\Comment: Avascular necrosis of the right hip, orthostatic hypotension, alcohol use disorder in remission, tobacco use disorder Operations\Procedures: Right total hip arthroplasty Consultants: Hospitalist service Complications: None Condition on DC: Stable New Medications: Celecoxib (Celecoxib) 200 Mg Capsule 1 CAP PO BID for pain for 30 Days, #60 CAP 0 Refills Continued Medications: Cyclobenzaprine HCl (Cyclobenzaprine HCl) 10 Mg Tablet 1 TAB PO TID PRN for muscle spasm Gabapentin (Gabapentin ER) 300 Mg Tab.er.24h Hydroxyzine Hcl* (Atarax*) 25 Mg Tablet 1 TAB PO Q8H for anxiety Discharge Summary: The hospitalist service was requested consult on the patient postop with the following HPI: This is a 40-year-old male who in June felt his hip snap and was having difficulty ambulating he continued working however went to the ED and initially had an x-ray that was unremarkable however went back in December and was found to have avascular necrosis of his hip and was referred to Dr. Soliz his office the patient has been on disability since January and yesterday 05/15/2025 had a right total hip arthroplasty Press-Fit with Dr. Soliz. The patient is experiencing some pain however Dr. Soliz his adjusted his pain medications. This morning the patient had positive orthostatic vitals per nursing staff and the patient and there was approximately a 30 point drop in systolic blood pressure from sitting to standing. The patient was dizzy. Otherwise his vital signs are stable the patient has a history of alcohol use disorder however has not had any alcohol since his last hospitalization in mid February of this year. The patient has orthostatic hypotension resolved by the morning of the . The patient did well with physical therapy however required a front wheel walker to ambulate. I did prescribe Celebrex for the patient for which Dr. Soliz started in the hospitalization [address] Soliz had prescribed opiates for the patient. Gen. No acute distress alert and oriented 4 Lungs clear to ascultation bilaterally, no wheezes rales or rhonchi appreciated Heart normal sinus rhythm no murmurs rubs or clicks noted Abdomen soft nontender bowel sounds are normoactive Lower extremities no clubbing cyanosis, nor edema appreciated bilaterally, dressing is in place and a right lower extremity The patient felt ready to be discharged and was medically cleared to be discharged on 05/17/2025 The patient was seen and evaluated on day of discharge. Time spent on discharge 25 minutes *Problems/Diagnosis: (1) Avascular necrosis of hip Status: Acute Total Time Spent on D/C: Up to 30 Minutes Date of Service: May 17, 2025 Billing Provider: EMERSON MILLAN DO Common Visit Codes: 58499-YES/OBS DISCH DAY <30MIN Problem Qualifiers (1) Avascular necrosis of hip: Qualified Codes: M87.051 - Idiopathic aseptic necrosis of right femur EMERSON MILLAN DO May 17, 2025 18:13
== END 2025-05-17 12:10 | disposition home or self-care (01) | DRG 324 ==
LOC: PAS IN 05-15 05:35 → ORTHO 4S 05-15 13:57
PROVIDERS: ADMIT Orthopaedic Surgery; ATTEND Orthopaedic Surgery
PROC: 0SR90JA Replacement of Right Hip Joint with Synthetic Substitute, Uncemented, Open Approach (ICD-10-PCS; principal; 2025-05-15 07:10)
DX: M16.11 Unilateral primary osteoarthritis, right hip (principal); F10.11 Alcohol abuse, in remission; F17.210 Nicotine dependence, cigarettes, uncomplicated; F41.9 Anxiety disorder, unspecified; I95.1 Orthostatic hypotension; M87.051 Idiopathic aseptic necrosis of right femur
CPT/HCPCS: 36415; 72170; 73522; 80053; 82948; 85025; 85610; 85730; 86870; 86885; 86900; 86901; 86902; 86905; 87081; 97110; 97116; 97161; 97530; A4215; A4615; A4618; A7000; C1776; C9250; G0378; J0131; J0690; J1171; J1650; J2270; J2704; J3010; J3373; J3375; J3480; J3490; J7120; Q0163

== ENCOUNTER 2025-05-25 15:22 | Emergency (ER) | payer MEDICAID ==
[~2025-05-25] VITALS: Ht 175.3 cm; Wt 70.9 kg
[~2025-05-25 15:22] MED LIST changes: +CELE-127 PO; +CYCL10TA25 PO; +GABA300T28; +HYDR-3686 PO; -NO HOME MEDS
[2025-05-25 15:23] VITALS: BP 123/92; PULSE 102; RESP 16; TEMP 97.9; O2SAT 99
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
== END 2025-05-25 16:00 | disposition home or self-care (01) ==
LOC: ER 15:22
DX: S70.921A Unspecified superficial injury of right thigh, initial encounter (principal); F41.9 Anxiety disorder, unspecified; I10 Essential (primary) hypertension; F12.90 Cannabis use, unspecified, uncomplicated; F10.10 Alcohol abuse, uncomplicated; F14.90 Cocaine use, unspecified, uncomplicated; Z88.1 Allergy status to other antibiotic agents; Z88.2 Allergy status to sulfonamides; X58.XXXA Exposure to other specified factors, initial encounter; Y93.89 Activity, other specified; Y92.89 Other specified places as the place of occurrence of the external cause; Y99.8 Other external cause status; Y90.9 Presence of alcohol in blood, level not specified
CPT/HCPCS: 99282; A6253; A6449

== ENCOUNTER 2025-06-15 10:31 | Emergency (ER) | payer MEDICAID ==
[~2025-06-15] VITALS: Ht 175.3 cm; Wt 72.2 kg
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
[2025-06-15] MEDS ORDERED: OXYC-145 PO (10:50)
--- NOTE | 2025-06-15 11:13 | RADIOLOGY REPORT ---
X-ray right hip Technique: AP and lateral views REASON FOR EXAM: HIP PAIN Comparison: 05/15/2025 FINDINGS: Right hip prosthesis normally aligned. There are no fractures or dislocations IMPRESSION: 1. No change in prosthetic alignment from old exam. No acute fractures
[2025-06-15 11:28] VITALS: BP 102/66; PULSE 84; RESP 16; TEMP 98.2; O2SAT 94
== END 2025-06-15 11:31 | disposition home or self-care (01) ==
LOC: ER 10:32
DX: M25.551 Pain in right hip (principal); F12.90 Cannabis use, unspecified, uncomplicated; F14.90 Cocaine use, unspecified, uncomplicated; F41.9 Anxiety disorder, unspecified; G89.29 Other chronic pain; I10 Essential (primary) hypertension; Z88.2 Allergy status to sulfonamides; Z87.19 Personal history of other diseases of the digestive system; Z88.8 Allergy status to other drugs, medicaments and biological substances; Z79.899 Other long term (current) drug therapy; Z59.00 Homelessness unspecified
CPT/HCPCS: 73502; 99283

== ENCOUNTER 2025-06-17 17:21 | Inpatient (IN) | payer MEDICAID ==
[~2025-06-17] VITALS: Ht 172.7 cm; Wt 66.4 kg
[~2025-06-17 17:21] MED LIST changes: +OXYC-145 PO
--- NOTE | 2025-06-17 17:44 | ELECTROCARDIOGRAPH REPORT ---
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 Bird Mar Measurements Intervals Kamas Rate: 116 P: 83 SC: 127 QRS: 72 QRSD: 81 T: 72 QT: 350 QTc: 487 Interpretive Statements Sinus tachycardia Consider right atrial enlargement Probable anterior infarct, old ST elevation, consider inferior injury Electronically Signed On 06-19-2025 21:14:[address] Bird Mar Please click the below link to view image of tracing.
--- NOTE | 2025-06-17 17:51 | RADIOLOGY REPORT ---
CT CT STROKE ALERT INDICATION: Stroke Alert EXAM DATE: 06/17/2025 05:25 PM COMPARISON: CT HEAD on DOS: 09/13/22, CT HEAD on DOS: 01/23/22, CT HEAD on DOS: 08/16/21 TECHNIQUE: CT of the head without intravenous contrast. RADIATION DOSE: CTDIvol: 54 mGy, DLP: 1199 mGy*cm FINDINGS: There is no intracranial hemorrhage. There is no extra-axial fluid, mass, mass effect or midline shift. The ventricles are midline and normal in size. Basilar cisterns are patent. Old right basal ganglia lacunar infarct. The paranasal sinuses and mastoids are well-pneumatized. Imaged portion of the orbits are unremarkable. IMPRESSION: No intracranial hemorrhage or mass effect. Old right basal ganglia lacunar infarct.
--- NOTE | 2025-06-17 18:02 | RADIOLOGY REPORT ---
CHEST RADIOGRAPH INDICATION: Stroke Alert TECHNIQUE: Single frontal view of the chest was obtained COMPARISON: DI CHEST,SINGLE VIEW on DOS: 03/15/25, DI CHEST,SINGLE VIEW on DOS: 04/13/23, DI CHEST,SINGLE VIEW on DOS: 04/11/23 FINDINGS: Lines and Tubes: None Lungs: No focal consolidation. Pleura: No effusion. No pneumothorax. Cardiomediastinal contours: Unremarkable Bones: No acute osseous abnormality. IMPRESSION: No acute cardiopulmonary disease.
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
[2025-06-17] MEDS: metoclopramide 5 mg/ml inj IV ONE (18:48)
[2025-06-17] MEDS: normal saline 1000ML IV soln IVB ONE (18:50)
[2025-06-17 18:55] LABS: MEAN PLATELET VOLUME 8.9 FL (7.4-10.4); RED CELL DISTRIBUTION WIDTH 15.4 % (11.5-14.5)
[2025-06-17 18:57] LABS: APTT 25 SECONDS (22-32); CREATININE 2.03 MG/DL (0.60-1.10); ETHANOL 222 MG/DL (<10); INR 1.1 INR; eCRCL 46 ML/MIN; eGFR 37 ML/MIN
[2025-06-17 19:11] LABS: TOTAL CARBON DIOXIDE 6.6 MMOL/L (24-32)
--- NOTE | 2025-06-17 19:14 | [facility] CONSULT REPORT ---
[facility] Procedure Note [facility] Procedure Note Consult [facility] Note # Demographics Consult Type: Acute Stroke Level 1 (0-4.5 hrs) Patient Location: Emergency Room First Name: NAYLA Last Name: GHISLAINE Date of : 1985 Age: 40 Gender: Male Facility: [facility] Time of Initial Page (): 06/17/2025 18:06 First Contact with Site (): 06/17/2025 18:06 # HPI History: LKN-not sure Patient is coming to the ER for confusion and speech changes. He was coming to ER for AMS and was not able to communicate but has been improving. Patient woke up around 1800 and was not feeling well. H/O recent hip surgery. # Scores Time of exam and NIHSS (): 06/17/2025 18:24 Level of Consciousness 1a: [0] = Alert; keenly responsive LOC Questions 1b: [1] = Answers one correctly LOC Commands 1c: [0] = Performs both tasks correctly Best Gaze 2: [0] = Normal Visual 3: [0] = No visual loss Facial Palsy 4: [1] = Minor paralysis Motor Arm Left 5a: [1] = Drift Motor Arm Right 5b: [1] = Drift Motor Leg Left 6a: [2] = Some effort against gravity Motor Leg Right 6b: [3] = No effort against gravity Limb Ataxia 7: [0] = Absent Sensory 8: [0] = Normal Best Language 9: [1] = Gqyd-wt-yytdypcr aphasia Dysarthria 10: [1] = Dfzl-dv-lyuoltvb dysarthria Extinction and Inattention 11: [0] = No abnormality NIHSS Total: 11 # Assessment Impression: - Altered Mental Status - Stroke Mimic Patient looks encephalopathic; likely metabolic/infectious. If no other obvious cause of encephalopathy and patient is not improving, will need MRI brain w/o contrast and EEG # Plan Thrombolytic/Intervention: NOT IV Thrombolysis or IA Intervention candidate Thrombolytic Exclusion: > 4.5 hours Intraarterial Exclusion: - no large vessel occlusion (LVO) Labs: - Ammonia - urine drug screen - ua - CBC - comprehensive metabolic panel - ESR - ABG - TSH Imaging: (urgency: routine): - MRI Brain with AND without contrast Diagnostic Test: - EEG Other: - If patient has any neurological deterioration please call me back immediately - I have discussed my recommendations with the referring provider - would not pursue stroke work-up if MRI is negative - telemetry monitoring - permissive hypertension Disposition: admit # Demographics First Name: NAYLA Last Name: GHISLAINE Facility: [facility] Consult Order placed for: Yes SUSAN HAMEED MD Jun 17, 2025 19:14
[2025-06-17] MEDS ORDERED: vancomycin inj 1,000 MG in normal saline 250ml IV soln 250 ML IV STA (19:17)
--- NOTE | 2025-06-17 19:17 | [facility] CONSULT REPORT ---
[facility] Note # Demographics Consult Type: Acute Stroke Level 1 (0-4.5 hrs) Patient Location: Emergency Room First Name: NAYLA Last Name: GHISLAINE Date of : 1985 Age: 40 Gender: Male Facility: [facility] Time of Initial Page (): 06/17/2025 18:06 First Contact with Site (): 06/17/2025 18:06 # HPI History: LKN-not sure Patient is coming to the ER for confusion and speech changes. He was coming to ER for AMS and was not able to communicate but has been improving. Patient woke up around 1800 and was not feeling well. H/O recent hip surgery. # Scores Time of exam and NIHSS (): 06/17/2025 18:24 Level of Consciousness 1a: [0] = Alert; keenly responsive LOC Questions 1b: [1] = Answers one correctly LOC Commands 1c: [0] = Performs both tasks correctly Best Gaze 2: [0] = Normal Visual 3: [0] = No visual loss Facial Palsy 4: [1] = Minor paralysis Motor Arm Left 5a: [1] = Drift Motor Arm Right 5b: [1] = Drift Motor Leg Left 6a: [2] = Some effort against gravity Motor Leg Right 6b: [3] = No effort against gravity Limb Ataxia 7: [0] = Absent Sensory 8: [0] = Normal Best Language 9: [1] = Mnsg-nr-gfzfwdkx aphasia Dysarthria 10: [1] = Wnmo-hk-urkkpqwn dysarthria Extinction and Inattention 11: [0] = No abnormality NIHSS Total: 11 # Assessment Impression: - Altered Mental Status - Stroke Mimic Patient looks encephalopathic; likely metabolic/infectious. If no other obvious cause of encephalopathy and patient is not improving, will need MRI brain w/o contrast and EEG # Plan Thrombolytic/Intervention: NOT IV Thrombolysis or IA Intervention candidate Thrombolytic Exclusion: > 4.5 hours Intraarterial Exclusion: - no large vessel occlusion (LVO) Labs: - Ammonia - urine drug screen - ua - CBC - comprehensive metabolic panel - ESR - ABG - TSH Imaging: (urgency: routine): - MRI Brain with AND without contrast Diagnostic Test: - EEG Other: - If patient has any neurological deterioration please call me back immediately - I have discussed my recommendations with the referring provider - would not pursue stroke work-up if MRI is negative - telemetry monitoring - permissive hypertension Disposition: admit # Logistics Attestation of consult completion: The patient is located at: [facility]. Facility staff participated in the visit. I performed this telemedicine visit from my offsite office utilizing interactive 2 way audio and visual telecommunication technology at the request of the onsite emergency room provider. Total time spent in telemedicine encounter: I spent 15 minutes reviewing clinical data and/or imaging, obtaining history, examining the patient, communicating with the onsite care team, and in preparation of this report. # Demographics First Name: NAYLA Last Name: GHISLAINE Facility: [facility] Electronically signed at 06/17/2025 19:16 ([place] Time) by Donovan Choi MD
[2025-06-17] MEDS: levetiracetam-NACL1000mg/100ml 100 ML IV ONE (19:37)
[2025-06-17] MEDS: vancomycin/NS 1 GM ADD-VANTAGE 250 ML IV STA (19:57)
[2025-06-17] MEDS: piperacillin/tazo 3.375gm/50ml 50 ML IV ONE (19:59)
[2025-06-17] MEDS: normal saline 1000ml 1,000 ML IV ONE (20:30)
[2025-06-17 21:22] LABS: CREATININE 1.95 MG/DL (0.60-1.10); eCRCL 48 ML/MIN; eGFR 39 ML/MIN
[2025-06-17 21:38] LABS: TOTAL CARBON DIOXIDE 8.8 MMOL/L (24-32)
[2025-06-17] MEDS: midazolam 1 mg/ML 2ml injection IV ONE (21:52)
[2025-06-17 22:23] LABS: MEAN PLATELET VOLUME 8.9 FL (7.4-10.4); RED CELL DISTRIBUTION WIDTH 15.4 % (11.5-14.5)
[2025-06-17] MEDS ORDERED: OXYC1TAB17 PO (23:33)
--- NOTE | 2025-06-17 23:36 | RADIOLOGY REPORT ---
INDICATION: Aphasia COMPARISON: CT HEAD on DOS: 09/13/22, CT HEAD on DOS: 01/23/22, CT HEAD on DOS: 08/16/21 TECHNIQUE: CTA imaging of the head and neck was performed following the uneventful administration of intravenous contrast. Sagittal and coronal reformatted images were obtained from the source data. All CT scans at this medical facility are performed using dose modulation techniques as appropriate to a performed exam including the following: Automated exposure control was utilized; adjustment of the MA and/or KV according to patient size; and use of iterative reconstruction technique. 3D MIP post-processing of the source data set was performed and reviewed by the radiologist. Radiation Dose Information: CT Dose: CTDI volume is 13.3 mGy. Dose-length product is 528.5 mGy*cm FINDINGS: Evaluation is degraded by motion and streak artifact. Evaluation is also suboptimal due to poor contrast bolus. The caliber and course of the distal internal carotid arteries is unremarkable. No evidence of high-grade stenosis or occlusion of the proximal branch vessels of the [place]. The basilar artery is patent. The intracranial segments of the bilateral vertebral arteries are unremarkable in caliber. There is origin of the right posterior cerebral artery. No evidence of large aneurysm or arteriovenous malformation. The visualized thoracic aortic arch and proximal great vessels are unremarkable. The left common, internal and external carotid arteries are within normal limits. The right common, internal and external carotid arteries are within normal limits. The cervical segments of the right and left vertebral arteries are within normal limits. The limited visualized lung apices are clear. The surrounding soft tissues and osseous structures are otherwise unremarkable. IMPRESSION: 1. Limited evaluation as above without evidence of large vessel occlusion. No evidence of hemodynamically significant cervical stenosis or dissection. If clinical symptoms persist, MRA may be beneficial in further assessment.
[2025-06-17] MEDS: ondansetron/PF 4mg/2ml inj IV ONE (23:46)
[2025-06-18] VITALS (8 sets, daily range): BP systolic 141–152; BP diastolic 83–89; PULSE 68–99; RESP 12–18; TEMP 98.5–98.6; O2SAT 93–99
[2025-06-18 00:51] LABS: LEUKOCYTE ESTERASE ,URINE NEGATIVE (Neg); NITRITES, URINE NEGATIVE (Neg); OCCULT BLOOD,URINE TRACE-INTACT (Neg)
[2025-06-18] MEDS: ringers solution, lacted 1,000 ML IV ONE (00:54)
[2025-06-18] MEDS: thiamine 100mg/ml 2ml inj. IV ONE (00:56)
[2025-06-18 00:58] LABS: UA COLLECTION TYPE URINAL
[2025-06-18 01:00] LABS: SQUAMOUS EPITHELIAL CELL,UR FEW /LPF (FEW)
--- NOTE | 2025-06-18 03:02 | RADIOLOGY REPORT ---
EXAM: CT CT CHEST ABDOMEN PELVIS History: pain Comparison Study: CT CT ABDOMEN PELVIS W/ IV CONTRAST on DOS: 09/12/24 TECHNIQUE: Multidetector spiral CT of the chest, abdomen and pelvis was performed from lower neck to pubic symphysis Axial, coronal and sagittal multiplanar reformats were performed by the technologist on a separate workstation. Radiation Dose : 1. Chest/Abdomen/Pelvis: CTDIvol 16.98 mGy, DLP 1477.46 mGy*cm. FINDINGS: Lower neck: Normal thyroid. Lungs: No focal consolidation, pleural effusion or pneumothorax. Heart/Vascular Structures: Normal heart size. No pericardial effusion. Lymph Nodes: No adenopathy Pleura: No pleural effusion or significant pneumothorax. Liver: The liver is normal in size. Hepatic steatosis. No focal lesions. Otherwise, normal hepatic parenchymal attenuation. Gallbladder and Biliary Tree: Unremarkable Spleen: Unremarkable Pancreas: The pancreas is normal in appearance without focal lesions or abnormal enhancement. Adrenal Glands: Unremarkable Kidneys: Kidneys demonstrate normal symmetric parenchymal attenuation without focal lesions. Bladder: Unremarkable Bowel: The stomach is grossly normal in appearance. Small bowel and colon are normal in caliber and distribution. The appendix is not visualized; however, no secondary findings of acute appendicitis identified. Ascites: Absent Lymphadenopathy: No mesenteric, retroperitoneal or periportal lymphadenopathy. Abdominal Wall and Mesentery: Unremarkable. Vasculature: The visualized abdominal aorta is normal in size and caliber. Pelvic Organs: Unremarkable Musculoskeletal: No aggressive focal bony lesions, acute fractures or dislocation. Hardware within the right hip status post arthroplasty without evidence of complication. IMPRESSION: 1. No acute findings involving the chest, abdomen or pelvis. 2. Hepatic steatosis.
[2025-06-18 03:33] LABS: MEAN PLATELET VOLUME 8.3 FL (7.4-10.4); RED CELL DISTRIBUTION WIDTH 15.0 % (11.5-14.5)
[2025-06-18 03:46] LABS: CREATININE 1.36 MG/DL (0.60-1.10); PHOSPHORUS 1.3 MG/DL (2.3-4.5); TOTAL CARBON DIOXIDE 26.9 MMOL/L (24-32); eCRCL 69 ML/MIN; eGFR 59 ML/MIN
[2025-06-18 03:48] LABS: ACETONE NEGATIVE (NEGATIVE)
[2025-06-18] MEDS: ringers solution, lacted 1,000 ML IV SCH (03:52)
[2025-06-18] MEDS: ondansetron/PF 4mg/2ml inj IV ONE (04:21)
--- NOTE | 2025-06-18 04:21 | RADIOLOGY REPORT ---
CHEST RADIOGRAPH INDICATION: central line placement TECHNIQUE: Single frontal view of the chest was obtained COMPARISON: DI CHEST,SINGLE VIEW on DOS: 06/17/25, DI CHEST,SINGLE VIEW on DOS: 03/15/25, DI CHEST,SINGLE VIEW on DOS: 04/13/23, DI CHEST,SINGLE VIEW on DOS: 04/11/23, CHEST,SINGLE VIEW on DOS: 08/21/22 FINDINGS: Lines and Tubes: Right internal jugular central venous catheter tip projects over the proximal superior vena cava. Lungs: Clear Pleura: No effusion. No pneumothorax. Cardiomediastinal contours: Unremarkable Bones: Unremarkable IMPRESSION: 1. Right internal jugular central venous catheter tip projects over the proximal superior vena cava. 2. No evidence of acute cardiopulmonary process.
--- NOTE | 2025-06-18 04:24 | CONSULTATION REPORT ---
Consult Providers to CC CC: ADAM ZUNIGA MD Altered Mental Status Generalized weakness Initially came to the hospital as a stroke alert ~ History of Present Illness Reason for Admit\Complaint: Altered Mental Status, Slurred Speech and Disorientation/Weakness History of Present Illness 40 yr old man who tends to get admitted to the [facility] who we are seeing in the hospital today. He was seen in the ER and a stroke code was called but this was later cancelled as he was not found to have a stroke and a lot of his manifestations was felt to be intoxication related. He was found to have a severe metabolic acidosis. He was positive for alcohol with level of 220 He was not able to follow commands initially due to his intoxication. There was a question as to whether he was having a stroke, whether he was septic or whether it was all a metabolic encephalopathy due to a possible toxic ingestion. Patient has a hx of alcohol abuse. I saw him using the HIPPA compliant video system and he complained of feeling pain on his sides but he didn't quite remember how he ended up in the ER. He endorsed drinking a lot of alcohol yesterday.He does not have a hx of diabetes. At the time of my evaluation he was his nurse at the bedside He was tachycardic. His oxygen saturation was good in the 99-100 range ]He was said to have been hypertensive when he got to the hospital. He was receiving fluid boluses as we felt he was in severe metabolic acidosis and suspected he was likely in an alcoholic ketoacidosis. Prior to the time I saw him he had received 2L of normal saline I asked for another liter of lactated ringers and to put on 150cc/hr of Ringers Lactate. I asked for his Lipase and another lactic acid level and another full comprehensive metabolic panel. We started him on intravenous thiamine in addition to the ask for lactated ringers as his IV fluids. We also obtained a full CT scan of his Chest, Abdomen and Pelvis. Current Medications Medications (Trade) Dose Ordered Sig/Dulce Route PRN Reason Start Time Stop Time Status Last Admin Dose Admin Sodium Chloride (0.9% sodium chloride (NS) 1000ml IV soln) 1,000 ml ONCE ONCE IVB 06/17/25 17:45 06/17/25 17:46 DC 06/17/25 18:50 1,000 ML Metoclopramide HCl (Reglan inj) 10 mg ONCE ONCE IV 06/17/25 18:05 06/17/25 18:06 DC 06/17/25 18:48 10 MG Diphenhydramine HCl (Benadryl inj.) 50 mg ONCE ONCE IV 06/17/25 18:05 06/17/25 18:06 DC 06/17/25 18:48 50 MG Piperacillin/ Tazobactam/ Dextrose 50 ml @ 100 mls/hr ONCE ONCE IV 06/17/25 19:20 06/17/25 19:49 DC 06/17/25 19:59 100 MLS/HR Vancomycin HCl 250 ml @ 166 mls/hr ONCE STAT IV 06/17/25 19:20 06/17/25 20:47 DC 06/17/25 19:57 166 MLS/HR Sodium Chloride 1,000 ml @ 1,000 mls/hr ONCE ONCE IV 06/17/25 19:25 06/17/25 20:24 DC 06/17/25 20:30 1,000 MLS/HR Levetiracetam 100 ml @ 400 mls/hr ONCE ONCE IV 06/17/25 19:25 06/17/25 19:39 DC 06/17/25 19:37 400 MLS/HR Midazolam HCl (VERSED 1 MG/ML 2 ML inj.) 2 mg ONCE ONCE IV 06/17/25 21:40 06/17/25 21:41 DC 06/17/25 21:52 2 MG Ondansetron HCl (Zofran 4mg/2ml vial) 8 mg ONCE ONCE IV 06/17/25 23:40 06/17/25 23:41 DC 06/17/25 23:46 8 MG Lactated Ringer's 1,000 ml @ 150 mls/hr Q6H40M IV 06/18/25 00:40 06/18/25 03:52 150 MLS/HR Lactated Ringer's 1,000 ml @ 1,000 mls/hr ONCE ONCE IV 06/18/25 00:40 06/18/25 01:39 DC 06/18/25 00:54 1,000 MLS/HR Thiamine HCl (thiamine inj.) 100 mg ONCE ONCE IV 06/18/25 00:40 06/18/25 00:45 DC 06/18/25 00:56 100 MG Ondansetron HCl (Zofran 4mg/2ml vial) 4 mg ONCE ONCE IV 06/18/25 04:15 06/18/25 04:18 DC 06/18/25 04:21 4 MG Metoclopramide HCl (Reglan inj) 5 mg Q6H PRN IV nausea/vomiting 06/18/25 09:05 06/18/25 09:14 5 MG Allergies: Coded Allergies: sulfamethoxazole (Verified Allergy, Intermediate, HIVES, 06/17/25) trimethoprim (Verified Allergy, Intermediate, HIVES, 06/17/25) Home Medications Home Medications Active Reported Oxycodone-Acetaminophen 10-325 (Oxycodone Hcl/Acetaminophen) 10 Mg-325 Mg Tablet 1 Tab PO Q8H PRN Family History Family History: Suicide FATHER (UNKNOWN), Exam Vitals: Vital Signs Date Time Temp Pulse Resp B/P (MAP) Pulse Ox O2 Delivery O2 Flow Rate FiO2 06/18/25 04:00 98.5 99 16 142/83 (102) 99 Room Air 06/18/25 01:00 0 Diagnostic Data Last Recorded Lab Results: 06/18/25 0322 06/18/25 0322 Diagnostic Data: Laboratory Tests Test 06/17/25 18:25 Prothrombin Time 11.2 SECONDS (9.0-12.0) INR International Normalized Ratio 1.1 INR Activated Partial Thromboplast Time 25 SECONDS (22-32) Coagulation Comments CT CHEST ABDO and PELVIS istory: pain Comparison Study: CT CT ABDOMEN PELVIS W/ IV CONTRAST on DOS: 09/12/24 TECHNIQUE: Multidetector spiral CT of the chest, abdomen and pelvis was performed from lower neck to pubic symphysis Axial, coronal and sagittal multiplanar reformats were performed by the technologist on a separate workstation. Radiation Dose : 1. Chest/Abdomen/Pelvis: CTDIvol 16.98 mGy, DLP 1477.46 mGy*cm. FINDINGS: Lower neck: Normal thyroid. Lungs: No focal consolidation, pleural effusion or pneumothorax. Heart/Vascular Structures: Normal heart size. No pericardial effusion. Lymph Nodes: No adenopathy Pleura: No pleural effusion or significant pneumothorax. Liver: The liver is normal in size. Hepatic steatosis. No focal lesions. Otherwise, normal hepatic parenchymal attenuation. Gallbladder and Biliary Tree: Unremarkable Spleen: Unremarkable Pancreas: The pancreas is normal in appearance without focal lesions or abnormal enhancement. Adrenal Glands: Unremarkable Kidneys: Kidneys demonstrate normal symmetric parenchymal attenuation without focal lesions. Bladder: Unremarkable Bowel: The stomach is grossly normal in appearance. Small bowel and colon are normal in caliber and distribution. The appendix is not visualized; however, no secondary findings of acute appendicitis identified. Ascites: Absent Lymphadenopathy: No mesenteric, retroperitoneal or periportal lymphadenopathy. Abdominal Wall and Mesentery: Unremarkable. Vasculature: The visualized abdominal aorta is normal in size and caliber. Pelvic Organs: Unremarkable Musculoskeletal: No aggressive focal bony lesions, acute fractures or dislocation. Hardware within the right hip status post arthroplasty without evidence of complication. IMPRESSION: 1. No acute findings involving the chest, abdomen or pelvis. 2. Hepatic steatosis. Additional Plan Assessment - Acute Encephalopathy - Acute Kidney Injury - Hypophosphatemia - Hyperglycemia - Severe Metabolic acidosis - Alcohol Intoxication - Lactic acidosis 40 yr old man we saw and admitted from the ER He has a hx of alcohol abuse We noted he had come with a severe metabolic acidosis, lactic acidosis, severe dehydration and Acute Kidney Injury. He was intoxicated with Alcohol, We suspected possible alcoholic ketoacidosis We have hydrated him aggressively we have excluded any intra abdominal pathology like acute pancreatitis, appendicitis or any other source of acute abdomen at this time. He has responded to volume hydration His renal indices are improving He was started on broad spectrum antibiotics empirically with suspicion of sepsis and we still have not found a source at this time I would monitor closely and possibly begin to deescalate as he continues to show stability He will be watched closely for withdrawal in the coming days Thank you for the opportunity to participate in his care Over 60 minutes of CCT Date of Service: Jun 18, 2025 Billing Provider: ADAM ZUNIGA MD Common Visit Codes: 96449-[id number] CARE 30-74 MIN Secondary Visit Codes: 39194-CJLDE CHNG SMOKING >10MIN ADAM ZUNIGA MD Jun 18, 2025 04:24
[2025-06-18] MEDS ORDERED: nicotine 14mg patch - 24hr TD PRN (08:25)
[2025-06-18] MEDS ORDERED: ondansetron/PF 4mg/2ml inj IV PRN (08:50)
[2025-06-18] MEDS: metoclopramide 5 mg/ml inj IV PRN (09:14)
[2025-06-18] MEDS ORDERED: thiamine 100mg/ml 2ml inj. IV SCH (13:00)
--- NOTE | 2025-06-18 14:14 | DISCHARGE SUMMARY-Residence ---
Discharge Summary Providers to CC Resident Creating Document: DORIS SCHAEFER RES ~ Discharge Summary Admission Diagnosis: Metabolic encephalopathy, alcoholic ketoacidosis Hospital Course DATE OF ADMISSION: 06/18/25 DATE OF DISCHARGE: 06/18/25 Discharge Diagnosis\Comment: - recent right total hip arthroplasty fro the avascular necrosis on 05/15/[address] Soliz -orthostatic hypotension -substance use disorder (EtOH, and tobacco) -Severe EtOH withdrawal protocol -Acute metabolic encephalopathy from the Non specified Stroke mimicking symptoms to rule out the CVA -Non specific Metabolic acidosis possibly from the EtOH abuse Operations\Procedures: None Consultants: TeleNeurology consultation Complications: None Condition on DC: Unstable Discharge Summary: A 40 years old male with the PMH of recent right total hip arthroplasty fro the avascular necrosis on 05/15/[address] Soliz, orthostatic hypotension, substance use disorder (EtOH, and tobacco) presented to the ER last night for the acute metabolic encephalopathy which was mimicking the CVA symptoms for which the patient was consulted by the Teleneurology service, where they recommended for the Stroke workup. As per last night ER physician's documentation, patient was found to have the seizure like activity as well, which could be the part of his EtOH withdrawal from the relapse used after the sobering for months with the evidence of serum EtOh was 222 and pt committed that he resumed the binge alcohol drinking last Tuesday. He also complained of the abdominal pain nausea and vomiting, found to have metabolic acidosis. Pt was admitted to ICU last night. Pt was given Fluid boluses and IV Thiamine in ER. This morning, pt was planned to be downgraded to the regular medical floor to continue the EtOH withdrawal protocol treatment with the high dose Folic acid and vitamin B12 injections along with the long acting Librium 25 mg Q6Hrs. However, patient wanted to leave Against Medical Advice (AMA) even after the risk and consequences of the [id number] for the EtOH withdrawal symptoms which could be lethal. He was educated to return to the any nearest emergency services in ER for any emergency situations before he left AMA. Resident MD attestation: Patient was seen, examined and discussed with attending MD, Dr. Bianca SCHAEFER MD Internal Medicine Resident, PGY3 [facility] *Problems/Diagnosis: (1) Elevated ETOH level Status: Acute Total Time Spent on D/C: > 30 Minutes Counseling Services Smoking & Tobacco Cessation: 3-10 Minutes Date of Service: Jun 18, 2025 Billing Provider: MILO LARIOS MD,DORIS, RES Jun 18, 2025 14:11
[2025-06-19] MEDS ORDERED: folic acid 1mg/0.2ml inj IV SCH (08:00)
== END 2025-06-18 10:26 | disposition left against medical advice (07) | DRG 52 ==
LOC: ER 17:23 → ED HOLD 06-18 01:34 → EDBEDREQ 06-18 01:56 → CICU 2S 06-18 03:52
PROVIDERS: ADMIT Internal Medicine; ATTEND Internal Medicine
PROC: 4A00X4Z Measurement of Central Nervous Electrical Activity, External Approach (ICD-10-PCS; 2025-06-17)
PROC: B3251ZZ Computerized Tomography (CT Scan) of Bilateral Common Carotid Arteries using Low Osmolar Contrast (ICD-10-PCS; 2025-06-17)
PROC: B32G1ZZ Computerized Tomography (CT Scan) of Bilateral Vertebral Arteries using Low Osmolar Contrast (ICD-10-PCS; 2025-06-17)
PROC: B32R1ZZ Computerized Tomography (CT Scan) of Intracranial Arteries using Low Osmolar Contrast (ICD-10-PCS; 2025-06-17)
PROC: B3281ZZ Computerized Tomography (CT Scan) of Bilateral Internal Carotid Arteries using Low Osmolar Contrast (ICD-10-PCS; 2025-06-17)
PROC: 02HV33Z Insertion of Infusion Device into Superior Vena Cava, Percutaneous Approach (ICD-10-PCS; principal; 2025-06-18)
PROC: B548ZZA Ultrasonography of Superior Vena Cava, Guidance (ICD-10-PCS; 2025-06-18)
DX: G93.41 Metabolic encephalopathy (principal); E87.29 Other acidosis; E83.39 Other disorders of phosphorus metabolism; N17.9 Acute kidney failure, unspecified; F10.129 Alcohol abuse with intoxication, unspecified; I10 Essential (primary) hypertension; K76.0 Fatty (change of) liver, not elsewhere classified; E86.0 Dehydration; R73.9 Hyperglycemia, unspecified; F41.9 Anxiety disorder, unspecified; Z53.21 Procedure and treatment not carried out due to patient leaving prior to being seen by health care provider; Z86.73 Personal history of transient ischemic attack (TIA), and cerebral infarction without residual deficits; Z88.2 Allergy status to sulfonamides
CPT/HCPCS: 36415; 70450; 70496; 70498; 71045; 71250; 74176; 80048; 80053; 80320; 81001; 82009; 82140; 82948; 83605; 83690; 83735; 84100; 84145; 84443; 84484; 84550; 85025; 85610; 85651; 85730; 86870; 86885; 86900; 86901; 86902; 86905; 87081; 93005; 96365; 96368; 99285; A4615; A6258; A6449; C1751; G0378; J1200; J1953; J2250; J2405; J2543; J2765; J3373; J3411; J7030; J7120; Q9967

== ENCOUNTER 2025-06-21 14:33 | Emergency (ER) | payer MEDICAID ==
[~2025-06-21] VITALS: Ht 175.3 cm; Wt 68.5 kg
[~2025-06-21 14:33] MED LIST changes: -CELE-127 PO; -CYCL10TA25 PO; -GABA300T28; -HYDR-3686 PO; -OXYC-145 PO; +OXYC1TAB17 PO
[2025-06-21 14:35] VITALS: BP 123/87; PULSE 114; RESP 16; TEMP 98; O2SAT 95
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
[2025-06-22] MEDS ORDERED: ONDA-243 PO (10:36)
[2025-06-22] MEDS ORDERED: LORA-269 PO (10:36)
[2025-06-22] MEDS ORDERED: GABA-535 PO (10:36)
== END 2025-06-21 14:46 | disposition home or self-care (01) ==
LOC: ER 14:33
DX: Z00.00 Encounter for general adult medical examination without abnormal findings (principal); F14.90 Cocaine use, unspecified, uncomplicated; F12.90 Cannabis use, unspecified, uncomplicated; F41.9 Anxiety disorder, unspecified; I10 Essential (primary) hypertension; F10.10 Alcohol abuse, uncomplicated; G89.29 Other chronic pain; Z88.2 Allergy status to sulfonamides; Z88.8 Allergy status to other drugs, medicaments and biological substances; Z59.00 Homelessness unspecified; Y90.9 Presence of alcohol in blood, level not specified
CPT/HCPCS: 99282

== ENCOUNTER 2025-06-22 09:49 | Emergency (ER) | payer MEDICAID ==
[~2025-06-22] VITALS: Ht 175.3 cm; Wt 68.2 kg
[2025-06-22 10:01] VITALS: BP 141/104; PULSE 120; RESP 18; TEMP 99.3; O2SAT 99
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
[2025-06-22] MEDS ORDERED: GABA-535 PO (10:36)
[2025-06-22] MEDS ORDERED: LORA-269 PO (10:36)
[2025-06-22] MEDS ORDERED: ONDA-243 PO (10:36)
[2025-06-22] MEDS ORDERED: ondansetron 4mg rapidly disintigrating tab PO ONE (10:40)
== END 2025-06-22 12:46 | disposition left against medical advice (07) ==
LOC: ER 09:50
DX: Z00.00 Encounter for general adult medical examination without abnormal findings (principal); G89.29 Other chronic pain; F41.9 Anxiety disorder, unspecified; I10 Essential (primary) hypertension; F10.10 Alcohol abuse, uncomplicated; F12.90 Cannabis use, unspecified, uncomplicated; F14.90 Cocaine use, unspecified, uncomplicated; Z88.2 Allergy status to sulfonamides; Z88.8 Allergy status to other drugs, medicaments and biological substances; Z59.00 Homelessness unspecified; Y90.9 Presence of alcohol in blood, level not specified
CPT/HCPCS: 99283